=== PATIENT | male | born 1950 | race Caucasian/White ===

== ENCOUNTER → 2016-06-11 | Outpatient (CLI) | payer MEDICARE ==
--- NOTE | 2016-06-11 16:49 | CT ---
EXAMINATION TYPE: CT abdomen pelvis wo con DATE OF EXAM: 06/11/2016 2:51 PM COMPARISON: NONE INDICATION: Pt states of hydronephrosis, hx of kidney stones. DLP: 1055 mGycm, Automated exposure control for dose reduction was used. CONTRAST: None Study performed without Oral Contrast TECHNIQUE: Axial images were obtained from above the diaphragm to the pubic rami in the axial plane a t 5 mm thick sections. Reconstructed images are reviewed on the computer in the coronal plane. FINDINGS: Limited CT sections are obtained the lung bases. There is a masslike area within the posterior right lung base. This area measures 10.0 x 6.5 cm in size. Additional workup for neoplasm is recommended. Other etiologies including atelectasis and pneumonia be considered. CT ABDOMEN: Liver: Normal Spleen: Normal Pancreas: Normal Adrenal glands: The adrenal glands are normal. Gallbladder: Normal Kidneys: There is a 0.9 cm calcification within the proximal right ureter. There is mild right hydron ephrosis.. No discrete renal masses are evident. Exam is limited without contrast. No cysts are prese nt. Aorta: Vascular calcification is within the aorta. Inferior vena cava: Normal. CT PELVIS: Loops of bowel within the abdomen and pelvis are normal. Study is without oral contrast limiting the evaluation Appendix: Normal as visualized. Urinary bladder: 2 small calcifications are within the inferior left urinary bladder represent recent passage of stones. Distal left ureteral stones at the ureterovesical junction is considered less lik elio. Genitourinary structures: Prostate is slightly prominent Osseous structures: No suspicious lytic or sclerotic lesions. Degenerative disc changes are within th e lumbar spine IMPRESSIONS: 1. Suspicious masslike area inferior posterior right lung base. Workup for neoplasm is recommended. Other etiologies are not excluded this time. This was reported April 2016. 2. Obstructing 0.9 cm right ureteral stone proximal right ureter. There is a right hydronephrosis. 3. 2 small calcifications in the left urinary bladder
== END | disposition home or self-care (01) ==
LOC: RADCTMAIN 14:20
PROVIDERS: ATTEND Urology
DX: N13.2 Hydronephrosis with renal and ureteral calculous obstruction (principal); N32.89 Other specified disorders of bladder
CPT/HCPCS: 74176

== ENCOUNTER → 2016-06-18 | Outpatient (CLI) | payer MEDICARE ==
--- NOTE | 2016-06-18 13:55 | XR ---
EXAMINATION TYPE: XR KUB DATE OF EXAM: 06/18/2016 1:46 PM COMPARISON: CT 06/11/2016 HISTORY: Pain and hydronephrosis FINDINGS: The osseous structures are intact. The bowel gas pattern is nonspecific. Hypertrophic and degenerative change of the spine. Calcification measuring approximately 1 cm adjacen t to the right transverse process of L3. Arthropathy of the hips and calcifications in the left pelvis likely vascular. Findings suggest mild sacroiliitis. IMPRESSION: 1. Nonspecific abdomen. 2. Probable midureteral right renal calculus measuring 1 cm
== END | disposition home or self-care (01) ==
LOC: RADXRMAIN 13:29
PROVIDERS: ATTEND Urology
DX: N20.1 Calculus of ureter (principal)
CPT/HCPCS: 74000

== ENCOUNTER 2016-06-19 14:47 | Inpatient (IN) | payer MEDICARE ==
[2016-06-19] MEDS ORDERED: ACETAMINOPHEN TAB 500 MG TAB PO STA (16:04)
--- NOTE | 2016-06-19 16:08 | ED ---
General Adult HPI - General Chief complaint: Fever Stated complaint: fever/chills/cough Time Seen by Provider: 06/19/16 15:53 Source: patient, family, RN notes reviewed Mode of arrival: ambulatory Limitations: no limitations - History of Present Illness Initial comments: Patient is a 66-year-old male who presents emergency room today with a chief complaint of a fever with cough congestion over the last month. He does admit that symptoms started approximately a month ago. He states he was on Levaquin. He states this does not seem to do an informed. He states he went to [place]. [facility] they're given antibiotics for 2 weeks. She states she did feel better when he was on these antibiotics. He states that he's been off of them again the symptoms seemed to increase with cough congestion and increased rhinorrhea. Does make to cough with positive sputum production as been yellow in color. States he did have CAT scan done of his chest showed a mass and lymph nodes around lungs. States he is scheduled to have a biopsy performed by Dr. Oropeza in one week. Patient does admit that over the week and his symptoms seemed to increase with having fevers chills or body aches. He denies any other complaints or symptoms. Patient denies any shortness of breath, chest pain, back pain, abdominal pain, nausea or vomiting, numbness or tingling, dysuria or hematuria, constipation or diarrhea, headaches or visual changes, or any other complaints. - Related Data Home Medications Medication Instructions Recorded Confirmed Aspirin 81 mg PO DAILY 11/26/14 06/19/16 Atorvastatin [Lipitor] 20 mg PO HS 11/26/14 06/19/16 Bisoprolol-Hctz 5-6.25 mg [Ziac 1 tab PO DAILY 11/26/14 06/19/16 5-6.25] Doxazosin [Cardura] 4 mg PO BID 11/26/14 06/19/16 Levofloxacin [Levaquin] 500 mg PO DAILY 06/19/16 06/19/16 Moexipril HCl [Univasc] 15 mg PO BID 06/19/16 06/19/16 Multivitamins, Thera [Multivitamin] 1 tab PO DAILY 06/19/16 06/19/16 Allergies Allergy/AdvReac Type Severity Reaction Status Date / Time Penicillins Allergy Swelling Verified 06/19/16 15:19 Review of Systems ROS Statement: Those systems with pertinent positive or pertinent negative responses have been documented in the HPI. ROS Other: All systems not noted in ROS Statement are negative. Past Medical History Past Medical History: Hyperlipidemia, Hypertension, Prostate Disorder Additional Past Medical History / Comment(s): lymph nodes around heart and mass in lungs, to have biopsy jun 2016 History of Any Multi-Drug Resistant Organisms: None Reported Past Surgical History: Orthopedic Surgery Additional Past Surgical History / Comment(s): cateract arthroscopy nigel feet Past Psychological History: No Psychological Hx Reported Smoking Status: Current every day smoker Past Alcohol Use History: None Reported Past Drug Use History: None Reported General Exam - General Exam Comments Initial Comments: General: The patient is awake and alert, in no distress, and does not appear acutely ill. Eye: Pupils are equal, round and reactive to light, extra-ocular movements are intact. No nystagmus. There is normal conjunctiva bilaterally. No signs of icterus. Ears, nose, mouth and throat: There are moist mucous membranes and no oral lesions. Neck: The neck is supple, there is no tenderness or JVD. Cardiovascular: There is a regular rate and rhythm. No murmur, rub or gallop is appreciated. Respiratory: Lungs are clear to auscultation, respirations are non-labored, breath sounds are equal. No wheezes, stridor, rales, or rhonchi. Gastrointestinal: Soft, non-distended, non-tender abdomen without masses or organomegaly noted. There is no rebound or guarding present. No CVA tenderness. Bowel sounds are unremarkable. Musculoskeletal: Normal ROM, no tenderness. Strength 5/5. Sensation intact. Pulses equal bilaterally 2+. Neurological: A&O x 3. CN II-XII intact, There are no obvious motor or sensory deficits. Coordination appears grossly intact. Speech is normal. Skin: Skin is warm and dry and no rashes or lesions are noted. Psychiatric: Cooperative, appropriate mood & affect, normal judgment. Limitations: no limitations Course Vital Signs 06/19/16 06/19/16 06/19/16 15:10 16:09 17:37 Temperature 101.3 F H Pulse Rate 93 90 Respiratory 18 20 20 Rate Blood Pressure 129/60 108/55 O2 Sat by Pulse 93 L 94 L Oximetry Medical Decision Making - Medical Decision Making Patient reexamined at this time shows no signs of distress. Patient's labs reviewed and shows a 13,000 white count. Negative lactic acid. Patient's fever elevated here in the emergency room 11.3F at triage. Patient has been on 3 rounds of antibiotics for cough congestion. Currently on second round of Levaquin. States no improvement. Recent CTs were reviewed showing lymphadenopathy and mass in the right side. Patient's chest x-ray shows patchy infiltrate. Patient will be admitted*on antibiotics. Does have a penicillin ALLERGY. Will be given Rocephin and azithromycin. - Lab Data Result diagrams: 06/19/16 15:39 06/19/16 15:39 Lab Results 06/19/16 06/19/16 06/19/16 Range/Units 15:39 15:39 15:39 WBC 13.0 H (3.8-10.6) k/uL RBC 4.97 (4.30-5.90) m/uL Hgb 15.6 (13.0-17.5) gm/dL Hct 44.9 (39.0-53.0) % MCV 90.4 (80.0-100.0) fL MCH 31.3 (25.0-35.0) pg MCHC 34.7 (31.0-37.0) g/dL RDW 13.3 (11.5-15.5) % Plt Count 189 (150-450) k/uL Neutrophils % 84 % Lymphocytes % 7 % Monocytes % 7 % Eosinophils % 0 % Basophils % 0 % Neutrophils # 11.0 H (1.3-7.7) k/uL Lymphocytes # 0.8 L (1.0-4.8) k/uL Monocytes # 0.9 (0-1.0) k/uL Eosinophils # 0.1 (0-0.7) k/uL Basophils # 0.0 (0-0.2) k/uL PT (9.0-12.0) sec INR (<1.1) APTT (22.0-30.0) sec Sodium 138 (137-145) mmol/L Potassium 4.0 (3.5-5.1) mmol/L Chloride 102 (98-107) mmol/L Carbon Dioxide 23 (22-30) mmol/L Anion Gap 13 mmol/L BUN 24 H (9-20) mg/dL Creatinine 1.40 H (0.66-1.25) mg/dL Est GFR (MDRD) Af Amer >60 (>60 ml/min/1.73 sqM) Est GFR (MDRD) Non-Af 50 (>60 ml/min/1.73 sqM) Glucose 102 H (74-99) mg/dL Plasma Lactic Acid Livan (0.7-2.0) mmol/L Calcium 8.8 (8.4-10.2) mg/dL Total Bilirubin 1.5 H (0.2-1.3) mg/dL AST 30 (17-59) U/L ALT 37 (21-72) U/L Alkaline Phosphatase 98 (38-126) U/L Total Creatine Kinase 152 (55-170) U/L CK-MB (CK-2) 0.7 (0.0-2.4) ng/mL CK-MB (CK-2) Rel Index 0.5 Troponin I <0.012 (0.000-0.034) ng/mL Total Protein 7.0 (6.3-8.2) g/dL Albumin 3.7 (3.5-5.0) g/dL Cortisol 22 ug/dL Urine Color Urine Appearance (Clear) Urine pH (5.0-8.0) Ur Specific [place] (1.001-1.035) Urine Protein (Negative) Urine Glucose (UA) (Negative) Urine Ketones (Negative) Urine Blood (Negative) Urine Nitrate (Negative) Urine Bilirubin (Negative) Urine Urobilinogen (<2.0) mg/dL Ur Leukocyte Esterase (Negative) Urine RBC (0-5) /hpf Urine WBC (0-5) /hpf Urine Bacteria (None) /hpf Hyaline Casts (0-2) /lpf Urine Mucus (None) /hpf Influenza Type A RNA (Not Detectd) Influenza Type B (PCR) (Not Detectd) 06/19/16 06/19/16 06/19/16 Range/Units 15:39 15:39 15:39 WBC (3.8-10.6) k/uL RBC (4.30-5.90) m/uL Hgb (13.0-17.5) gm/dL Hct (39.0-53.0) % MCV (80.0-100.0) fL MCH (25.0-35.0) pg MCHC (31.0-37.0) g/dL RDW (11.5-15.5) % Plt Count (150-450) k/uL Neutrophils % % Lymphocytes % % Monocytes % % Eosinophils % % Basophils % % Neutrophils # (1.3-7.7) k/uL Lymphocytes # (1.0-4.8) k/uL Monocytes # (0-1.0) k/uL Eosinophils # (0-0.7) k/uL Basophils # (0-0.2) k/uL PT 11.7 (9.0-12.0) sec INR 1.2 (<1.1) APTT 26.5 (22.0-30.0) sec Sodium (137-145) mmol/L Potassium (3.5-5.1) mmol/L Chloride (98-107) mmol/L Carbon Dioxide (22-30) mmol/L Anion Gap mmol/L BUN (9-20) mg/dL Creatinine (0.66-1.25) mg/dL Est GFR (MDRD) Af Amer (>60 ml/min/1.73 sqM) Est GFR (MDRD) Non-Af (>60 ml/min/1.73 sqM) Glucose (74-99) mg/dL Plasma Lactic Acid Livan 1.1 (0.7-2.0) mmol/L Calcium (8.4-10.2) mg/dL Total Bilirubin (0.2-1.3) mg/dL AST (17-59) U/L ALT (21-72) U/L Alkaline Phosphatase (38-126) U/L Total Creatine Kinase (55-170) U/L CK-MB (CK-2) (0.0-2.4) ng/mL CK-MB (CK-2) Rel Index Troponin I (0.000-0.034) ng/mL Total Protein (6.3-8.2) g/dL Albumin (3.5-5.0) g/dL Cortisol ug/dL Urine Color Yellow Urine Appearance Clear (Clear) Urine pH 5.5 (5.0-8.0) Ur Specific [place] 1.018 (1.001-1.035) Urine Protein 1+ H (Negative) Urine Glucose (UA) Negative (Negative) Urine Ketones Negative (Negative) Urine Blood Negative (Negative) Urine Nitrate Negative (Negative) Urine Bilirubin Negative (Negative) Urine Urobilinogen <2.0 (<2.0) mg/dL Ur Leukocyte Esterase Trace H (Negative) Urine RBC 1 (0-5) /hpf Urine WBC 6 H (0-5) /hpf Urine Bacteria Rare H (None) /hpf Hyaline Casts 1 (0-2) /lpf Urine Mucus Rare H (None) /hpf Influenza Type A RNA (Not Detectd) Influenza Type B (PCR) (Not Detectd) 06/19/16 Range/Units 16:14 WBC (3.8-10.6) k/uL RBC (4.30-5.90) m/uL Hgb (13.0-17.5) gm/dL Hct (39.0-53.0) % MCV (80.0-100.0) fL MCH (25.0-35.0) pg MCHC (31.0-37.0) g/dL RDW (11.5-15.5) % Plt Count (150-450) k/uL Neutrophils % % Lymphocytes % % Monocytes % % Eosinophils % % Basophils % % Neutrophils # (1.3-7.7) k/uL Lymphocytes # (1.0-4.8) k/uL Monocytes # (0-1.0) k/uL Eosinophils # (0-0.7) k/uL Basophils # (0-0.2) k/uL PT (9.0-12.0) sec INR (<1.1) APTT (22.0-30.0) sec Sodium (137-145) mmol/L Potassium (3.5-5.1) mmol/L Chloride (98-107) mmol/L Carbon Dioxide (22-30) mmol/L Anion Gap mmol/L BUN (9-20) mg/dL Creatinine (0.66-1.25) mg/dL Est GFR (MDRD) Af Amer (>60 ml/min/1.73 sqM) Est GFR (MDRD) Non-Af (>60 ml/min/1.73 sqM) Glucose (74-99) mg/dL Plasma Lactic Acid Livan (0.7-2.0) mmol/L Calcium (8.4-10.2) mg/dL Total Bilirubin (0.2-1.3) mg/dL AST (17-59) U/L ALT (21-72) U/L Alkaline Phosphatase (38-126) U/L Total Creatine Kinase (55-170) U/L CK-MB (CK-2) (0.0-2.4) ng/mL CK-MB (CK-2) Rel Index Troponin I (0.000-0.034) ng/mL Total Protein (6.3-8.2) g/dL Albumin (3.5-5.0) g/dL Cortisol ug/dL Urine Color Urine Appearance (Clear) Urine pH (5.0-8.0) Ur Specific [place] (1.001-1.035) Urine Protein (Negative) Urine Glucose (UA) (Negative) Urine Ketones (Negative) Urine Blood (Negative) Urine Nitrate (Negative) Urine Bilirubin (Negative) Urine Urobilinogen (<2.0) mg/dL Ur Leukocyte Esterase (Negative) Urine RBC (0-5) /hpf Urine WBC (0-5) /hpf Urine Bacteria (None) /hpf Hyaline Casts (0-2) /lpf Urine Mucus (None) /hpf Influenza Type A RNA Not Detected (Not Detectd) Influenza Type B (PCR) Not Detected (Not Detectd) Disposition Clinical Impression: Community acquired pneumonia Disposition: ADMITTED IP TO THIS HOSP Condition: Stable Time of Disposition: 18:07
[2016-06-19 16:27] LABS: Basophils % (A) 0 %; CH 31.3; CHCM 34.8; Eosinophils # (A) 0.1 k/uL (0-0.7); Eosinophils % (A) 0 %; HCT 44.9 % (39.0-53.0); HDW 2.76; HGB 15.6 gm/dL (13.0-17.5); Luc # (Auto) 0.25; Luc % (Auto) 2; Lymphocytes # (A) 0.8 k/uL (1.0-4.8); Lymphocytes % (A) 7 %; MCH 31.3 pg (25.0-35.0); MCHC 34.7 g/dL (31.0-37.0); MCV 90.4 fL (80.0-100.0); Mean Platelet Volume 7.3; Monocytes # (A) 0.9 k/uL (0-1.0); Monocytes % (A) 7 %; Neutrophils % (A) 84 %; RBC 4.97 m/uL (4.30-5.90); RDW 13.3 % (11.5-15.5); WBC (Perox) 13.96
[2016-06-19 16:32] LABS: Appearance,Urine Clear (Clear); Bacteria,Urine Rare /hpf; Bilirubin,Urine Negative (Negative); Glucose,Urine (UA) Negative (Negative); Ketones,Urine Negative (Negative); Leukocyte Esterase,Urine Trace (Negative); Mucus,Urine Rare /hpf; Nitrite,Urine Negative (Negative); PH, Urine 5.5 (5.0-8.0); Particle Count 4110; Protein,Urine 1+ (Negative); RBC,Urine 1 /hpf (0-5); Specific Gravity,Urine 1.018 (1.001-1.035); UA Billing (MACRO vs. MICRO) MICRO; Urobilinogen,Urine <2.0 mg/dL (<2.0); WBC,Urine 6 /hpf (0-5)
[2016-06-19 16:36] LABS: INR 1.2 (<1.1); Partial Thromboplastin Time 26.5 sec (22.0-30.0); Prothrombin Time 11.7 sec (9.0-12.0)
[2016-06-19 16:39] LABS: Creatine Kinase 152 U/L (55-170)
[2016-06-19 16:40] LABS: ALT 37 U/L (21-72); AST 30 U/L (17-59); Alkaline Phosphatase 98 U/L (38-126); Anion Gap 13 mmol/L; Blood Urea Nitrogen 24 mg/dL (9-20); Calcium 8.8 mg/dL (8.4-10.2); Carbon Dioxide 23 mmol/L (22-30); Chloride 102 mmol/L (98-107); Glucose 102 mg/dL (74-99); Non-African American GFR(MDRD) 50 (>60 ml/min/1.73 sqM); Sodium 138 mmol/L (137-145); Total Bilirubin 1.5 mg/dL (0.2-1.3)
[2016-06-19 16:53] LABS: Creatine Kinase MB 0.7 ng/mL (0.0-2.4); Troponin I <0.012 ng/mL (0.000-0.034)
--- NOTE | 2016-06-19 17:22 | XR ---
EXAMINATION TYPE: XR chest 2V DATE OF EXAM: 06/19/2016 5:16 PM HISTORY: Cough. REFERENCE: Previous study dated 12/23/2014. FINDINGS: The lungs are overinflated. The heart is not enlarged. There is patchy bilateral airspace disease. There is blunting of the right CP angle. IMPRESSION: 1. PATCHY, BILATERAL AIRSPACE DISEASE LIKELY REPRESENTS EARLY PNEUMONIA. 2. I CANNOT EXCLUDE A SMALL RIGHT-SIDED EFFUSION. 3. COPD.
[2016-06-19] MEDS ORDERED: PNEUMONIA PROTOCOL UTILIZED 1 EACH MISC PO PRN (18:08)
[2016-06-19] MEDS ORDERED: AZITHROMYCIN 500 MG in SODIUM CHLORIDE 0.9% 250 ML IVPB STA (18:08)
[2016-06-19] MEDS ORDERED: SODIUM CHLORIDE 0.9% 1,000 ML IV ONE (18:08)
[2016-06-19] MEDS ORDERED: SODIUM CHLORIDE 0.9% 500 ML IV STA (18:51)
[2016-06-19] MEDS ORDERED: SODIUM CHLORIDE 0.9% 1,000 ML IV STA (18:51)
[2016-06-19 21:06] VITALS: BMI 37.5
[2016-06-19 21:38] LABS: Creatine Kinase 267 U/L (55-170)
[2016-06-19 21:51] LABS: Troponin I <0.012 ng/mL (0.000-0.034)
[2016-06-20] MEDS: ACETAMINOPHEN TAB 325 MG TAB PO PRN ×2 (03:00→14:42)
[2016-06-20 04:44] LABS: Creatine Kinase 330 U/L (55-170)
[2016-06-20 04:57] LABS: Creatine Kinase MB 2.2 ng/mL (0.0-2.4); Troponin I <0.012 ng/mL (0.000-0.034)
[2016-06-20] MEDS: MULTIVITAMINS, THERA 1 EACH TAB PO SCH (08:08)
[2016-06-20] MEDS: DOXAZOSIN 4 MG TAB PO SCH ×2 (08:08→20:49)
[2016-06-20] MEDS: BISOPROLOL-HCTZ 5-6.25 MG 1 EACH TAB PO SCH (08:08)
[2016-06-20] MEDS: ASPIRIN 81 MG CHEW PO SCH (08:09)
[2016-06-20 08:29] LABS: Basophils # (A) 0.1 k/uL (0-0.2); Basophils % (A) 0 %; CH 31.2; CHCM 33.7; Eosinophils % (A) 0 %; HCT 41.7 % (39.0-53.0); HDW 2.77; Luc # (Auto) 0.17; Luc % (Auto) 2; Lymphocytes # (A) 0.7 k/uL (1.0-4.8); Lymphocytes % (A) 6 %; MCH 31.3 pg (25.0-35.0); MCHC 33.7 g/dL (31.0-37.0); MCV 92.9 fL (80.0-100.0); Mean Platelet Volume 8.5; Monocytes # (A) 0.9 k/uL (0-1.0); Monocytes % (A) 9 %; Neutrophils # (A) 8.6 k/uL (1.3-7.7); Neutrophils % (A) 83 %; RBC 4.48 m/uL (4.30-5.90); RDW 13.4 % (11.5-15.5); WBC 10.4 k/uL (3.8-10.6); WBC (Perox) 11.09
[2016-06-20 08:41] LABS: Anion Gap 11 mmol/L; Blood Urea Nitrogen 22 mg/dL (9-20); Calcium 8.4 mg/dL (8.4-10.2); Carbon Dioxide 23 mmol/L (22-30); Chloride 107 mmol/L (98-107); Glucose 117 mg/dL (74-99); Non-African American GFR(MDRD) 52 (>60 ml/min/1.73 sqM); Sodium 141 mmol/L (137-145)
[2016-06-20] MEDS ORDERED: LISINOPRIL 20 MG TAB PO SCH (09:00)
--- NOTE | 2016-06-20 11:11 | P.CNPUL ---
History of Present Illness Consult date: 06/20/16 Reason for consult: dyspnea, cough, pneumonia Chief complaint: Shortness of breath with fever and chills History of present illness: This is a 66-year-old gentleman who was scheduled for a electromagnetic navigational bronchoscopy with Dr. Oropeza next week on Friday. He came into the emergency department complaining of increasing shortness of breath chest congestion cough phlegm production. Hasn't been feeling well for a couple days at least and his exit been going on bit longer. He states he was placed on Levaquin by one of the doctors and down again was scheduled to be have a bronchoscopy next week with Dr. Oropeza. Anyway the patient is still complaining of chest congestion and cough. Coughing up some phlegm. Does have yellow-green color to it. The patient did have fever. His temperature was more than 100. In addition, he does have some tightness in his chest and mild wheezing. He apparently had a CAT scan which showed some adenopathy in his chest which is why she's having them electromagnetic navigational bronchoscopy. I did tell him that Dr. Gonzalez would not do the procedure if he was ill. Review of Systems 12 point review of system as well as fever chills cough phlegm production chest congestion and mild difficulty breathing. The rest of the 12 point review of system is unremarkable. Past Medical History Past Medical History: Hyperlipidemia, Hypertension, Prostate Disorder Additional Past Medical History / Comment(s): lymph nodes around heart and mass in lungs, to have biopsy jun 2016 History of Any Multi-Drug Resistant Organisms: None Reported Past Surgical History: Orthopedic Surgery Additional Past Surgical History / Comment(s): cateract arthroscopy, nigel feet, colonoscopy Past Psychological History: No Psychological Hx Reported Smoking Status: Former smoker Past Alcohol Use History: None Reported Past Drug Use History: None Reported Medications and Allergies Home Medications Medication Instructions Recorded Confirmed Type Aspirin 81 mg PO DAILY 11/26/14 06/19/16 History Atorvastatin [Lipitor] 20 mg PO HS 11/26/14 06/19/16 History Bisoprolol-Hctz 5-6.25 mg [Ziac 1 tab PO DAILY 11/26/14 06/19/16 History 5-6.25] Doxazosin [Cardura] 4 mg PO BID 11/26/14 06/19/16 History Levofloxacin [Levaquin] 500 mg PO DAILY 06/19/16 06/19/16 History Moexipril HCl [Univasc] 15 mg PO BID 06/19/16 06/19/16 History Multivitamins, Thera [Multivitamin] 1 tab PO DAILY 06/19/16 06/19/16 History Allergies Allergy/AdvReac Type Severity Reaction Status Date / Time Penicillins Allergy Swelling Verified 06/19/16 15:19 Physical Exam Osteopathic Statement: *. No significant issues noted on an osteopathic structural exam other than those noted in the History and Physical/Consult. Vitals: Vital Signs Temp Pulse Pulse Resp BP BP Pulse Ox 06/20/16 07:00 98.2 F 86 18 137/75 92 L 06/20/16 03:30 99.5 F 06/20/16 03:01 101.4 F H 06/19/16 23:00 101.0 F H 94 18 143/80 93 L 06/19/16 20:55 98.6 F 87 16 130/70 95 06/19/16 19:30 99.5 F 78 18 120/61 95 06/19/16 19:06 99.5 F 86 18 118/56 98 Intake and Output 06/19/16 06/20/16 06/20/16 22:59 06:59 14:59 Other: Voiding Method Toilet # Voids 1 1 Weight 121 kg No acute distress, oriented 3. Nasal O2 in place. HEENT examination is grossly unremarkable. Mucous membranes are moist. No oral lesions. Nasal prongs in place. Supple. Full range of motion. No adenopathy or thyromegaly. Cardiovascular examination reveals regular rhythm rate. S1-S2 normal. No S3- S4 or murmur. Lungs reveal few scattered coarse rhonchi. Breath sounds diminished. No wheezes. No crackles. Breath sounds are diminished bilaterally. Abdomen soft bowel sounds are heard Extremities are intact. Results - Laboratory Findings CBC and BMP: 06/20/16 04:05 06/20/16 04:05 PT/INR, D-dimer PT 11.7 sec (9.0-12.0) 06/19/16 15:39 INR 1.2 (<1.1) 06/19/16 15:39 Abnormal lab findings: Abnormal Labs 06/19/16 06/20/16 06/20/16 21:10 04:05 04:05 Neutrophils # 8.6 H Lymphocytes # 0.7 L BUN 22 H Creatinine 1.37 H Glucose 117 H Total Creatine Kinase 267 H 06/20/16 04:08 Neutrophils # Lymphocytes # BUN Creatinine Glucose Total Creatine Kinase 330 H - Diagnostic Findings Chest x-ray: image reviewed (Chest x-ray labs and medications are reviewed) Assessment and Plan (1) Community acquired pneumonia Status: Acute Plan: Plan Patient will be reviewed. Additional recommendations suggestions are forthcoming. He will stay on the schedule for his navigational bronchoscopy next week. Hopefully we'll get him well enough members so that he can be discharged by the end of the week or by the weekend. Additional recommendations suggestions are forthcoming. Time with Patient: Greater than 30
[2016-06-20] MEDS: LEVOFLOXACIN 500 MG TAB PO SCH (12:24)
[2016-06-20] MEDS: FAMOTIDINE 20 MG TAB PO SCH (12:24)
--- NOTE | 2016-06-20 14:13 | XR ---
EXAMINATION TYPE: XR chest 2V DATE OF EXAM: 06/20/2016 2:07 PM COMPARISON: 06/19/16 HISTORY: Shortness of breath TECHNIQUE: Frontal and lateral views of the chest are obtained. FINDINGS: Scattered senescent parenchymal changes noted. Hyperinflation compatible with COPD. No evidence for infiltrate. No evidence for atelectasis. Focal Eventration right hemidiaphragm. Heart size is stable. Mediastinal structures are stable and grossly unremarkable. No evidence for hilar prominence. Degenerative changes dorsal spine. IMPRESSION: 1. No evidence for acute pulmonary disease.
--- NOTE | 2016-06-20 14:37 | P.HPIM ---
History of Present Illness H&P Date: 06/20/16 Chief Complaint: Fevers, cough, generalized weakness Patient is 66-year-old male, patient of Dr. Escoto in the outpatient setting, with medical history significant for hyperlipidemia, hypertension, BPH, nephrolithiasis, suspicious masslike area inferior posterior right lung base reported on CAT scan in April 2016, chronic back pain with radiculopathy to right lower extremity and paresthesia to bilateral hands. Patient presented to the emergency department with complaints of fevers, purulent cough, sweats, chills, and fatigue. Patient states that he hasn't been feeling well since the week before [place] and has been on 3 different rounds of antibiotics. Patient states he sees Dr. Oropeza in in the outpatient setting and is scheduled for a lung needle biopsy next week. Patient states that he sees Dr. Jhaveri for chronic back pain and recently had an MRI in April that showed "narrowing of his spine." Chest x-ray in the emergency department with evidence of patchy, bilateral airspace disease likely representing early pneumonia with possible small right-sided effusion and COPD. EKG normal sinus rhythm. Admission vitals with evidence of elevated temperature of 101 with oxygen saturation 93% on room air. Admission labs with evidence of leukocytosis with WBC of 13, acute kidney injury with creatinine of 1.4, troponins negative 3. Patient was started on IV antibiotics in the form of Zithromax and ceftriaxone. Patient had RT been started on Levaquin as an outpatient. Patient was admitted to the medical floor with consult to Dr. Mehta for pulmonary service. Upon examination, patient states he's feeling a little better. Patient continues to complain of cough chills and sweats. Denies nausea, vomiting, shortness of breath, chest pain, abdominal pain, leg swelling, hematuria, dysuria, or urgency. Patient reports chronic numbness to his right ring and little finger and left middle and ring finger. Patient reports chronic lower back pain with numbness and tingling to his posterior left leg ending just before his knee. Patient states that occasionally the numbness will wrap around his knee and extend to his right ankle. Patient denies urinary incontinence, fecal incontinence, or saddle anesthesia. T-max the last 24 hours 101.4 at 3 AM last night. A.m. labs WBC improved to 10.4, creatinine improved to 1.37. Past Medical History Past Medical History: Hyperlipidemia, Hypertension, Prostate Disorder Additional Past Medical History / Comment(s): lymph nodes around heart and mass in lungs, to have biopsy jun 2016 History of Any Multi-Drug Resistant Organisms: None Reported Past Surgical History: Orthopedic Surgery Additional Past Surgical History / Comment(s): cateract arthroscopy, nigel feet, colonoscopy Past Psychological History: No Psychological Hx Reported Smoking Status: Former smoker Past Alcohol Use History: None Reported Past Drug Use History: None Reported Medications and Allergies Home Medications Medication Instructions Recorded Confirmed Type Aspirin 81 mg PO DAILY 11/26/14 06/19/16 History Atorvastatin [Lipitor] 20 mg PO HS 11/26/14 06/19/16 History Bisoprolol-Hctz 5-6.25 mg [Ziac 1 tab PO DAILY 11/26/14 06/19/16 History 5-6.25] Doxazosin [Cardura] 4 mg PO BID 11/26/14 06/19/16 History Levofloxacin [Levaquin] 500 mg PO DAILY 06/19/16 06/19/16 History Moexipril HCl [Univasc] 15 mg PO BID 06/19/16 06/19/16 History Multivitamins, Thera [Multivitamin] 1 tab PO DAILY 06/19/16 06/19/16 History Allergies Allergy/AdvReac Type Severity Reaction Status Date / Time Penicillins Allergy Swelling Verified 06/19/16 15:19 Physical Exam Vitals: Vital Signs Temp Pulse Pulse Resp BP BP Pulse Ox 06/20/16 07:00 98.2 F 86 18 137/75 92 L 06/20/16 03:30 99.5 F 06/20/16 03:01 101.4 F H 06/19/16 23:00 101.0 F H 94 18 143/80 93 L 06/19/16 20:55 98.6 F 87 16 130/70 95 06/19/16 19:30 99.5 F 78 18 120/61 95 06/19/16 19:06 99.5 F 86 18 118/56 98 Intake and Output 06/19/16 06/20/16 06/20/16 22:59 06:59 14:59 Other: Voiding Method Toilet # Voids 1 1 Weight 121 kg GENERAL: Pt awake and alert, well-appearing, well-nourished, and in no acute distress. HEAD: Atraumatic, normocephalic. EYES: Pupils equal, round, and reactive to light, extraocular movements intact, sclera anicteric, conjunctiva are normal. ENT: Oropharynx clear without exudates. Moist mucous membranes. NECK:Supple without lymphadenopathy or JVD. LUNGS: Breath sounds diminished with faint expiratory wheeze to right posterior upper and lower left lobe. HEART: Heart S1, S2, no S3 or S4. Regular rate and rhythm. No murmurs, rubs or gallops. ABDOMEN: Soft, obese, nontender, nondistended, normoactive bowel sounds. No guarding, no rebound. EXTREMITIES: 2+ peripheral pulses. No edema. No calf tenderness. NEUROLOGICAL: Pt oriented x 3. Cranial nerves II through XII grossly intact. Strength and sensation grossly intact. PSYCH: Normal mood, normal affect. SKIN: Warm, dry, intact. Normal turgor. No rashes or lesions. Results CBC & Chem 7: 06/20/16 04:05 06/20/16 04:05 Labs: Abnormal Lab Results - Last 24 Hours (Table) 06/19/16 06/20/16 06/20/16 Range/Units 21:10 04:05 04:05 Neutrophils # 8.6 H (1.3-7.7) k/uL Lymphocytes # 0.7 L (1.0-4.8) k/uL BUN 22 H (9-20) mg/dL Creatinine 1.37 H (0.66-1.25) mg/dL Glucose 117 H (74-99) mg/dL Total Creatine Kinase 267 H (55-170) U/L 06/20/16 Range/Units 04:08 Neutrophils # (1.3-7.7) k/uL Lymphocytes # (1.0-4.8) k/uL BUN (9-20) mg/dL Creatinine (0.66-1.25) mg/dL Glucose (74-99) mg/dL Total Creatine Kinase 330 H (55-170) U/L Microbiology - Last 24 Hours (Table) 06/19/16 23:00 Gram Stain - Preliminary Sputum Sputum Culture - Preliminary Chest x-ray: report reviewed Thrombosis Risk Factor Assmnt - DVT/VTE Prophylaxis DVT/VTE Prophylaxis: Pharmacologic Prophylaxis ordered, Mechanical Prophylaxis ordered - Choose All That Apply Any of the Below Risk Factors Present?: Yes Each Factor Represents 1 point: Abnormal pulmonary function (COPD), Obesity ( BMI >25) Other Risk Factors: Yes Each Risk Factor Represents 2 Points: Age 61-74 years Thrombosis Risk Factor Assessment Total Risk Factor Score: 4 Thrombosis Risk Factor Assessment Level: Moderate Risk Assessment and Plan Plan: Impression and plan: 1. Sepsis suspect secondary to community-acquired pneumonia. Chest x-ray with patchy bilateral airspace disease. Pulmonary service has seen and evaluated patient, recommendations reviewed. 2. History of masslike area within posterior right lower lung base suspicious for neoplasm, with other etiologies including atelectasis or pneumonia per CT report of 06/11/2016. Patient scheduled for bronchoscopy in the outpatient in June. 3. Acute kidney injury, suspect secondary to sepsis and intravascular hypovolemia. Creatinine 1.37 from 1.4 yesterday. Continue IV hydration. 4. Hyperlipidemia. Continue Lipitor. 5. Hypertension. Continue lisinopril and Ziac. 6. BPH. Continue Cardura. 7. Nephrolithiasis. Patient follows with Dr. Baer in the outpatient setting. 8. Chronic back pain with radiculopathy. Patient follows with Dr. Jhaveri in the outpatient setting. 9. History of nicotine dependence. 10. DVT prophylaxis. Continue heparin subcu and pneumatic compression sleeves to bilateral lower extremities. 11. GI prophylaxis. Continue Pepcid. Continue to monitor patient. Continue IV antibiotics. Continue GI and DVT prophylaxis. Continue to follow with pulmonary service. Repeat CBC and BMP in a.m. The above impression and plan have been discussed and directed by Dr. Arcos. Kvng SAUNDERS acting as scribe for Dr. Arcos.
[2016-06-20] MEDS: IBUPROFEN 400 MG TAB PO PRN (16:56)
[2016-06-20] MEDS: HEPARIN SODIUM,PORCINE 5,000 UNIT/ML 1 ML VIAL SQ SCH (16:57)
[2016-06-20] MEDS ORDERED: AZITHROMYCIN 500 MG TAB PO SCH (18:00)
[2016-06-20] MEDS ORDERED: LEVOFLOXACIN 500MG-D5W PMX 500 MG in DEXTROSE/WATER 1 100ML.BAG IVPB SCH (20:00)
[2016-06-20] MEDS: ATORVASTATIN 20 MG TAB PO SCH (20:49)
[2016-06-21] MEDS: HEPARIN SODIUM,PORCINE 5,000 UNIT/ML 1 ML VIAL SQ SCH ×4 (02:27→23:51)
[2016-06-21] MEDS: FAMOTIDINE 20 MG TAB PO SCH (08:00)
[2016-06-21] MEDS: BISOPROLOL-HCTZ 5-6.25 MG 1 EACH TAB PO SCH (08:00)
[2016-06-21] MEDS: MULTIVITAMINS, THERA 1 EACH TAB PO SCH (08:00)
[2016-06-21] MEDS: LEVOFLOXACIN 500 MG TAB PO SCH (08:00)
[2016-06-21] MEDS: DOXAZOSIN 4 MG TAB PO SCH ×2 (08:00→20:09)
[2016-06-21] MEDS: ASPIRIN 81 MG CHEW PO SCH (08:05)
[2016-06-21] MEDS ORDERED: IPRATROPIUM-ALBUTEROL 3 ML NEB INHALATION PRN (08:14)
[2016-06-21 09:15] LABS: Basophils % (A) 0 %; CH 31.1; CHCM 33.8; Eosinophils # (A) 0.1 k/uL (0-0.7); Eosinophils % (A) 1 %; HCT 43.5 % (39.0-53.0); HDW 2.89; HGB 14.4 gm/dL (13.0-17.5); Luc # (Auto) 0.19; Luc % (Auto) 3; Lymphocytes # (A) 0.5 k/uL (1.0-4.8); Lymphocytes % (A) 7 %; MCH 30.7 pg (25.0-35.0); MCHC 33.2 g/dL (31.0-37.0); MCV 92.4 fL (80.0-100.0); Mean Platelet Volume 6.5; Monocytes # (A) 0.6 k/uL (0-1.0); Monocytes % (A) 8 %; Neutrophils # (A) 5.9 k/uL (1.3-7.7); Neutrophils % (A) 82 %; RDW 13.4 % (11.5-15.5); WBC 7.2 k/uL (3.8-10.6)
[2016-06-21 09:38] LABS: Anion Gap 13 mmol/L; Blood Urea Nitrogen 16 mg/dL (9-20); Calcium 8.7 mg/dL (8.4-10.2); Carbon Dioxide 23 mmol/L (22-30); Chloride 106 mmol/L (98-107); Glucose 117 mg/dL (74-99); Non-African American GFR(MDRD) >60 (>60 ml/min/1.73 sqM); Potassium 3.9 mmol/L (3.5-5.1); Sodium 142 mmol/L (137-145)
[2016-06-21] MEDS: IPRATROPIUM-ALBUTEROL 3 ML NEB INHALATION SCH ×3 (11:08→19:41)
--- NOTE | 2016-06-21 12:05 | P.PN ---
Subjective Progress note dated 06/21/2016 This is a 66-year-old man scheduled for a electromagnetic navigational bronchoscopy procedure next week by my partner. I believe is going to be done on Friday. He came to the emergency department complaining of increasing shortness of breath chest congestion cough and phlegm production. He was placed on Rocephin and Levaquin. Doing much better today. From my perspective the patient could be discharged home on antibiotics such as Levaquin and Ceftin and have this procedure done next week. I'll allow Dr. Arcos to make that decision. He's feeling much better. He is pretty much back to baseline. Objective - Vital Signs Vital signs: Vital Signs Temp 99.8 F H 06/21/16 07:00 Pulse 112 H 06/21/16 11:21 Resp 16 06/21/16 07:00 BP 132/97 06/21/16 07:00 Pulse Ox 94 L 06/21/16 11:09 Intake & Output 06/20/16 06/21/16 06/21/16 18:59 06:59 18:59 Intake Total 500 825 Balance 500 825 Intake: Intake, IV Titration 500 825 Amount Levofloxacin 500Mg-D5w 100 Pmx 500 mg In Dextrose/ Water 1 100ml.bag @ 100 mls/hr IVPB Q24H [facility] Rx#: [id number] Sodium Chloride 0.9% 1, 825 000 ml @ 75 mls/hr IV . [id number] ONE Rx#:[id number] cefTRIAXone 1,000 mg In 400 Sodium Chloride 0.9% 50 ml @ 100 mls/hr IVPB Q24H [facility] Rx#:[id number] Other: # Voids 2 # Bowel Movements 0 - Exam No acute distress, oriented 3. HEENT examination is grossly unremarkable. Mucous membranes are moist. Neck is supple, full range of motion. No adenopathy or thyromegaly. Cardiovascular examination reveals regular rhythm rate. S1-S2 normal. Lungs are relatively clear. A few scattered rhonchi. No wheezes or crackles. The rest examinations unremarkable and unchanged from yesterday. Supple. Full range of motion. - Labs CBC & Chem 7: 06/21/16 08:45 06/21/16 08:45 Labs: Abnormal Lab Results - Last 24 Hours (Table) 06/21/16 06/21/16 Range/Units 08:45 08:45 Lymphocytes # 0.5 L (1.0-4.8) k/uL Glucose 117 H (74-99) mg/dL Microbiology - Last 24 Hours (Table) 06/19/16 23:00 Gram Stain - Preliminary Sputum Sputum Culture - Preliminary Assessment and Plan (1) Community acquired pneumonia Status: Acute Plan: Plan Patient will be reviewed. Additional recommendations suggestions are forthcoming. He will stay on the schedule for his navigational bronchoscopy next week. Hopefully we'll get him well enough members so that he can be discharged by the end of the week or by the weekend. Additional recommendations suggestions are forthcoming. Plan dated 06/21/2016 The patient's feeling better. Currently on Levaquin and Rocephin. He could stay another day or so or to be discharged home. I think she'll be well enough to have his bronchoscopy performed on Friday by my partner. Additional recommendations suggestions are forthcoming. We'll allow the primary make a decision about discharge her continued inpatient treatment. Time with Patient: Less than 30
[2016-06-21] MEDS: ACETAMINOPHEN TAB 325 MG TAB PO PRN (15:11)
[2016-06-21] MEDS: IBUPROFEN 400 MG TAB PO PRN (16:11)
--- NOTE | 2016-06-21 17:08 | P.PN ---
Subjective Principal diagnosis: Infiltrate, possible neoplasm cough and intermittent fever patient is markedly improved, no bacterial identified on sputum Patient feels better is coughing less complains of intermittent fever otherwise a markedly improved anticipate discharge home tomorrow change to oral Levaquin and will change to an oral cephalosporin tomorrow and discharge home tomorrow Objective - Vital Signs Vital signs: Vital Signs Temp 99.3 F 06/21/16 16:58 Pulse 104 H 06/21/16 16:04 Resp 18 06/21/16 15:00 BP 123/72 06/21/16 15:00 Pulse Ox 92 L 06/21/16 15:00 Intake & Output 06/20/16 06/21/16 06/21/16 18:59 06:59 18:59 Intake Total 500 825 Balance 500 825 Intake: Intake, IV Titration 500 825 Amount Levofloxacin 500Mg-D5w 100 Pmx 500 mg In Dextrose/ Water 1 100ml.bag @ 100 mls/hr IVPB Q24H [facility] Rx#: [id number] Sodium Chloride 0.9% 1, 825 000 ml @ 75 mls/hr IV . [id number] ONE Rx#:[id number] cefTRIAXone 1,000 mg In 400 Sodium Chloride 0.9% 50 ml @ 100 mls/hr IVPB Q24H [facility] Rx#:[id number] Other: # Voids 2 3 # Bowel Movements 0 - Exam General: [Patient awake, alert and oriented times 3. Patient in no acute distress.] HEENT: [PERRL. EOMI. No pharyngeal erythema or exudate.] Neck: [No adenopathy.] Cardiac: [Heart regular in rate and rhythm. No S3. No S4. No clicks, rubs. No murmur.] Lungs: [Clear to auscultation bilaterally. Sounds improved fine bibasilar crackles Abdomen: [No mass. No organomegaly. Bowel sounds presnt and normoactive in all 4 quadrants.] Extremes: [No edema no cyanosis no claudication normal pulses] : [] Musculoskeletal: [No joint erythema, edema or tenderness.] Skin: [No rash.] Neurologic: [No lateralizing deficits. CN II - XII grossly intact.] Lymphatic: [No adenopathy.] - Labs CBC & Chem 7: 06/21/16 08:45 06/21/16 08:45 Labs: Abnormal Lab Results - Last 24 Hours (Table) 06/21/16 06/21/16 Range/Units 08:45 08:45 Lymphocytes # 0.5 L (1.0-4.8) k/uL Glucose 117 H (74-99) mg/dL Assessment and Plan Plan: And U antibiotics patient or any changes oral Levaquin without discharge home on oral Levaquin and cephalosporin discharge home patient tomorrow and keep appointment with Dr. Oropeza and for the procedure Time with Patient: Less than 30
[2016-06-21] MEDS: ATORVASTATIN 20 MG TAB PO SCH (20:09)
[2016-06-22] MEDS: FAMOTIDINE 20 MG TAB PO SCH (07:39)
[2016-06-22] MEDS: BISOPROLOL-HCTZ 5-6.25 MG 1 EACH TAB PO SCH (07:39)
[2016-06-22] MEDS: ACETAMINOPHEN TAB 325 MG TAB PO PRN (07:39)
[2016-06-22] MEDS: HEPARIN SODIUM,PORCINE 5,000 UNIT/ML 1 ML VIAL SQ SCH (07:39)
[2016-06-22] MEDS: ASPIRIN 81 MG CHEW PO SCH ×2 (07:39→07:42)
[2016-06-22] MEDS: DOXAZOSIN 4 MG TAB PO SCH (07:39)
[2016-06-22] MEDS: MULTIVITAMINS, THERA 1 EACH TAB PO SCH (07:39)
[2016-06-22 07:55] VITALS: BP 133/64; RESP 22
[2016-06-22] MEDS: IPRATROPIUM-ALBUTEROL 3 ML NEB INHALATION SCH ×2 (08:51→12:47)
[2016-06-22] MEDS ORDERED: LEVOFLOXACIN 750 MG TAB PO SCH (09:00)
[2016-06-22 10:33] VITALS: TEMP 98.6
--- NOTE | 2016-06-22 11:43 | P.PN ---
Subjective Progress note dated 06/21/2016 This is a 66-year-old man scheduled for a electromagnetic navigational bronchoscopy procedure next week by my partner. I believe is going to be done on Friday. He came to the emergency department complaining of increasing shortness of breath chest congestion cough and phlegm production. He was placed on Rocephin and Levaquin. Doing much better today. From my perspective the patient could be discharged home on antibiotics such as Levaquin and Ceftin and have this procedure done next week. I'll allow Dr. Arcos to make that decision. He's feeling much better. He is pretty much back to baseline. Progress note dated 06/22/2016 This is a 66-year-old white male scheduled for electromagnetic navigational bronchoscopy next week with my partner. The patient was admitted to the emergency department complaining of increasing shortness of breath cough chest congestion and minimal phlegm production. RocephinandLevaquin.Doingbetterfrommyperspective.Ibelievethepatientcouldbedischa rgedhome.IdidmaketherecommendationforLevaquinandCeftinhisantibiotics.We 'llallowDr. Carleytomakeadecision.Thewifedoesaskaboutwhetherornotthepatientshouldbeseenbyinf ectiousdisease.ItoldshecouldcertainlyaskedDr. Carleythatquestion.Clinicallythepatientstable.Nodifficultybreathing.Minimalcough .Notmuchinwayofphlegmproduction.Norespiratorydifficulty. Objective - Vital Signs Vital signs: Vital Signs Temp 98.6 F 06/22/16 10:33 Pulse 96 06/22/16 09:05 Resp 22 06/22/16 07:00 BP 133/64 06/22/16 07:00 Pulse Ox 91 L 06/22/16 07:00 Intake & Output 06/21/16 06/22/16 06/22/16 18:59 06:59 18:59 Intake Total 100 360 Balance 100 360 Intake: Oral 100 360 Other: # Voids 3 1 # Bowel Movements 0 - Exam No acute distress, oriented 3. HEENT examination is grossly unremarkable. Mucous membranes are moist. Neck is supple, full range of motion. No adenopathy or thyromegaly. Cardiovascular examination reveals regular rhythm rate. S1-S2 normal. Lungs are relatively clear. A few scattered rhonchi. No wheezes or crackles. The rest examinations unremarkable and unchanged from yesterday. - Labs CBC & Chem 7: 06/21/16 08:45 06/21/16 08:45 Assessment and Plan (1) Community acquired pneumonia Status: Acute Plan: Plan Patient will be reviewed. Additional recommendations suggestions are forthcoming. He will stay on the schedule for his navigational bronchoscopy next week. Hopefully we'll get him well enough members so that he can be discharged by the end of the week or by the weekend. Additional recommendations suggestions are forthcoming. Plan dated 06/21/2016 The patient's feeling better. Currently on Levaquin and Rocephin. He could stay another day or so or to be discharged home. I think she'll be well enough to have his bronchoscopy performed on Friday by my partner. Additional recommendations suggestions are forthcoming. We'll allow the primary make a decision about discharge her continued inpatient treatment. Plan dated 06/22/2016 The patient's doing well. From my perspective could be discharged home. I did make some recommendations yesterday to the nurse practitioner Lian jerry. We'll allow Dr. Arcos to make a final decision about discharge. The patient is scheduled for electromagnetic navigational bronchoscopy on Friday with my partner. As long she is doing better doesn't have a fever and was responding to medication, he can proceed with that procedure. Time with Patient: Less than 30
--- NOTE | 2016-06-22 12:17 | P.DS ---
Providers Date of admission: 06/19/16 18:08 Expected date of discharge: 06/22/16 Attending physician: Tony Arcos Primary care physician: Hector Escoto [facility] Course: Patient was admitted on 06/19/2016 with a diagnosis of hyperpyrexia cough consolidation on the right and possible neoplasm General: Patient did spike a temp of 102 was given Tylenol and cool compresses the nurse did state to me that the room was extremely warm at that time as well However he has been 98.2 the rest of the morning HEENT: [PERRL. EOMI. No pharyngeal erythema or exudate.] Neck: [No adenopathy.] Cardiac: [Heart regular in rate and rhythm. No S3. No S4. No clicks, rubs. No murmur.] Lungs: [Clear to auscultation bilaterally.] Abdomen: [No mass. No organomegaly. Bowel sounds presnt and normoactive in all 4 quadrants.] Extremes: [No edema no cyanosis no claudication normal pulses] : [] Musculoskeletal: [No joint erythema, edema or tenderness.] Skin: [No rash.] Neurologic: [No lateralizing deficits. CN II - XII grossly intact.] Lymphatic: [No adenopathy.] Procedures: Patient has a magnetic navigational bronchoscopy scheduled for Friday Patient Condition at Discharge: Stable Plan - Discharge Summary New Discharge Prescriptions: Cefuroxime Oral Susp [Ceftin Susp] 250 mg PO BID #20 mg Discharge Medication List Aspirin 81 mg PO DAILY 11/26/14 [History] Atorvastatin [Lipitor] 20 mg PO HS 11/26/14 [History] Bisoprolol-Hctz 5-6.25 mg [Ziac 5-6.25] 1 tab PO DAILY 11/26/14 [History] Doxazosin [Cardura] 4 mg PO BID 11/26/14 [History] Levofloxacin [Levaquin] 500 mg PO DAILY 06/19/16 [History] Moexipril HCl [Univasc] 15 mg PO BID 06/19/16 [History] Multivitamins, Thera [Multivitamin] 1 tab PO DAILY 06/19/16 [History] Cefuroxime Oral Susp [Ceftin Susp] 250 mg PO BID #20 mg 06/22/16 [Rx] Follow up Appointment(s)/Referral(s): Hector Escoto MD [Primary Care Provider] - 1-2 days Discharge Disposition: HOME SELF-CARE
[2016-06-22 12:49] VITALS: PULSE 92
== END 2016-06-22 13:23 | disposition home or self-care (01) | DRG 871 ==
LOC: EC 14:47 → 4MS4W 18:08
PROVIDERS: ADMIT Family Medicine; ATTEND Family Medicine
DX: A41.9 Sepsis, unspecified organism (principal); J18.9 Pneumonia, unspecified organism; N17.9 Acute kidney failure, unspecified; R91.8 Other nonspecific abnormal finding of lung field; E78.5 Hyperlipidemia, unspecified; I10 Essential (primary) hypertension; G89.29 Other chronic pain; M54.10 Radiculopathy, site unspecified; N20.0 Calculus of kidney; N40.0 Benign prostatic hyperplasia without lower urinary tract symptoms; Z87.891 Personal history of nicotine dependence; Z87.442 Personal history of urinary calculi; Z88.0 Allergy status to penicillin; Z98.49 Cataract extraction status, unspecified eye; Z79.82 Long term (current) use of aspirin; Z79.899 Other long term (current) drug therapy
CPT/HCPCS: 36415; 71020; 74000; 80048; 80053; 81001; 82533; 82550; 82553; 83605; 84484; 85025; 85610; 85730; 87070; 87086; 87205; 87502; 93005; 94640; 94760; 96365; 99285

== ENCOUNTER 2016-06-26 10:17 | Day surgery (SDC) | payer MEDICARE ==
[2016-06-25 15:28] VITALS: BMI 37.8
[~2016-06-26 10:17] MED LIST: ALBUTEROL NEB (CONC) 2.5 MG/0.5 ML INHALATION ONE; DEXAMETHASONE SOD PHOSPHATE 10 MG/ML 1 ML VIAL IV ONE; HYDROmorphone 1 MG/ML 1 ML SYRINGE IVP PRN; LACTATED RINGERS 1,000 ML IV ONE; LACTATED RINGERS 1,000 ML IV SCH; LIDOCAINE 1% 20 ML VIAL (10MG/ML) FOR IV START INTRADERMA PRN; LIDOCAINE 2% (PF) 20 MG/ML 10ML INHALATION ONE; MIDAZOLAM 2 MG/2 ML VIAL IV PRN; ONDANSETRON 4 MG/2 ML VIAL IVP ONE; Pre Op ABX Message 1 EACH MISC MISCELLANE ONE; SCOPOLAMINE 1.5MG/72HR PATCH TRANSDERM ONE
--- NOTE | 2016-06-26 12:23 | CT ---
EXAMINATION TYPE: CT Chest krupa Huffman Protocol DATE OF EXAM: 06/26/2016 12:01 PM COMPARISON: CT chest May 09, 2016 HISTORY: Patient is preop navigational bronchoscopy. CT DLP: 570 mGycm Automated exposure control for dose reduction was used. FINDINGS: Exam is for bronchoscopy planning and not for diagnostic purposes. There is new small right pleural effusion noted. There is redemonstration of right upper lobe mass ab utting the mediastinum measuring approximately 4.4 x 3.9 cm on axial image 23 series 12. There is red emonstration of right hilar and infrahilar mass or adenopathy causing bronchial narrowing of right mi ddle and lower lobe bronchi with worsening atelectatic change in the right lower lobe noted. Enlarged subcarinal, and paratracheal lymph nodes are redemonstrated and increased in size versus prior. Prominence of visualized portion of right renal collecting system is again seen. Coronary artery calc ification is again seen. Multilevel spurring in the visualized spine is present. IMPRESSION: ABOVE
[2016-06-26] MEDS ORDERED: fentaNYL (PF) 50 MCG/ML 2 ML AMP ONE (12:53)
[2016-06-26] MEDS ORDERED: MIDAZOLAM 2 MG/2 ML VIAL ONE (12:53)
[2016-06-26] MEDS ORDERED: NEOSTIGMINE 1 MG/ML 10 ML VIAL ONE (12:53)
[2016-06-26] MEDS ORDERED: PROPOFOL 10 MG/ML 20 ML VIAL IV ONE (12:53)
[2016-06-26] MEDS ORDERED: ROCURONIUM BROMIDE 10 MG/ML 10 ML VIAL IV ONE (12:53)
[2016-06-26] MEDS ORDERED: GLYCOPYRROLATE 0.2 MG/ML 2 ML VIAL ONE (12:53)
[2016-06-26] MEDS ORDERED: SUCCINYLCHOLINE CHLORIDE VIAL 200 MG/10 ML VIAL IV ONE (12:53)
[2016-06-26] MEDS ORDERED: LIDOCAINE 1% INJ 10MG/ML (20 ML MDV) ONE (12:53)
[2016-06-26] MEDS ORDERED: ePHEDrine 50 MG/ML 1 ML AMP ONE (12:53)
[2016-06-26] MEDS ORDERED: LACTATED RINGERS 1,000 ML IV ONE (13:50)
[2016-06-26 14:10] VITALS: TEMP 97.2
--- NOTE | 2016-06-26 14:32 | XR ---
EXAMINATION TYPE: XR chest 1V portable DATE OF EXAM: 06/26/2016 2:29 PM HISTORY: Postop bronchoscopy. REFERENCE: Previous study dated 06/20/2016. FINDINGS: There is a worsening infiltrate in the right lower lobe. The left lung is clear. Heart size is normal. There is a small right-sided effusion. IMPRESSION: WORSENING CONSOLIDATION, RIGHT LUNG BASE WITH ASSOCIATED SMALL EFFUSIONS.
[2016-06-26 14:47] VITALS: RESP 18
[2016-06-26 15:30] VITALS: BP 140/78; PULSE 70
--- NOTE | 2016-06-27 07:09 | PCN ---
DATE OF PROCEDURE: PREOPERATIVE DIAGNOSIS: Lung mass. POSTOPERATIVE DIAGNOSES: 1. 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 2. Endobronchial tumor causing 90% occlusion of the right lower lobe bronchus with secondary atelectasis of the right lower lobe. This procedure was done in the operating room. The preoperative planning was done using the GLOG navigational bronchoscopy system. The V-patch were attached to the patient and planning CAT scan was done. Following that, the target lesions were all marked including the right paratracheal lymph nodes, right upper lobe/suprahilar mass and a right lower lobe mass/lesion. The patient was brought into the operating room and the patient was induced by Anesthesia and he was intubated by the usual fashion and the intubation process was handled by the Anesthesia Team. After achieving adequate anesthesia the flexible bronchoscope was inserted through the orotracheal tube and was advanced to the lower trachea. The tip of the orotracheal tube was kept on 5 cm above the marc. This procedure was done while the patient was fully oxygenated and ventilated. At this point the appropriate calibration was done of the main marc and the secondary marc of the right upper lobe. An airway inspection was done and the distal one third of the trachea was within normal limits. Bilateral mainstem bronchi were patent and within normal limits. The bronchoscope was moved to the right upper lobe and endobronchial tumor was seen originating from the right upper lobe and extending and completely occluding the anterior segment of the right upper lobe bronchus. In fact, the tumor tip was fungating out of the airway orifice. The lesion itself looked to be very pale and necrotic. The apical and posterior segments were patent. The bronchoscope was then moved to the bronchus intermedius and immediately right lower lobe bronchus orifice was identified. It was extensively narrowed and the caliber of airway was reduced by around 90%. Bronchoscope was further advanced and there was extensive endobronchial lesions within the right lower lobe bronchus causing near complete occlusion of the airway. The various segments of the right lower lobe was not adequately visualized due to atelectasis. The bronchoscope was then moved to the right middle lobe. Examination of the left upper lobe and the left lower lobe bronchi along with various segments and subsegments were all within normal limits. The bronchoscope was then moved to the main marc and using navigational system, the transbronchial aspirate of the right paratracheal lymph node was done using a 19-gauge cytology needle. Following that, the endobronchial biopsies of the right upper lobe lesion was done under direct visualization. Transbronchial needle aspirate of the right upper lobe lesion was also done. The adequacy of the samples was confirmed by Pathology at the bedside. Endobronchial brushings of the right upper lobe lesion was done. The bronchoscope was then moved to the right lower lobe and the endobronchial brushings of the right lower lobe bronchus was done. At the end of the procedure, bronchoalveolar lavage of the right upper lobe was done where a total of 80 mL of fluid was infused and 20 mL of fluid was suctioned back. No bleeding was encountered. The procedure was essentially uncomplicated. Bronchoscope was removed and following that, the patient was extubated. He will be monitored knowing that he is at an increased risk of having upper airway obstruction as the patient has typical features of obstructive sleep apnea. As such, he will be monitored very closely and once stable, he will be discharged home. Samples will be sent for pathologic evaluation. Further recommendations are to follow accordingly.
== END 2016-06-26 15:28 | disposition home or self-care (01) ==
LOC: ORWHC2ENDO 10:17
PROVIDERS: ATTEND Internal Medicine Critical Care Medicine
DX: C34.11 Malignant neoplasm of upper lobe, right bronchus or lung (principal); J98.11 Atelectasis; J90 Pleural effusion, not elsewhere classified; I10 Essential (primary) hypertension; E78.5 Hyperlipidemia, unspecified; E66.01 Morbid (severe) obesity due to excess calories; Z68.37 Body mass index [BMI] 37.0-37.9, adult; M19.90 Unspecified osteoarthritis, unspecified site; G47.33 Obstructive sleep apnea (adult) (pediatric); Z99.89 Dependence on other enabling machines and devices; E78.00 Pure hypercholesterolemia, unspecified; Z87.891 Personal history of nicotine dependence; M48.06 Spinal stenosis, lumbar region; N40.0 Benign prostatic hyperplasia without lower urinary tract symptoms; Z79.2 Long term (current) use of antibiotics; Z79.82 Long term (current) use of aspirin; Z79.899 Other long term (current) drug therapy; Z88.0 Allergy status to penicillin
CPT/HCPCS: 88104; 88108; 88305; 88173; 88342; 88341; 71010; 71250; 31628; 31629; 31623; 31624; 31627; J2250; J0330; J1100; J2710; J2405; J2001; J3010; J2704

== ENCOUNTER → 2016-07-05 | Outpatient (CLI) | payer MEDICARE ==
--- NOTE | 2016-07-06 00:45 | MR ---
EXAMINATION TYPE: MR brain wo/w con DATE OF EXAM: 07/05/2016 10:07 PM COMPARISON: NONE HISTORY: Lung ca, pt states no symptoms CONTRAST: Standard multiplanar, multisequence MRI departmental protocol utilizing 20 mL intravenous MultiHance gadolinium contrast. FINDINGS: There is cerebral cortical atrophy. There is no mass effect nor midline shift. There is no sign of intracranial hemorrhage. There is mild increased signal in the white matter adjacent to the l ateral ventricles. The brainstem is intact. Corpus callosum is intact. Sella turcica appears normal. Precontrast images show no pathologic enhancement. On the FLAIR images there are a few small foci of increased signal at the suero-white matter junction of both cerebral hemispheres that measure up to 3 mm. Total number is approximately 5. IMPRESSION: Mild cerebral atrophy. Minimal subependymal increased signal on the FLAIR images that is consistent w ith early mild normal pressure type hydrocephalus. There are a few scattered foci of increased signal on the T2 images that measure up to 3 mm at the suero-white matter junction of both cerebral hemisphe res probably related to tiny foci of small vessel ischemia. No evidence of metastatic disease in this patient with a history of lung cancer.
== END | disposition home or self-care (01) ==
LOC: RADMRIMAIN 08:57
PROVIDERS: ATTEND Internal Medicine Hematology & Oncology
DX: C34.90 Malignant neoplasm of unspecified part of unspecified bronchus or lung (principal); G31.9 Degenerative disease of nervous system, unspecified
CPT/HCPCS: 70553; A9577

== ENCOUNTER → 2016-07-08 | Outpatient (CLI) | payer MEDICARE ==
--- NOTE | 2016-07-08 08:54 | XR ---
EXAMINATION TYPE: XR abdomen 1V DATE OF EXAM ORDERED: 07/08/2016 8:36 AM HISTORY: Post lithotripsy. COMPARISON: Previous study dated 06/18/2016. FINDINGS: Amorphous calcification projecting just caudad to the right transverse process of L3 remai ns unchanged from previous. There is a questionable 6.4 mm amorphous calcification projecting over th e lower pole on the right. The left renal outline also demonstrates a 6.8 mm area of amorphous calcif ication overlying the upper pole. IMPRESSION: 1. NO INTERVAL CHANGE IN THE APPEARANCE OF THE QUESTIONABLE RIGHT URETERIC CALCULUS. 2. BILATERAL NEPHROLITHIASIS.
== END | disposition home or self-care (01) ==
LOC: RADXRMAIN 08:22
PROVIDERS: ATTEND Urology
DX: N20.0 Calculus of kidney (principal)
CPT/HCPCS: 74000

== ENCOUNTER → 2016-07-08 | Outpatient (CLI) | payer MEDICARE ==
[2016-07-08 13:31] LABS: Basophils # (A) 0.1 k/uL (0-0.2); Basophils % (A) 2 %; CHCM 33.8; Eosinophils # (A) 0.1 k/uL (0-0.7); Eosinophils % (A) 2 %; HCT 47.4 % (39.0-53.0); HGB 15.1 gm/dL (13.0-17.5); Luc # (Auto) 0.15; Luc % (Auto) 2; Lymphocytes # (A) 1.5 k/uL (1.0-4.8); Lymphocytes % (A) 21 %; MCH 29.4 pg (25.0-35.0); MCHC 31.9 g/dL (31.0-37.0); MCV 92.2 fL (80.0-100.0); Mean Platelet Volume 7.2; Monocytes # (A) 0.6 k/uL (0-1.0); Monocytes % (A) 9 %; Neutrophils # (A) 4.4 k/uL (1.3-7.7); Neutrophils % (A) 64 %; RBC 5.14 m/uL (4.30-5.90); RDW 13.4 % (11.5-15.5); WBC 6.8 k/uL (3.8-10.6); WBC (Perox) 6.97
[2016-07-08 13:53] LABS: Anion Gap 12 mmol/L; Blood Urea Nitrogen 15 mg/dL (9-20); Calcium 9.6 mg/dL (8.4-10.2); Carbon Dioxide 26 mmol/L (22-30); Chloride 106 mmol/L (98-107); Glucose 80 mg/dL (74-99); Non-African American GFR(MDRD) >60 (>60 ml/min/1.73 sqM); Potassium 4.3 mmol/L (3.5-5.1); Sodium 144 mmol/L (137-145)
== END | disposition home or self-care (01) ==
LOC: LABPAT 13:00
PROVIDERS: ATTEND Urology
DX: Z01.812 Encounter for preprocedural laboratory examination (principal); N20.1 Calculus of ureter; E78.00 Pure hypercholesterolemia, unspecified
CPT/HCPCS: 80048; 85025

== ENCOUNTER 2016-07-11 10:28 | Day surgery (SDC) | payer MEDICARE ==
[2016-07-09 08:45] VITALS: BMI 37.3
[~2016-07-11 10:28] MED LIST changes: -ALBUTEROL NEB (CONC) 2.5 MG/0.5 ML INHALATION ONE; -LACTATED RINGERS 1,000 ML IV ONE; -LIDOCAINE 1% 20 ML VIAL (10MG/ML) FOR IV START INTRADERMA PRN; -LIDOCAINE 2% (PF) 20 MG/ML 10ML INHALATION ONE; -Pre Op ABX Message 1 EACH MISC MISCELLANE ONE; -SCOPOLAMINE 1.5MG/72HR PATCH TRANSDERM ONE
--- NOTE | 2016-07-11 10:28 | XR ---
EXAMINATION TYPE: XR KUB DATE OF EXAM: 07/11/2016 10:23 AM COMPARISON: 06/18/2016 INDICATION: Right ureteral calculus TECHNIQUE: Single view abdomen supine position FINDINGS: There is a normal bowel gas pattern. Psoas margins are normal. No organomegaly is present. There is a 1.2 x 0.8 cm calcification just inferior to the right L2 transverse process could be a pro ximal ureteral stone. This was present on the comparison 06/18/2016. IMPRESSION: 1. Stable appearance of the right proximal ureteral stone.
[2016-07-11 11:26] VITALS: RESP 16; TEMP 98.2
[2016-07-11] MEDS ORDERED: LIDOCAINE 1% 20 ML VIAL (10MG/ML) FOR IV START INTRADERMA ONE (11:31)
[2016-07-11] MEDS ORDERED: SUCCINYLCHOLINE CHLORIDE VIAL 200 MG/10 ML VIAL IV ONE (13:14)
[2016-07-11] MEDS ORDERED: MIDAZOLAM 2 MG/2 ML VIAL ONE (13:14)
[2016-07-11] MEDS ORDERED: ePHEDrine 50 MG/ML 1 ML AMP ONE (13:14)
[2016-07-11] MEDS ORDERED: PROPOFOL 10 MG/ML 20 ML VIAL IV ONE (13:14)
[2016-07-11] MEDS ORDERED: LIDOCAINE 1% INJ 10MG/ML (20 ML MDV) ONE (13:14)
[2016-07-11] MEDS ORDERED: fentaNYL (PF) 50 MCG/ML 2 ML AMP ONE (13:14)
[2016-07-11] MEDS: CLINDAMYCIN 900 MG in DEXTROSE 5% IN WATER 50 ML IVPB ONE ×4 (13:19→13:21)
[2016-07-11] MEDS ORDERED: LACTATED RINGERS 1,000 ML IV ONE ×2 (13:33→15:08)
--- NOTE | 2016-07-11 14:43 | P.OP ---
Date of Procedure: 07/11/16 Preoperative Diagnosis: Right ureteral calculus Postoperative Diagnosis: Same Procedure(s) Performed: Cystoscopy, right ureteroscopy, right laser lithotripsy, placement of 626 double -J catheter Anesthesia: SUZETTE Surgeon: Stanley Mcmanus Estimated Blood Loss (ml): 25 Pathology: other (Stone) Condition: stable Disposition: PACU Indications for Procedure: The patient is a 66-year-old gentleman with a 9-10 mm impacted proximal right ureteral stone that failed shockwave lithotripsy. The patient has a newly diagnosed lung cancer and he is to undergo chemo radiation. This is to start next week. He comes for ureteroscopy and stone removal to liberate him of the stone and obstruction prior to beginning his chemo. Description of Procedure: Patient is brought to the operating suite and given a successful general endotracheal anesthesia. He's placed in lithotomy position with a sterile prep and drape. Cystoscopy Foroblique lens 22-Yakut sheath identifies a normal urethra. The prostate is somewhat obstructing in intravesical. The ureters are unremarkable. The bladder mucosa trabeculated. No 35 wires passed up the ureter into the renal pelvis. Over the wires and passed a 58-50-Ounhfn ureteral reentry sheath. The inner sheath is removed. I passed the flexible scope through the ureteral sheath up to the stone. It is at a difficult angle. With the 200 probe and 3 W of energy I slowly break the stone into pieces a. I'm able to finally get to the proximal portion of the stone which is extremely impacted I break through the stone most the fragments or flushing distally. I break them small enough to do so. There are 2 fragments attached the lining of the ureter that I eventually break off. Through the fragments about a millimeter to to flow back up into the kidney. I followed him and break them a small as possible. I then look at the point of obstruction and it is still somewhat edematous. There is no stone remaining there. I elect to place a double-J catheter. Through the reentry sheath and 035 wires passed into the kidney. The wires backloaded on the cystoscope which is introduced into the bladder. Over the wires passed a 6 x 26 double-J catheter that coils in the renal pelvis and in the bladder. The bladder strain stone fragments are retrieved the patient awake and returned recovery in good condition. He'll be discharged home upon recovery. I'll try to remove the stent next week. Blood loss is minimal
--- NOTE | 2016-07-11 15:06 | FL ---
FLUOROSCOPY 67 seconds of fluoroscopy time were utilized during right renal stone manipulation. 1 images document the procedure.
[2016-07-11 16:15] VITALS: BP 144/76; PULSE 81
== END 2016-07-11 16:32 | disposition home or self-care (01) ==
LOC: OR 10:28
PROVIDERS: ATTEND Urology
DX: N20.1 Calculus of ureter (principal); I10 Essential (primary) hypertension; E78.00 Pure hypercholesterolemia, unspecified; G47.33 Obstructive sleep apnea (adult) (pediatric); F51.8 Other sleep disorders not due to a substance or known physiological condition; Z99.89 Dependence on other enabling machines and devices; F17.200 Nicotine dependence, unspecified, uncomplicated; M19.90 Unspecified osteoarthritis, unspecified site; Z79.82 Long term (current) use of aspirin; Z79.899 Other long term (current) drug therapy; Z88.0 Allergy status to penicillin
CPT/HCPCS: 74000; 52356; C2625; C1769; C1894; J2250; J0330; J1100; J2405; J2001; J3010; J2704; 82365

== ENCOUNTER → 2016-07-20 | Outpatient (CLI) | payer MEDICARE ==
--- NOTE | 2016-07-21 11:38 | PE ---
EXAMINATION TYPE: PET CT fusion whole body DATE OF EXAM: 07/20/2016 12:16 PM CLINICAL HISTORY: 66-year-old male right upper lobe small cell carcinoma, initial staging. Reports ch emotherapy completed 2 days ago. TECHNIQUE: Following the intravenous administration of 13.5 mCi of F-18 FDG, whole body images are performed from the skull base to the midthigh. Images are reviewed on the computer in the coronal, a xial, and sagittal planes. Reconstructed rotating images are created on independent workstation and reviewed on the computer. A localization and attenuation correction CT is performed in conjunction with the PET scan. Glucose level: 77 mg/dL COMPARISON: CT chest 05/09/2016 FINDINGS: PET: Redemonstrated right suprahilar mass. This measures 3.5 x 3.9 cm versus 3.4 x 3.7 cm on 05/09/2016, n ot significantly changed. Maximal SUV 11.9. A right tracheobronchial angle lymph node has markedly enlarged in the interval now measuring 3.1 cm versus 1.3 cm, previously but shows central necrosis and photopenia with mild peripheral FDG uptake. The subcarinal lymph node measures 2.4 cm versus 2.6 cm, previously. Maximal SUV 7.5. The right lower lobe area of masslike consolidation shows very intense hypermetabolism, maximum SUV 1 1.1 and has an oblique orientation making exact measurements difficult. It can be estimated at 7.4 cm long by 7.0 cm wide versus 8.1 x 8.5 cm, previously. Otherwise, physiologic FDG uptake within the neck, abdomen, and pelvis. ATTENUATION CORRECTION CT: Visualized paranasal sinuses and mastoid air cells are clear. No cervical lymphadenopathy. The heart is upper limits of normal in size without pericardial effusion. Coronary vessel calcificati ons are present and are a marker for coronary artery disease. Ascending aorta is borderline ectatic a t 3.6 cm. 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 Small hiatal hernia. Adrenal glands are clear. There is right-sided nephrolithiasis measuring 7 mm w ith moderate right-sided hydronephrosis to the level of the UPJ. The ureter itself is normal caliber. There is some excretion noted from the right kidney. No dilated small bowel, free fluid, or free air . No pericolonic inflammatory change. Bladder is nondistended but shows some nondependent intraluminal air. No abnormal fluid collection in the pelvis or pelvic lymphadenopathy. Bones: Mild degenerative changes of the hips. Additional degenerative changes at the SI joints and mi d to lower lumbar spine. Endplate spondylosis mid to lower thoracic spine. No osseous destructive pro cess. IMPRESSION: 1. Very intensely hypermetabolic right suprahilar and right lower lobe masses. The right suprahilar m ass measures 3.9 cm and has not significantly changed in size. The right lower lobe masslike area of consolidation is less bulky. 2. Metastatic 2.4 cm subcarinal lymph node has minimally decreased in size but shows intense hypermet abolism. 3. A right tracheobronchial angle lymph node has increased in size to 3.1 cm but now is necrotic with out significant uptake. Overall findings suggest some interval treatment response. Prominent active d isease remains. 4. Small hiatal hernia, right-sided nephrolithiasis, and moderate right-sided hydronephrosis possibly due to chronic UPJ obstruction as there is excretion seen from the right kidney.
== END | disposition home or self-care (01) ==
LOC: RADPETMAIN 09:50
PROVIDERS: ATTEND Radiology Radiation Oncology
DX: C34.11 Malignant neoplasm of upper lobe, right bronchus or lung (principal); C77.1 Secondary and unspecified malignant neoplasm of intrathoracic lymph nodes
CPT/HCPCS: 78816; A9552

== ENCOUNTER 2016-07-24 06:43 | Day surgery (SDC) | payer MEDICARE ==
[2016-07-22 15:40] VITALS: BMI 37.3
[~2016-07-24 06:43] MED LIST changes: +CLINDAMYCIN 900 MG in DEXTROSE 5% IN WATER 50 ML IVPB ONE; -MIDAZOLAM 2 MG/2 ML VIAL IV PRN
[2016-07-24] MEDS ORDERED: LIDOCAINE 1% 20 ML VIAL (10MG/ML) FOR IV START SQ ONE (06:55)
[2016-07-24 07:01] VITALS: RESP 16; TEMP 98.7
--- NOTE | 2016-07-24 07:48 | P.GSHP ---
History of Present Illness H&P Date: 07/24/16 Chief Complaint: lung cancer Patient has presented with recent diagnosis of small cell lung cancer. He is here today for Port-A-Cath placement. He had 1 course of chemotherapy his second course his next week. No shortness of breath presently. Past Medical History Past Medical History: Cancer, Hyperlipidemia, Hypertension, Osteoarthritis (OA) , Prostate Disorder, Sleep Apnea/CPAP/BIPAP, Supraventricular Tachycardia (SVT) Additional Past Medical History / Comment(s): cpap, lung ca History of Any Multi-Drug Resistant Organisms: None Reported Past Surgical History: Orthopedic Surgery Additional Past Surgical History / Comment(s): cataract, nigel feet, kidney stone removed, bronchoscopy Past Anesthesia/Blood Transfusion Reactions: No Reported Reaction Past Psychological History: No Psychological Hx Reported Smoking Status: Former smoker Past Alcohol Use History: None Reported, Occasional Additional Past Alcohol Use History / Comment(s): quit smoking 9 weeks ago, smoked on & off 45 yrs. Past Drug Use History: None Reported - Past Family History Mother Family Medical History: No Reported History Sister(s) Family Medical History: Cancer Additional Family Medical History / Comment(s): melanoma Medications and Allergies Home Medications Medication Instructions Recorded Confirmed Type Atorvastatin [Lipitor] 20 mg PO HS 11/26/14 07/24/16 History Bisoprolol-Hctz 5-6.25 mg [Ziac 1 tab PO DAILY 11/26/14 07/22/16 History 5-6.25] Doxazosin [Cardura] 4 mg PO BID 11/26/14 07/22/16 History Moexipril HCl [Univasc] 15 mg PO BID 06/19/16 07/22/16 History Allergies Allergy/AdvReac Type Severity Reaction Status Date / Time Penicillins Allergy Swelling Verified 07/11/16 11:21 Surgical - Exam Vital Signs Temp Pulse Resp BP Pulse Ox 98.7 F 80 16 99/64 95 07/24/16 07:00 07/24/16 07:00 07/24/16 07:00 07/24/16 07:00 07/24/16 07:00 Physical exam: General: Well-developed, well-nourished HEENT: Normocephalic, sclerae nonicteric Abdomen: Nontender, nondistended Extremities: No edema Neuro: Alert and oriented Assessment and Plan (1) Small cell lung cancer Narrative/Plan: Will proceed with Port-A-Cath placement at this time. Risks of bleeding, infection, pneumothorax, DVT, catheter malfunction were discussed. He understands and wishes to proceed. Status: Acute
[2016-07-24] MEDS ORDERED: HEPARIN SODIUM,PORCINE 5,000 UNIT/ML 1 ML VIAL SQ STA (07:49)
[2016-07-24] MEDS ORDERED: LIDOCAINE 1% INJ 10MG/ML (20 ML MDV) SQ ONE ×3 (07:56→08:31)
[2016-07-24] MEDS ORDERED: HEPARIN SODIUM,PORCINE 100 UNIT/ML 5 ML VIAL IV ONE ×2 (07:56→08:31)
[2016-07-24] MEDS ORDERED: PHENYLEPHRINE-0.9% NACL SYG 1 MG/10 ML SYRINGE ONE (08:12)
[2016-07-24] MEDS ORDERED: fentaNYL (PF) 50 MCG/ML 2 ML AMP ONE (08:12)
[2016-07-24] MEDS ORDERED: PROPOFOL 10 MG/ML 20 ML VIAL IV ONE (08:12)
[2016-07-24] MEDS ORDERED: HEPARIN SODIUM,PORCINE 5,000 UNIT/ML 1 ML VIAL ONE (08:12)
[2016-07-24] MEDS ORDERED: KETAMINE 10 MG/ML 20 ML VIAL ONE (08:12)
[2016-07-24] MEDS ORDERED: ePHEDrine 50 MG/ML 1 ML AMP ONE (08:12)
[2016-07-24] MEDS ORDERED: MIDAZOLAM 2 MG/2 ML VIAL ONE (08:12)
[2016-07-24] MEDS ORDERED: LIDOCAINE 1% INJ 10MG/ML (20 ML MDV) ONE (08:12)
[2016-07-24] MEDS ORDERED: LACTATED RINGERS 1,000 ML IV ONE (08:49)
[2016-07-24] MEDS ORDERED: NALOXONE 0.4 MG/ML 1 ML VIAL IV PRN (09:07)
[2016-07-24] MEDS ORDERED: HYDROcodone/APAP 5-325MG 1 EACH TAB PO PRN (09:07)
--- NOTE | 2016-07-24 09:09 | P.PCN ---
Date of Procedure: 07/24/16 Procedure(s) Performed: PREOPERATIVE DIAGNOSIS: Lung cancer POSTOPERATIVE DIAGNOSIS: Same PROCEDURE: Port-A-Cath placement SURGEON: Yolis EBL: Minimal ANESTHESIA: Sedation COMPLICATIONS: None OPERATIVE PROCEDURE: Patient was brought and placed on the operative table in the supine position. The patient was sedated per anesthesia that time. The chest and neck were prepped and draped in usual sterile fashion. The ultrasound probe was used to identify the location of the right internal jugular vein. The skin was localized with lidocaine. The Seldinger needle was advanced into the IJ under ultrasound guidance. The wire was advanced through the needle under fluoroscopic guidance into the superior vena cava. A port pocket was created in the right infraclavicular location. The catheter was tunneled from the wire entrance site to the port pocket. The port was then connected to the catheter. The dilator introducer was threaded over the guidewire. The guidewire and dilator were then removed. The catheter was advanced through the introducer and introducer was then removed. The tip was seen to be in the right atrial junction. Port was flushed with both saline and a Hep-Lock solution. There was good flow both in and out of the port. The port was sutured in underlying tissues using 3-0 silk sutures. The subcutaneous tissues were reapproximated using 3-0 Vicryl sutures and the skin at both locations using 4-0 Monocryl sutures. Steri-Strips and sterile dressings then applied. DISPOSITION: Stable to recovery room
[2016-07-24 09:21] VITALS: BP 106/62; PULSE 80
--- NOTE | 2016-07-24 09:40 | XR ---
EXAMINATION TYPE: XR chest 1V confirm line plcmt DATE OF EXAM: 07/24/2016 9:28 AM COMPARISON: 06/26/2016 HISTORY: 66 year-old male check line placement TECHNIQUE: Single frontal view of the chest is obtained. FINDINGS: Right IJ CVC tip is not well seen beyond the level of the brachiocephalic vein junction/upper SVC. It is possible that it extends further down however. Exam limited by portable technique and large body habitus. There is vascular prominence which may rel ate to magnification and technique. Some residual bibasilar densities, significantly improved on the right from prior exam. IMPRESSION: 1. Exam limited by portable technique and large body habitus. The chest port catheter tip is not russ rly seen beyond the upper SVC level. It may course further down. Consider dedicated PA and lateral vi ews of the chest when patient able. 2. Improving aeration at the lung bases, particularly on the right.
--- NOTE | 2016-07-24 10:47 | FL ---
EXAMINATION TYPE: FL guided central line placemt DATE OF EXAM: 07/24/2016 8:56 AM FLUOROSCOPY Fluoroscopy time of 10 seconds was used during Port-A-Cath insertion. 3 image/s document/s óscar sapp.
== END 2016-07-24 10:21 | disposition home or self-care (01) ==
LOC: OR 06:43
PROVIDERS: ATTEND Surgery
DX: C34.2 Malignant neoplasm of middle lobe, bronchus or lung (principal); Z88.0 Allergy status to penicillin; I10 Essential (primary) hypertension; E78.5 Hyperlipidemia, unspecified; Z87.891 Personal history of nicotine dependence; N42.9 Disorder of prostate, unspecified; G47.33 Obstructive sleep apnea (adult) (pediatric); Z99.89 Dependence on other enabling machines and devices; M19.90 Unspecified osteoarthritis, unspecified site; Z79.891 Long term (current) use of opiate analgesic; Z79.899 Other long term (current) drug therapy; Z80.8 Family history of malignant neoplasm of other organs or systems
CPT/HCPCS: 77001; 36561; 76937; C1788; J2250; J1644; J1642; J1100; J2405; J2001; J3010; J2370; J2704

== ENCOUNTER → 2016-08-14 | Outpatient (CLI) | payer MEDICARE ==
--- NOTE | 2016-08-14 16:33 | XR ---
EXAMINATION TYPE: XR KUB DATE OF EXAM: 08/14/2016 4:07 PM CLINICAL HISTORY: Right-sided kidney stone. TECHNIQUE: 2 supine KUB images of the abdomen are obtained COMPARISON: PET/CT July 20, 2016 FINDINGS: Right-sided renal calculi on PET/CT are less well seen on plain film due to patient's large body habitus. There are stable left-sided pelvic phleboliths. There is overall nonobstructive bowel gas pattern. There is moderate to severe axial joint space loss in both hips. There is multilevel spurring in the visualized spine. Lung bases are clear. IMPRESSION: Right-sided renal calculi seen best on recent PET/CT are not well seen on plain films fe lt related to patient's body habitus.
== END ==
LOC: RADXRMAIN 15:52
PROVIDERS: ATTEND Urology
DX: N20.0 Calculus of kidney (principal)
CPT/HCPCS: 74000

== ENCOUNTER → 2016-09-28 | Outpatient (CLI) | payer MEDICARE ==
--- NOTE | 2016-10-01 10:35 | PE ---
Nuclear medicine PET/CT HISTORY: Lung carcinoma Patient received 14.1 mCi F-18 FDG intravenously and delayed scanning performed from the skull base t o the mid thighs. Localization and attenuation correction CT scan was performed. Correlation to prior nuclear medicine PET/CT 20 July 2016. Neck and chest: Right-sided central venous catheter, port present, distal tip is looped within the ju gular vein on the right. There is mediastinal adenopathy, the retrocaval pretracheal lymph node measu res approximately 2.3 cm in short axis decreased in size from prior, no significant hypermetabolic up take. There is an adjacent area of abnormal increased soft tissue density in the right upper lobe ad jacent to the azygos vein within the right upper lobe measuring approximately 2.5 cm in greatest dime nsion which is decreased from prior, SUV is 5.3 which is reduced from prior of 11.9. Subcarinal lymph node is decreased to 1.7 cm compared to prior 2.7 cm, SUV now 3.5 reduced from 7.5. Some patchy dens ities, atelectatic change suspected in the right lower lobe peripherally. Bilateral changes of gyneco mastia are suspected. Abdomen pelvis: There is a small hiatal hernia. No adrenal mass. Right-sided ureteral stent is in efraín ce, there are nonobstructive calculi in the midpole and lower pole of the right kidney. There is some retained radio pharmaceutical uptake within the right renal collecting system, presumably for excret ion. Osseous structures: Some sclerotic densities are present within the right ilium which are stable. The re is diffuse hypermetabolic uptake involving the bones to exclude ribs, proximal upper and lower ext remities, pelvis as well as lumbar spine. IMPRESSION: There is improvement within the chest. Hypermetabolic uptake within the marrow may be due to therapy.
== END | disposition home or self-care (01) ==
LOC: RADPETMAIN 07:17
PROVIDERS: ATTEND Internal Medicine Hematology & Oncology
DX: C34.91 Malignant neoplasm of unspecified part of right bronchus or lung (principal); Z92.21 Personal history of antineoplastic chemotherapy; Z92.3 Personal history of irradiation
CPT/HCPCS: 78815; A9552

== ENCOUNTER 2016-10-12 20:09 | Emergency (ER) | payer MEDICARE ==
[2016-10-12] MEDS ORDERED: ACETAMINOPHEN TAB 500 MG TAB PO STA (20:42)
--- NOTE | 2016-10-12 20:43 | ED ---
Fever HPI <Chris Urbano - Last Filed: 10/13/16 00:59> - General Source: patient, RN notes reviewed Mode of arrival: ambulatory Limitations: no limitations <Krysten Noriega - Last Filed: 10/13/16 03:58> - General Chief Complaint: Fever Stated Complaint: 100.5 Time Seen by Provider: 10/12/16 20:30 - History of Present Illness Initial Comments: Patient is a 66-year-old male presents emergency room for evaluation of fever. 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 Patient states he's been going through radiation and chemotherapy since June. Patient states he had chemotherapy and Friday, Friday, and Neulesta injection yesterday at 12 PM. Patient states today throughout the day he's been feeling very rundown and not himself. Patient denies any pain or burning during urination or trouble urinating. Patient denies any increased cough or chest pain. Patient has increased shortness of breath. Patient denies abdominal pain. Patient states that he has been having on and off nausea from chemotherapy. Patient denies any vomiting. Patient denies headache or dizziness. Patient states having slight throat pain. Patient states that he had a blood transfusion about 2 weeks ago as a result of anemia from chemotherapy. Patient states he is following up with Dr. Moss for his treatment. (Krysten Noriega) - Related Data Home Medications Medication Instructions Recorded Confirmed Atorvastatin [Lipitor] 20 mg PO HS 11/26/14 10/12/16 Doxazosin [Cardura] 4 mg PO BID 11/26/14 10/12/16 Omeprazole [PriLOSEC] 20 mg PO AC-BRKFST 10/03/16 10/12/16 Loratadine [Claritin] 10 mg PO DAILY 10/12/16 10/12/16 Previous Rx's Medication Instructions Recorded Levofloxacin [Levaquin] 500 mg PO DAILY #6 tab 10/13/16 Allergies Allergy/AdvReac Type Severity Reaction Status Date / Time Penicillins Allergy Swelling Verified 10/12/16 20:27 Review of Systems ROS Other: All systems not noted in ROS Statement are negative. <Chris Urbano - Last Filed: 10/13/16 00:59> ROS Other: All systems not noted in ROS Statement are negative. <Krysten Noriega - Last Filed: 10/13/16 03:58> ROS Statement: Those systems with pertinent positive or pertinent negative responses have been documented in the HPI. 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 History of Any Multi-Drug Resistant Organisms: None Reported Past Surgical History: Orthopedic Surgery Additional Past Surgical History / Comment(s): cateract, arthroscopy left knee, nigel feet, colonoscopy Past Anesthesia/Blood Transfusion Reactions: No Reported Reaction Past Psychological History: No Psychological Hx Reported Smoking Status: Former smoker Past Alcohol Use History: Occasional Additional Past Alcohol Use History / Comment(s): quit smoking 9 weeks ago, smoked on & off 45 yrs. Past Drug Use History: None Reported - Past Family History Mother Family Medical History: No Reported History Sister(s) Family Medical History: Cancer <Krysten Noriega - Last Filed: 10/13/16 03:58> General Exam <Chris Urbano - Last Filed: 10/13/16 00:59> Limitations: no limitations General appearance: alert, in no apparent distress Head exam: Present: atraumatic, normocephalic, normal inspection Eye exam: Present: normal appearance, PERRL, EOMI Pupils: Present: normal accommodation ENT exam: Present: normal exam, normal oropharynx, mucous membranes moist, TM's normal bilaterally, normal external ear exam Neck exam: Present: normal inspection, full ROM. Absent: tenderness, lymphadenopathy Respiratory exam: Present: wheezes. Absent: respiratory distress Cardiovascular Exam: Present: normal rhythm, tachycardia, normal heart sounds GI/Abdominal exam: Present: soft, normal bowel sounds. Absent: distended, tenderness, guarding, rebound, rigid Extremities exam: Present: normal inspection Back exam: Present: normal inspection Neurological exam: Present: alert, oriented X3, CN II-XII intact, normal gait Psychiatric exam: Present: normal affect, normal mood Skin exam: Present: warm, dry, intact, normal color. Absent: rash <Krysten Noriega - Last Filed: 10/13/16 03:58> - General Exam Comments Initial Comments: Sitting in exam room, no acute distress. (Krysten Noriega) Medical Decision Making - Lab Data Result diagrams: 10/12/16 21:02 10/12/16 21:02 <Chris Urbano - Last Filed: 10/13/16 00:59> - Lab Data Result diagrams: 10/12/16 21:02 10/12/16 21:02 <Krysten Noriega - Last Filed: 10/13/16 03:58> - Medical Decision Making The case discussed with Dr. Montgomery, oncologist. Patient's presentation and current problems discussed. Initially the patient's blood pressure was 92/52 upon arrival to the fever and a high heart rate. The patient received 2 L of fluid and blood pressure To 118. While in emergency room as treated with IV Levaquin. The case discussed with Dr. Montgomery. Family wanted to take patient home and Dr. Garnica agreed to this as well as the patient's vital signs are stable. White count had improved from 2-8. The patient looked stable had no complaints. Chest x-ray is negative. Blood cultures are pending. Patient will be placed on Levaquin 500 for one week. He is to call follow-up with his family physician and oncologist. Dr. Urbano (Chris Urbano) - Lab Data Lab Results 10/12/16 10/12/16 10/12/16 Range/Units 21:02 21:02 21:02 WBC 8.6 (3.8-10.6) k/uL RBC 2.39 L (4.30-5.90) m/uL Hgb 7.8 L (13.0-17.5) gm/dL Hct 23.7 L (39.0-53.0) % MCV 98.9 (80.0-100.0) fL MCH 32.7 (25.0-35.0) pg MCHC 33.1 (31.0-37.0) g/dL RDW 20.4 H (11.5-15.5) % Plt Count 62 L (150-450) k/uL Neutrophils % 97 % Lymphocytes % 2 % Monocytes % 1 % Eosinophils % 0 % Basophils % 0 % Neutrophils # 8.3 H (1.3-7.7) k/uL Lymphocytes # 0.1 L (1.0-4.8) k/uL Monocytes # 0.1 (0-1.0) k/uL Eosinophils # 0.0 (0-0.7) k/uL Basophils # 0.0 (0-0.2) k/uL Anisocytosis Moderate Macrocytosis Moderate PT (9.0-12.0) sec INR (<1.1) APTT (22.0-30.0) sec Sodium 136 L (137-145) mmol/L Potassium 3.5 (3.5-5.1) mmol/L Chloride 103 (98-107) mmol/L Carbon Dioxide 28 (22-30) mmol/L Anion Gap 5 mmol/L BUN 17 (9-20) mg/dL Creatinine 1.12 (0.66-1.25) mg/dL Est GFR (MDRD) Af Amer >60 (>60 ml/min/1.73 sqM) Est GFR (MDRD) Non-Af >60 (>60 ml/min/1.73 sqM) Glucose 117 H (74-99) mg/dL Plasma Lactic Acid Livan (0.7-2.0) mmol/L Calcium 8.7 (8.4-10.2) mg/dL Total Bilirubin 0.8 (0.2-1.3) mg/dL AST 30 (17-59) U/L ALT 35 (21-72) U/L Alkaline Phosphatase 84 (38-126) U/L Total Creatine Kinase 32 L (55-170) U/L CK-MB (CK-2) 0.3 (0.0-2.4) ng/mL CK-MB (CK-2) Rel Index 0.9 Troponin I <0.012 (0.000-0.034) ng/mL Total Protein 6.1 L (6.3-8.2) g/dL Albumin 3.3 L (3.5-5.0) g/dL Urine Color Urine Appearance (Clear) Urine pH (5.0-8.0) Ur Specific [place] (1.001-1.035) Urine Protein (Negative) Urine Glucose (UA) (Negative) Urine Ketones (Negative) Urine Blood (Negative) Urine Nitrite (Negative) Urine Bilirubin (Negative) Urine Urobilinogen (<2.0) mg/dL Ur Leukocyte Esterase (Negative) Urine RBC (0-5) /hpf Urine WBC (0-5) /hpf Urine WBC Clumps (None) /hpf Urine Bacteria (None) /hpf Urine Mucus (None) /hpf Influenza Type A RNA (Not Detectd) Influenza Type B (PCR) (Not Detectd) Group A Strep Rapid (Negative) 10/12/16 10/12/16 10/12/16 Range/Units 21:02 21:02 21:02 WBC (3.8-10.6) k/uL RBC (4.30-5.90) m/uL Hgb (13.0-17.5) gm/dL Hct (39.0-53.0) % MCV (80.0-100.0) fL MCH (25.0-35.0) pg MCHC (31.0-37.0) g/dL RDW (11.5-15.5) % Plt Count (150-450) k/uL Neutrophils % % Lymphocytes % % Monocytes % % Eosinophils % % Basophils % % Neutrophils # (1.3-7.7) k/uL Lymphocytes # (1.0-4.8) k/uL Monocytes # (0-1.0) k/uL Eosinophils # (0-0.7) k/uL Basophils # (0-0.2) k/uL Anisocytosis Macrocytosis PT 10.2 (9.0-12.0) sec INR 1.0 (<1.1) APTT 21.4 L (22.0-30.0) sec Sodium (137-145) mmol/L Potassium (3.5-5.1) mmol/L Chloride (98-107) mmol/L Carbon Dioxide (22-30) mmol/L Anion Gap mmol/L BUN (9-20) mg/dL Creatinine (0.66-1.25) mg/dL Est GFR (MDRD) Af Amer (>60 ml/min/1.73 sqM) Est GFR (MDRD) Non-Af (>60 ml/min/1.73 sqM) Glucose (74-99) mg/dL Plasma Lactic Acid Livan 1.7 (0.7-2.0) mmol/L Calcium (8.4-10.2) mg/dL Total Bilirubin (0.2-1.3) mg/dL AST (17-59) U/L ALT (21-72) U/L Alkaline Phosphatase (38-126) U/L Total Creatine Kinase (55-170) U/L CK-MB (CK-2) (0.0-2.4) ng/mL CK-MB (CK-2) Rel Index Troponin I (0.000-0.034) ng/mL Total Protein (6.3-8.2) g/dL Albumin (3.5-5.0) g/dL Urine Color Urine Appearance (Clear) Urine pH (5.0-8.0) Ur Specific [place] (1.001-1.035) Urine Protein (Negative) Urine Glucose (UA) (Negative) Urine Ketones (Negative) Urine Blood (Negative) Urine Nitrite (Negative) Urine Bilirubin (Negative) Urine Urobilinogen (<2.0) mg/dL Ur Leukocyte Esterase (Negative) Urine RBC (0-5) /hpf Urine WBC (0-5) /hpf Urine WBC Clumps (None) /hpf Urine Bacteria (None) /hpf Urine Mucus (None) /hpf Influenza Type A RNA (Not Detectd) Influenza Type B (PCR) (Not Detectd) Group A Strep Rapid Negative (Negative) 10/12/16 10/12/16 Range/Units 21:05 21:56 WBC (3.8-10.6) k/uL RBC (4.30-5.90) m/uL Hgb (13.0-17.5) gm/dL Hct (39.0-53.0) % MCV (80.0-100.0) fL MCH (25.0-35.0) pg MCHC (31.0-37.0) g/dL RDW (11.5-15.5) % Plt Count (150-450) k/uL Neutrophils % % Lymphocytes % % Monocytes % % Eosinophils % % Basophils % % Neutrophils # (1.3-7.7) k/uL Lymphocytes # (1.0-4.8) k/uL Monocytes # (0-1.0) k/uL Eosinophils # (0-0.7) k/uL Basophils # (0-0.2) k/uL Anisocytosis Macrocytosis PT (9.0-12.0) sec INR (<1.1) APTT (22.0-30.0) sec Sodium (137-145) mmol/L Potassium (3.5-5.1) mmol/L Chloride (98-107) mmol/L Carbon Dioxide (22-30) mmol/L Anion Gap mmol/L BUN (9-20) mg/dL Creatinine (0.66-1.25) mg/dL Est GFR (MDRD) Af Amer (>60 ml/min/1.73 sqM) Est GFR (MDRD) Non-Af (>60 ml/min/1.73 sqM) Glucose (74-99) mg/dL Plasma Lactic Acid Livan (0.7-2.0) mmol/L Calcium (8.4-10.2) mg/dL Total Bilirubin (0.2-1.3) mg/dL AST (17-59) U/L ALT (21-72) U/L Alkaline Phosphatase (38-126) U/L Total Creatine Kinase (55-170) U/L CK-MB (CK-2) (0.0-2.4) ng/mL CK-MB (CK-2) Rel Index Troponin I (0.000-0.034) ng/mL Total Protein (6.3-8.2) g/dL Albumin (3.5-5.0) g/dL Urine Color Yellow Urine Appearance Clear (Clear) Urine pH 5.5 (5.0-8.0) Ur Specific [place] 1.012 (1.001-1.035) Urine Protein Negative (Negative) Urine Glucose (UA) Negative (Negative) Urine Ketones Negative (Negative) Urine Blood Negative (Negative) Urine Nitrite Negative (Negative) Urine Bilirubin Negative (Negative) Urine Urobilinogen <2.0 (<2.0) mg/dL Ur Leukocyte Esterase Small H (Negative) Urine RBC 1 (0-5) /hpf Urine WBC 10 H (0-5) /hpf Urine WBC Clumps Rare H (None) /hpf Urine Bacteria Rare H (None) /hpf Urine Mucus Occasional H (None) /hpf Influenza Type A RNA Not Detected (Not Detectd) Influenza Type B (PCR) Not Detected (Not Detectd) Group A Strep Rapid (Negative) 10/12/16 21:32 Sinus tachycardia with PACs, ventricular rate 116 bpm, MI interval 142 ms, QRS duration 74 ms, QT/QTC 330/458 ms (Krysten Noriega) Disposition <Sundeep,Chris - Last Filed: 10/13/16 00:59> Time of Disposition: 00:42 <Krysten Noriega - Last Filed: 10/13/16 03:58> Clinical Impression: Fever, Small cell carcinoma Disposition: HOME SELF-CARE Condition: Good Instructions: Fever in Adults (ED) Additional Instructions: Take antibiotics as directed. Take Tylenol or Motrin as needed for fever. Please follow up with primary care provider or oncologist on Friday. If any new symptom arises or symptoms worsen, return to ER as soon as possible. Prescriptions: Levofloxacin [Levaquin] 500 mg PO DAILY #6 tab Referrals: Hector Escoto MD [Primary Care Provider] - 1-2 days
[2016-10-12] MEDS ORDERED: LEVOFLOXACIN 500MG-D5W PMX 500 MG in DEXTROSE/WATER 1 100ML.BAG IVPB STA (20:46)
[2016-10-12] MEDS: SODIUM CHLORIDE 0.9% 500 ML IV SCH ×2 (20:58→21:59)
[2016-10-12 21:20] LABS: Anisocytosis Moderate; Basophils % (A) 0 %; CH 33.8; CHCM 34.4; Eosinophils % (A) 0 %; HCT 23.7 % (39.0-53.0); HDW 3.15; HGB 7.8 gm/dL (13.0-17.5); Luc # (Auto) 0.03; Luc % (Auto) 0; Lymphocytes # (A) 0.1 k/uL (1.0-4.8); Lymphocytes % (A) 2 %; MCH 32.7 pg (25.0-35.0); MCHC 33.1 g/dL (31.0-37.0); MCV 98.9 fL (80.0-100.0); Macrocytosis Moderate; Mean Platelet Volume 8.8; Monocytes # (A) 0.1 k/uL (0-1.0); Monocytes % (A) 1 %; Neutrophils # (A) 8.3 k/uL (1.3-7.7); Neutrophils % (A) 97 %; RBC 2.39 m/uL (4.30-5.90); RDW 20.4 % (11.5-15.5); WBC 8.6 k/uL (3.8-10.6); WBC (Perox) 8.72
[2016-10-12 21:29] LABS: ALT 35 U/L (21-72); AST 30 U/L (17-59); Alkaline Phosphatase 84 U/L (38-126); Anion Gap 5 mmol/L; Blood Urea Nitrogen 17 mg/dL (9-20); Calcium 8.7 mg/dL (8.4-10.2); Carbon Dioxide 28 mmol/L (22-30); Chloride 103 mmol/L (98-107); Glucose 117 mg/dL (74-99); Non-African American GFR(MDRD) >60 (>60 ml/min/1.73 sqM); Potassium 3.5 mmol/L (3.5-5.1); Sodium 136 mmol/L (137-145); Total Bilirubin 0.8 mg/dL (0.2-1.3); Total Protein 6.1 g/dL (6.3-8.2)
[2016-10-12 21:32] LABS: Prothrombin Time 10.2 sec (9.0-12.0)
--- NOTE | 2016-10-12 21:32 | XR ---
EXAMINATION TYPE: XR chest 2V DATE OF EXAM: 10/12/2016 9:21 PM COMPARISON: 08/16/2016 HISTORY: 66-year-old male with pain, history of right lung cancer with multiple chemotherapy sessions this week. TECHNIQUE: PA and lateral views FINDINGS: The heart remains normal size. Aorta within normal limits. Subtle density along the medial right uppe r lung likely corresponds to the patient's underlying neoplasm. There is chronic band of opacity at t he posterior base best seen on the lateral view. Interstitial changes are likely chronic. No new area of consolidation or pleural effusion. Right anterior chest wall injection port with distal aspect of the catheter in similar position, ascending within the IJV. IMPRESSION: 1. Chronic parenchymal changes, known medial right upper lobe mass and chronic band of opacity at the posterior right base; no acute change identified. 2. The right chest wall catheter continues to be flipped up into the IJV, pointing cranially.
[2016-10-12 21:44] LABS: Creatine Kinase 32 U/L (55-170)
[2016-10-12 21:48] LABS: Partial Thromboplastin Time 21.4 sec (22.0-30.0)
[2016-10-12 21:57] LABS: Creatine Kinase MB 0.3 ng/mL (0.0-2.4); Troponin I <0.012 ng/mL (0.000-0.034)
[2016-10-12 22:33] LABS: Appearance,Urine Clear (Clear); Bacteria,Urine Rare /hpf; Bilirubin,Urine Negative (Negative); Glucose,Urine (UA) Negative (Negative); Ketones,Urine Negative (Negative); Leukocyte Esterase,Urine Small (Negative); Mucus,Urine Occasional /hpf; Nitrite,Urine Negative (Negative); PH, Urine 5.5 (5.0-8.0); Particle Count 2033; Protein,Urine Negative (Negative); RBC,Urine 1 /hpf (0-5); Specific Gravity,Urine 1.012 (1.001-1.035); UA Billing (MACRO vs. MICRO) MICRO; Urobilinogen,Urine <2.0 mg/dL (<2.0); WBC,Urine 10 /hpf (0-5)
[2016-10-12] MEDS ORDERED: SODIUM CHLORIDE 0.9% 1,000 ML IV ONE (22:49)
[2016-10-13 00:36] VITALS: BP 118/59; PULSE 98; RESP 20; TEMP 98.7
== END 2016-10-13 01:02 | disposition home or self-care (01) ==
LOC: EC 20:09
DX: C34.91 Malignant neoplasm of unspecified part of right bronchus or lung (principal); R06.02 Shortness of breath; I10 Essential (primary) hypertension; E78.5 Hyperlipidemia, unspecified; Z87.891 Personal history of nicotine dependence; Z79.899 Other long term (current) drug therapy; Z88.0 Allergy status to penicillin
CPT/HCPCS: 99284; 96365; 96366; 96361; 36415; 93005; 80053; 82550; 82553; 83605; 84484; 85025; 85610; 85730; 81001; 87040; 87086; 87081; 87430; 87502; 71020; J1956; 87077; 87186

== ENCOUNTER 2016-10-17 12:02 | Inpatient (IN) | payer MEDICARE ==
[2016-10-17] MEDS ORDERED: IPRATROPIUM-ALBUTEROL 3 ML NEB INHALATION STA (13:33)
--- NOTE | 2016-10-17 13:33 | ED ---
Recheck HPI - General Chief Complaint: Recheck/Abnormal Lab/Rx Stated Complaint: abn labs Time Seen by Provider: 10/17/16 13:00 Source: patient, RN notes reviewed Mode of arrival: ambulatory Limitations: no limitations - History of Present Illness Initial Comments: This is a 66-year-old male with a history of small cell and squamous cell cancer of the right lung was sent here from outpatient for evaluation of low white cells and fever for last week he's had chills and sweats he has been clammy. He denies any new shortness of breath no chest pain today cough up some bloody phlegm apparently today. He has no other complaints such as nausea vomiting or diarrhea. He did not get chemotherapy today. MD Complaint: abnormal lab, other - Related Data Home Medications Medication Instructions Recorded Confirmed Atorvastatin [Lipitor] 20 mg PO HS 11/26/14 10/17/16 Doxazosin [Cardura] 4 mg PO BID 11/26/14 10/17/16 Omeprazole [PriLOSEC] 20 mg PO AC-BRKFST 10/03/16 10/17/16 Levofloxacin [Levaquin] 750 mg PO DAILY@1630 10/15/16 10/17/16 Allergies Allergy/AdvReac Type Severity Reaction Status Date / Time Penicillins Allergy Swelling Verified 10/17/16 13:15 Review of Systems ROS Statement: Those systems with pertinent positive or pertinent negative responses have been documented in the HPI. ROS Other: All systems not noted in ROS Statement are negative. 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 History of Any Multi-Drug Resistant Organisms: None Reported Past Surgical History: Orthopedic Surgery Additional Past Surgical History / Comment(s): cateract, arthroscopy left knee, nigel feet, colonoscopy Past Anesthesia/Blood Transfusion Reactions: No Reported Reaction Past Psychological History: No Psychological Hx Reported Smoking Status: Former smoker Past Alcohol Use History: None Reported Additional Past Alcohol Use History / Comment(s): quit smoking 9 weeks ago, smoked on & off 45 yrs. Past Drug Use History: None Reported - Past Family History Mother Family Medical History: No Reported History Sister(s) Family Medical History: Cancer General Exam - General Exam Comments Initial Comments: This is a well-developed well-nourished awake alert oriented x 3 male Limitations: no limitations General appearance: alert, in no apparent distress Head exam: Present: atraumatic, normocephalic, normal inspection Eye exam: Present: normal appearance, PERRL, EOMI. Absent: scleral icterus, conjunctival injection, periorbital swelling ENT exam: Present: mucous membranes dry Neck exam: Present: normal inspection. Absent: tenderness, meningismus, lymphadenopathy Respiratory exam: Present: wheezes, rhonchi (Right lower lobe rhonchi). Absent : respiratory distress, rales, stridor Cardiovascular Exam: Present: regular rate, normal rhythm, normal heart sounds. Absent: systolic murmur, diastolic murmur, rubs, gallop, clicks GI/Abdominal exam: Present: soft, normal bowel sounds. Absent: distended, tenderness, guarding, rebound, rigid Extremities exam: Present: normal inspection, full ROM, normal capillary refill. Absent: tenderness, pedal edema, joint swelling, calf tenderness Back exam: Present: normal inspection Neurological exam: Present: alert, oriented X3, CN II-XII intact Psychiatric exam: Present: normal affect, normal mood Skin exam: Present: warm, dry, intact, normal color. Absent: rash Course Vital Signs 10/17/16 10/17/16 10/17/16 12:04 14:11 14:16 Temperature 99.0 F 100.8 F H Pulse Rate 108 H 107 H 108 H Respiratory 20 18 Rate Blood Pressure 106/56 113/57 O2 Sat by Pulse 99 100 Oximetry 10/17/16 10/17/16 10/17/16 14:21 15:05 16:23 Temperature 101.9 F H Pulse Rate 115 H 121 H 122 H Respiratory 18 18 Rate Blood Pressure 108/57 107/72 O2 Sat by Pulse 97 97 Oximetry 10/17/16 17:13 Temperature 100.6 F H Pulse Rate 118 H Respiratory 18 Rate Blood Pressure 92/57 O2 Sat by Pulse 95 Oximetry Medical Decision Making - Medical Decision Making I did discuss case with the patient family as well as with Dr. Escoto and Dr. Garnica patient will be admitted for IV antibiotics for neutropenia and fever. Patient currently is hemodynamically stable clinically awake alert oriented 3 I did discuss case Dr. Escoto and with Dr. Garnica. Patient be placed on cefepime. His initial lactic acid was within normal limits. Patient will be given IV fluids in addition to the antibiotics. - Lab Data Result diagrams: 10/17/16 14:10 10/17/16 14:10 Lab Results 10/17/16 10/17/16 10/17/16 Range/Units 14:10 14:10 14:10 WBC 0.3 L* (3.8-10.6) k/uL RBC 2.85 L (4.30-5.90) m/uL Hgb 9.0 L (13.0-17.5) gm/dL Hct 26.5 L (39.0-53.0) % MCV 93.1 D (80.0-100.0) fL MCH 31.7 (25.0-35.0) pg MCHC 34.1 (31.0-37.0) g/dL RDW 20.5 H (11.5-15.5) % Plt Count 10 L* D (150-450) k/uL Differential Comment [employer] Manual Slide Review Performed Anisocytosis Moderate Macrocytosis Slight Sodium 140 (137-145) mmol/L Potassium 3.8 (3.5-5.1) mmol/L Chloride 105 (98-107) mmol/L Carbon Dioxide 22 (22-30) mmol/L Anion Gap 13 mmol/L BUN 16 (9-20) mg/dL Creatinine 0.98 (0.66-1.25) mg/dL Est GFR (MDRD) Af Amer >60 (>60 ml/min/1.73 sqM) Est GFR (MDRD) Non-Af >60 (>60 ml/min/1.73 sqM) Glucose 95 (74-99) mg/dL Plasma Lactic Acid Livan 1.0 (0.7-2.0) mmol/L Calcium 8.8 (8.4-10.2) mg/dL Magnesium 1.5 L (1.6-2.3) mg/dL Total Bilirubin 1.4 H (0.2-1.3) mg/dL AST 28 (17-59) U/L ALT 23 (21-72) U/L Alkaline Phosphatase 94 (38-126) U/L Total Protein 7.5 (6.3-8.2) g/dL Albumin 3.7 (3.5-5.0) g/dL Urine Color Urine Appearance (Clear) Urine pH (5.0-8.0) Ur Specific [place] (1.001-1.035) Urine Protein (Negative) Urine Glucose (UA) (Negative) Urine Ketones (Negative) Urine Blood (Negative) Urine Nitrite (Negative) Urine Bilirubin (Negative) Urine Urobilinogen (<2.0) mg/dL Ur Leukocyte Esterase (Negative) 10/17/16 Range/Units 14:38 WBC (3.8-10.6) k/uL RBC (4.30-5.90) m/uL Hgb (13.0-17.5) gm/dL Hct (39.0-53.0) % MCV (80.0-100.0) fL MCH (25.0-35.0) pg MCHC (31.0-37.0) g/dL RDW (11.5-15.5) % Plt Count (150-450) k/uL Differential Comment Manual Slide Review Anisocytosis Macrocytosis Sodium (137-145) mmol/L Potassium (3.5-5.1) mmol/L Chloride (98-107) mmol/L Carbon Dioxide (22-30) mmol/L Anion Gap mmol/L BUN (9-20) mg/dL Creatinine (0.66-1.25) mg/dL Est GFR (MDRD) Af Amer (>60 ml/min/1.73 sqM) Est GFR (MDRD) Non-Af (>60 ml/min/1.73 sqM) Glucose (74-99) mg/dL Plasma Lactic Acid Livan (0.7-2.0) mmol/L Calcium (8.4-10.2) mg/dL Magnesium (1.6-2.3) mg/dL Total Bilirubin (0.2-1.3) mg/dL AST (17-59) U/L ALT (21-72) U/L Alkaline Phosphatase (38-126) U/L Total Protein (6.3-8.2) g/dL Albumin (3.5-5.0) g/dL Urine Color Yellow Urine Appearance Clear (Clear) Urine pH 7.0 (5.0-8.0) Ur Specific [place] 1.011 (1.001-1.035) Urine Protein Negative (Negative) Urine Glucose (UA) Negative (Negative) Urine Ketones Negative (Negative) Urine Blood Negative (Negative) Urine Nitrite Negative (Negative) Urine Bilirubin Negative (Negative) Urine Urobilinogen <2.0 (<2.0) mg/dL Ur Leukocyte Esterase Negative (Negative) - Radiology Data Radiology results: report reviewed (I did review the imaging and reports no acute findings are seen.), image reviewed Disposition Clinical Impression: Neutropenia, Febrile illness, acute, Lung cancer Disposition: ADMITTED IP TO THIS HOSP Condition: Stable Referrals: Hector Escoto MD [Primary Care Provider] - 1-2 days
[2016-10-17 14:43] LABS: ALT 23 U/L (21-72); AST 28 U/L (17-59); Alkaline Phosphatase 94 U/L (38-126); Anion Gap 13 mmol/L; Anisocytosis Moderate; Aty Lym Flag Marked; Blood Urea Nitrogen 16 mg/dL (9-20); CH 32.4; Calcium 8.8 mg/dL (8.4-10.2); Carbon Dioxide 22 mmol/L (22-30); Chloride 105 mmol/L (98-107); Glucose 95 mg/dL (74-99); HCT 26.5 % (39.0-53.0); HDW 3.29; Immature Gran Flag Slight; MCH 31.7 pg (25.0-35.0); MCHC 34.1 g/dL (31.0-37.0); Macrocytosis Slight; Magnesium 1.5 mg/dL (1.6-2.3); Mean Platelet Volume 7.8; Non-African American GFR(MDRD) >60 (>60 ml/min/1.73 sqM); RBC 2.85 m/uL (4.30-5.90); RDW 20.5 % (11.5-15.5); Sodium 140 mmol/L (137-145); Total Bilirubin 1.4 mg/dL (0.2-1.3); Total Protein 7.5 g/dL (6.3-8.2); WBC (Perox) 0.22
--- NOTE | 2016-10-17 14:47 | XR ---
EXAMINATION TYPE: XR chest 2V DATE OF EXAM: 10/17/2016 2:43 PM COMPARISON: 10/12/2016 INDICATION: Cough, history of cancer TECHNIQUE: Frontal and lateral views of the chest are obtained. FINDINGS: The heart size is normal. The pulmonary vasculature is normal. The lungs are clear. Port is present on the right with the tip directed into the cervical neck regio n on the right. Stable from prior study. IMPRESSION: 1. No acute pulmonary process. 2. Stable appearance of the port catheter
[2016-10-17 14:48] LABS: Potassium 3.8 mmol/L (3.5-5.1)
[2016-10-17 14:50] LABS: Add Differential Manual Differential
[2016-10-17 14:53] LABS: Manual Review Performed
[2016-10-17 14:56] LABS: MCV 93.1 fL (80.0-100.0)
[2016-10-17 15:01] LABS: WBC 0.3 k/uL (3.8-10.6)
[2016-10-17] MEDS ORDERED: ACETAMINOPHEN TAB 325 MG TAB PO STA (16:07)
[2016-10-17] MEDS ORDERED: ACETAMINOPHEN TAB 500 MG TAB PO STA (16:26)
[2016-10-17 16:32] LABS: Appearance,Urine Clear (Clear); Bilirubin,Urine Negative (Negative); Glucose,Urine (UA) Negative (Negative); Ketones,Urine Negative (Negative); Leukocyte Esterase,Urine Negative (Negative); Nitrite,Urine Negative (Negative); Protein,Urine Negative (Negative); Specific Gravity,Urine 1.011 (1.001-1.035); UA Billing (MACRO vs. MICRO) CHEM; Urobilinogen,Urine <2.0 mg/dL (<2.0)
[2016-10-17] MEDS ORDERED: SODIUM CHLORIDE 0.9% 2,000 ML IV ONE (17:35)
[2016-10-17] MEDS ORDERED: NALOXONE 0.4 MG/ML 1 ML VIAL IV PRN (18:16)
[2016-10-17] MEDS ORDERED: CEFEPIME 2 GM in SODIUM CHLORIDE 0.9% 50 ML IVPB STA (18:24)
[2016-10-17] MEDS: SODIUM CHLORIDE 0.9% 1,000 ML IV SCH (19:42)
[2016-10-17] MEDS: ATORVASTATIN 20 MG TAB PO SCH (19:42)
[2016-10-17] MEDS: DOXAZOSIN 4 MG TAB PO SCH (19:43)
[2016-10-17] MEDS: ALBUTEROL NEBULIZED 2.5 MG/3 ML INHALATION SCH (21:26)
[2016-10-18] MEDS: CEFEPIME 2 GM in SODIUM CHLORIDE 0.9% 50 ML IVPB SCH ×3 (00:59→15:21)
[2016-10-18] MEDS: SODIUM CHLORIDE 0.9% 1,000 ML IV SCH ×3 (05:54→22:17)
[2016-10-18] MEDS: ALBUTEROL NEBULIZED 2.5 MG/3 ML INHALATION SCH ×2 (08:04→20:17)
[2016-10-18] MEDS ORDERED: Magnesium Replacement Protocol 1 EACH MISC MISCELLANE PRN (08:24)
[2016-10-18 08:57] LABS: Anisocytosis Moderate; Aty Lym Flag Marked; CH 31.9; CHCM 33.4; HCT 22.7 % (39.0-53.0); HDW 3.18; MCH 31.7 pg (25.0-35.0); MCHC 33.1 g/dL (31.0-37.0); MCV 95.8 fL (80.0-100.0); Macrocytosis Slight; Mean Platelet Volume 7.6; RBC 2.37 m/uL (4.30-5.90); RDW 20.1 % (11.5-15.5); WBC (Perox) 0.45
[2016-10-18] MEDS: PANTOPRAZOLE 40 MG TABLET PO SCH (09:01)
[2016-10-18 09:03] LABS: WBC 0.4 k/uL (3.8-10.6)
[2016-10-18 09:04] LABS: HGB 7.5 gm/dL (13.0-17.5)
[2016-10-18 09:05] LABS: Add Differential Manual Differential
[2016-10-18 09:06] LABS: Manual Review Performed
[2016-10-18] MEDS: DOXAZOSIN 4 MG TAB PO SCH ×3 (09:08→20:41)
[2016-10-18 09:13] LABS: Anion Gap 14 mmol/L; Blood Urea Nitrogen 15 mg/dL (9-20); Calcium 8.4 mg/dL (8.4-10.2); Carbon Dioxide 20 mmol/L (22-30); Chloride 108 mmol/L (98-107); Glucose 107 mg/dL (74-99); Non-African American GFR(MDRD) >60 (>60 ml/min/1.73 sqM); Potassium 3.2 mmol/L (3.5-5.1); Sodium 142 mmol/L (137-145)
[2016-10-18] MEDS: MAGNESIUM SULFATE-D5W PMX 1 GM in DEXTROSE/WATER 1 100ML.BAG IVPB SCH ×2 (10:51→12:37)
[2016-10-18 13:41] VITALS: BMI 36.0
--- NOTE | 2016-10-18 14:33 | P.HPIM ---
History of Present Illness H&P Date: 10/18/16 Chief Complaint: Fever Patient is a 66-year-old male, patient of Dr. 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 Patient was diagnosed in June 2016 with lung cancer and has undergone 33 treatments of radiation and just finished his fifth round of chemotherapy last Friday with 1 dose left in 2 weeks. Patient started to develop low-grade fevers over the last week with associated chills and sweats and one episode of hemoptysis prior to admission. No history of nausea, vomiting, chest pain, abdominal pain , constipation or diarrhea. Patient was advised from his oncologist to be admitted. Chest x-ray the emergency department with no evidence of acute pulmonary process and stable appearance of the port catheter. Patient was found to have evidence of neutral and fever with a temperature of 101.9 in the emergency department and pancytopenia on admission labs with WBC of 0.3, hemoglobin 9, and platelets of 10. In addition magnesium was 1.5. Urinalysis negative. Patient had been on Levaquin in the outpatient setting but was started on Cefzil time in the emergency department. Patient was fluid resuscitated with 2 L of normal saline, blood cultures were drawn, and patient was admitted to oncology unit. Upon examination, patient is feeling better. Patient has no specific complaints. Tolerating diet. Reports good appetite. A.m. labs with WBC of 0.4, hemoglobin 7.5, platelet count 8, potassium 3.2, magnesium 1.4. Oncology service has ordered 1 unit of PRBC and 5 units of platelets to be transfused. No bleeding observed. Past Medical History Past Medical History: Cancer, COPD, GERD/Reflux, Hyperlipidemia, Hypertension, Prostate Disorder, Sleep Apnea/CPAP/BIPAP Additional Past Medical History / Comment(s): lymph nodes around heart and mass in lungs, to have biopsy jun 2016; Lung cancer - limited small cell of the right lung, squamous cell of the right lung.no sx but completed 33 radiation tx and has been taking chemo-next tx due 2 weeks from this past friday. no longing taking meds for hypertension d/t hypotension, gout,lt eye start of cataract.pt stated has metal shards imbedded in chin and chest from the works he used to do. History of Any Multi-Drug Resistant Organisms: None Reported Past Surgical History: Orthopedic Surgery Additional Past Surgical History / Comment(s): rt eye cataract removed, arthroscopy left knee, nigel feet, colonoscopy , bronchosocpy, cystoscopy/rt ureteroscopy, lithotripsy, port a cath placed Past Anesthesia/Blood Transfusion Reactions: No Reported Reaction Past Psychological History: No Psychological Hx Reported Additional Psychological History / Comment(s): pt is independant,lives with his devyn in a ranch style home that has 2 steps to [facility]. no pets. 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 Smoking Status: Former smoker Past Alcohol Use History: None Reported Additional Past Alcohol Use History / Comment(s): started smoking 1965 quit 2015 Past Drug Use History: None Reported - Past Family History Mother Family Medical History: CVA/TIA Additional Family Medical History / Comment(s): brain tumor Sister(s) Family Medical History: Cancer Father Family Medical History: Myocardial Infarction ([place]) Additional Family Medical History / Comment(s): all 5 of dad's brothers had a mi Medications and Allergies Home Medications Medication Instructions Recorded Confirmed Type Atorvastatin [Lipitor] 20 mg PO HS 11/26/14 10/17/16 History Doxazosin [Cardura] 4 mg PO BID 11/26/14 10/17/16 History Omeprazole [PriLOSEC] 20 mg PO AC-BRKFST 10/03/16 10/17/16 History Levofloxacin [Levaquin] 750 mg PO DAILY@1630 10/15/16 10/17/16 History Albuterol Nebulized [Ventolin 2.5 mg INHALATION BID 10/17/16 10/17/16 History Nebulized] Allergies Allergy/AdvReac Type Severity Reaction Status Date / Time Penicillins Allergy Swelling Verified 10/17/16 13:15 Physical Exam Vitals: Vital Signs Temp Pulse Pulse Resp BP BP Pulse Ox 10/18/16 08:15 100 10/18/16 08:06 102 H 10/18/16 07:00 98.8 F 104 H 20 95/52 97 10/18/16 01:00 99.3 F 10/17/16 23:00 98.9 F 116 H 16 129/67 96 10/17/16 21:36 110 H 10/17/16 21:28 108 H 10/17/16 18:53 98.3 F 120 H 16 100/55 97 10/17/16 18:14 99.1 F 120 H 17 97/55 96 10/17/16 17:13 100.6 F H 118 H 18 92/57 95 10/17/16 16:23 101.9 F H 122 H 18 107/72 97 10/17/16 15:05 121 H 18 108/57 97 10/17/16 14:21 115 H 10/17/16 14:16 100.8 F H 108 H 18 113/57 100 10/17/16 14:11 107 H Intake and Output 10/17/16 10/18/16 10/18/16 22:59 06:59 14:59 Intake Total 600 970 0 Balance 600 970 0 Intake: Amount of Fluid Infused ( 600 ml) Intake, IV Titration 850 Amount Cefepime 2 gm In Sodium 50 Chloride 0.9% 50 ml @ 100 mls/hr IVPB Q8HR [facility] Rx# :[id number] Sodium Chloride 0.9% 1, 800 000 ml @ 100 mls/hr IV . Q10H [facility] Rx#:[id number] Oral 120 Blood Product 0 Platelet Pheresis Acda2 0 Unit [id number] Other: # Voids 1 Weight 113.852 kg Patient Weight 10/19/16 06:59 Weight 113.852 kg GENERAL: Pt awake and alert, well-appearing, well-nourished, and in no acute distress. HEAD: Atraumatic, normocephalic. EYES: Pupils equal, round, and reactive to light, extraocular movements intact, sclera anicteric, conjunctiva are normal. ENT: Oropharynx clear without exudates. Moist mucous membranes. NECK: Supple without lymphadenopathy or JVD. Neck midline. LUNGS: Breath sounds diminished to auscultation bilaterally. No wheezes, rales , or rhonchi. HEART: Heart S1, S2, no S3 or S4. Regular rate and rhythm. No murmurs, rubs or gallops. ABDOMEN: Soft, obese, nontender, nondistended, normoactive bowel sounds. No guarding, no rebound. EXTREMITIES: 2+ peripheral pulses. No edema. No calf tenderness. NEUROLOGICAL: Pt oriented x 3. No focal deficits noted. Strength and sensation grossly intact. PSYCH: Normal mood, normal affect. SKIN: Warm, dry, intact. Normal turgor. No rashes or lesions. Results CBC & Chem 7: 10/18/16 08:32 10/18/16 08:32 Labs: Abnormal Lab Results - Last 24 Hours (Table) 10/17/16 10/17/16 10/18/16 Range/Units 14:10 14:10 08:32 WBC 0.3 L* 0.4 L* (3.8-10.6) k/uL RBC 2.85 L 2.37 L (4.30-5.90) m/uL Hgb 9.0 L 7.5 L D (13.0-17.5) gm/dL Hct 26.5 L 22.7 L (39.0-53.0) % RDW 20.5 H 20.1 H (11.5-15.5) % Plt Count 10 L* D 8 L* (150-450) k/uL Potassium (3.5-5.1) mmol/L Chloride (98-107) mmol/L Carbon Dioxide (22-30) mmol/L Glucose (74-99) mg/dL Magnesium 1.5 L (1.6-2.3) mg/dL Total Bilirubin 1.4 H (0.2-1.3) mg/dL Crossmatch 10/18/16 10/18/16 10/18/16 Range/Units 08:32 08:32 12:20 WBC (3.8-10.6) k/uL RBC (4.30-5.90) m/uL Hgb (13.0-17.5) gm/dL Hct (39.0-53.0) % RDW (11.5-15.5) % Plt Count (150-450) k/uL Potassium 3.2 L (3.5-5.1) mmol/L Chloride 108 H (98-107) mmol/L Carbon Dioxide 20 L (22-30) mmol/L Glucose 107 H (74-99) mg/dL Magnesium 1.4 L (1.6-2.3) mg/dL Total Bilirubin (0.2-1.3) mg/dL Crossmatch See Detail Chest x-ray: report reviewed Thrombosis Risk Factor Assmnt - DVT/VTE Prophylaxis DVT/VTE Prophylaxis: Mechanical Prophylaxis ordered Assessment and Plan Plan: Impression and plan: 1. Neutropenic sepsis, present on admission. Oncology has been consulted, recommendations pending. Continue IV antibiotics in the form of cefepime, IV fluids, supportive treatment and pain management. Await result of blood cultures. 2. Anemia, suspect chemo induced. Hemoglobin 7.5. Patient to receive 1 unit of PRBC. 3. Thrombocytopenia, suspect chemo induced. Platelets 7. Patient to receive 5 units of platelets. 4. Leukopenia, suspect chemo induced. WBC 0.3. 5. Hypomagnesemia. Magnesium 1.4. Replace magnesium per protocol. 6. Hypokalemia. Potassium 3.2. Replace potassium per protocol. 7. Small cell lung cancer of right lung status post chemo and radiation. 8. COPD without exacerbation. Continue nebulized updraft treatments. 9. GERD. Continue Protonix. 10. Hyperlipidemia. Continue Lipitor. 11. History of hypertension. 12. BPH. Continue Cardura. 13. History of nicotine dependence. Continue to monitor patient. Home medications of been reviewed and resumed as appropriate. Continue GI and DVT prophylaxis. Continue to monitor for signs of bleeding. Continue to follow with oncology service. Repeat CBC and BMP in a.m. The above impression and plan have been discussed and directed by Dr. Escoto. Kvng SAUNDERS acting as scribe for Dr. Escoto.
[2016-10-18] MEDS ORDERED: IV VANCOMYCIN PER PHARMACY 1 EACH MISC MISCELLANE PRN (15:10)
--- NOTE | 2016-10-18 15:13 | P.CNPUL ---
History of Present Illness Consult date: 10/18/16 Requesting physician: Hector Escoto Reason for consult: dyspnea Chief complaint: Febrile illness History of present illness: This is a very pleasant 66-year-old gentleman who follows with Dr. Arcos as his primary care physician. He has a history of hyperlipidemia, hypertension, prostate disorder, previous smoker. 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 This was diagnosed by bronchoscopy with biopsies on 06/26/[address] Oropeza. Since that time he has undergone 5 rounds of chemotherapy and is due for a 6 around October 29. He is also completed 33 radiation treatments. A PET scan 09/28/2016 did reveal improvement within the chest. There was some hypermetabolic uptake within the marrow possibly due to the therapy itself. He has been receiving Neulasta for neutropenia as well. On October 12 the patient was seen in the emergency room after developing any significant fever. He was subsequently treated and released. The patient re- presented here again yesterday with fever chills and diaphoresis. He denied any significant shortness of breath however he did, cough up when bloody gelatinous sputum prior to arrival. He has not had any further productive cough. No nausea vomiting or diarrhea. He is seen today in consultation on the oncology floor. He is awake and alert in no acute distress. He does have a loose nonproductive cough. No further chills or night sweats. He is maintaining O2 saturations in the upper 90s on room air. He's been hemodynamically stable. T-max since arrival 101.9. Currently afebrile. His chest x-ray reveals some atelectatic changes in the right lung base which may be residual from a previous pneumonia in July 2016. Current white count 0.4. Hemoglobin 7.5. Platelet count 8000. He is currently on cefepime. Review of Systems 14 point review of system was conducted. All negative other than as mentioned in HPI. Past Medical History Past Medical History: Cancer, COPD, GERD/Reflux, Hyperlipidemia, Hypertension, Prostate Disorder, Sleep Apnea/CPAP/BIPAP Additional Past Medical History / Comment(s): limited small cell of the right upper lobe, non-small cell lung cancer of poorly differentiated squamous cell right lower lobe, completed 33 radiation tx and has been taking chemo-next tx due 2 weeks from this past friday. no longing taking meds for hypertension d/t hypotension, gout,lt eye start of cataract.pt stated has metal shards imbedded in chin and chest from the works he used to do. History of Any Multi-Drug Resistant Organisms: None Reported Past Surgical History: Orthopedic Surgery Additional Past Surgical History / Comment(s): rt eye cataract removed, arthroscopy left knee, nigel feet, colonoscopy , bronchosocpy, cystoscopy/rt ureteroscopy, lithotripsy, port a cath placed Past Anesthesia/Blood Transfusion Reactions: No Reported Reaction Past Psychological History: No Psychological Hx Reported Additional Psychological History / Comment(s): pt is independant,lives with his devyn in a ranch style home that has 2 steps to [facility]. no pets. 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 Smoking Status: Former smoker Past Alcohol Use History: None Reported Additional Past Alcohol Use History / Comment(s): started smoking 1966 quit 2015 Past Drug Use History: None Reported - Past Family History Mother Family Medical History: CVA/TIA Additional Family Medical History / Comment(s): brain tumor Sister(s) Family Medical History: Cancer Father Family Medical History: Myocardial Infarction ([place]) Additional Family Medical History / Comment(s): all 5 of dad's brothers had a mi Medications and Allergies Home Medications Medication Instructions Recorded Confirmed Type Atorvastatin [Lipitor] 20 mg PO HS 11/26/14 10/17/16 History Doxazosin [Cardura] 4 mg PO BID 11/26/14 10/17/16 History Omeprazole [PriLOSEC] 20 mg PO AC-BRKFST 10/03/16 10/17/16 History Levofloxacin [Levaquin] 750 mg PO DAILY@1630 10/15/16 10/17/16 History Albuterol Nebulized [Ventolin 2.5 mg INHALATION BID 10/17/16 10/17/16 History Nebulized] Allergies Allergy/AdvReac Type Severity Reaction Status Date / Time Penicillins Allergy Swelling Verified 10/17/16 13:15 Physical Exam Vitals: Vital Signs Temp Pulse Pulse Resp BP BP Pulse Ox 10/18/16 14:20 103 H 16 128/70 99 10/18/16 14:10 105 H 16 122/62 10/18/16 08:15 100 10/18/16 08:06 102 H 10/18/16 07:00 98.8 F 104 H 20 95/52 97 10/18/16 01:00 99.3 F 10/17/16 23:00 98.9 F 116 H 16 129/67 96 10/17/16 21:36 110 H 10/17/16 21:28 108 H 10/17/16 18:53 98.3 F 120 H 16 100/55 97 10/17/16 18:14 99.1 F 120 H 17 97/55 96 10/17/16 17:13 100.6 F H 118 H 18 92/57 95 10/17/16 16:23 101.9 F H 122 H 18 107/72 97 10/17/16 15:05 121 H 18 108/57 97 Intake and Output 10/17/16 10/18/16 10/18/16 22:59 06:59 14:59 Intake Total 600 970 200 Balance 600 970 200 Intake: IV 200 Magnesium Sulfate-D5w Pmx 200 1 gm In Dextrose/Water 1 100ml.bag @ 100 mls/hr IVPB Q1H [facility] Rx#: [id number] Amount of Fluid Infused ( 600 ml) Intake, IV Titration 850 Amount Cefepime 2 gm In Sodium 50 Chloride 0.9% 50 ml @ 100 mls/hr IVPB Q8HR [facility] Rx# :[id number] Sodium Chloride 0.9% 1, 800 000 ml @ 100 mls/hr IV . Q10H [facility] Rx#:[id number] Oral 120 Blood Product 0 Platelet Pheresis Acda2 0 Unit [id number] Other: # Voids 1 1 Weight 113.852 kg Patient Weight 10/19/16 06:59 Weight 113.852 kg GENERAL EXAM: Alert, active, comfortable in no apparent distress. HEAD: Normocephalic. EYES: Normal reaction of pupils, equal size. NOSE: Clear with pink turbinates. THROAT: No erythema or exudates. NECK: No masses, no JVD. CHEST: No chest wall deformity. LUNGS: Equal air entry with faint wheeze in the right posterior base.. CVS: S1 and S2 normal with no audible murmurs, regular rhythm. ABDOMEN: No hepatosplenomegaly, normal bowel sounds, no guarding or rigidity. SPINE: No scoliosis or deformity SKIN: No rashes CENTRAL NERVOUS SYSTEM: No focal deficits, tone is normal in all 4 extremities. Extremities: There is no significant peripheral edema. No clubbing, no cyanosis. Peripheral pulses are intact. Results - Laboratory Findings CBC and BMP: 10/18/16 08:32 10/18/16 08:32 Abnormal lab findings: Abnormal Labs 10/17/16 10/17/16 10/18/16 14:10 14:10 08:32 WBC 0.3 L* 0.4 L* RBC 2.85 L 2.37 L Hgb 9.0 L 7.5 L D Hct 26.5 L 22.7 L RDW 20.5 H 20.1 H Plt Count 10 L* D 8 L* Potassium Chloride Carbon Dioxide Glucose Magnesium 1.5 L Total Bilirubin 1.4 H Crossmatch 10/18/16 10/18/16 10/18/16 08:32 08:32 12:20 WBC RBC Hgb Hct RDW Plt Count Potassium 3.2 L Chloride 108 H Carbon Dioxide 20 L Glucose 107 H Magnesium 1.4 L Total Bilirubin Crossmatch See Detail - Diagnostic Findings Chest x-ray: image reviewed (Minimal atelectasis in right lower lung.) Assessment and Plan Plan: Impression: #1 Febrile illness in a patient with significant immunocompromise secondary to chemotherapy for both small cell lung cancer of the right upper lobe and non- small cell lung cancer in the right lower lobe. Status post 33 radiation treatments and 5 rounds of 6 chemotherapy treatments. #2 Pancytopenia, current white count 0.4, hemoglobin 7.5, platelet count 8000. Currently on Neulasta #3 Chronic tobacco dependence of 45 years at 1 pack per day. Quit approximately 3 months ago. #4 Hyperlipidemia. #5 Hypertension. 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 Plan: The patient was seen and evaluated by Dr. Vernon. His chest x-ray and labs were reviewed. We'll continue with his current medications including cefepime. We'll go ahead and add vancomycin to his regime as well. We'll continue with bronchodilators. We will continue to follow and make further recommendations based on his clinical status. Time with Patient: Greater than 30
[2016-10-18] MEDS ORDERED: VANCOMYCIN 2,500 MG in SODIUM CHLORIDE 0.9% 500 ML IVPB ONE (16:00)
--- NOTE | 2016-10-18 17:00 | P.CONS ---
History of Present Illness - Reason for Consult Consult date: 10/18/16 on chemotherapy for lung cancer Requesting physician: Felton Perez - Chief Complaint intermittent fever, weakness - History of Present Illness Mr. Jolley is a very pleasant male pt of Dr. Moss who presented initially in early 2016 for evaluation of left knee for consideration of arthroplasty. He was found to have abnormal CXR, CT chest revealed 10 X 5 cm area of consolidation in RUL with 3.[address] and [address], he was also found to have 0.9 cm distal right ureter stone with mild hydronephrosis-he had lithotripsy by Dr. Mcmanus. Diagnostic bronchoscopy on 06/26/16 revealed 90% obstruction of RLL bronchus, pathology small cell lung cancer. Pt was started on carbo/[employer] end of Jun with concurrent XRT. PET scan after radiation completion in early September showed significant improvement. He had cycle 4 7 days ago, he did receive neulasta on 10/11. Pt was seen in the ER over the weekend for fever, he was given a dose of IV antibiotics and sent home on , he saw Dr. Moss on Friday with c/o of persistent fever and he was very anemic with a Hgb 6.8 I believe. He received 2 units of PRBCs outpatient and his abx were adjusted. Pt came to office for evaluation yesterday as he coughed up some blood x 1, his fevers persisted. Pt was hydrated and monitored in the office but his condition continued to decline- tachycardia, hypotensive and cold sweat so he was sent to ER. He is admitted for neutropenic fever. UA is not suspicious, CXR no acute process but exam reveal;s bibasilar wheezes and pt has persistent cough, blood cultures pending. Pt is receiving platelet transfusion for count of 8,000, 1 unit of blood for Hgb of 7.5. When seen today pt states feeling a little better then yesterday, he has not had fever today, denies oral irritation, nausea, appetite is fair, cough persists, dry, no further hemoptysis, he is SOB with activity, no abd pain, dysuria, abd pain, diarrhea or constipation. 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 no longing taking meds for hypertension d/t hypotension, gout,lt eye start of cataract.pt stated has metal shards imbedded in chin and chest from the works he used to do. History of Any Multi-Drug Resistant Organisms: None Reported Past Surgical History: Orthopedic Surgery Additional Past Surgical History / Comment(s): rt eye cataract removed, arthroscopy left knee, nigel feet, colonoscopy , bronchosocpy, cystoscopy/rt ureteroscopy, lithotripsy, port a cath placed Past Anesthesia/Blood Transfusion Reactions: No Reported Reaction Past Psychological History: No Psychological Hx Reported Additional Psychological History / Comment(s): pt is independant,lives with his devyn in a ranch style home that has 2 steps to [employer]. no pets. 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 Smoking Status: Former smoker Past Alcohol Use History: None Reported Additional Past Alcohol Use History / Comment(s): started smoking 1966 quit 2015 Past Drug Use History: None Reported - Past Family History Mother Family Medical History: CVA/TIA Additional Family Medical History / Comment(s): brain tumor Sister(s) Family Medical History: Cancer Father Family Medical History: Myocardial Infarction ([place]) Additional Family Medical History / Comment(s): all 5 of dad's brothers had a mi Medications and Allergies Home Medications Medication Instructions Recorded Confirmed Type Atorvastatin [Lipitor] 20 mg PO HS 11/26/14 10/17/16 History Doxazosin [Cardura] 4 mg PO BID 11/26/14 10/17/16 History Omeprazole [PriLOSEC] 20 mg PO AC-BRKFST 10/03/16 10/17/16 History Levofloxacin [Levaquin] 750 mg PO DAILY@1630 10/15/16 10/17/16 History Albuterol Nebulized [Ventolin 2.5 mg INHALATION BID 10/17/16 10/17/16 History Nebulized] Allergies Allergy/AdvReac Type Severity Reaction Status Date / Time Penicillins Allergy Swelling Verified 10/17/16 13:15 Physical Exam Vitals: Vital Signs Temp Pulse Pulse Resp BP BP Pulse Ox 10/18/16 08:15 100 10/18/16 08:06 102 H 10/18/16 07:00 98.8 F 104 H 20 95/52 97 10/18/16 01:00 99.3 F 10/17/16 23:00 98.9 F 116 H 16 129/67 96 10/17/16 21:36 110 H 10/17/16 21:28 108 H 10/17/16 18:53 98.3 F 120 H 16 100/55 97 10/17/16 18:14 99.1 F 120 H 17 97/55 96 10/17/16 17:13 100.6 F H 118 H 18 92/57 95 10/17/16 16:23 101.9 F H 122 H 18 107/72 97 10/17/16 15:05 121 H 18 108/57 97 10/17/16 14:21 115 H 10/17/16 14:16 100.8 F H 108 H 18 113/57 100 10/17/16 14:11 107 H Intake and Output 10/17/16 10/18/16 10/18/16 22:59 06:59 14:59 Intake Total 600 970 Balance 600 970 Intake: Amount of Fluid Infused ( 600 ml) Intake, IV Titration 850 Amount Cefepime 2 gm In Sodium 50 Chloride 0.9% 50 ml @ 100 mls/hr IVPB Q8HR [facility] Rx# :[id number] Sodium Chloride 0.9% 1, 800 000 ml @ 100 mls/hr IV . Q10H [facility] Rx#:[id number] Oral 120 Other: # Voids 1 - Constitutional General appearance: cooperative, no acute distress, obese - EENT Eyes: anicteric sclerae, EOMI, PERRLA, normal appearance ENT: hearing grossly normal, normal oropharynx - Neck Neck: no lymphadenopathy - Respiratory Respiratory: bilateral: wheezing (bases) - Cardiovascular Heart sounds: normal: S1, S2 leg Peripheral Edema: bilateral: None - Gastrointestinal General gastrointestinal: no absent bowel sounds, no decreased bowel sounds, no distended, no hepatomegaly, no hyperactive bowel sounds, normal bowel sounds, no organomegaly, no rigid, no scaphoid, soft, no splenomegaly, no tenderness, no umbilical hernia, no ventral hernia - Integumentary Integumentary: pale - Neurologic Neurologic: CNII-XII intact - Musculoskeletal Musculoskeletal: strength equal bilaterally - Psychiatric Psychiatric: A&O x's 3, appropriate affect, intact judgment & insight Results CBC & Chem 7: 10/18/16 08:32 10/18/16 08:32 Labs: Abnormal Lab Results - Last 24 Hours (Table) 10/17/16 10/17/16 10/18/16 Range/Units 14:10 14:10 08:32 WBC 0.3 L* 0.4 L* (3.8-10.6) k/uL RBC 2.85 L 2.37 L (4.30-5.90) m/uL Hgb 9.0 L 7.5 L D (13.0-17.5) gm/dL Hct 26.5 L 22.7 L (39.0-53.0) % RDW 20.5 H 20.1 H (11.5-15.5) % Plt Count 10 L* D 8 L* (150-450) k/uL Potassium (3.5-5.1) mmol/L Chloride (98-107) mmol/L Carbon Dioxide (22-30) mmol/L Glucose (74-99) mg/dL Magnesium 1.5 L (1.6-2.3) mg/dL Total Bilirubin 1.4 H (0.2-1.3) mg/dL 10/18/16 10/18/16 Range/Units 08:32 08:32 WBC (3.8-10.6) k/uL RBC (4.30-5.90) m/uL Hgb (13.0-17.5) gm/dL Hct (39.0-53.0) % RDW (11.5-15.5) % Plt Count (150-450) k/uL Potassium 3.2 L (3.5-5.1) mmol/L Chloride 108 H (98-107) mmol/L Carbon Dioxide 20 L (22-30) mmol/L Glucose 107 H (74-99) mg/dL Magnesium 1.4 L (1.6-2.3) mg/dL Total Bilirubin (0.2-1.3) mg/dL Chest x-ray: report reviewed Assessment and Plan (1) Febrile neutropenia Narrative/Plan: Pancultures obtained, empiric antibiotics. No GCSF until 10/21 as pt received neulasta on 10/11. Status: Acute (2) Pancytopenia due to antineoplastic chemotherapy Narrative/Plan: 1 unit single donor platelets, 1 unit PRBCs, CBC daily. No GCSF until after . Status: Acute (3) Small cell lung cancer Narrative/Plan: Pt has completed 4 cycles of chemotherapy and concurrent radiation with PET showing good response. Pt has tolerated treatment very well until this cycle. I think he has 2 more cycles to complete. He will be seen by Dr. Moss prior to next treatment with consideration for dose reduction. Treatment on hold until pt recovers from acute condition. Status: Chronic Plan: CTA chest to evaluate for PE. Dr. Oropeza consulted for persistent cough
[2016-10-18] MEDS ORDERED: RX INFO: IV CONTRAST WAS GIVEN 1 EACH MISC MISCELLANE PRN (17:02)
--- NOTE | 2016-10-18 18:47 | CT ---
EXAMINATION TYPE: CT angio chest DATE OF EXAM: 10/18/2016 6:27 PM COMPARISON: NONE HISTORY: Patient complains of shortness of breath. CT DLP: 529.7 mGycm Automated exposure control for dose reduction was used. CONTRAST: CTA scan of the thorax is performed with IV Contrast, patient injected with 100 mL of Omnipaque 350, pulmonary embolism protocol. There are 3-D post processed images.. FINDINGS: There is some mild atherosclerotic vascular calcification. I see no filling defects in the pulmonary arteries. There is patchy pneumonic consolidation in the right lower lobe with small right pleural ef fusion. There is a 2.3 cm enlarged pretracheal lymph node. There is a 2.5 cm density above the right pulmonary hilum consistent with adenopathy. There is spurring in the thoracic spine. There is no sign of aortic aneurysm or dissection. IMPRESSION: NO EVIDENCE OF PULMONARY EMBOLISM. MEDIASTINAL AND RIGHT BRONCHIAL ADENOPATHY. RIGHT LOWER LOBE PATCH Y CONSOLIDATION WITH SMALL PLEURAL EFFUSION. THERE IS IMPROVEMENT IN THE CHEST COMPARED TO 06/26/2016 W ITH DECREASE IN THE ADENOPATHY AND RIGHT LOWER LOBE CONSOLIDATION. THERE IS DECREASE IN THE PLEURAL F LUID CONSISTENT WITH FAVORABLE TREATMENT RESPONSE.
[2016-10-18] MEDS: ATORVASTATIN 20 MG TAB PO SCH (22:15)
[2016-10-19] MEDS: CEFEPIME 2 GM in SODIUM CHLORIDE 0.9% 50 ML IVPB SCH ×3 (00:39→16:33)
[2016-10-19] MEDS: VANCOMYCIN 1,750 MG in SODIUM CHLORIDE 0.9% 250 ML IVPB SCH ×2 (05:23→21:02)
[2016-10-19 07:16] LABS: Anisocytosis Slight; Aty Lym Flag Marked; CH 32.3; CHCM 34.7; HDW 3.54; HGB 7.9 gm/dL (13.0-17.5); MCH 32.2 pg (25.0-35.0); MCHC 34.5 g/dL (31.0-37.0); MCV 93.4 fL (80.0-100.0); Macrocytosis Slight; Mean Platelet Volume 10.7; Poikilocytosis Slight; RBC 2.46 m/uL (4.30-5.90); RDW 19.5 % (11.5-15.5); WBC (Perox) 0.72
[2016-10-19 07:29] LABS: WBC 0.6 k/uL (3.8-10.6)
[2016-10-19 07:52] LABS: Anion Gap 12 mmol/L; Blood Urea Nitrogen 13 mg/dL (9-20); Calcium 8.4 mg/dL (8.4-10.2); Carbon Dioxide 22 mmol/L (22-30); Chloride 110 mmol/L (98-107); Glucose 102 mg/dL (74-99); Magnesium 1.8 mg/dL (1.6-2.3); Non-African American GFR(MDRD) >60 (>60 ml/min/1.73 sqM); Potassium 3.7 mmol/L (3.5-5.1); Sodium 144 mmol/L (137-145)
[2016-10-19] MEDS: DOXAZOSIN 4 MG TAB PO SCH ×2 (08:00→20:55)
[2016-10-19] MEDS: PANTOPRAZOLE 40 MG TABLET PO SCH (08:00)
[2016-10-19 08:31] LABS: Add Differential Manual Differential; Manual Review Performed
[2016-10-19] MEDS: ALBUTEROL NEBULIZED 2.5 MG/3 ML INHALATION SCH ×2 (08:49→20:18)
--- NOTE | 2016-10-19 10:56 | P.PN ---
Subjective Principal diagnosis: Acute febrile illness This is a very pleasant 66-year-old gentleman who follows with Dr. Arcos as his primary care physician. He has a history of hyperlipidemia, hypertension, prostate disorder, previous smoker. 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 This was diagnosed by bronchoscopy with biopsies on 06/26/[address] Oropeza. Since that time he has undergone 5 rounds of chemotherapy and is due for a 6 around October 29. He is also completed 33 radiation treatments. A PET scan 09/28/2016 did reveal improvement within the chest. There was some hypermetabolic uptake within the marrow possibly due to the therapy itself. He has been receiving Neulasta for neutropenia as well. On October 12 the patient was seen in the emergency room after developing any significant fever. He was subsequently treated and released. The patient re- presented here again yesterday with fever chills and diaphoresis. He denied any significant shortness of breath however he did, cough up when bloody gelatinous sputum prior to arrival. He has not had any further productive cough. No nausea vomiting or diarrhea. He is seen today in consultation on the oncology floor. He is awake and alert in no acute distress. He does have a loose nonproductive cough. No further chills or night sweats. He is maintaining O2 saturations in the upper 90s on room air. He's been hemodynamically stable. T-max since arrival 101.9. Currently afebrile. His chest x-ray reveals some atelectatic changes in the right lung base which may be residual from a previous pneumonia in July 2016. Current white count 0.4. Hemoglobin 7.5. Platelet count 8000. He is currently on cefepime. The patient is seen again today 10/19/2016 in follow-up on the oncology unit. He is currently awake and alert in no acute distress. He's been up ambulating in the hallway. He denies any worsening shortness of breath. He continues with a productive cough of blood-tinged sputum. He is maintaining good O2 saturations in the mid 90s on room air. His temperature continues to hang around 99. Blood culture reveals no growth to date. Current white count 0.6. Hemoglobin 7.9. He is status post 1 unit of packed red blood cell infusions. He also received pheresis platelets. Current platelet count 8000. He is continued on vancomycin and cefepime. A CT angiogram ruled out pulmonary embolism. There was some mediastinal right bronchial adenopathy with a right lower lobe patchy consolidation. There is decrease in these findings as compared to previous in 06/26/2016. Suspect favorable treatment response. Objective - Vital Signs Vital signs: Vital Signs Temp 98.7 F 10/19/16 07:00 Pulse 100 10/19/16 09:02 Resp 16 10/19/16 09:00 BP 121/65 10/19/16 07:00 Pulse Ox 95 10/19/16 07:00 Intake & Output 10/18/16 10/19/16 10/19/16 18:59 06:59 18:59 Intake Total 402 1410 Balance 402 1410 Weight 113.852 kg 113.852 kg Intake: IV 200 Magnesium Sulfate-D5w Pmx 200 1 gm In Dextrose/Water 1 100ml.bag @ 100 mls/hr IVPB Q1H [facility] Rx#: [id number] Oral 800 Blood Product 202 610 Platelet Pheresis Acda2 202 Unit [id number] Rc As-1 Unit 310 [id number] Other: # Voids 1 2 - Exam GENERAL EXAM: Alert, active, comfortable in no apparent distress. HEAD: Normocephalic. EYES: Normal reaction of pupils, equal size. NOSE: Clear with pink turbinates. THROAT: No erythema or exudates. NECK: No masses, no JVD. CHEST: No chest wall deformity. LUNGS: Equal air entry with crackles in the right lung base. CVS: S1 and S2 normal with no audible murmurs, regular rhythm. ABDOMEN: No hepatosplenomegaly, normal bowel sounds, no guarding or rigidity. SPINE: No scoliosis or deformity SKIN: No rashes CENTRAL NERVOUS SYSTEM: No focal deficits, tone is normal in all 4 extremities. Extremities: There is trace peripheral edema. No clubbing, no cyanosis. Peripheral pulses are intact. - Labs CBC & Chem 7: 10/19/16 06:52 10/19/16 06:52 Labs: Abnormal Lab Results - Last 24 Hours (Table) 10/18/16 10/18/16 10/19/16 Range/Units 08:32 12:20 06:52 WBC (3.8-10.6) k/uL RBC (4.30-5.90) m/uL Hgb (13.0-17.5) gm/dL Hct (39.0-53.0) % RDW (11.5-15.5) % Plt Count (150-450) k/uL Chloride 110 H (98-107) mmol/L Glucose 102 H (74-99) mg/dL Magnesium 1.4 L (1.6-2.3) mg/dL Crossmatch See Detail 10/19/16 Range/Units 06:52 WBC 0.6 L* (3.8-10.6) k/uL RBC 2.46 L (4.30-5.90) m/uL Hgb 7.9 L (13.0-17.5) gm/dL Hct 23.0 L (39.0-53.0) % RDW 19.5 H (11.5-15.5) % Plt Count 8 L* (150-450) k/uL Chloride (98-107) mmol/L Glucose (74-99) mg/dL Magnesium (1.6-2.3) mg/dL Crossmatch Microbiology - Last 24 Hours (Table) 10/17/16 14:10 Blood Culture - Preliminary Blood No Growth after 24 hours Assessment and Plan Plan: Impression: #1 Febrile illness in a patient with significant immunocompromise secondary to chemotherapy for both small cell lung cancer of the right upper lobe and non- small cell lung cancer in the right lower lobe. Status post 33 radiation treatments and 5 rounds of 6 chemotherapy treatments. #2 Pancytopenia, initial white count 0.4, hemoglobin 7.5, platelet count 8000. Currently on Neulasta. Current white count 0.6, hemoglobin 7.9, platelet count 8000. #3 Chronic tobacco dependence of 45 years at 1 pack per day. Quit approximately 3 months ago. #4 Hyperlipidemia. #5 Hypertension. 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 Plan: The patient was seen and evaluated by Dr. Vernon. His CT angiogram and labs were reviewed. We'll continue with his current medications including cefepime and vancomycin. We'll continue with bronchodilators. We will increase his activity as tolerated. We will continue to follow and make further recommendations based on his clinical status.
[2016-10-19] MEDS: SODIUM CHLORIDE 0.9% 1,000 ML IV SCH ×2 (11:46→21:02)
--- NOTE | 2016-10-19 17:54 | P.PN ---
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 Patient was diagnosed in June 2016 with lung cancer and has undergone 33 treatments of radiation and just finished his fifth round of chemotherapy last Friday with 1 dose left in 2 weeks. Patient started to develop low-grade fevers over the last week with associated chills and sweats and one episode of hemoptysis prior to admission. No history of nausea, vomiting, chest pain, abdominal pain, constipation or diarrhea. Patient was advised from his oncologist to be admitted. Chest x-ray the emergency department with no evidence of acute pulmonary process and stable appearance of the port catheter. Patient was found to have evidence of neutral and fever with a temperature of 101.9 in the emergency department and pancytopenia on admission labs with WBC of 0.3, hemoglobin 9, and platelets of 10. In addition magnesium was 1.5. Urinalysis negative. Patient had been on Levaquin in the outpatient setting but was started on Cefzil time in the emergency department. Patient was fluid resuscitated with 2 L of normal saline, blood cultures were drawn, and patient was admitted to oncology unit. Upon examination, patient is feeling better. Patient has no specific complaints. Tolerating diet. Reports good appetite. A.m. labs with WBC of 0.4, hemoglobin 7.5, platelet count 8, potassium 3.2, magnesium 1.4. Oncology service has ordered 1 unit of PRBC and 5 units of platelets to be transfused. No bleeding observed. Pulmonology had seen him yesterday for cought s/p CTA chest negative for PE. He has been afebrile since 10/17/2016 @1713. he c/o cough, but indicates it is better He is sp 1u PRBCS and 5U multidonor platelets Objective - Vital Signs Vital signs: Vital Signs Temp 99.8 F H 10/19/16 15:00 Pulse 92 10/19/16 15:00 Resp 18 10/19/16 15:00 BP 116/68 10/19/16 15:00 Pulse Ox 96 10/19/16 15:00 Intake & Output 10/18/16 10/19/16 10/19/16 18:59 06:59 18:59 Intake Total 402 1410 Balance 402 1410 Weight 113.852 kg 113.852 kg Intake: IV 200 Magnesium Sulfate-D5w Pmx 200 1 gm In Dextrose/Water 1 100ml.bag @ 100 mls/hr IVPB Q1H [facility] Rx#: [id number] Oral 800 Blood Product 202 610 Platelet Pheresis Acda2 202 Unit [id number] Rc As-1 Unit 310 [id number] Other: # Voids 1 2 1 - Exam GENERAL: Pt awake and alert, well-appearing, well-nourished, and in no acute distress. NECK: Supple without lymphadenopathy or JVD. Neck midline. LUNGS: Breath sounds coarse to auscultation bilaterally. No wheezes, rales, or rhonchi. HEART: Heart S1, S2, no S3 or S4. Regular rate and rhythm. No murmurs, rubs or gallops. EXTREMITIES: 2+ peripheral pulses. No edema. No calf tenderness. NEUROLOGICAL: Pt oriented x 3. No focal deficits noted. Strength and sensation grossly intact. PSYCH: Normal mood, normal affect. SKIN: Warm, dry, intact. Normal turgor. No rashes or lesions. - Labs CBC & Chem 7: 10/19/16 06:52 10/19/16 06:52 Labs: Abnormal Lab Results - Last 24 Hours (Table) 10/18/16 10/19/16 10/19/16 Range/Units 12:20 06:52 06:52 WBC 0.6 L* (3.8-10.6) k/uL RBC 2.46 L (4.30-5.90) m/uL Hgb 7.9 L (13.0-17.5) gm/dL Hct 23.0 L (39.0-53.0) % RDW 19.5 H (11.5-15.5) % Plt Count 8 L* (150-450) k/uL Chloride 110 H (98-107) mmol/L Glucose 102 H (74-99) mg/dL Crossmatch See Detail Microbiology - Last 24 Hours (Table) 10/17/16 14:10 Blood Culture - Preliminary Blood No Growth after 48 hours 10/19/16 10:20 Gram Stain - Preliminary Sputum Sputum Culture - Preliminary Assessment and Plan Plan: Impression and plan: 1. Neutropenic sepsis, present on admission. Oncology has been consulted, recommendations pending. Continue IV antibiotics in the form of cefepime + Vancomycin, IV fluids, supportive treatment and pain management. Await result of blood cultures and sputum 2. Anemia, suspect chemo induced. Hemoglobin 7.9. Patient to receive 1 unit of PRBC. 3. Thrombocytopenia, suspect chemo induced. Platelets 8. Patient to receive 5 units of platelets. 4. Leukopenia, suspect chemo induced. WBC 0.6. Neulasta starting 5. Hypomagnesemia. resolved 6. Hypokalemia. resolved 7. Small cell lung cancer of right lung status post chemo and radiation. 8. cough/ COPD without exacerbation. Continue nebulized updraft treatments. 9. GERD. Continue Protonix. 10. Hyperlipidemia. Continue Lipitor. 11. History of hypertension. 12. BPH. Continue Cardura. 13. History of nicotine dependence. add mucinex q12hr, await recommendations from consultants. repeat labs in am. reeavalute in 24 hrs
[2016-10-19] MEDS: ATORVASTATIN 20 MG TAB PO SCH (20:55)
[2016-10-19] MEDS: ACETAMINOPHEN TAB 325 MG TAB PO PRN (21:01)
[2016-10-19] MEDS: guaiFENesin 600 MG TABLET.ER PO SCH (21:02)
[2016-10-20] MEDS: CEFEPIME 2 GM in SODIUM CHLORIDE 0.9% 50 ML IVPB SCH ×4 (00:04→23:40)
[2016-10-20] MEDS: SODIUM CHLORIDE 0.9% 1,000 ML IV SCH ×2 (05:36→10:11)
[2016-10-20] MEDS: ALBUTEROL NEBULIZED 2.5 MG/3 ML INHALATION SCH ×2 (07:36→20:45)
[2016-10-20 07:39] LABS: Anion Gap 9 mmol/L; Blood Urea Nitrogen 14 mg/dL (9-20); Calcium 8.3 mg/dL (8.4-10.2); Carbon Dioxide 22 mmol/L (22-30); Chloride 112 mmol/L (98-107); Glucose 96 mg/dL (74-99); Magnesium 1.7 mg/dL (1.6-2.3); Non-African American GFR(MDRD) >60 (>60 ml/min/1.73 sqM); Potassium 3.2 mmol/L (3.5-5.1); Sodium 143 mmol/L (137-145)
[2016-10-20 07:45] LABS: Anisocytosis Slight; CH 32.3; CHCM 34.2; HDW 3.58; HGB 7.5 gm/dL (13.0-17.5); MCH 32.2 pg (25.0-35.0); MCV 94.8 fL (80.0-100.0); Macrocytosis Slight; Mean Platelet Volume 8.1; Poikilocytosis Slight; RBC 2.32 m/uL (4.30-5.90); RDW 19.4 % (11.5-15.5); WBC (Perox) 1.17
[2016-10-20] MEDS ORDERED: Potassium Replacement Protocol 1 EACH MISC MISCELLANE PRN (08:17)
[2016-10-20] MEDS: guaiFENesin 600 MG TABLET.ER PO SCH ×2 (08:38→21:03)
[2016-10-20] MEDS: DOXAZOSIN 4 MG TAB PO SCH ×2 (08:38→21:03)
[2016-10-20] MEDS: PANTOPRAZOLE 40 MG TABLET PO SCH (08:39)
[2016-10-20 08:47] LABS: Add Differential Manual Differential
[2016-10-20 08:51] LABS: Nucleated Red Blood Cells 0 /100 WBC (0-0); Total Cells Counted 50
[2016-10-20 08:52] LABS: Large Platelets Present; Manual Review Performed
[2016-10-20] MEDS: POTASSIUM CHLORIDE ER 20 MEQ TAB.ER PO SCH ×7 (09:10→21:51)
--- NOTE | 2016-10-20 13:19 | P.PN ---
Subjective Principal diagnosis: Acute febrile neutropenia and pancytopenia This is a very pleasant 66-year-old gentleman who follows with Dr. Arcos as his primary care physician. He has a history of hyperlipidemia, hypertension, prostate disorder, previous smoker. 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 This was diagnosed by bronchoscopy with biopsies on 06/26/[address] Oropeza. Since that time he has undergone 5 rounds of chemotherapy and is due for a 6 around October 29. He is also completed 33 radiation treatments. A PET scan 09/28/2016 did reveal improvement within the chest. There was some hypermetabolic uptake within the marrow possibly due to the therapy itself. He has been receiving Neulasta for neutropenia as well. On October 12 the patient was seen in the emergency room after developing any significant fever. He was subsequently treated and released. The patient re- presented here again yesterday with fever chills and diaphoresis. He denied any significant shortness of breath however he did, cough up when bloody gelatinous sputum prior to arrival. He has not had any further productive cough. No nausea vomiting or diarrhea. He is seen today in consultation on the oncology floor. He is awake and alert in no acute distress. He does have a loose nonproductive cough. No further chills or night sweats. He is maintaining O2 saturations in the upper 90s on room air. He's been hemodynamically stable. T-max since arrival 101.9. Currently afebrile. His chest x-ray reveals some atelectatic changes in the right lung base which may be residual from a previous pneumonia in July 2016. Current white count 0.4. Hemoglobin 7.5. Platelet count 8000. He is currently on cefepime. The patient is seen again today 10/19/2016 in follow-up on the oncology unit. He is currently awake and alert in no acute distress. He's been up ambulating in the hallway. He denies any worsening shortness of breath. He continues with a productive cough of blood-tinged sputum. He is maintaining good O2 saturations in the mid 90s on room air. His temperature continues to hang around 99. Blood culture reveals no growth to date. Current white count 0.6. Hemoglobin 7.9. He is status post 1 unit of packed red blood cell infusions. He also received pheresis platelets. Current platelet count 8000. He is continued on vancomycin and cefepime. A CT angiogram ruled out pulmonary embolism. There was some mediastinal right bronchial adenopathy with a right lower lobe patchy consolidation. There is decrease in these findings as compared to previous in 06/26/2016. Suspect favorable treatment response. Reevaluated on 10/20/2016, patient remains on the oncology unit, doing extremely well, relatively asymptomatic. Labs were reviewed, and platelets are rather low. 7000. No evidence of active bleeding. WBC count is 1.[address] of the chest which was done on this admission was reviewed. Objective - Vital Signs Vital signs: Vital Signs Temp 97.4 F L 10/20/16 07:00 Pulse 84 10/20/16 07:46 Resp 16 10/20/16 07:00 BP 127/70 10/20/16 07:00 Pulse Ox 93 L 10/20/16 07:00 Intake & Output 10/19/16 10/20/16 10/20/16 18:59 06:59 18:59 Intake Total 950 360 Balance 950 360 Intake: Intake, IV Titration 250 Amount Vancomycin 1,750 mg In 250 Sodium Chloride 0.9% 250 ml @ 125 mls/hr IVPB Q16H [facility] Rx#:[id number] Oral 700 360 Other: # Voids 1 1 - Exam GENERAL EXAM: Alert, active, comfortable in no apparent distress. HEAD: Normocephalic. EYES: Normal reaction of pupils, equal size. NOSE: Clear with pink turbinates. THROAT: No erythema or exudates. NECK: No masses, no JVD. CHEST: No chest wall deformity. LUNGS: Equal air entry with crackles in the right lung base. CVS: S1 and S2 normal with no audible murmurs, regular rhythm. ABDOMEN: No hepatosplenomegaly, normal bowel sounds, no guarding or rigidity. SPINE: No scoliosis or deformity SKIN: No rashes CENTRAL NERVOUS SYSTEM: No focal deficits, tone is normal in all 4 extremities. Extremities: There is trace peripheral edema. No clubbing, no cyanosis. Peripheral pulses are intact. - Labs CBC & Chem 7: 10/20/16 06:49 10/20/16 11:51 Labs: Abnormal Lab Results - Last 24 Hours (Table) 10/20/16 10/20/16 10/20/16 Range/Units 06:49 06:49 11:51 WBC 1.0 L* (3.8-10.6) k/uL RBC 2.32 L (4.30-5.90) m/uL Hgb 7.5 L (13.0-17.5) gm/dL Hct 22.0 L (39.0-53.0) % RDW 19.4 H (11.5-15.5) % Plt Count 7 L* (150-450) k/uL Neutrophils # (Manual) 0.6 L (1.3-7.7) k/uL Lymphocytes # (Manual) 0.1 L (1.0-4.8) k/uL Potassium 3.2 L 3.3 L (3.5-5.1) mmol/L Chloride 112 H (98-107) mmol/L Calcium 8.3 L (8.4-10.2) mg/dL Microbiology - Last 24 Hours (Table) 10/19/16 10:20 Gram Stain - Final Sputum Sputum Culture - Final 10/17/16 14:10 Blood Culture - Preliminary Blood No Growth after 48 hours Assessment and Plan Plan: #1 Febrile illness in a patient with significant immunocompromise secondary to chemotherapy for both small cell lung cancer of the right upper lobe and non- small cell lung cancer in the right lower lobe. Status post 33 radiation treatments and 5 rounds of 6 chemotherapy treatments. #2 Pancytopenia, initial white count 0.4, hemoglobin 7.5, platelet count 8000. Currently on Neulasta. Current white count 1.0, hemoglobin 7.5, platelet count 7000. #3 Chronic tobacco dependence of 45 years at 1 pack per day. Quit approximately 3 months ago. #4 Hyperlipidemia. #5 Hypertension. 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 Recommendation: Continue present supportive care measures, continue treatment plan for his pancytopenia as per hematology on the case, continue antibiotics, not quite ready for discharge planning, will follow. Time with Patient: Less than 30
--- NOTE | 2016-10-20 18:20 | PN ---
DATE OF SERVICE: October 20, 2016. CHIEF COMPLAINT: Tired. Dalton is seen today as a follow-up. He feels better. He has a low-grade fever last night and subsequently it resolved and he slept very well. He feels tired however, he denies any melena, hematochezia, hematuria, or hemoptysis. No nausea or vomiting. Current medications include: 1. Tylenol 650 mg as needed. 2. Albuterol inhaler. 3. Lipitor 20 mg daily. 4. Cefepime 2 grams every 8 hours. 5. Doxazosin 4 mg b.i.d. 6. Mucinex 600 mg q.12h. 7. Vancomycin per pharmacy dosing. 8. Protonix 40 mg twice a day. 9. K-Dur 20 meq potassium supplement per protocol. 10. Magnesium supplement per protocol. PHYSICAL EXAMINATION: He is alert, oriented x3. He does not appear to be in distress. Vital signs are temperature 97.4, afebrile, pulse 84 and regular, respiration is 16, blood pressure 127/70. HEENT: Normocephalic, atraumatic. No obvious icterus. NECK: Supple. CHEST: Equal expansion bilaterally. LUNGS: Reveal scattered wheezes. HEART: Regular rate and rhythm. ABDOMEN: Soft. No tenderness, organomegaly. EXTREMITIES: Reveal no edema. Laboratory data: WBC 1.0, hemoglobin 7.5, hematocrit 22.0, platelets 7. Sodium 143, potassium 3.2, chloride 112, CO2 is 22, BUN 14, creatinine 0.9. His blood culture is negative at 48 hours. IMPRESSION: 1. Neutropenic fever. The patient appeared hemodynamically stable and his blood cultures have been negative so far. He did receive Neulasta in the outpatient setting and his white cells are slightly better today. 2. Significant chemotherapy-induced myelosuppression. His platelet count significantly low today. 3. Small cell lung carcinoma treated with combined chemoradiation therapy. 4. Electrolyte imbalance with being replaced. RECOMMENDATIONS: 1. Continue to monitor CBC. 2. Patient will be transfused with platelets today, no need for packed red blood cells today. 3. May discontinue vancomycin since his cultures are negative and he is hemodynamically stable and we could continue with cefepime until neutrophils recover. 4. His next and last cycle of chemotherapy is on hold until he fully recovers.
[2016-10-20] MEDS: ATORVASTATIN 20 MG TAB PO SCH (21:02)
[2016-10-21] MEDS: SODIUM CHLORIDE 0.9% 1,000 ML IV SCH ×3 (01:31→23:48)
[2016-10-21] MEDS ORDERED: VANCOMYCIN TROUGH DUE 1 EACH MISC MISCELLANE ONE (05:00)
[2016-10-21 07:00] LABS: Anisocytosis Slight; CH 31.8; HCT 21.8 % (39.0-53.0); HDW 3.36; HGB 7.3 gm/dL (13.0-17.5); MCH 32.3 pg (25.0-35.0); MCHC 33.4 g/dL (31.0-37.0); MCV 96.9 fL (80.0-100.0); Macrocytosis Slight; RBC 2.25 m/uL (4.30-5.90); RDW 19.6 % (11.5-15.5); WBC (Perox) 1.65
[2016-10-21 07:13] LABS: Anion Gap 9 mmol/L; Blood Urea Nitrogen 13 mg/dL (9-20); Calcium 8.4 mg/dL (8.4-10.2); Carbon Dioxide 21 mmol/L (22-30); Chloride 113 mmol/L (98-107); Glucose 93 mg/dL (74-99); Non-African American GFR(MDRD) >60 (>60 ml/min/1.73 sqM); Potassium 3.8 mmol/L (3.5-5.1); Sodium 143 mmol/L (137-145)
[2016-10-21 07:18] LABS: WBC 1.6 k/uL (3.8-10.6)
[2016-10-21] MEDS: ALBUTEROL NEBULIZED 2.5 MG/3 ML INHALATION SCH ×2 (07:36→19:42)
[2016-10-21 08:09] LABS: Add Differential Manual Differential
[2016-10-21 08:15] LABS: Manual Review Performed; Nucleated Red Blood Cells 0 /100 WBC (0-0); Total Cells Counted 100
[2016-10-21 08:16] LABS: Dohle Bodies Present; Toxic Granulation Present
[2016-10-21] MEDS: CEFEPIME 2 GM in SODIUM CHLORIDE 0.9% 50 ML IVPB SCH ×3 (08:55→23:49)
[2016-10-21] MEDS: DOXAZOSIN 4 MG TAB PO SCH ×2 (08:55→23:48)
[2016-10-21] MEDS: guaiFENesin 600 MG TABLET.ER PO SCH ×2 (08:55→20:03)
[2016-10-21] MEDS: PANTOPRAZOLE 40 MG TABLET PO SCH (08:55)
--- NOTE | 2016-10-21 10:51 | P.PN ---
Subjective Date of service 10/20/2016 Patient is a 66-year-old male, patient of mine in the outpatient setting, with medical history significant for small 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 Patient was diagnosed in June 2016 with lung cancer and has undergone 33 treatments of radiation and just finished his fifth round of chemotherapy last Friday with 1 dose left in 2 weeks. Patient started to develop low-grade fevers over the last week with associated chills and sweats and one episode of hemoptysis prior to admission. No history of nausea, vomiting, chest pain, abdominal pain, constipation or diarrhea. Patient was advised from his oncologist to be admitted. Chest x-ray the emergency department with no evidence of acute pulmonary process and stable appearance of the port catheter. Patient was found to have evidence of neutral and fever with a temperature of 101.9 in the emergency department and pancytopenia on admission labs with WBC of 0.3, hemoglobin 9, and platelets of 10. In addition magnesium was 1.5. Urinalysis negative. Patient had been on Levaquin in the outpatient setting but was started on Cefzil time in the emergency department. Patient was fluid resuscitated with 2 L of normal saline, blood cultures were drawn, and patient was admitted to oncology unit. Upon examination, patient is feeling better. Patient has no specific complaints. Tolerating diet. Reports good appetite. A.m. labs with WBC of 0.4, hemoglobin 7.5, platelet count 8, potassium 3.2, magnesium 1.4. Oncology service has ordered 1 unit of PRBC and 5 units of platelets to be transfused. No bleeding observed. Pulmonology had seen him y for cough s/p CTA chest negative for PE. He has been afebrile since 10/17/2016 @1713. he c/o cough, but indicates it is better He is sp 1u PRBCS and 5U multidonor platelets 10/20/2016, he is in good spirits. He was febrile as of 10/19 at 20:53 at 100.3 he is been afebrile the rest of this day. He feels okay, cough is better, weakness is stable. Denies any chest pain pressure or shortness of breath. Objective - Vital Signs Vital signs: Vital Signs Temp 98.8 F 10/21/16 07:00 Pulse 94 10/21/16 07:46 Resp 17 10/21/16 07:00 BP 111/65 10/21/16 07:00 Pulse Ox 95 10/21/16 07:00 Intake & Output 10/20/16 10/21/16 10/21/16 18:59 06:59 18:59 Intake Total 924 1870 480 Balance 924 1870 480 Intake: Intake, IV Titration 80 Amount Sodium Chloride 0.9% 1, 80 000 ml @ 100 mls/hr IV . Q10H [facility] Rx#:[id number] Oral 720 1790 480 Blood Product 204 Platelet Pheresis Acda2 204 Unit [id number] Other: # Voids 3 3 1 - Exam GENERAL: Pt awake and alert, well-appearing, well-nourished, and in no acute distress. NECK: Supple without lymphadenopathy or JVD. Neck midline. LUNGS: Breath sounds coarse to auscultation bilaterally. No wheezes, rales, or rhonchi. HEART: Heart S1, S2, no S3 or S4. Regular rate and rhythm. No murmurs, rubs or gallops. EXTREMITIES: 2+ peripheral pulses. No edema. No calf tenderness. NEUROLOGICAL: Pt oriented x 3. No focal deficits noted. Strength and sensation grossly intact. PSYCH: Normal mood, normal affect. SKIN: Warm, dry, intact. Normal turgor. No rashes or lesions. - Labs CBC & Chem 7: 10/21/16 06:24 10/21/16 06:24 Labs: Abnormal Lab Results - Last 24 Hours (Table) 10/20/16 10/21/16 10/21/16 Range/Units 11:51 06:24 06:24 WBC 1.6 L* (3.8-10.6) k/uL RBC 2.25 L (4.30-5.90) m/uL Hgb 7.3 L (13.0-17.5) gm/dL Hct 21.8 L (39.0-53.0) % RDW 19.6 H (11.5-15.5) % Plt Count 17 L* D (150-450) k/uL Neutrophils # (Manual) 1.1 L (1.3-7.7) k/uL Lymphocytes # (Manual) 0.2 L (1.0-4.8) k/uL Potassium 3.3 L (3.5-5.1) mmol/L Chloride 113 H (98-107) mmol/L Carbon Dioxide 21 L (22-30) mmol/L Microbiology - Last 24 Hours (Table) 10/17/16 14:10 Blood Culture - Preliminary Blood No Growth after 72 hours 10/19/16 10:20 Gram Stain - Final Sputum Sputum Culture - Final Assessment and Plan Plan: Impression and plan: 1. Neutropenic sepsis, present on admission. Oncology has been consulted, recommendations pending. Continue IV antibiotics in the form of cefepime + Vancomycin, IV fluids, supportive treatment and pain management. Await result of blood cultures and sputum 2. Pancytopenia: WBC count now 1.0, hemoglobin 7.5, platelets 7, he is been started on Neulasta 5. Hypomagnesemia. resolved 6. Hypokalemia. Now at 3.2, replacement protocol be initiated 7. Small cell lung cancer of right lung status post chemo and radiation. 8. cough/ COPD without exacerbation. Continue nebulized updraft treatments. Continue Mucinex 9. GERD. Continue Protonix. 10. Hyperlipidemia. Continue Lipitor. 11. History of hypertension. 12. BPH. Continue Cardura. 13. History of nicotine dependence. await recommendations from consultants. repeat labs in am. reeavalute in 24 hrs
--- NOTE | 2016-10-21 10:56 | P.PN ---
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 Patient was diagnosed in June 2016 with lung cancer and has undergone 33 treatments of radiation and just finished his fifth round of chemotherapy last Friday with 1 dose left in 2 weeks. Patient started to develop low-grade fevers over the last week with associated chills and sweats and one episode of hemoptysis prior to admission. No history of nausea, vomiting, chest pain, abdominal pain, constipation or diarrhea. Patient was advised from his oncologist to be admitted. Chest x-ray the emergency department with no evidence of acute pulmonary process and stable appearance of the port catheter. Patient was found to have evidence of neutral and fever with a temperature of 101.9 in the emergency department and pancytopenia on admission labs with WBC of 0.3, hemoglobin 9, and platelets of 10. In addition magnesium was 1.5. Urinalysis negative. Patient had been on Levaquin in the outpatient setting but was started on Cefzil time in the emergency department. Patient was fluid resuscitated with 2 L of normal saline, blood cultures were drawn, and patient was admitted to oncology unit. Upon examination, patient is feeling better. Patient has no specific complaints. Tolerating diet. Reports good appetite. A.m. labs with WBC of 0.4, hemoglobin 7.5, platelet count 8, potassium 3.2, magnesium 1.4. Oncology service has ordered 1 unit of PRBC and 5 units of platelets to be transfused. No bleeding observed. Pulmonology had seen him y for cough s/p CTA chest negative for PE. He has been afebrile since 10/17/2016 @1713. he c/o cough, but indicates it is better He is sp 1u PRBCS and 5U multidonor platelets 10/20/2016, he is in good spirits. He was febrile as of 10/19 at 20:53 at 100.3 he is been afebrile the rest of this day. He feels okay, cough is better, weakness is stable. Denies any chest pain pressure or shortness of breath. 10/21/2016: He appears to be doing well. He has been afebrile since 10/19/2016 at 2053 at 100.3F. He reports less coughing. Objective - Vital Signs Vital signs: Vital Signs Temp 98.8 F 10/21/16 07:00 Pulse 94 10/21/16 07:46 Resp 17 10/21/16 07:00 BP 111/65 10/21/16 07:00 Pulse Ox 95 10/21/16 07:00 Intake & Output 10/20/16 10/21/16 10/21/16 18:59 06:59 18:59 Intake Total 924 1870 480 Balance 924 1870 480 Intake: Intake, IV Titration 80 Amount Sodium Chloride 0.9% 1, 80 000 ml @ 100 mls/hr IV . Q10H [facility] Rx#:[id number] Oral 720 1950 480 Blood Product 204 Platelet Pheresis Acda2 204 Unit [id number] Other: # Voids 3 3 1 - Exam GENERAL: Pt awake and alert, well-appearing, well-nourished, and in no acute distress. NECK: Supple without lymphadenopathy or JVD. Neck midline. LUNGS: Breath sounds coarse to auscultation bilaterally. No wheezes, rales, or rhonchi. HEART: Heart S1, S2, no S3 or S4. Regular rate and rhythm. No murmurs, rubs or gallops. EXTREMITIES: 2+ peripheral pulses. No edema. No calf tenderness. NEUROLOGICAL: Pt oriented x 3. No focal deficits noted. Strength and sensation grossly intact. PSYCH: Normal mood, normal affect. SKIN: Warm, dry, intact. Normal turgor. No rashes or lesions. - Labs CBC & Chem 7: 10/21/16 06:24 10/21/16 06:24 Labs: Abnormal Lab Results - Last 24 Hours (Table) 10/20/16 10/21/16 10/21/16 Range/Units 11:51 06:24 06:24 WBC 1.6 L* (3.8-10.6) k/uL RBC 2.25 L (4.30-5.90) m/uL Hgb 7.3 L (13.0-17.5) gm/dL Hct 21.8 L (39.0-53.0) % RDW 19.6 H (11.5-15.5) % Plt Count 17 L* D (150-450) k/uL Neutrophils # (Manual) 1.1 L (1.3-7.7) k/uL Lymphocytes # (Manual) 0.2 L (1.0-4.8) k/uL Potassium 3.3 L (3.5-5.1) mmol/L Chloride 113 H (98-107) mmol/L Carbon Dioxide 21 L (22-30) mmol/L Microbiology - Last 24 Hours (Table) 10/17/16 14:10 Blood Culture - Preliminary Blood No Growth after 72 hours 10/19/16 10:20 Gram Stain - Final Sputum Sputum Culture - Final Assessment and Plan Plan: Impression and plan: 1. Neutropenic sepsis, present on admission. Oncology following, recommendations noted. Continue IV antibiotics in the form of cefepime + Vancomycin, IV fluids, supportive treatment and pain management. Sputum cultures show contamination, blood cultures show no growth 2. Pancytopenia: WBC count now 1.6, hemoglobin 7.3, platelets 17, he is been started on Neulasta 5. Hypomagnesemia. resolved 6. Hypokalemia. Now at 3.8, up we'll mentation will continue 7. Small cell lung cancer of right lung status post chemo and radiation. 8. cough/ COPD without exacerbation. Continue nebulized updraft treatments. Continue Mucinex, continue pulmonology follow-up 9. GERD. Continue Protonix. 10. Hyperlipidemia. Continue Lipitor. 11. History of hypertension. 12. BPH. Continue Cardura. 13. History of nicotine dependence. await recommendations from consultants. repeat labs in am. reeavalute in 24 hr, he may need packed red blood cells depending on hematology's wishes. Patient is closer to discharge.
--- NOTE | 2016-10-21 13:14 | P.PN ---
Subjective Principal diagnosis: Acute febrile neutropenia and pancytopenia This is a very pleasant 66-year-old gentleman who follows with Dr. Arcos as his primary care physician. He has a history of hyperlipidemia, hypertension, prostate disorder, previous smoker. 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 This was diagnosed by bronchoscopy with biopsies on 06/26/[address] Oropeza. Since that time he has undergone 5 rounds of chemotherapy and is due for a 6 around October 29. He is also completed 33 radiation treatments. A PET scan 09/28/2016 did reveal improvement within the chest. There was some hypermetabolic uptake within the marrow possibly due to the therapy itself. He has been receiving Neulasta for neutropenia as well. On October 12 the patient was seen in the emergency room after developing any significant fever. He was subsequently treated and released. The patient re- presented here again yesterday with fever chills and diaphoresis. He denied any significant shortness of breath however he did, cough up when bloody gelatinous sputum prior to arrival. He has not had any further productive cough. No nausea vomiting or diarrhea. He is seen today in consultation on the oncology floor. He is awake and alert in no acute distress. He does have a loose nonproductive cough. No further chills or night sweats. He is maintaining O2 saturations in the upper 90s on room air. He's been hemodynamically stable. T-max since arrival 101.9. Currently afebrile. His chest x-ray reveals some atelectatic changes in the right lung base which may be residual from a previous pneumonia in July 2016. Current white count 0.4. Hemoglobin 7.5. Platelet count 8000. He is currently on cefepime. The patient is seen again today 10/19/2016 in follow-up on the oncology unit. He is currently awake and alert in no acute distress. He's been up ambulating in the hallway. He denies any worsening shortness of breath. He continues with a productive cough of blood-tinged sputum. He is maintaining good O2 saturations in the mid 90s on room air. His temperature continues to hang around 99. Blood culture reveals no growth to date. Current white count 0.6. Hemoglobin 7.9. He is status post 1 unit of packed red blood cell infusions. He also received pheresis platelets. Current platelet count 8000. He is continued on vancomycin and cefepime. A CT angiogram ruled out pulmonary embolism. There was some mediastinal right bronchial adenopathy with a right lower lobe patchy consolidation. There is decrease in these findings as compared to previous in 06/26/2016. Suspect favorable treatment response. Reevaluated on 10/20/2016, patient remains on the oncology unit, doing extremely well, relatively asymptomatic. Labs were reviewed, and platelets are rather low. 7000. No evidence of active bleeding. WBC count is 1.[address] of the chest which was done on this admission was reviewed. On 10/21/2016, patient remains on the oncology unit, doing very well, relatively asymptomatic. No cough no wheezing no shortness of breath or chest pain no nausea no vomiting no abdominal pain. And no evidence of any active bleeding. WBC count is up to 1.6, hemoglobin is 7.3, platelets are up to 17,000. Electrolytes and renal profile are normal. Clinically the patient is doing extremely well. Objective - Vital Signs Vital signs: Vital Signs Temp 98.8 F 10/21/16 07:00 Pulse 94 10/21/16 07:46 Resp 16 10/21/16 08:00 BP 111/65 10/21/16 07:00 Pulse Ox 95 10/21/16 07:00 Intake & Output 10/20/16 10/21/16 10/21/16 18:59 06:59 18:59 Intake Total 924 1870 480 Balance 924 1870 480 Intake: Intake, IV Titration 80 Amount Sodium Chloride 0.9% 1, 80 000 ml @ 100 mls/hr IV . Q10H [facility] Rx#:[id number] Oral 720 7450 480 Blood Product 204 Platelet Pheresis Acda2 204 Unit [id number] Other: # Voids 3 3 1 - Exam GENERAL EXAM: Alert, active, comfortable in no apparent distress. HEAD: Normocephalic. EYES: Normal reaction of pupils, equal size. NOSE: Clear with pink turbinates. THROAT: No erythema or exudates. NECK: No masses, no JVD. CHEST: No chest wall deformity. LUNGS: Equal air entry with crackles in the right lung base. CVS: S1 and S2 normal with no audible murmurs, regular rhythm. ABDOMEN: No hepatosplenomegaly, normal bowel sounds, no guarding or rigidity. SPINE: No scoliosis or deformity SKIN: No rashes CENTRAL NERVOUS SYSTEM: No focal deficits, tone is normal in all 4 extremities. Extremities: There is trace peripheral edema. No clubbing, no cyanosis. Peripheral pulses are intact. - Labs CBC & Chem 7: 10/21/16 06:24 10/21/16 06:24 Labs: Abnormal Lab Results - Last 24 Hours (Table) 10/21/16 10/21/16 Range/Units 06:24 06:24 WBC 1.6 L* (3.8-10.6) k/uL RBC 2.25 L (4.30-5.90) m/uL Hgb 7.3 L (13.0-17.5) gm/dL Hct 21.8 L (39.0-53.0) % RDW 19.6 H (11.5-15.5) % Plt Count 17 L* D (150-450) k/uL Neutrophils # (Manual) 1.1 L (1.3-7.7) k/uL Lymphocytes # (Manual) 0.2 L (1.0-4.8) k/uL Chloride 113 H (98-107) mmol/L Carbon Dioxide 21 L (22-30) mmol/L Microbiology - Last 24 Hours (Table) 10/17/16 14:10 Blood Culture - Preliminary Blood No Growth after 72 hours Assessment and Plan Plan: #1 Febrile illness/neutropenic fever in a patient with significant immunocompromise secondary to chemotherapy for both small cell lung cancer of the right upper lobe and non-small cell lung cancer in the right lower lobe. Status post 33 radiation treatments and 5 rounds of 6 chemotherapy treatments. #2 Pancytopenia, initial white count 0.4, hemoglobin 7.5, platelet count 8000. Currently on Neulasta. Current white count 1.6, hemoglobin 7.5, platelet count 76309. #3 Chronic tobacco dependence of 45 years at 1 pack per day. Quit approximately 3 months ago. #4 Hyperlipidemia. #5 Hypertension. 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 Recommendation: Continue present supportive care measures, continue treatment plan for his pancytopenia as per hematology on the case, continue antibiotics, not quite ready for discharge planning, will follow. Time with Patient: Less than 30
[2016-10-21] MEDS: ATORVASTATIN 20 MG TAB PO SCH (20:03)
[2016-10-22] MEDS: ALBUTEROL NEBULIZED 2.5 MG/3 ML INHALATION SCH ×2 (07:17→18:41)
[2016-10-22 07:28] LABS: Anisocytosis Slight; CH 31.7; HCT 22.5 % (39.0-53.0); HDW 3.32; HGB 7.4 gm/dL (13.0-17.5); MCH 31.8 pg (25.0-35.0); MCV 96.4 fL (80.0-100.0); Macrocytosis Slight; Mean Platelet Volume 9.5; RBC 2.33 m/uL (4.30-5.90); RDW 19.5 % (11.5-15.5); WBC 2.2 k/uL (3.8-10.6)
[2016-10-22 07:34] LABS: Anion Gap 9 mmol/L; Blood Urea Nitrogen 13 mg/dL (9-20); Calcium 8.9 mg/dL (8.4-10.2); Carbon Dioxide 25 mmol/L (22-30); Chloride 110 mmol/L (98-107); Glucose 96 mg/dL (74-99); Non-African American GFR(MDRD) >60 (>60 ml/min/1.73 sqM); Sodium 144 mmol/L (137-145)
[2016-10-22] MEDS: CEFEPIME 2 GM in SODIUM CHLORIDE 0.9% 50 ML IVPB SCH ×2 (08:22→17:15)
[2016-10-22] MEDS: SODIUM CHLORIDE 0.9% 1,000 ML IV SCH ×2 (08:23→19:33)
[2016-10-22] MEDS: DOXAZOSIN 4 MG TAB PO SCH ×3 (08:23→21:00)
[2016-10-22] MEDS: PANTOPRAZOLE 40 MG TABLET PO SCH (08:23)
[2016-10-22] MEDS: guaiFENesin 600 MG TABLET.ER PO SCH ×2 (08:23→21:00)
[2016-10-22 09:57] LABS: Add Differential Manual Differential
[2016-10-22 10:05] LABS: Nucleated Red Blood Cells 0 /100 WBC (0-0); Total Cells Counted 100
[2016-10-22 10:06] LABS: Manual Review Performed
[2016-10-22 10:11] LABS: RBC Morphology Normal
--- NOTE | 2016-10-22 11:46 | P.PN ---
Subjective Principal diagnosis: Acute febrile illness This is a very pleasant 66-year-old gentleman who follows with Dr. Arcos as his primary care physician. He has a history of hyperlipidemia, hypertension, prostate disorder, previous smoker. 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 This was diagnosed by bronchoscopy with biopsies on 06/26/[address] Oropeza. Since that time he has undergone 5 rounds of chemotherapy and is due for a 6 around October 29. He is also completed 33 radiation treatments. A PET scan 09/28/2016 did reveal improvement within the chest. There was some hypermetabolic uptake within the marrow possibly due to the therapy itself. He has been receiving Neulasta for neutropenia as well. On October 12 the patient was seen in the emergency room after developing any significant fever. He was subsequently treated and released. The patient re- presented here again yesterday with fever chills and diaphoresis. He denied any significant shortness of breath however he did, cough up when bloody gelatinous sputum prior to arrival. He has not had any further productive cough. No nausea vomiting or diarrhea. He is seen today in consultation on the oncology floor. He is awake and alert in no acute distress. He does have a loose nonproductive cough. No further chills or night sweats. He is maintaining O2 saturations in the upper 90s on room air. He's been hemodynamically stable. T-max since arrival 101.9. Currently afebrile. His chest x-ray reveals some atelectatic changes in the right lung base which may be residual from a previous pneumonia in July 2016. Current white count 0.4. Hemoglobin 7.5. Platelet count 8000. He is currently on cefepime. The patient is seen again today 10/19/2016 in follow-up on the oncology unit. He is currently awake and alert in no acute distress. He's been up ambulating in the hallway. He denies any worsening shortness of breath. He continues with a productive cough of blood-tinged sputum. He is maintaining good O2 saturations in the mid 90s on room air. His temperature continues to hang around 99. Blood culture reveals no growth to date. Current white count 0.6. Hemoglobin 7.9. He is status post 1 unit of packed red blood cell infusions. He also received pheresis platelets. Current platelet count 8000. He is continued on vancomycin and cefepime. A CT angiogram ruled out pulmonary embolism. There was some mediastinal right bronchial adenopathy with a right lower lobe patchy consolidation. There is decrease in these findings as compared to previous in 06/26/2016. Suspect favorable treatment response. Reevaluated on 10/20/2016, patient remains on the oncology unit, doing extremely well, relatively asymptomatic. Labs were reviewed, and platelets are rather low. 7000. No evidence of active bleeding. WBC count is 1.[address] of the chest which was done on this admission was reviewed. On 10/21/2016, patient remains on the oncology unit, doing very well, relatively asymptomatic. No cough no wheezing no shortness of breath or chest pain no nausea no vomiting no abdominal pain. And no evidence of any active bleeding. WBC count is up to 1.6, hemoglobin is 7.3, platelets are up to 17,000. Electrolytes and renal profile are normal. Clinically the patient is doing extremely well. The patient is seen again today 10/22/2016 in follow-up on the oncology unit. He is awake and alert in no acute distress. He is doing quite a bit better today. He's been up with assistance. His current hemoglobin is 7.4, platelet count 19,000, white count up to 2.2. He has no pulmonary complaints. He is currently maintaining O2 saturations in the 90s on room air. He's been hemodynamically stable, slightly tachycardic, afebrile. Blood and sputum cultures reveal no growth. Objective - Vital Signs Vital signs: Vital Signs Temp 98.8 F 10/22/16 07:00 Pulse 102 H 10/22/16 08:00 Resp 16 10/22/16 08:00 BP 110/64 10/22/16 11:28 Pulse Ox 80 L 10/22/16 11:28 Intake & Output 10/21/16 10/22/16 10/22/16 18:59 06:59 18:59 Intake Total 1630 1640 Balance 1630 1640 Intake: IV 200 0.9 @20 200 Intake, IV Titration 750 800 Amount Cefepime 2 gm In Sodium 50 Chloride 0.9% 50 ml @ 100 mls/hr IVPB Q8HR [facility] Rx# :[id number] Sodium Chloride 0.9% 1, 700 800 000 ml @ 100 mls/hr IV . Q10H [facility] Rx#:[id number] Oral 880 640 Other: # Voids 1 4 2 - Exam GENERAL EXAM: Alert, active, comfortable in no apparent distress. HEAD: Normocephalic. EYES: Normal reaction of pupils, equal size. NOSE: Clear with pink turbinates. THROAT: No erythema or exudates. NECK: No masses, no JVD. CHEST: No chest wall deformity. LUNGS: Equal air entry with crackles in the right lung base. CVS: S1 and S2 normal with no audible murmurs, regular rhythm. ABDOMEN: No hepatosplenomegaly, normal bowel sounds, no guarding or rigidity. SPINE: No scoliosis or deformity SKIN: No rashes CENTRAL NERVOUS SYSTEM: No focal deficits, tone is normal in all 4 extremities. Extremities: There is trace peripheral edema. No clubbing, no cyanosis. Peripheral pulses are intact. - Labs CBC & Chem 7: 10/22/16 06:45 10/22/16 06:45 Labs: Abnormal Lab Results - Last 24 Hours (Table) 10/22/16 10/22/16 Range/Units 06:45 06:45 WBC 2.2 L (3.8-10.6) k/uL RBC 2.33 L (4.30-5.90) m/uL Hgb 7.4 L (13.0-17.5) gm/dL Hct 22.5 L (39.0-53.0) % RDW 19.5 H (11.5-15.5) % Plt Count 19 L* (150-450) k/uL Lymphocytes # (Manual) 0.3 L (1.0-4.8) k/uL Chloride 110 H (98-107) mmol/L Microbiology - Last 24 Hours (Table) 10/17/16 14:10 Blood Culture - Preliminary Blood No Growth after 96 hours Assessment and Plan Plan: Impression: #1 Febrile illness in a patient with significant immunocompromise secondary to chemotherapy for both small cell lung cancer of the right upper lobe and non- small cell lung cancer in the right lower lobe. Status post 33 radiation treatments and 5 rounds of 6 chemotherapy treatments. #2 Pancytopenia, initial white count 0.4, hemoglobin 7.5, platelet count 8000. Currently on Neulasta. Current white count 2.2, hemoglobin 7.4, platelet count 19,000. #3 Chronic tobacco dependence of 45 years at 1 pack per day. Quit approximately 3 months ago. #4 Hyperlipidemia. #5 Hypertension. 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 Plan: The patient was seen and evaluated by Dr. Mehta. He is currently stable from the pulmonary standpoint. We'll continue with his current medications. Increase his activity as tolerated. If not home today we'll continue to follow.
--- NOTE | 2016-10-22 17:06 | P.PN ---
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 Patient was diagnosed in June 2016 with lung cancer and has undergone 33 treatments of radiation and just finished his fifth round of chemotherapy last Friday with 1 dose left in 2 weeks. Patient started to develop low-grade fevers over the last week with associated chills and sweats and one episode of hemoptysis prior to admission. No history of nausea, vomiting, chest pain, abdominal pain, constipation or diarrhea. Patient was advised from his oncologist to be admitted. Chest x-ray the emergency department with no evidence of acute pulmonary process and stable appearance of the port catheter. Patient was found to have evidence of neutral and fever with a temperature of 101.9 in the emergency department and pancytopenia on admission labs with WBC of 0.3, hemoglobin 9, and platelets of 10. In addition magnesium was 1.5. Urinalysis negative. Patient had been on Levaquin in the outpatient setting but was started on Cefzil time in the emergency department. Patient was fluid resuscitated with 2 L of normal saline, blood cultures were drawn, and patient was admitted to oncology unit. Upon examination, patient is feeling better. Patient has no specific complaints. Tolerating diet. Reports good appetite. A.m. labs with WBC of 0.4, hemoglobin 7.5, platelet count 8, potassium 3.2, magnesium 1.4. Oncology service has ordered 1 unit of PRBC and 5 units of platelets to be transfused. No bleeding observed. Pulmonology had seen him for cough s/p CTA chest negative for PE. He has been afebrile since 10/17/2016 @1713. he c/o cough, but indicates it is better He is sp 1u PRBCS and 5U multidonor platelets 10/20/2016, he is in good spirits. He was febrile as of 10/19 at 20:53 at 100.3 he is been afebrile the rest of this day. He feels okay, cough is better, weakness is stable. Denies any chest pain pressure or shortness of breath. 10/21/2016: He appears to be doing well. He has been afebrile since 10/19/2016 at 2053 at 100.3F. He reports less coughing. 10/22/2016: Patient is doing well. Complains of minimal cough. Afebrile. WBC increased to 2.2. Hemoglobin 7.4. Platelets increased to 19. Objective - Vital Signs Vital signs: Vital Signs Temp 98.8 F 10/22/16 07:00 Pulse 102 H 10/22/16 15:24 Resp 16 10/22/16 15:24 BP 110/64 10/22/16 11:28 Pulse Ox 80 L 10/22/16 11:28 Intake & Output 10/21/16 10/22/16 10/22/16 18:59 06:59 18:59 Intake Total 1630 1640 240 Balance 1630 1640 240 Intake: IV 200 0.9 @20 200 Intake, IV Titration 750 800 Amount Cefepime 2 gm In Sodium 50 Chloride 0.9% 50 ml @ 100 mls/hr IVPB Q8HR [facility] Rx# :[id number] Sodium Chloride 0.9% 1, 700 800 000 ml @ 100 mls/hr IV . Q10H [facility] Rx#:[id number] Oral 880 640 240 Other: # Voids 1 4 2 - Exam GENERAL: Pt awake and alert, well-appearing, well-nourished, and in no acute distress. NECK: Supple without lymphadenopathy or JVD. Neck midline. LUNGS: Breath sounds coarse to auscultation bilaterally. No wheezes, rales, or rhonchi. HEART: Heart S1, S2, no S3 or S4. Regular rate and rhythm. No murmurs, rubs or gallops. EXTREMITIES: 2+ peripheral pulses. No edema. No calf tenderness. NEUROLOGICAL: Pt oriented x 3. No focal deficits noted. Strength and sensation grossly intact. PSYCH: Normal mood, normal affect. SKIN: Warm, dry, intact. Normal turgor. No rashes or lesions. - Labs CBC & Chem 7: 10/22/16 06:45 10/22/16 06:45 Labs: Abnormal Lab Results - Last 24 Hours (Table) 10/22/16 10/22/16 Range/Units 06:45 06:45 WBC 2.2 L (3.8-10.6) k/uL RBC 2.33 L (4.30-5.90) m/uL Hgb 7.4 L (13.0-17.5) gm/dL Hct 22.5 L (39.0-53.0) % RDW 19.5 H (11.5-15.5) % Plt Count 19 L* (150-450) k/uL Lymphocytes # (Manual) 0.3 L (1.0-4.8) k/uL Chloride 110 H (98-107) mmol/L Microbiology - Last 24 Hours (Table) 10/17/16 14:10 Blood Culture - Preliminary Blood No Growth after 120 hours Assessment and Plan Plan: Impression and plan: 1. Neutropenic sepsis, present on admission. Oncology following, recommendations noted. Continue IV antibiotics in the form of cefepime, IV fluids, supportive treatment and pain management. Sputum cultures show contamination, blood cultures show no growth 2. Pancytopenia: WBC count now 2.2, hemoglobin 7.4, platelets 19 3. Small cell lung cancer of right lung status post chemo and radiation. 4. cough/ COPD without exacerbation. Continue nebulized updraft treatments. Continue Mucinex, continue pulmonology follow-up 5. GERD. Continue Protonix. 6. Hyperlipidemia. Continue Lipitor. 7. History of hypertension. 8. BPH. Continue Cardura. 9. History of nicotine dependence. Continue to monitor patient. Continue current medications. Await oncology recommendations for discharge. Continue to follow with consultants. Repeat CBC and BMP in a.m. The above impression and plan have been discussed and directed by Dr. Arcos. Kvng SAUNDERS acting as scribe for Dr. Arcos
--- NOTE | 2016-10-22 18:41 | P.PN ---
Subjective Principal diagnosis: Febrile neutropenia The patient continues to improve. He overall feels stronger. He still has mild sore throat and cough, but is able to swallow reasonably well. Fever and chills have not recurred. Objective - Vital Signs Vital signs: Vital Signs Temp 98.7 F 10/22/16 15:00 Pulse 102 H 10/22/16 15:24 Resp 16 10/22/16 15:24 BP 109/71 10/22/16 15:00 Pulse Ox 95 10/22/16 15:00 Intake & Output 10/21/16 10/22/16 10/22/16 18:59 06:59 18:59 Intake Total 1630 1640 240 Balance 1630 1640 240 Intake: IV 200 0.9 @20 200 Intake, IV Titration 750 800 Amount Cefepime 2 gm In Sodium 50 Chloride 0.9% 50 ml @ 100 mls/hr IVPB Q8HR [facility] Rx# :[id number] Sodium Chloride 0.9% 1, 700 800 000 ml @ 100 mls/hr IV . Q10H [facility] Rx#:[id number] Oral 880 640 240 Other: # Voids 1 4 2 - Constitutional General appearance: Present: no acute distress - EENT Eyes: Present: PERRLA ENT: Present: hearing grossly normal, normal oropharynx - Respiratory Respiratory: bilateral: CTA - Cardiovascular Rhythm: regular Heart sounds: normal: S1, S2 - Gastrointestinal General gastrointestinal: Present: normal bowel sounds, soft - Integumentary Integumentary: Present: normal - Neurologic Neurologic: Present: CNII-XII intact - Musculoskeletal Musculoskeletal: Present: generalized weakness, strength equal bilaterally - Psychiatric Psychiatric: Present: A&O x's 3, appropriate affect - Labs CBC & Chem 7: 10/22/16 06:45 10/22/16 06:45 Labs: Abnormal Lab Results - Last 24 Hours (Table) 10/22/16 10/22/16 Range/Units 06:45 06:45 WBC 2.2 L (3.8-10.6) k/uL RBC 2.33 L (4.30-5.90) m/uL Hgb 7.4 L (13.0-17.5) gm/dL Hct 22.5 L (39.0-53.0) % RDW 19.5 H (11.5-15.5) % Plt Count 19 L* (150-450) k/uL Lymphocytes # (Manual) 0.3 L (1.0-4.8) k/uL Chloride 110 H (98-107) mmol/L Microbiology - Last 24 Hours (Table) 10/17/16 14:10 Blood Culture - Preliminary Blood No Growth after 120 hours Assessment and Plan (1) Febrile neutropenia Narrative/Plan: Fever has resolved. Neutropenia is improving with a white count of 2.2. ANC is greater than 1000. Cultures remain negative. Antibiotics have been decreased. Based on his progress, patient can likely be discharged in the next the 24 hours or so on oral antibiotics Status: Acute (2) Pancytopenia due to antineoplastic chemotherapy Narrative/Plan: WBC is improving as noted. He had received Neulasta on 10/11/16. He is more than 10 days out from the administration, and white count is still low. However as ANC is greater than 1000 additional supplementation is not needed at this time. I would expect this to continue to improve. Similarly hemoglobin and platelets are in a safe range (greater than 7 and greater than 10 respectively) . Therefore no supplementation is needed. Continue to monitor. Status: Acute (3) Lung cancer Narrative/Plan: The patient is due for his last cycle of chemotherapy next week. Depending on his recovery from this acute event, as well as his blood counts, this may need to be delayed. Status: Acute
[2016-10-22] MEDS: ATORVASTATIN 20 MG TAB PO SCH (21:00)
[2016-10-23] MEDS: CEFEPIME 2 GM in SODIUM CHLORIDE 0.9% 50 ML IVPB SCH ×3 (00:02→15:44)
[2016-10-23] MEDS: SODIUM CHLORIDE 0.9% 1,000 ML IV SCH ×2 (03:48→17:54)
[2016-10-23] MEDS: DOXAZOSIN 4 MG TAB PO SCH ×2 (08:04→20:40)
[2016-10-23] MEDS: PANTOPRAZOLE 40 MG TABLET PO SCH (08:04)
[2016-10-23] MEDS: guaiFENesin 600 MG TABLET.ER PO SCH ×2 (08:04→20:40)
[2016-10-23] MEDS: ALBUTEROL NEBULIZED 2.5 MG/3 ML INHALATION SCH ×2 (08:05→21:37)
[2016-10-23 08:14] VITALS: RESP 18
[2016-10-23 08:36] LABS: Anion Gap 9 mmol/L; Blood Urea Nitrogen 13 mg/dL (9-20); Calcium 8.8 mg/dL (8.4-10.2); Carbon Dioxide 25 mmol/L (22-30); Chloride 108 mmol/L (98-107); Glucose 105 mg/dL (74-99); Non-African American GFR(MDRD) >60 (>60 ml/min/1.73 sqM); Potassium 3.7 mmol/L (3.5-5.1); Sodium 142 mmol/L (137-145)
[2016-10-23 09:53] LABS: Anisocytosis Slight; Aty Lym Flag Slight; CH 31.7; CHCM 32.8; HDW 3.22; HGB 7.3 gm/dL (13.0-17.5); MCH 32.5 pg (25.0-35.0); MCHC 33.5 g/dL (31.0-37.0); MCV 97.1 fL (80.0-100.0); Macrocytosis Slight; Mean Platelet Volume 9.1; RBC 2.26 m/uL (4.30-5.90); RDW 19.8 % (11.5-15.5); WBC (Perox) 1.98
--- NOTE | 2016-10-23 11:47 | PN ---
This is a 66-year-old male who was admitted on October 17. The patient was seen yesterday by myself or my nurse practitioner. Doing relatively well. He is awake and alert. No distress. No pain. No discomfort. His white count was up to 2.2. His hemoglobin was 7.4. His counts seem to be improving. His numbers were not available when I saw him today. No pulmonary complaints. No other complaints for that matter. Feeling well. He is hoping to be able to be discharged relatively soon. Being followed by Dr. Moss in medical oncology. Currently, vital signs are stable. Temperature 98.3, heart rate 87, respiratory rate 16, blood pressure 122/71, mean 88, room air saturation 96%. Appears in no acute distress. HEENT examination is grossly unremarkable. Mucous membranes are moist. No oral lesions. No mucositis. Neck is supple. Full range of motion. No adenopathy or thyromegaly. Neck veins are flat. Cardiovascular examination reveals regular rhythm and rate. S1, S2 normal. Lungs are clear breath sounds are equal. No wheezes, rhonchi or crackles. Abdomen is soft. Bowel sounds are heard. Extremities are intact. No cyanosis, clubbing, or edema. Skin is without rash or lesion. Neurological examination is nonfocal. Lab data is reviewed. White count down a little bit from 2.2 to 2.0, hemoglobin stable at 7.3, hematocrit 22, platelet count 18 down from 19. Sodium 142, potassium 3.7, chloride is 108, CO2 of 25. Anion gap is 9, BUN and creatinine were 13 and 1.01. The rest of his electrolyte profile was normal. No recent x-ray to report. Microbiology is all negative including sputum and blood. Medications are reviewed. ASSESSMENT: 1. Febrile neutropenia in a patient is profoundly immunocompromised secondary to chemotherapy for both small cell lung cancer and non-small lung cancer. The patient is also status post radiation treatments. 2. Pancytopenia. 3. Chronic tobacco dependence. 4. Hyperlipidemia. 5. Hypertension. 6. Benign prostatic hypertrophy. PLAN: The patient continues to improve. Counts have not really improved the last 24 hours. Will continue to follow closely. Clinically the patient is stable. No additional recommendations are made. Will continue to watch closely.
[2016-10-23 14:18] LABS: Add Differential Manual Differential
[2016-10-23 14:34] LABS: Nucleated Red Blood Cells 0 /100 WBC (0-0); Total Cells Counted 200
[2016-10-23 14:35] LABS: Manual Review Performed
--- NOTE | 2016-10-23 16:02 | P.PN ---
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 Patient was diagnosed in June 2016 with lung cancer and has undergone 33 treatments of radiation and just finished his fifth round of chemotherapy last Friday with 1 dose left in 2 weeks. Patient started to develop low-grade fevers over the last week with associated chills and sweats and one episode of hemoptysis prior to admission. No history of nausea, vomiting, chest pain, abdominal pain, constipation or diarrhea. Patient was advised from his oncologist to be admitted. Chest x-ray the emergency department with no evidence of acute pulmonary process and stable appearance of the port catheter. Patient was found to have evidence of neutral and fever with a temperature of 101.9 in the emergency department and pancytopenia on admission labs with WBC of 0.3, hemoglobin 9, and platelets of 10. In addition magnesium was 1.5. Urinalysis negative. Patient had been on Levaquin in the outpatient setting but was started on Cefzil time in the emergency department. Patient was fluid resuscitated with 2 L of normal saline, blood cultures were drawn, and patient was admitted to oncology unit. Upon examination, patient is feeling better. Patient has no specific complaints. Tolerating diet. Reports good appetite. A.m. labs with WBC of 0.4, hemoglobin 7.5, platelet count 8, potassium 3.2, magnesium 1.4. Oncology service has ordered 1 unit of PRBC and 5 units of platelets to be transfused. No bleeding observed. Pulmonology had seen him for cough s/p CTA chest negative for PE. He has been afebrile since 10/17/2016 @1713. he c/o cough, but indicates it is better He is sp 1u PRBCS and 5U multidonor platelets 10/20/2016, he is in good spirits. He was febrile as of 10/19 at 20:53 at 100.3 he is been afebrile the rest of this day. He feels okay, cough is better, weakness is stable. Denies any chest pain pressure or shortness of breath. 10/21/2016: He appears to be doing well. He has been afebrile since 10/19/2016 at 2053 at 100.3F. He reports less coughing. 10/22/2016: Patient is doing well. Complains of minimal cough. Afebrile. WBC increased to 2.2. Hemoglobin 7.4. Platelets increased to 19. 10/23/2016: Patient is doing well. Complains of minimal cough. Patient did have a temperature of 100 at 3 PM. WBC decreased to 2. Hemoglobin 7.3. Platelets decreased to 18. Objective - Vital Signs Vital signs: Vital Signs Temp 98.3 F 10/23/16 07:00 Pulse 85 10/23/16 08:16 Resp 18 10/23/16 07:00 BP 122/71 10/23/16 07:00 Pulse Ox 96 10/23/16 07:00 Intake & Output 10/22/16 10/23/16 10/23/16 18:59 06:59 18:59 Intake Total 240 810 Balance 240 810 Weight 113.852 kg Intake: IV 160 0.9 @20 160 Intake, IV Titration 50 Amount Cefepime 2 gm In Sodium 50 Chloride 0.9% 50 ml @ 100 mls/hr IVPB Q8HR [facility] Rx# :[id number] Oral 240 600 Other: # Voids 2 1 - Exam GENERAL: Pt awake and alert, well-appearing, well-nourished, and in no acute distress. NECK: Supple without lymphadenopathy or JVD. Neck midline. LUNGS: Breath sounds coarse to auscultation bilaterally. No wheezes, rales, or rhonchi. HEART: Heart S1, S2, no S3 or S4. Regular rate and rhythm. No murmurs, rubs or gallops. EXTREMITIES: 2+ peripheral pulses. No edema. No calf tenderness. NEUROLOGICAL: Pt oriented x 3. No focal deficits noted. Strength and sensation grossly intact. PSYCH: Normal mood, normal affect. SKIN: Warm, dry, intact. Normal turgor. No rashes or lesions. - Labs CBC & Chem 7: 10/23/16 07:50 10/23/16 07:50 Labs: Abnormal Lab Results - Last 24 Hours (Table) 10/23/16 10/23/16 Range/Units 07:50 07:50 WBC 2.0 L* (3.8-10.6) k/uL RBC 2.26 L (4.30-5.90) m/uL Hgb 7.3 L (13.0-17.5) gm/dL Hct 22.0 L (39.0-53.0) % RDW 19.8 H (11.5-15.5) % Plt Count 18 L* (150-450) k/uL Lymphocytes # (Manual) 0.2 L (1.0-4.8) k/uL Chloride 108 H (98-107) mmol/L Glucose 105 H (74-99) mg/dL Microbiology - Last 24 Hours (Table) 10/17/16 14:10 Blood Culture - Preliminary Blood No Growth after 120 hours Assessment and Plan Plan: Impression and plan: 1. Neutropenic sepsis, present on admission. Oncology following, recommendations noted. Continue IV antibiotics in the form of cefepime, IV fluids, supportive treatment and pain management. Sputum cultures show contamination, blood cultures show no growth 2. Pancytopenia: WBC count now 2, hemoglobin 7.3, platelets 18 3. Small cell lung cancer of right lung status post chemo and radiation. 4. cough/ COPD without exacerbation. Continue nebulized updraft treatments. Continue Mucinex, continue pulmonology follow-up 5. GERD. Continue Protonix. 6. Hyperlipidemia. Continue Lipitor. 7. History of hypertension. 8. BPH. Continue Cardura. 9. History of nicotine dependence. Continue to monitor patient. Continue current medications. Continue to follow with consultants. Repeat CBC and BMP in a.m. possible discharge tomorrow. The above impression and plan have been discussed and directed by Dr. Arcos. Kvng SAUNDERS acting as scribe for Dr. Arcos
[2016-10-23] MEDS: ACETAMINOPHEN TAB 325 MG TAB PO PRN (16:45)
[2016-10-23] MEDS: ATORVASTATIN 20 MG TAB PO SCH (20:40)
[2016-10-24] MEDS: CEFEPIME 2 GM in SODIUM CHLORIDE 0.9% 50 ML IVPB SCH ×2 (00:42→07:48)
[2016-10-24 00:44] VITALS: TEMP 98.7
[2016-10-24 06:32] LABS: Anion Gap 8 mmol/L; Blood Urea Nitrogen 15 mg/dL (9-20); Calcium 8.6 mg/dL (8.4-10.2); Carbon Dioxide 23 mmol/L (22-30); Chloride 112 mmol/L (98-107); Glucose 93 mg/dL (74-99); Non-African American GFR(MDRD) >60 (>60 ml/min/1.73 sqM); Potassium 3.7 mmol/L (3.5-5.1); Sodium 143 mmol/L (137-145)
[2016-10-24] MEDS: ALBUTEROL NEBULIZED 2.5 MG/3 ML INHALATION SCH (07:16)
[2016-10-24] MEDS: SODIUM CHLORIDE 0.9% 1,000 ML IV SCH (07:30)
[2016-10-24] MEDS: DOXAZOSIN 4 MG TAB PO SCH (07:48)
[2016-10-24] MEDS: PANTOPRAZOLE 40 MG TABLET PO SCH (07:48)
[2016-10-24] MEDS: guaiFENesin 600 MG TABLET.ER PO SCH (07:49)
[2016-10-24 07:56] VITALS: BP 108/57; PULSE 107
[2016-10-24 10:01] LABS: Anisocytosis Slight; Aty Lym Flag Slight; CH 31.9; CHCM 33.4; HCT 22.5 % (39.0-53.0); HGB 7.6 gm/dL (13.0-17.5); MCH 32.4 pg (25.0-35.0); MCHC 33.9 g/dL (31.0-37.0); MCV 95.8 fL (80.0-100.0); Macrocytosis Slight; Mean Platelet Volume 10.5; RBC 2.35 m/uL (4.30-5.90); WBC 2.2 k/uL (3.8-10.6)
[2016-10-24 10:59] LABS: Add Differential Manual Differential
[2016-10-24 11:04] LABS: Metamyelocytes % 0.5 %; Myelocytes % 0.5 %; Nucleated Red Blood Cells 0 /100 WBC (0-0); Total Cells Counted 200
[2016-10-24 11:05] LABS: Manual Review Performed
--- NOTE | 2016-10-24 12:28 | P.DS ---
Providers Date of admission: 10/17/16 18:16 Expected date of discharge: 10/24/16 Attending physician: Hector Escoto Consults: 10/17/16 18:17 Consult Physician Routine Consulting Provider: Michael Garnica Consult Reason/Comments: Neutropenic fever, lung cancer Do you want consulting provider notified?: Already Contacted 10/18/16 14:19 Consult Physician Routine Consulting Provider: Edwige Oropeza Consult Reason/Comments: persistant cough Do you want consulting provider notified?: Yes Primary care physician: Hector Escoto [facility] Course: Patient is a 66-year-old male, patient of mine in the outpatient setting, with medical history significant for small 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 Patient was diagnosed in June 2016 with lung cancer and has undergone 33 treatments of radiation and just finished his fifth round of chemotherapy last Friday with 1 dose left in 2 weeks. Patient started to develop low-grade fevers over the last week with associated chills and sweats and one episode of hemoptysis prior to admission. No history of nausea, vomiting, chest pain, abdominal pain, constipation or diarrhea. Patient was advised from his oncologist to be admitted. Chest x-ray the emergency department with no evidence of acute pulmonary process and stable appearance of the port catheter. Patient was found to have evidence of neutral and fever with a temperature of 101.9 in the emergency department and pancytopenia on admission labs with WBC of 0.3, hemoglobin 9, and platelets of 10. In addition magnesium was 1.5. Urinalysis negative. Patient had been on Levaquin in the outpatient setting but was started on Cefzil time in the emergency department. Patient was fluid resuscitated with 2 L of normal saline, blood cultures were drawn, and patient was admitted to oncology unit. Patient did receive 1 unit of PRBC and 5 units of platelets during his hospital stay. Patient was evaluated by pulmonology service for cough and underwent a CTA of the chest that was negative for a pulmonary embolism. Patient improved during his hospital stay and was deemed stable for discharge to home post follow-up in the outpatient setting. Patient will receive 4 more doses of Levaquin post discharge. Discharge diagnoses: 1. Neutropenic sepsis, present on admission. 2. Pancytopenia 3. Small cell lung cancer of right lung status post chemo and radiation. 4. cough/ COPD without exacerbation. 5. GERD. 6. Hyperlipidemia. 7. History of hypertension. 8. BPH. 9. History of nicotine dependence. The above impression and plan have been discussed and directed by Dr. Arcos. Kvng SAUNDERS acting as scribe for Dr. Arcos. Pertinent Studies: Chest x-ray; chest CTA Patient Condition at Discharge: Good Plan - Discharge Summary New Discharge Prescriptions: New guaiFENesin [Mucinex] 600 mg PO Q12HR #14 tab Levofloxacin [Levaquin] 750 mg PO DAILY #4 tab Continue Doxazosin [Cardura] 4 mg PO BID Atorvastatin [Lipitor] 20 mg PO HS Omeprazole [PriLOSEC] 20 mg PO AC-BRKFST Albuterol Nebulized [Ventolin Nebulized] 2.5 mg INHALATION BID Discontinued Levofloxacin [Levaquin] 750 mg PO DAILY@1630 Discharge Medication List Atorvastatin [Lipitor] 20 mg PO HS 11/26/14 [History] Doxazosin [Cardura] 4 mg PO BID 11/26/14 [History] Omeprazole [PriLOSEC] 20 mg PO AC-BRKFST 10/03/16 [History] Albuterol Nebulized [Ventolin Nebulized] 2.5 mg INHALATION BID 10/17/16 [History ] Levofloxacin [Levaquin] 750 mg PO DAILY #4 tab 10/24/16 [Rx] guaiFENesin [Mucinex] 600 mg PO Q12HR #14 tab 10/24/16 [Rx] Follow up Appointment(s)/Referral(s): Hector Escoto MD [Primary Care Provider] - 1-2 days Patient Instructions/Handouts: Sepsis (GEN) Discharge Disposition: HOME SELF-CARE
--- NOTE | 2016-10-24 12:32 | P.PN ---
Subjective Principal diagnosis: Acute febrile illness This is a very pleasant 66-year-old gentleman who follows with Dr. Arcos as his primary care physician. He has a history of hyperlipidemia, hypertension, prostate disorder, previous smoker. 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 This was diagnosed by bronchoscopy with biopsies on 06/26/[address] Oropeza. Since that time he has undergone 5 rounds of chemotherapy and is due for a 6 around October 29. He is also completed 33 radiation treatments. A PET scan 09/28/2016 did reveal improvement within the chest. There was some hypermetabolic uptake within the marrow possibly due to the therapy itself. He has been receiving Neulasta for neutropenia as well. On October 12 the patient was seen in the emergency room after developing any significant fever. He was subsequently treated and released. The patient re- presented here again yesterday with fever chills and diaphoresis. He denied any significant shortness of breath however he did, cough up when bloody gelatinous sputum prior to arrival. He has not had any further productive cough. No nausea vomiting or diarrhea. He is seen today in consultation on the oncology floor. He is awake and alert in no acute distress. He does have a loose nonproductive cough. No further chills or night sweats. He is maintaining O2 saturations in the upper 90s on room air. He's been hemodynamically stable. T-max since arrival 101.9. Currently afebrile. His chest x-ray reveals some atelectatic changes in the right lung base which may be residual from a previous pneumonia in July 2016. Current white count 0.4. Hemoglobin 7.5. Platelet count 8000. He is currently on cefepime. The patient is seen again today 10/19/2016 in follow-up on the oncology unit. He is currently awake and alert in no acute distress. He's been up ambulating in the hallway. He denies any worsening shortness of breath. He continues with a productive cough of blood-tinged sputum. He is maintaining good O2 saturations in the mid 90s on room air. His temperature continues to hang around 99. Blood culture reveals no growth to date. Current white count 0.6. Hemoglobin 7.9. He is status post 1 unit of packed red blood cell infusions. He also received pheresis platelets. Current platelet count 8000. He is continued on vancomycin and cefepime. A CT angiogram ruled out pulmonary embolism. There was some mediastinal right bronchial adenopathy with a right lower lobe patchy consolidation. There is decrease in these findings as compared to previous in 06/26/2016. Suspect favorable treatment response. Reevaluated on 10/20/2016, patient remains on the oncology unit, doing extremely well, relatively asymptomatic. Labs were reviewed, and platelets are rather low. 7000. No evidence of active bleeding. WBC count is 1.[address] of the chest which was done on this admission was reviewed. On 10/21/2016, patient remains on the oncology unit, doing very well, relatively asymptomatic. No cough no wheezing no shortness of breath or chest pain no nausea no vomiting no abdominal pain. And no evidence of any active bleeding. WBC count is up to 1.6, hemoglobin is 7.3, platelets are up to 17,000. Electrolytes and renal profile are normal. Clinically the patient is doing extremely well. The patient is seen again today 10/22/2016 in follow-up on the oncology unit. He is awake and alert in no acute distress. He is doing quite a bit better today. He's been up with assistance. His current hemoglobin is 7.4, platelet count 19,000, white count up to 2.2. He has no pulmonary complaints. He is currently maintaining O2 saturations in the 90s on room air. He's been hemodynamically stable, slightly tachycardic, afebrile. Blood and sputum cultures reveal no growth. The patient was seen again today 10/24/2016 in follow-up on the oncology unit. He is awake and alert in no acute distress. He denies any worsening shortness of breath, cough or congestion. No chills or night sweats. He remains on cefepime. His hemoglobin is stable at 7.6. Platelets 17,000. White count 2.2. He remains afebrile. Hemodynamically stable. Maintaining good O2 saturations in the 90s on room air. He does have some redness and erythema from a previous IV site in the right forearm. Objective - Vital Signs Vital signs: Vital Signs Temp 98.7 F 10/24/16 07:00 Pulse 96 10/24/16 07:24 Resp 18 10/24/16 07:00 BP 108/57 10/24/16 07:00 Pulse Ox 95 10/24/16 07:00 Intake & Output 10/23/16 10/24/16 10/24/16 18:59 06:59 18:59 Intake Total 400 Balance 400 Weight 113.852 kg Intake: Oral 400 Other: # Voids 4 1 - Exam GENERAL EXAM: Alert, active, comfortable in no apparent distress. HEAD: Normocephalic. EYES: Normal reaction of pupils, equal size. NOSE: Clear with pink turbinates. THROAT: No erythema or exudates. NECK: No masses, no JVD. CHEST: No chest wall deformity. LUNGS: Equal air entry with crackles in the right lung base. CVS: S1 and S2 normal with no audible murmurs, regular rhythm. ABDOMEN: No hepatosplenomegaly, normal bowel sounds, no guarding or rigidity. SPINE: No scoliosis or deformity SKIN: No rashes CENTRAL NERVOUS SYSTEM: No focal deficits, tone is normal in all 4 extremities. Extremities: There is trace peripheral edema. No clubbing, no cyanosis. Peripheral pulses are intact. - Labs CBC & Chem 7: 10/24/16 09:00 10/24/16 06:10 Labs: Abnormal Lab Results - Last 24 Hours (Table) 10/23/16 10/24/16 10/24/16 Range/Units 07:50 06:10 09:00 WBC 2.2 L (3.8-10.6) k/uL RBC 2.35 L (4.30-5.90) m/uL Hgb 7.6 L (13.0-17.5) gm/dL Hct 22.5 L (39.0-53.0) % RDW 20.0 H (11.5-15.5) % Plt Count 17 L* (150-450) k/uL Lymphocytes # (Manual) 0.2 L 0.1 L (1.0-4.8) k/uL Chloride 112 H (98-107) mmol/L Microbiology - Last 24 Hours (Table) 10/17/16 14:10 Blood Culture - Final Blood No Growth after 144 hours Assessment and Plan Plan: Impression: #1 Febrile illness in a patient with significant immunocompromise secondary to chemotherapy for both small cell lung cancer of the right upper lobe and non- small cell lung cancer in the right lower lobe. Status post 33 radiation treatments and 5 rounds of 6 chemotherapy treatments. #2 Pancytopenia, initial white count 0.4, hemoglobin 7.5, platelet count 8000. Had been on Neulasta. Current white count 2.2, hemoglobin 7.6, platelet count 17 ,000. #3 Chronic tobacco dependence of 45 years at 1 pack per day. Quit approximately 3 months ago. #4 Hyperlipidemia. #5 Hypertension. 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 Plan: The patient was seen and evaluated by Dr. Mehta. He is currently stable from the pulmonary standpoint. We'll continue with his current medications. Increase his activity as tolerated. He is educated regarding the importance of cough and deep breathing exercises. We will continue to follow.
--- NOTE | 2016-10-26 00:35 | P.PN ---
Subjective The pt continues to improve. Sore throat is better. Objective - Vital Signs Vital signs: Vital Signs Temp 98.7 F 10/24/16 07:00 Pulse 96 10/24/16 07:24 Resp 18 10/24/16 07:00 BP 108/57 10/24/16 07:00 Pulse Ox 95 10/24/16 07:00 - EENT Eyes: Present: EOMI, PERRLA ENT: Present: hearing grossly normal, normal oropharynx - Respiratory Respiratory: bilateral: CTA - Cardiovascular Rhythm: regular Heart sounds: normal: S1, S2 - Gastrointestinal General gastrointestinal: Present: normal bowel sounds, soft - Integumentary Integumentary: Present: normal - Neurologic Neurologic: Present: CNII-XII intact - Musculoskeletal Musculoskeletal: Present: strength equal bilaterally - Psychiatric Psychiatric: Present: A&O x's 3 - Labs CBC & Chem 7: 10/24/16 09:00 10/24/16 06:10 Assessment and Plan (1) Febrile neutropenia Narrative/Plan: Fever has resolved, and WBC improved, with ANC > 1000. Cultures are negative. The pt is symptomatically improved. From out standpoint, he can be discharged whenever OK with the admittng service. I would recommend Levaquin as an outpt. Status: Acute (2) Pancytopenia due to antineoplastic chemotherapy Narrative/Plan: WBC is improved as noted. Hgb and plt are in a safe range. F/u CBC as an outpt to document improvement Status: Acute (3) Lung cancer Narrative/Plan: We will likely need to postpone his last chemo to allow recovery from his acute condition. Status: Acute
== END 2016-10-24 14:12 | disposition home or self-care (01) | DRG 871 ==
LOC: EC 12:02 → 5MS5E 18:16 → 5ONC 18:31
PROVIDERS: ADMIT Family Medicine; ATTEND Family Medicine
PROC: 30233R1 Transfusion of Nonautologous Platelets into Peripheral Vein, Percutaneous Approach (ICD-10-PCS; principal; 2016-10-18)
PROC: 30233N1 Transfusion of Nonautologous Red Blood Cells into Peripheral Vein, Percutaneous Approach (ICD-10-PCS; 2016-10-18)
DX: A41.9 Sepsis, unspecified organism (principal); D61.810 Antineoplastic chemotherapy induced pancytopenia; C34.11 Malignant neoplasm of upper lobe, right bronchus or lung; C34.31 Malignant neoplasm of lower lobe, right bronchus or lung; J98.11 Atelectasis; D70.3 Neutropenia due to infection; E83.42 Hypomagnesemia; J44.9 Chronic obstructive pulmonary disease, unspecified; E78.5 Hyperlipidemia, unspecified; E87.6 Hypokalemia; G47.30 Sleep apnea, unspecified; I10 Essential (primary) hypertension; K21.9 Gastro-esophageal reflux disease without esophagitis; N40.0 Benign prostatic hyperplasia without lower urinary tract symptoms; T45.1X5A Adverse effect of antineoplastic and immunosuppressive drugs, initial encounter; H26.9 Unspecified cataract; J02.9 Acute pharyngitis, unspecified; M10.9 Gout, unspecified; E66.9 Obesity, unspecified; Z68.36 Body mass index [BMI] 36.0-36.9, adult; Z79.899 Other long term (current) drug therapy; Z88.0 Allergy status to penicillin; Z87.891 Personal history of nicotine dependence; Z82.49 Family history of ischemic heart disease and other diseases of the circulatory system
CPT/HCPCS: 36415; 36430; 71020; 71275; 80048; 80053; 81003; 83605; 83735; 84132; 85025; 86850; 86900; 86901; 86920; 87040; 87070; 87205; 94640; 96360; 99285

== ENCOUNTER → 2016-12-12 | Outpatient (CLI) | payer MEDICARE ==
[2016-12-12 11:19] LABS: Blood Urea Nitrogen 19 mg/dL (9-20); Non-African American GFR(MDRD) >60 (>60 ml/min/1.73 sqM)
--- NOTE | 2016-12-12 14:16 | CT ---
EXAMINATION TYPE: CT chest w con DATE OF EXAM: 12/12/2016 COMPARISON: 10/18/2016 HISTORY: Lung cancer CT DLP: 893.6 mGycm, Automated exposure control for dose reduction was used. CONTRAST: Performed injected with 100 mL of Omnipaque 300. TECHNIQUE: Axial images were obtained at 5 mm thick sections. Reconstructed images are reviewed on Clip computer in the coronal plane. FINDINGS: Portion of the thyroid visualized is normal. Small right pleural effusion is present. There is consolidation in the right lower lobe. Underlying m ass is not excluded. Right suprahilar spiculation is present right upper lobe mass may be in the alena phery of the right apex punctate densities in the anterior right upper lobe 0.5 cm. Some anterior ple ural thickening may be present. Small areas of pneumonitis in the anterior right upper lobe. Series 4 image 23. Subtle density may be in the distal vascular tree. Series 4 image 24. This measures 0.4 cm . Suspicious right lower lobe mass remains present. There is a 1.4 cm pretracheal lymph node with a hypodense center suspicious for metastatic lesion. C oronary artery calcification is present. The ascending aorta diameter at the level of the main pulmonary artery is 3.5 cm. The main pulmonary artery diameter at the bifurcation is 2.[address] sections are obtained through the upper abdomen. Right hydronephrosis is present. IMPRESSIONS: 1. Consolidation right lower lobe. Right upper lobe spiculation in the suprahilar region is present. There is consolidation in the superior peripheral right upper lobe. Findings are suspicious for the p atient's reported cancer which is more extensive than comparison. 2. Diminished size in an enlarged pretracheal lymph node. 3. Minimal right pleural effusion. 4. Right-sided hydronephrosis
== END | disposition home or self-care (01) ==
LOC: RADPROMAIN 10:44
PROVIDERS: ATTEND Internal Medicine Hematology & Oncology
DX: J18.1 Lobar pneumonia, unspecified organism (principal); J90 Pleural effusion, not elsewhere classified; N13.30 Unspecified hydronephrosis; C34.91 Malignant neoplasm of unspecified part of right bronchus or lung
CPT/HCPCS: 82565; 84520; 71260; 36415; Q9967

== ENCOUNTER 2017-01-01 07:46 | Day surgery (SDC) | payer MEDICARE ==
[2016-12-30 08:38] VITALS: BMI 37.3
[~2017-01-01 07:46] MED LIST changes: -DEXAMETHASONE SOD PHOSPHATE 10 MG/ML 1 ML VIAL IV ONE; +HEPARIN SODIUM,PORCINE 5,000 UNIT/ML 1 ML VIAL SQ ONE; -ONDANSETRON 4 MG/2 ML VIAL IVP ONE; +ONDANSETRON 4 MG/2 ML VIAL IVP PRN
[2017-01-01 08:26] VITALS: RESP 18; TEMP 98.7
[2017-01-01] MEDS ORDERED: LIDOCAINE 1% 20 ML VIAL (10MG/ML) FOR IV START INTRADERMA ONE (08:45)
[2017-01-01 08:47] LABS: Glucose,Whole Blood 83 mg/dL (75-99)
--- NOTE | 2017-01-01 09:11 | P.GSHP ---
History of Present Illness H&P Date: 01/01/17 Chief Complaint: Lung cancer Patient here today for removal of Port-A-Cath. He has completed his chemotherapy for lung cancer. His Port-A-Cath as function well throughout. He has no particular complaints Past Medical History Past Medical History: Cancer, COPD, GERD/Reflux, Hyperlipidemia, Hypertension, Osteoarthritis (OA), Prostate Disorder, Sleep Apnea/CPAP/BIPAP Additional Past Medical History / Comment(s): lung cancer(tx with chemo 11/2016, and radiation 08/2016), hiatal hernia, hx kidney stones History of Any Multi-Drug Resistant Organisms: None Reported Past Surgical History: Orthopedic Surgery Additional Past Surgical History / Comment(s): rt eye cataract removed, arthroscopy nigel knee, nigel foot surgery, bronchosocpy, cystoscopy/rt ureteroscopy, lithotripsy, port a cath Past Anesthesia/Blood Transfusion Reactions: No Reported Reaction Smoking Status: Former smoker - Past Family History Mother Family Medical History: CVA/TIA Additional Family Medical History / Comment(s): brain tumor Sister(s) Family Medical History: Cancer Father Family Medical History: Myocardial Infarction (MD) Additional Family Medical History / Comment(s): all 5 of dad's brothers had a mi Medications and Allergies Home Medications Medication Instructions Recorded Confirmed Type Atorvastatin [Lipitor] 20 mg PO HS 11/26/14 01/01/17 History Doxazosin [Cardura] 4 mg PO BID 11/26/14 01/01/17 History Omeprazole [PriLOSEC] 20 mg PO HS 10/03/16 01/01/17 History Fluticasone Nasal [place] [Flonase 1 spray EA NOSTRIL BID 12/30/16 01/01/17 History Nasal [place]] predniSONE 60 mg PO DAILY 12/30/16 01/01/17 History Allergies Allergy/AdvReac Type Severity Reaction Status Date / Time Penicillins Allergy Swelling Verified 01/01/17 08:16 Surgical - Exam Vital Signs Temp Pulse Resp BP Pulse Ox 98.7 F 88 18 168/84 96 01/01/17 08:25 01/01/17 08:25 01/01/17 08:25 01/01/17 08:25 01/01/17 08:25 Physical exam: General: Well-developed, well-nourished HEENT: Normocephalic, sclerae nonicteric Abdomen: Nontender, nondistended Extremities: No edema Neuro: Alert and oriented Assessment and Plan (1) Small cell lung cancer Narrative/Plan: Will proceed with Port-A-Cath removal at this time. Risks of bleeding infection and scarring were discussed. He understands and wishes to proceed. Status: Chronic
[2017-01-01] MEDS ORDERED: fentaNYL (PF) 50 MCG/ML 2 ML AMP ONE (09:14)
[2017-01-01] MEDS ORDERED: MIDAZOLAM 2 MG/2 ML VIAL ONE (09:14)
[2017-01-01] MEDS ORDERED: BUPIVACAINE (PF) 0.25% 30 ML VIAL SQ ONE ×2 (09:29)
[2017-01-01 09:50] VITALS: PULSE 89
[2017-01-01] MEDS ORDERED: NALOXONE 0.4 MG/ML 1 ML VIAL IV PRN (09:54)
--- NOTE | 2017-01-01 09:55 | P.PCN ---
Date of Procedure: 01/01/17 Preoperative Diagnosis: Postoperative Diagnosis: Procedure(s) Performed: PREOPERATIVE DIAGNOSIS: Lung cancer POSTOPERATIVE DIAGNOSIS: Same PROCEDURE: Port-A-Cath removal SURGEON: Yolis EBL: Minimal ANESTHESIA: Sedation COMPLICATIONS: None OPERATIVE PROCEDURE: Patient was placed in the supine position. The patient was sedated per anesthesia that time. The chest was prepped and draped in the usual sterile fashion. The skin was localized with Marcaine solution. The previous incision was re-incised using a scalpel. The port was easily excised using accommodation of blunt dissection sharp dissection and electrocautery. The subcutaneous tissues were reapproximated using 3-0 Vicryl sutures. The skin was reapproximated using 4-0 Monocryl sutures. Steri-Strips and sterile dressings were then applied. DISPOSITION: Stable to recovery room Implants: Indications for Procedure: Operative Findings: Description of Procedure:
[2017-01-01 10:10] VITALS: BP 134/74
== END 2017-01-01 10:22 | disposition home or self-care (01) ==
LOC: OR 07:46
PROVIDERS: ATTEND Surgery
DX: C34.90 Malignant neoplasm of unspecified part of unspecified bronchus or lung (principal); Z45.2 Encounter for adjustment and management of vascular access device; J44.9 Chronic obstructive pulmonary disease, unspecified; Z87.891 Personal history of nicotine dependence; E78.5 Hyperlipidemia, unspecified; K21.9 Gastro-esophageal reflux disease without esophagitis; I10 Essential (primary) hypertension; G47.33 Obstructive sleep apnea (adult) (pediatric); Z99.89 Dependence on other enabling machines and devices; Z79.51 Long term (current) use of inhaled steroids; Z79.52 Long term (current) use of systemic steroids; Z79.899 Other long term (current) drug therapy; Z88.0 Allergy status to penicillin

== ENCOUNTER 2017-01-06 11:49 | Inpatient (IN) | payer MEDICARE ==
--- NOTE | 2017-01-06 13:23 | XR ---
EXAMINATION TYPE: XR chest 2V DATE OF EXAM: 01/06/2017 COMPARISON: Chest CT dated 12/12/2016 HISTORY: Lung cancer and shortness of breath TECHNIQUE: Frontal and lateral views of the chest are obtained. FINDINGS: Multifocal right-sided consolidations are seen with air bronchograms of the right infra hi lar and right lower lobe consolidations. These are similar in degree to the prior examination. Trace right pleural effusion is also seen as well as right middle lobe atelectasis. Left lung remains clear . Cardiomediastinal silhouette is stable and upper limits of normal. Mild degenerative changes are se en of the thoracic spine. IMPRESSION: Multifocal right-sided airspace disease, right middle lobe atelectasis, and a trace righ t pleural effusion. Multifocal airspace disease may relate to multifocal pneumonia in this immunocomp romised patient versus multifocal carcinoma.
[2017-01-06] MEDS ORDERED: IPRATROPIUM-ALBUTEROL 3 ML NEB INHALATION STA (13:33)
--- NOTE | 2017-01-06 13:36 | ED ---
SOB HPI - General Chief Complaint: Shortness of Breath Stated Complaint: SOB Hx Lung Cancer Time Seen by Provider: 01/06/17 12:49 Source: patient, RN notes reviewed Mode of arrival: ambulatory Limitations: no limitations - History of Present Illness Initial Comments: This is a 66-year-old male who is status post radiation chemotherapy for small cell carcinoma along who states she's had some cough and shortness breath or past several weeks he was placed on steroids and they get better for 1 week but now is getting worse again. He denies any overt chest pain fevers chills or sweats he does have exertional dyspnea to report. 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 MD Complaint: shortness of breath, cough - Related Data Home Medications Medication Instructions Recorded Confirmed Atorvastatin [Lipitor] 20 mg PO HS 11/26/14 01/06/17 Doxazosin [Cardura] 4 mg PO BID 11/26/14 01/06/17 Omeprazole [PriLOSEC] 20 mg PO HS 10/03/16 01/06/17 Fluticasone Nasal [place] [Flonase 1 spray EA NOSTRIL BID 12/30/16 01/06/17 Nasal [place]] predniSONE 60 mg PO DAILY 12/30/16 01/06/17 Allergies Allergy/AdvReac Type Severity Reaction Status Date / Time Penicillins Allergy Swelling Verified 01/06/17 14:08 Review of Systems ROS Statement: Those systems with pertinent positive or pertinent negative responses have been documented in the HPI. ROS Other: All systems not noted in ROS Statement are negative. Past Medical History Past Medical History: Coronary Artery Disease (CAD), Cancer, COPD, GERD/Reflux, Hyperlipidemia, Hypertension, Osteoarthritis (OA), Prostate Disorder, Sleep Apnea/CPAP/BIPAP Additional Past Medical History / Comment(s): lung cancer(tx with chemo 11/2016, and radiation 08/2016), hiatal hernia, hx kidney stones History of Any Multi-Drug Resistant Organisms: None Reported Past Surgical History: Orthopedic Surgery Additional Past Surgical History / Comment(s): rt eye cataract removed, arthroscopy nigel knee, nigel foot surgery, bronchosocpy, cystoscopy/rt ureteroscopy, lithotripsy, port a cath Past Anesthesia/Blood Transfusion Reactions: No Reported Reaction Past Psychological History: No Psychological Hx Reported Smoking Status: Former smoker Past Alcohol Use History: None Reported Past Drug Use History: None Reported - Past Family History Mother Family Medical History: CVA/TIA Additional Family Medical History / Comment(s): brain tumor Sister(s) Family Medical History: Cancer Father Family Medical History: Myocardial Infarction ([place]) Additional Family Medical History / Comment(s): all 5 of dad's brothers had a mi General Exam - General Exam Comments Initial Comments: This is a well-developed well-nourished awake alert oriented 3 male Limitations: no limitations General appearance: alert, in no apparent distress Head exam: Present: atraumatic, normocephalic, normal inspection Eye exam: Present: normal appearance, PERRL, EOMI. Absent: scleral icterus, conjunctival injection, periorbital swelling ENT exam: Present: normal exam, mucous membranes moist Neck exam: Present: normal inspection. Absent: tenderness, meningismus, lymphadenopathy Respiratory exam: Present: decreased breath sounds. Absent: respiratory distress, wheezes, rales, rhonchi, stridor Cardiovascular Exam: Present: regular rate, normal rhythm, normal heart sounds. Absent: systolic murmur, diastolic murmur, rubs, gallop, clicks GI/Abdominal exam: Present: soft, normal bowel sounds. Absent: distended, tenderness, guarding, rebound, rigid Extremities exam: Present: normal inspection, full ROM, normal capillary refill. Absent: tenderness, pedal edema, joint swelling, calf tenderness Back exam: Present: normal inspection Neurological exam: Present: alert, oriented X3, CN II-XII intact Psychiatric exam: Present: normal affect, normal mood Skin exam: Present: warm, dry, intact, normal color. Absent: rash Course Vital Signs 01/06/17 01/06/17 01/06/17 12:09 13:59 14:23 Temperature 98.2 F Pulse Rate 109 H 59 L 95 Respiratory 17 18 Rate Blood Pressure 138/73 123/93 O2 Sat by Pulse 99 96 Oximetry 01/06/17 01/06/17 14:34 15:00 Temperature Pulse Rate 93 104 H Respiratory 20 Rate Blood Pressure 145/69 O2 Sat by Pulse 98 Oximetry - Reevaluation(s) Reevaluation #1: 01/06/17 16:14 Reevaluation patient several occasions revealed no change in his status. Medical Decision Making - Medical Decision Making I did discuss findings with the patient and his and with Dr. Mcintosh. Patient be admitted consultation by Dr. Oropeza he will be started on anticoagulation. - Lab Data Result diagrams: 01/06/17 13:55 01/06/17 13:55 Lab Results 01/06/17 01/06/17 01/06/17 Range/Units 13:55 13:55 13:55 WBC 6.3 (3.8-10.6) k/uL RBC 4.17 L (4.30-5.90) m/uL Hgb 13.5 (13.0-17.5) gm/dL Hct 41.8 (39.0-53.0) % MCV 100.1 H (80.0-100.0) fL MCH 32.4 (25.0-35.0) pg MCHC 32.4 (31.0-37.0) g/dL RDW 17.4 H (11.5-15.5) % Plt Count 90 L (150-450) k/uL Neutrophils % 86 % Lymphocytes % 5 % Monocytes % 7 % Eosinophils % 1 % Basophils % 0 % Neutrophils # 5.4 (1.3-7.7) k/uL Lymphocytes # 0.3 L (1.0-4.8) k/uL Monocytes # 0.4 (0-1.0) k/uL Eosinophils # 0.1 (0-0.7) k/uL Basophils # 0.0 (0-0.2) k/uL Hypochromasia Slight Anisocytosis Slight Macrocytosis Slight PT (9.0-12.0) sec INR (<1.2) APTT (22.0-30.0) sec D-Dimer (<0.60) mg/L FEU Sodium 140 (137-145) mmol/L Potassium 3.8 (3.5-5.1) mmol/L Chloride 105 (98-107) mmol/L Carbon Dioxide 27 (22-30) mmol/L Anion Gap 8 mmol/L BUN 26 H (9-20) mg/dL Creatinine 1.00 (0.66-1.25) mg/dL Est GFR (MDRD) Af Amer >60 (>60 ml/min/1.73 sqM) Est GFR (MDRD) Non-Af >60 (>60 ml/min/1.73 sqM) Glucose 81 (74-99) mg/dL Calcium 8.9 (8.4-10.2) mg/dL Magnesium 1.8 (1.6-2.3) mg/dL Total Bilirubin 0.5 (0.2-1.3) mg/dL AST 29 (17-59) U/L ALT 64 (21-72) U/L Alkaline Phosphatase 106 (38-126) U/L Total Creatine Kinase 37 L (55-170) U/L CK-MB (CK-2) 1.9 (0.0-2.4) ng/mL CK-MB (CK-2) Rel Index 5.1 Troponin I <0.012 (0.000-0.034) ng/mL NT-Pro-B Natriuret Pep pg/mL Total Protein 6.7 (6.3-8.2) g/dL Albumin 3.7 (3.5-5.0) g/dL 01/06/17 01/06/17 Range/Units 13:55 13:55 WBC (3.8-10.6) k/uL RBC (4.30-5.90) m/uL Hgb (13.0-17.5) gm/dL Hct (39.0-53.0) % MCV (80.0-100.0) fL MCH (25.0-35.0) pg MCHC (31.0-37.0) g/dL RDW (11.5-15.5) % Plt Count (150-450) k/uL Neutrophils % % Lymphocytes % % Monocytes % % Eosinophils % % Basophils % % Neutrophils # (1.3-7.7) k/uL Lymphocytes # (1.0-4.8) k/uL Monocytes # (0-1.0) k/uL Eosinophils # (0-0.7) k/uL Basophils # (0-0.2) k/uL Hypochromasia Anisocytosis Macrocytosis PT 10.0 (9.0-12.0) sec INR 1.0 (<1.2) APTT 21.8 L (22.0-30.0) sec D-Dimer 4.25 H (<0.60) mg/L FEU Sodium (137-145) mmol/L Potassium (3.5-5.1) mmol/L Chloride (98-107) mmol/L Carbon Dioxide (22-30) mmol/L Anion Gap mmol/L BUN (9-20) mg/dL Creatinine (0.66-1.25) mg/dL Est GFR (MDRD) Af Amer (>60 ml/min/1.73 sqM) Est GFR (MDRD) Non-Af (>60 ml/min/1.73 sqM) Glucose (74-99) mg/dL Calcium (8.4-10.2) mg/dL Magnesium (1.6-2.3) mg/dL Total Bilirubin (0.2-1.3) mg/dL AST (17-59) U/L ALT (21-72) U/L Alkaline Phosphatase (38-126) U/L Total Creatine Kinase (55-170) U/L CK-MB (CK-2) (0.0-2.4) ng/mL CK-MB (CK-2) Rel Index Troponin I (0.000-0.034) ng/mL NT-Pro-B Natriuret Pep 234 pg/mL Total Protein (6.3-8.2) g/dL Albumin (3.5-5.0) g/dL - EKG Data -: EKG Interpreted by Oh EKG shows normal: sinus rhythm (Sinus rhythm of 100 MI interval 1:30 QRS duration 74 to T-System QTC of 320/423 this is a normal-appearing EKG.) - Radiology Data Radiology results: report reviewed (I did review the imaging and report or is evidence of right lower lobe pulmonary embolism. Also some scattered infiltrate in the right long this is a side of the known cancer.), image reviewed Critical Care Time Critical Care Time: Yes Critical Care Time: 31 minutes of critical care time which includes initial monitoring of the patient with history physical labs x-rays reevaluation the patient on several occasions. Discussion with patient family regarding the findings. Discussion with the admitting physician. Admission orders and documentation of the above. Disposition Clinical Impression: Pulmonary embolism, Lung cancer Disposition: ADMITTED IP TO THIS [facility] Condition: Stable Referrals: Hector Escoto MD [Primary Care Provider] - 1-2 days
[2017-01-06 14:20] LABS: ALT 64 U/L (21-72); AST 29 U/L (17-59); Alkaline Phosphatase 106 U/L (38-126); Anion Gap 8 mmol/L; Blood Urea Nitrogen 26 mg/dL (9-20); Calcium 8.9 mg/dL (8.4-10.2); Carbon Dioxide 27 mmol/L (22-30); Chloride 105 mmol/L (98-107); Glucose 81 mg/dL (74-99); Magnesium 1.8 mg/dL (1.6-2.3); Non-African American GFR(MDRD) >60 (>60 ml/min/1.73 sqM); Potassium 3.8 mmol/L (3.5-5.1); Sodium 140 mmol/L (137-145); Total Bilirubin 0.5 mg/dL (0.2-1.3); Total Protein 6.7 g/dL (6.3-8.2)
[2017-01-06 14:29] LABS: Creatine Kinase 37 U/L (55-170)
[2017-01-06 14:39] LABS: Anisocytosis Slight; Basophils % (A) 0 %; CH 31.6; CHCM 31.6; Eosinophils # (A) 0.1 k/uL (0-0.7); Eosinophils % (A) 1 %; HCT 41.8 % (39.0-53.0); HDW 3.05; HGB 13.5 gm/dL (13.0-17.5); Hypochromasia Slight; Luc # (Auto) 0.07; Luc % (Auto) 1; Lymphocytes # (A) 0.3 k/uL (1.0-4.8); Lymphocytes % (A) 5 %; MCH 32.4 pg (25.0-35.0); MCHC 32.4 g/dL (31.0-37.0); MCV 100.1 fL (80.0-100.0); Macrocytosis Slight; Mean Platelet Volume 7.7; Monocytes # (A) 0.4 k/uL (0-1.0); Monocytes % (A) 7 %; Neutrophils # (A) 5.4 k/uL (1.3-7.7); Neutrophils % (A) 86 %; RBC 4.17 m/uL (4.30-5.90); RDW 17.4 % (11.5-15.5); WBC 6.3 k/uL (3.8-10.6); WBC (Perox) 6.06
[2017-01-06 14:43] LABS: Creatine Kinase MB 1.9 ng/mL (0.0-2.4); Troponin I <0.012 ng/mL (0.000-0.034)
[2017-01-06 14:46] LABS: Partial Thromboplastin Time 21.8 sec (22.0-30.0)
[2017-01-06] MEDS ORDERED: RX INFO: IV CONTRAST WAS GIVEN 1 EACH MISC MISCELLANE PRN (14:55)
--- NOTE | 2017-01-06 15:38 | CT ---
EXAMINATION TYPE: CT angio chest DATE OF EXAM: 01/06/2017 COMPARISON: 12/12/2016 HISTORY: Patient complains of difficulty breathing and history of lung CA. CT DLP: 572.8 mGycm CONTRAST: CT chest with contrast and 3D reconstruction with MIP imaging is performed with IV Contrast, patient injected with 100 mL of Omnipaque 350. Contrast-enhanced CT of the chest was performed through the course of the pulmonary arteries with lavell g and mediastinal window settings submitted. 3D reconstruction with MIP imaging was also performed. PULMONARY ARTERIES: Third order pulmonary arterial branch right lower lobe demonstrates small filling defect seen best on axial image 70, coronal image 29 and sagittal image 14. Suspect mild pulmonary e mbolism. No evidence for large central embolus. LUNGS: Essentially stable appearance of the lungs with scattered patchy infiltrate within the right u pper and right lower lobes as well as spiculated right suprahilar density, right-sided volume loss an d loculated pleural effusion. MEDIASTINUM: Thoracic aorta is of normal caliber . The heart is not enlarged. No evidence for media stinal mass. Stable mediastinal lymph nodes. UPPER ABDOMEN: Stable bilateral nephrolithiasis. IMPRESSION: 1. Suspect small pulmonary embolism involving a right-sided right lower lobe third order pulmonary a rterial branch as discussed above. 2. Stable appearance of the chest with scattered infiltrates right lung, right suprahilar spiculated nodule as well as right lower lobe volume loss and pleural effusions.
[2017-01-06] MEDS ORDERED: HEPARIN SODIUM,PORCINE 5,000 UNIT/ML 1 ML VIAL IV STA (16:13)
[2017-01-06] MEDS ORDERED: HEPARIN SODIUM,PORCINE 5,000 UNIT/ML 1 ML VIAL IV PRN (16:14)
[2017-01-06] MEDS ORDERED: NALOXONE 0.4 MG/ML 1 ML VIAL IV PRN ×2 (16:23→16:27)
[2017-01-06] MEDS: HEPARIN SODIUM,PORCINE/D5W PMX 25,000 UNIT in DEXTROSE/WATER 1 500ML.BAG IV SCH (16:54)
[2017-01-06] MEDS: SODIUM CHLORIDE 0.9% 1,000 ML IV SCH (16:54)
[2017-01-06] MEDS ORDERED: predniSONE 20 MG TAB PO STA (17:04)
--- NOTE | 2017-01-06 19:16 | P.HPIM ---
History of Present Illness H&P Date: 01/06/17 Chief Complaint: Shortness of breath This is a 66-year-old male well-known to the practice with a recent history of small cell lung cancer recently completed chemotherapy and radiation therapy. Was recently being treated for radiation pneumonitis. 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 Patient's respiratory efforts have improved significantly, however in the past week it had been getting significantly worse. Patient's radiation oncologist 6% patient in to the emergency room to rule out pulmonary embolus. His d-dimer was 4.25, the spiral CT demonstrated a small pulmonary embolus on the right lower lobe Review of Systems Ears, nose, mouth and throat: Reports as per HPI Cardiovascular: Reports as per HPI Respiratory: Reports congestion, Reports cough, Reports pain, Reports wheezing Gastrointestinal: Reports as per HPI Genitourinary: Reports as per HPI Musculoskeletal: Reports as per HPI Integumentary: Reports as per HPI Neurological: Reports as per HPI Psychiatric: Reports as per HPI Endocrine: Reports as per HPI Past Medical History Past Medical History: Coronary Artery Disease (CAD), Cancer, COPD, GERD/Reflux, Hyperlipidemia, Hypertension, Osteoarthritis (OA), Prostate Disorder, Sleep Apnea/CPAP/BIPAP Additional Past Medical History / Comment(s): lung cancer(tx with chemo 11/2016, and radiation 08/2016), hiatal hernia, hx kidney stones History of Any Multi-Drug Resistant Organisms: None Reported Past Surgical History: Orthopedic Surgery Additional Past Surgical History / Comment(s): rt eye cataract removed, arthroscopy nigel knee, nigel foot surgery, bronchosocpy, cystoscopy/rt ureteroscopy, lithotripsy, port a cath Past Anesthesia/Blood Transfusion Reactions: No Reported Reaction Past Psychological History: No Psychological Hx Reported Smoking Status: Former smoker Past Alcohol Use History: None Reported Past Drug Use History: None Reported - Past Family History Mother Family Medical History: CVA/TIA Additional Family Medical History / Comment(s): brain tumor Sister(s) Family Medical History: Cancer Father Family Medical History: Myocardial Infarction ([place]) Additional Family Medical History / Comment(s): all 5 of dad's brothers had a mi Medications and Allergies Home Medications Medication Instructions Recorded Confirmed Type Atorvastatin [Lipitor] 20 mg PO HS 11/26/14 01/06/17 History Doxazosin [Cardura] 4 mg PO BID 11/26/14 01/06/17 History Omeprazole [PriLOSEC] 20 mg PO HS 10/03/16 01/06/17 History Fluticasone Nasal [place] [Flonase 1 spray EA NOSTRIL BID 12/30/16 01/06/17 History Nasal [place]] predniSONE 60 mg PO DAILY 12/30/16 01/06/17 History Allergies Allergy/AdvReac Type Severity Reaction Status Date / Time Penicillins Allergy Swelling Verified 01/06/17 14:08 Physical Exam Osteopathic Statement: *. No significant issues noted on an osteopathic structural exam other than those noted in the History and Physical/Consult. Vitals: Vital Signs Temp Pulse Pulse Resp BP BP Pulse Ox 01/06/17 18:57 98.8 F 116 H 18 143/93 94 L 01/06/17 18:00 97.8 F 122 H 20 145/81 96 01/06/17 17:00 97.8 F 60 20 132/78 98 01/06/17 16:00 62 20 149/85 98 01/06/17 15:00 104 H 20 145/69 98 01/06/17 14:34 93 01/06/17 14:23 95 01/06/17 13:59 59 L 18 123/93 96 01/06/17 12:09 98.2 F 109 H 17 138/73 99 Intake and Output 01/06/17 01/06/17 01/06/17 06:59 14:59 22:59 Other: Weight 118.388 kg Patient Weight 01/07/17 06:59 Weight 118.388 kg General: [Patient awake, alert and oriented times 3. Patient in no acute distress.] HEENT: [PERRL. EOMI. No pharyngeal erythema or exudate.] Neck: [No adenopathy.] Cardiac: [Heart regular in rate and rhythm. No S3. No S4. No clicks, rubs. No murmur.] Lungs: Diminished breath sounds with bibasilar crackles Abdomen: [No mass. No organomegaly. Bowel sounds presnt and normoactive in all 4 quadrants.] Extremes: [No edema no cyanosis no claudication normal pulses] : [] Musculoskeletal: [No joint erythema, edema or tenderness.] Skin: [No rash.] Neurologic: [No lateralizing deficits. CN II - XII grossly intact.] Lymphatic: [No adenopathy.] Results CBC & Chem 7: 01/06/17 13:55 01/06/17 13:55 Labs: Abnormal Lab Results - Last 24 Hours (Table) 01/06/17 01/06/17 01/06/17 Range/Units 13:55 13:55 13:55 RBC 4.17 L (4.30-5.90) m/uL MCV 100.1 H (80.0-100.0) fL RDW 17.4 H (11.5-15.5) % Plt Count 90 L (150-450) k/uL Lymphocytes # 0.3 L (1.0-4.8) k/uL APTT (22.0-30.0) sec D-Dimer (<0.60) mg/L FEU BUN 26 H (9-20) mg/dL Total Creatine Kinase 37 L (55-170) U/L 01/06/17 Range/Units 13:55 RBC (4.30-5.90) m/uL MCV (80.0-100.0) fL RDW (11.5-15.5) % Plt Count (150-450) k/uL Lymphocytes # (1.0-4.8) k/uL APTT 21.8 L (22.0-30.0) sec D-Dimer 4.25 H (<0.60) mg/L FEU BUN (9-20) mg/dL Total Creatine Kinase (55-170) U/L Thrombosis Risk Factor Assmnt - Choose All That Apply Each Factor Represents 1 point: Abnormal pulmonary function (COPD) Each Risk Factor Represents 2 Points: Age 61-74 years, Malignancy Thrombosis Risk Factor Assessment Total Risk Factor Score: 5 Thrombosis Risk Factor Assessment Level: High Risk Assessment and Plan (1) Lung cancer Status: Acute (2) Pulmonary embolism Status: Acute Plan: Long-term smoker stopped 2 years ago COPD by history Lung cancer by recent history Radiation and chemotherapy by history Started on heparin Start xarelto 15 mg twice daily her PE protocol Time with Patient: Greater than 30
[2017-01-06] MEDS: FLUTICASONE 50MCG/SPRAY NASAL 16GM EA NOSTRIL SCH (21:20)
[2017-01-06] MEDS: PANTOPRAZOLE 40 MG TABLET PO SCH (21:21)
[2017-01-06] MEDS: DOXAZOSIN 4 MG TAB PO SCH (21:21)
[2017-01-06] MEDS: ATORVASTATIN 20 MG TAB PO SCH (21:21)
[2017-01-06 22:55] LABS: Mean Platelet Volume 7.9
[2017-01-07] MEDS: HEPARIN SODIUM,PORCINE/D5W PMX 25,000 UNIT in DEXTROSE/WATER 1 500ML.BAG IV SCH (03:58)
[2017-01-07] MEDS: RIVAROXABAN 15 MG TAB PO SCH ×2 (06:34→17:31)
[2017-01-07] MEDS: FLUTICASONE 50MCG/SPRAY NASAL 16GM EA NOSTRIL SCH ×2 (09:53→19:57)
[2017-01-07] MEDS: DOXAZOSIN 4 MG TAB PO SCH ×2 (09:53→19:57)
[2017-01-07] MEDS: predniSONE 20 MG TAB PO SCH (09:53)
--- NOTE | 2017-01-07 10:51 | P.CNPUL ---
History of Present Illness Consult date: 01/07/17 Requesting physician: Tony Arcos Jr Reason for consult: pulmonary embolism Chief complaint: Shortness of breath History of present illness: This is a very pleasant 66-year-old gentleman who follows with Dr. Arcos as his primary care physician. He has history of hyperlipidemia, hypertension, prostate disorder, previous smoker. 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 He was diagnosed with bronchoscopy and biopsy on 06/26/[address] Oropeza. Since that time he has completed his chemotherapy, 6 rounds. He had completed 33 radiation treatments as well. His PET scan in revealed improvement within the chest. A follow-up computed tomography scan of the chest from 12/12/2016 revealed consolidation in the right lower lobe with a right upper lobes spiculation in the suprahilar region. There is some consolidation in the superior peripheral right upper lobe as well. These findings were consistent with his cancer. The enlarged pretracheal lymph node was smaller in size. There is minimal right pleural effusion. His port was removed last week by Dr. Lagos. Recently he had some issues with dry nonproductive cough and was started on 60 mg of prednisone per Dr. Lopez suspecting radiation pneumonitis and the cough had subsided for approximately a week then got worse again along with some worsening shortness of breath. He was sent to the emergency room from Dr. Lopez's office yesterday for further evaluation. Chest x-ray continued to show some multifocal right-sided airspace disease with right middle lobe atelectasis and a trace right pleural effusion. A d-dimer was 4.25. A CT angiogram revealed a small pulmonary embolism involving the right side near the right lower lobe. Scattered infiltrates in the right lung were stable as compared to previous. He was initiated on a heparin drip and was given a dose of Xarelto this a.m. Patient is seen today in consultation on the selective care unit. He is awake and alert in no acute distress. He denies any worsening shortness of breath. He continues with a dry nonproductive cough. No hemoptysis. No fever, chills or night sweats. White count 6.3. Platelet count 91,000. He's been afebrile. Maintaining good O2 saturations in the 90s on room air. No tachycardia. No tachypnea. No pleuritic pain. He is continued on his prednisone. Review of Systems 14 point review of system was conducted. All negative other than as mentioned in HPI. Past Medical History Past Medical History: Coronary Artery Disease (CAD), Cancer, COPD, GERD/Reflux, Hyperlipidemia, Hypertension, Osteoarthritis (OA), Prostate Disorder, Sleep Apnea/CPAP/BIPAP Additional Past Medical History / Comment(s): 01/06/17 PE. 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 culture/infection: 10-12-16 ENTEROCOCCUS FAECIUM MDRO Source:: URINE Past Surgical History: Orthopedic Surgery Additional Past Surgical History / Comment(s): rt eye cataract removed, arthroscopy nigel knee, nigel foot surgery, bronchosocpy, cystoscopy/rt ureteroscopy, lithotripsy, port a cath - SINCE REMOVED ON 01-01-17 Past Anesthesia/Blood Transfusion Reactions: No Reported Reaction Smoking Status: Former smoker - Past Family History Mother Family Medical History: CVA/TIA Additional Family Medical History / Comment(s): brain tumor Sister(s) Family Medical History: Cancer Father Family Medical History: Myocardial Infarction ([place]) Additional Family Medical History / Comment(s): all 5 of dad's brothers had a mi Medications and Allergies Home Medications Medication Instructions Recorded Confirmed Type Atorvastatin [Lipitor] 20 mg PO HS 11/26/14 01/06/17 History Doxazosin [Cardura] 4 mg PO BID 11/26/14 01/06/17 History Omeprazole [PriLOSEC] 20 mg PO HS 10/03/16 01/06/17 History Fluticasone Nasal [place] [Flonase 1 spray EA NOSTRIL BID 12/30/16 01/06/17 History Nasal [place]] predniSONE 60 mg PO DAILY 12/30/16 01/06/17 History Allergies Allergy/AdvReac Type Severity Reaction Status Date / Time Penicillins Allergy Swelling Verified 01/06/17 14:08 Physical Exam Vitals: Vital Signs Temp Pulse Pulse Resp BP BP BP 01/07/17 09:52 97.7 F 101 H 20 133/70 01/07/17 04:00 96.9 F L 87 18 160/89 01/07/17 00:00 86 18 133/72 01/06/17 20:00 98.8 F 111 H 18 153/90 01/06/17 18:57 98.8 F 116 H 18 143/93 01/06/17 18:00 97.8 F 122 H 20 145/81 01/06/17 17:00 97.8 F 60 20 132/78 01/06/17 16:00 62 20 149/85 01/06/17 15:00 104 H 20 145/69 01/06/17 14:34 93 01/06/17 14:23 95 01/06/17 13:59 59 L 18 123/93 01/06/17 12:09 98.2 F 109 H 17 138/73 Pulse Ox 01/07/17 09:52 95 01/07/17 04:00 92 L 01/07/17 00:00 92 L 01/06/17 20:00 93 L 01/06/17 18:57 94 L 01/06/17 18:00 96 01/06/17 17:00 98 01/06/17 16:00 98 01/06/17 15:00 98 01/06/17 14:34 01/06/17 14:23 01/06/17 13:59 96 01/06/17 12:09 99 Intake and Output 01/06/17 01/07/17 01/07/17 22:59 06:59 14:59 Intake Total 1267.887 240 Balance 1267.887 240 Intake: IV 720 Heparin Sodium,Porcine/ 480 D5w Pmx 25,000 unit In Dextrose/Water 1 500ml. bag @ 18 UNITS/KG/HR 42. 61 mls/hr IV .[id number] ANGEL Rx#:[id number] Sodium Chloride 0.9% 1, 240 000 ml @ 20 mls/hr IV . Q24H ANGEL Rx#:[id number] Intake, IV Titration 547.887 Amount Heparin Sodium,Porcine/ 547.887 D5w Pmx 25,000 unit In Dextrose/Water 1 500ml. bag @ 18 UNITS/KG/HR 42. 61 mls/hr IV .[id number] ANGEL Rx#:[id number] Oral 240 Other: # Voids 1 1 Weight 119.6 kg GENERAL EXAM: Alert, active, comfortable in no apparent distress. HEAD: Normocephalic. EYES: Normal reaction of pupils, equal size. NOSE: Clear with pink turbinates. THROAT: No erythema or exudates. NECK: No masses, no JVD. CHEST: No chest wall deformity. LUNGS: Equal air entry with no crackles, wheeze, rhonchi or dullness. CVS: S1 and S2 normal with no audible murmurs, regular rhythm. ABDOMEN: No hepatosplenomegaly, normal bowel sounds, no guarding or rigidity. SPINE: No scoliosis or deformity SKIN: No rashes CENTRAL NERVOUS SYSTEM: No focal deficits, tone is normal in all 4 extremities. Extremities: There is no significant peripheral edema. No clubbing, no cyanosis. Peripheral pulses are intact. Results - Laboratory Findings CBC and BMP: 01/06/17 22:37 01/06/17 13:55 PT/INR, D-dimer PT 10.0 sec (9.0-12.0) 01/06/17 13:55 INR 1.0 (<1.2) 01/06/17 13:55 D-Dimer 4.25 mg/L FEU (<0.60) H 01/06/17 13:55 Abnormal lab findings: Abnormal Labs 01/06/17 01/06/17 01/06/17 13:55 13:55 13:55 RBC 4.17 L MCV 100.1 H RDW 17.4 H Plt Count 90 L Lymphocytes # 0.3 L APTT D-Dimer BUN 26 H Total Creatine Kinase 37 L 01/06/17 01/06/17 01/06/17 13:55 22:37 22:37 RBC MCV RDW Plt Count 91 L Lymphocytes # APTT 21.8 L 88.6 H D-Dimer 4.25 H BUN Total Creatine Kinase 01/07/17 05:14 RBC MCV RDW Plt Count Lymphocytes # APTT 95.6 H D-Dimer BUN Total Creatine Kinase - Diagnostic Findings Chest x-ray: image reviewed CT scan - chest: image reviewed Assessment and Plan Plan: Impression: #1 Dyspnea, multifactorial in a patient found to have a small pulmonary embolism involving the right lower lobe third order pulmonary branch, scattered infiltrates in the right lung moderate right suprahilar spiculated nodule as well as right lower lobe volume loss and small pleural effusion and #2 History of 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 Diagnosed 06/26/2016 via bronchoscopy with biopsies. #3 History of small cell lung cancer and a right upper lobe endobronchial lesion. 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 #4 Recent episodes of dry nonproductive cough with suspicion for radiation pneumonitis. Currently on prednisone 60 mg daily per radiation oncology. Her grafts #5 Hyperlipidemia. #6 Hypertension history of. #7 Obstructive sleep apnea, utilizing CPAP in the outpatient setting. Her grafts #8 History of chronic tobacco dependence, quit 2015. Her grafts plan: Plan: The patient was seen and evaluated by Dr. Vernon. His chest x-ray,CAT scan and labs were reviewed. The patient would benefit from anticoagulation for at least 6 months due to the pulmonary embolism. Time with Patient: Greater than 30
[2017-01-07] MEDS: SODIUM CHLORIDE 0.9% 1,000 ML IV SCH (19:37)
[2017-01-07] MEDS: ATORVASTATIN 20 MG TAB PO SCH (19:57)
[2017-01-07] MEDS: PANTOPRAZOLE 40 MG TABLET PO SCH (19:57)
--- NOTE | 2017-01-07 20:13 | P.PN ---
Subjective Principal diagnosis: Pulmonary embolus, chest discomfort Mr. Jolley is a pleasant 66-year-old man who has a history of hyperlipidemia hypertension prostate disorder previous smoker, patient also has a history of non-small cell lung cancer. He was diagnosed with bronchoscopy and biopsy on by Dr. Oropeza. Visit time he has completed 6 rounds of chemo. He has completed 33 radiation treatments as well. Patient was recently started on 60 mg of prednisone for a dry cough caused by suspected radiation pneumonitis cough had subsided for approximately a week and got long or along with some worsening shortness of breath. Patient was sent to the emergency room for further evaluation. D-dimer was performed in the emergency room was 4.25. A CT angiogram revealed a small pulmonary embolism involving the right lower lobe. Objective - Vital Signs Vital signs: Vital Signs Temp 97 F L 01/07/17 20:00 Pulse 67 01/07/17 20:00 Resp 18 01/07/17 20:00 BP 135/78 01/07/17 20:00 Pulse Ox 94 L 01/07/17 20:00 Intake & Output 01/07/17 01/07/17 01/08/17 06:59 18:59 06:59 Intake Total 1267.887 880 Balance 1267.887 880 Weight 119.6 kg Intake: IV 720 160 Heparin Sodium,Porcine/ 480 D5w Pmx 25,000 unit In Dextrose/Water 1 500ml. bag @ 18 UNITS/KG/HR 42. 61 mls/hr IV .[id number] [facility] Rx#:[id number] Sodium Chloride 0.9% 1, 240 160 000 ml @ 20 mls/hr IV . Q24H [facility] Rx#:[id number] Intake, IV Titration 547.887 Amount Heparin Sodium,Porcine/ 547.887 D5w Pmx 25,000 unit In Dextrose/Water 1 500ml. bag @ 18 UNITS/KG/HR 42. 61 mls/hr IV .[id number] [facility] Rx#:[id number] Oral 720 Other: Voiding Method Toilet # Voids 1 - Exam General: [Patient awake, alert and oriented times 3. Patient in no acute distress.] HEENT: [PERRL. EOMI. No pharyngeal erythema or exudate.] Neck: [No adenopathy.] Cardiac: [Heart regular in rate and rhythm. No S3. No S4. No clicks, rubs. No murmur.] Lungs: Diminished breath sounds bilaterally Abdomen: [No mass. No organomegaly. Bowel sounds presnt and normoactive in all 4 quadrants.] Extremes: [No edema no cyanosis no claudication normal pulses] : [] Musculoskeletal: [No joint erythema, edema or tenderness.] Skin: [No rash.] Neurologic: [No lateralizing deficits. CN II - XII grossly intact.] Lymphatic: [No adenopathy.] - Labs CBC & Chem 7: 01/06/17 22:37 01/06/17 13:55 Labs: Abnormal Lab Results - Last 24 Hours (Table) 01/06/17 01/06/17 01/07/17 Range/Units 22:37 22:37 05:14 Plt Count 91 L (150-450) k/uL APTT 88.6 H 95.6 H (22.0-30.0) sec Assessment and Plan (1) Lung cancer Status: Acute (2) Pulmonary embolism Status: Acute Plan: Long-term smoker stopped 2 years ago COPD by history Lung cancer by recent history Radiation and chemotherapy by history Stopped heparin Start xarelto 15 mg twice daily her PE protocol
[2017-01-08] MEDS: RIVAROXABAN 15 MG TAB PO SCH ×2 (06:36→16:57)
[2017-01-08] MEDS: FLUTICASONE 50MCG/SPRAY NASAL 16GM EA NOSTRIL SCH (08:41)
[2017-01-08] MEDS: predniSONE 20 MG TAB PO SCH (08:41)
[2017-01-08] MEDS: DOXAZOSIN 4 MG TAB PO SCH (08:41)
--- NOTE | 2017-01-08 11:52 | P.PN ---
Subjective Principal diagnosis: Acute pulmonary embolism This is a very pleasant 66-year-old gentleman who follows with Dr. Arcos as his primary care physician. He has history of hyperlipidemia, hypertension, prostate disorder, previous smoker. 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 He was diagnosed with bronchoscopy and biopsy on 06/26/[address] Oropeza. Since that time he has completed his chemotherapy, 6 rounds. He had completed 33 radiation treatments as well. His PET scan in revealed improvement within the chest. A follow-up computed tomography scan of the chest from 12/12/2016 revealed consolidation in the right lower lobe with a right upper lobes spiculation in the suprahilar region. There is some consolidation in the superior peripheral right upper lobe as well. These findings were consistent with his cancer. The enlarged pretracheal lymph node was smaller in size. There is minimal right pleural effusion. His port was removed last week by Dr. Lagos. Recently he had some issues with dry nonproductive cough and was started on 60 mg of prednisone per Dr. Lopez suspecting radiation pneumonitis and the cough had subsided for approximately a week then got worse again along with some worsening shortness of breath. He was sent to the emergency room from Dr. Lopez's office yesterday for further evaluation. Chest x-ray continued to show some multifocal right-sided airspace disease with right middle lobe atelectasis and a trace right pleural effusion. A d-dimer was 4.25. A CT angiogram revealed a small pulmonary embolism involving the right side near the right lower lobe. Scattered infiltrates in the right lung were stable as compared to previous. He was initiated on a heparin drip and was given a dose of Xarelto this a.m. Patient is seen today in consultation on the selective care unit. He is awake and alert in no acute distress. He denies any worsening shortness of breath. He continues with a dry nonproductive cough. No hemoptysis. No fever, chills or night sweats. White count 6.3. Platelet count 91,000. He's been afebrile. Maintaining good O2 saturations in the 90s on room air. No tachycardia. No tachypnea. No pleuritic pain. He is continued on his prednisone. Reevaluated today on 01/08/2017, patient is feeling much better, breathing a lot easier. He received so far 2 doses of Xarelto, and heparin was discontinued. Patient denies any chest pain no hemoptysis he has some dyspnea on exertion. Labs were reviewed. His physical examination is relatively unremarkable, hence I felt the patient could be considered for discharge planning today or in the next 24 hours. Objective - Vital Signs Vital signs: Vital Signs Temp 97.8 F 01/08/17 08:40 Pulse 97 01/08/17 08:40 Resp 20 01/08/17 08:40 BP 138/71 01/08/17 08:40 Pulse Ox 95 01/08/17 08:40 Intake & Output 01/07/17 01/08/17 01/08/17 18:59 06:59 18:59 Intake Total 880 160 360 Balance 880 160 360 Weight 118.6 kg Intake: IV 160 160 Sodium Chloride 0.9% 1, 160 160 000 ml @ 20 mls/hr IV . Q24H [facility] Rx#:[id number] Oral 720 360 Other: Voiding Method Toilet Toilet # Voids 1 - Exam GENERAL EXAM: Alert, active, comfortable in no apparent distress. HEAD: Normocephalic. EYES: Normal reaction of pupils, equal size. NOSE: Clear with pink turbinates. THROAT: No erythema or exudates. NECK: No masses, no JVD. CHEST: No chest wall deformity. LUNGS: Equal air entry with no crackles, wheeze, rhonchi or dullness. CVS: S1 and S2 normal with no audible murmurs, regular rhythm. ABDOMEN: No hepatosplenomegaly, normal bowel sounds, no guarding or rigidity. SPINE: No scoliosis or deformity SKIN: No rashes CENTRAL NERVOUS SYSTEM: No focal deficits, tone is normal in all 4 extremities. Extremities: There is no significant peripheral edema. No clubbing, no cyanosis. Peripheral pulses are intact. 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 Diagnosed 06/26/2016 via bronchoscopy with biopsies. #3 History of small cell lung cancer and a right upper lobe endobronchial lesion. 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 #4 Recent episodes of dry nonproductive cough with suspicion for radiation pneumonitis. Currently on prednisone 60 mg daily per radiation oncology. Her grafts #5 Hyperlipidemia. #6 Hypertension history of. #7 Obstructive sleep apnea, utilizing CPAP in the outpatient setting. Her grafts #8 History of chronic tobacco dependence, quit 2016. Recommendation: Agree with discharge planning on Xarelto, considering his underlying history, and underlying malignancy, I would suggest that he remains on anticoagulant therapy lifetime. Time with Patient: Less than 30
[2017-01-08 11:57] VITALS: RESP 16
[2017-01-08 16:00] VITALS: BP 121/78; PULSE 102; TEMP 98.5
--- NOTE | 2017-01-08 16:45 | P.DS ---
Providers Date of admission: 01/06/17 16:25 Expected date of discharge: 01/08/17 Attending physician: Tony Arcos Consults: 01/06/17 16:26 Consult Physician Routine Consulting Provider: Edwige Oropeza Consult Reason/Comments: Pulmonary embolism Do you want consulting provider notified?: Yes Primary care physician: Hector Escoto - Discharge Diagnosis(es) (1) Lung cancer Completed chemo completed radiation Current Visit: Yes Status: Acute (2) Pulmonary embolism Started on Xarelto 15 mg twice daily per PE protocol Current Visit: Yes Status: Acute Hospital Course: Patient was admitted via the emergency room with a positive right lower lobe pulmonary embolus Was started on heparin Xarelto 15 mg twice daily was started the next day heparin was stopped General: [Patient awake, alert and oriented times 3. Patient in no acute distress.] HEENT: [PERRL. EOMI. No pharyngeal erythema or exudate.] Neck: [No adenopathy.] Cardiac: [Heart regular in rate and rhythm. No S3. No S4. No clicks, rubs. No murmur.] Lungs: [Clear to auscultation bilaterally.] Abdomen: [No mass. No organomegaly. Bowel sounds presnt and normoactive in all 4 quadrants.] Extremes: [No edema no cyanosis no claudication normal pulses] : [] Musculoskeletal: [No joint erythema, edema or tenderness.] Skin: [No rash.] Neurologic: [No lateralizing deficits. CN II - XII grossly intact.] Lymphatic: [No adenopathy.] Patient Condition at Discharge: Stable Plan - Discharge Summary New Discharge Prescriptions: New Rivaroxaban [Xarelto] 15 mg PO BID #60 tab No Action Doxazosin [Cardura] 4 mg PO BID Atorvastatin [Lipitor] 20 mg PO HS Omeprazole [PriLOSEC] 20 mg PO HS predniSONE 60 mg PO DAILY Fluticasone Nasal [place] [Flonase Nasal [place]] 1 spray EA NOSTRIL BID Discharge Medication List Atorvastatin [Lipitor] 20 mg PO HS 11/26/14 [History] Doxazosin [Cardura] 4 mg PO BID 11/26/14 [History] Omeprazole [PriLOSEC] 20 mg PO HS 10/03/16 [History] Fluticasone Nasal [place] [Flonase Nasal [place]] 1 spray EA NOSTRIL BID 12/30/16 [ History] predniSONE 60 mg PO DAILY 12/30/16 [History] Rivaroxaban [Xarelto] 15 mg PO BID #60 tab 01/08/17 [Rx] Follow up Appointment(s)/Referral(s): Hector Escoto MD [Primary Care Provider] - 1-2 days Edwige Oropeza MD [STAFF PHYSICIAN] - 01/17/17 10:30 am Patient Instructions/Handouts: Pulmonary Embolism (DC)
== END 2017-01-08 17:24 | disposition home or self-care (01) | DRG 176 ==
LOC: EC 11:49 → 6SEL 16:25 → UNDODISIN 01-08 16:23
PROVIDERS: ADMIT Family Medicine; ATTEND Family Medicine
DX: I26.99 Other pulmonary embolism without acute cor pulmonale (principal); C34.90 Malignant neoplasm of unspecified part of unspecified bronchus or lung; J44.9 Chronic obstructive pulmonary disease, unspecified; I10 Essential (primary) hypertension; E78.5 Hyperlipidemia, unspecified; G47.33 Obstructive sleep apnea (adult) (pediatric); I25.10 Atherosclerotic heart disease of native coronary artery without angina pectoris; K21.9 Gastro-esophageal reflux disease without esophagitis; K44.9 Diaphragmatic hernia without obstruction or gangrene; M19.90 Unspecified osteoarthritis, unspecified site; N42.9 Disorder of prostate, unspecified; Z79.52 Long term (current) use of systemic steroids; Z79.899 Other long term (current) drug therapy; Z87.891 Personal history of nicotine dependence; Z88.0 Allergy status to penicillin; Z82.49 Family history of ischemic heart disease and other diseases of the circulatory system
CPT/HCPCS: 36415; 71020; 71275; 80053; 82550; 82553; 83735; 83880; 84484; 85025; 85049; 85379; 85610; 85730; 93005; 94640; 94760; 96365; 96376; 99291

== ENCOUNTER 2017-02-02 18:40 | Emergency (ER) | payer MEDICARE ==
[2017-02-02 18:48] VITALS: TEMP 98.5
--- NOTE | 2017-02-02 19:23 | ED ---
SOB HPI - General Chief Complaint: Shortness of Breath Stated Complaint: diff breathing Time Seen by Provider: 02/02/17 18:49 Source: patient Mode of arrival: ambulatory Limitations: no limitations - History of Present Illness Initial Comments: This patient is a 66-year-old man who presents to be evaluated for shortness of breath that is been going on for approximately a month. The patient gives history of number of issues related to lungs that include mild COPD, recent diagnosis of lung cancer and radiation treatment for this. The patient states that he also is due to follow up tomorrow with the production manager to see if there is any cardiac component of the dyspnea. The patient states that he has had visits with his nurse receptionist Dr. Oropeza and he has also had pulmonary function testing. the patient has tried albuterol treatments which do not seem to be improving his breathing, and in addition today he took the last dose of a steroid course but his breathing has not improved either. When further questioned, the patient also feels like he is gaining weight though he denies david edema. The patient denies chest pain, diaphoresis, nausea or vomiting. He denies orthopnea. There is some worsening with exertion. Patient denies fever or productive cough. He has not noted a change in urination. The patient denies any change in bowel movements including no dark tarry or bloody stools. MD Complaint: shortness of breath Onset/Timin -: month(s) Consistency: constant Improves With: oxygen Worsens With: exertion Known History Of: COPD, other (Lung cancer) Associated Symptoms: denies other symptoms - Related Data Home Medications Medication Instructions Recorded Confirmed Atorvastatin [Lipitor] 20 mg PO HS 11/26/14 02/02/17 Doxazosin [Cardura] 4 mg PO BID 11/26/14 02/02/17 Omeprazole [PriLOSEC] 20 mg PO HS 10/03/16 02/02/17 Rivaroxaban [Xarelto] 20 mg PO DAILY 02/02/17 02/02/17 guaiFENesin [Mucinex] 600 mg PO BID 02/02/17 02/02/17 Allergies Allergy/AdvReac Type Severity Reaction Status Date / Time Penicillins Allergy Swelling Verified 02/02/17 19:32 Review of Systems ROS Statement: Those systems with pertinent positive or pertinent negative responses have been documented in the HPI. ROS Other: All systems not noted in ROS Statement are negative. Constitutional: Denies: fever, chills, weakness Respiratory: Reports: dyspnea. Denies: cough, wheezes, hemoptysis Cardiovascular: Reports: dyspnea on exertion. Denies: chest pain, palpitations , orthopnea, edema, syncope Gastrointestinal: Denies: abdominal pain, nausea, vomiting Genitourinary: Denies: dysuria, hematuria Musculoskeletal: Denies: back pain Skin: Denies: rash Neurological: Denies: headache, weakness, numbness Past Medical History Past Medical History: Coronary Artery Disease (CAD), Cancer, COPD, GERD/Reflux, Hyperlipidemia, Hypertension, Osteoarthritis (OA), Prostate Disorder, Sleep Apnea/CPAP/BIPAP Additional Past Medical History / Comment(s): 01/06/17 PE. 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 culture/infection: 10-12-16 ENTEROCOCCUS FAECIUM MDRO Source:: URINE Past Surgical History: Orthopedic Surgery Additional Past Surgical History / Comment(s): rt eye cataract removed, arthroscopy nigel knee, nigel foot surgery, bronchosocpy, cystoscopy/rt ureteroscopy, lithotripsy, port a cath - SINCE REMOVED ON 01-01-17 Past Anesthesia/Blood Transfusion Reactions: No Reported Reaction Past Psychological History: No Psychological Hx Reported Smoking Status: Former smoker Past Alcohol Use History: None Reported Past Drug Use History: None Reported - Past Family History Mother Family Medical History: CVA/TIA Additional Family Medical History / Comment(s): brain tumor Sister(s) Family Medical History: Cancer Father Family Medical History: Myocardial Infarction (SD) Additional Family Medical History / Comment(s): all 5 of dad's brothers had a mi General Exam Limitations: no limitations General appearance: alert, in no apparent distress Head exam: Present: atraumatic, normocephalic Eye exam: Present: normal appearance. Absent: scleral icterus, conjunctival injection Neck exam: Present: normal inspection Respiratory exam: Present: wheezes (There is mild expiratory wheezing.). Absent : respiratory distress, rales, rhonchi, stridor, chest wall tenderness, accessory muscle use Cardiovascular Exam: Present: regular rate, normal rhythm, normal heart sounds. Absent: systolic murmur, diastolic murmur, rubs, gallop GI/Abdominal exam: Present: soft. Absent: distended, tenderness, guarding, rebound Extremities exam: Present: normal inspection, normal capillary refill. Absent: pedal edema, calf tenderness Back exam: Present: normal inspection. Absent: CVA tenderness (R), CVA tenderness (L) Neurological exam: Present: alert Skin exam: Present: warm, dry, intact, normal color. Absent: rash Course Vital Signs 02/02/17 02/02/17 02/02/17 18:44 20:33 21:44 Temperature 98.5 F Pulse Rate 110 H 107 H 95 Respiratory 22 18 18 Rate Blood Pressure 151/83 127/70 130/78 O2 Sat by Pulse 95 94 L 94 L Oximetry Medical Decision Making - Medical Decision Making This patient is a 66-year-old man with dyspnea. I reviewed the studies with the patient and his family and recommended admission for further workup. The patient states that he has follow-up with production manager in the morning and that he will not stay tonight but he will see Dr. Oropeza tomorrow or return to the emergency department if there is no change. He does continue take the Xarelto, and his other medicines as prescribed. I discussed that it's impossible to rule out additional PE without a computed tomography scan but patient is declining that at this point. I explained this may also help to further clarify the increased right lung base opacity. I patient expresses understanding but states that he cannot miss the appointment in the morning and he'll return or see Dr. Oropeza tomorrow. - Lab Data Result diagrams: 02/02/17 19:00 02/02/17 19:00 Lab Results 02/02/17 02/02/17 02/02/17 Range/Units 19:00 19:00 19:00 WBC 4.9 (3.8-10.6) k/uL RBC 4.38 (4.30-5.90) m/uL Hgb 14.2 (13.0-17.5) gm/dL Hct 42.7 (39.0-53.0) % MCV 97.4 (80.0-100.0) fL MCH 32.5 (25.0-35.0) pg MCHC 33.4 (31.0-37.0) g/dL RDW 16.9 H (11.5-15.5) % Plt Count 133 L (150-450) k/uL Neutrophils % 77 % Lymphocytes % 8 % Monocytes % 11 % Eosinophils % 1 % Basophils % 0 % Neutrophils # 3.8 (1.3-7.7) k/uL Lymphocytes # 0.4 L (1.0-4.8) k/uL Monocytes # 0.5 (0-1.0) k/uL Eosinophils # 0.0 (0-0.7) k/uL Basophils # 0.0 (0-0.2) k/uL Anisocytosis Slight PT (9.0-12.0) sec INR (<1.2) APTT (22.0-30.0) sec D-Dimer (<0.60) mg/L FEU Sodium 138 (137-145) mmol/L Potassium 4.1 (3.5-5.1) mmol/L Chloride 107 (98-107) mmol/L Carbon Dioxide 22 (22-30) mmol/L Anion Gap 9 mmol/L BUN 17 (9-20) mg/dL Creatinine 1.20 (0.66-1.25) mg/dL Est GFR (MDRD) Af Amer >60 (>60 ml/min/1.73 sqM) Est GFR (MDRD) Non-Af >60 (>60 ml/min/1.73 sqM) Glucose 87 (74-99) mg/dL Calcium 8.6 (8.4-10.2) mg/dL Magnesium 1.8 (1.6-2.3) mg/dL Total Bilirubin 0.5 (0.2-1.3) mg/dL AST 37 (17-59) U/L ALT 60 (21-72) U/L Alkaline Phosphatase 117 (38-126) U/L Total Creatine Kinase 58 (55-170) U/L CK-MB (CK-2) 1.8 (0.0-2.4) ng/mL CK-MB (CK-2) Rel Index 3.1 Troponin I <0.012 (0.000-0.034) ng/mL NT-Pro-B Natriuret Pep pg/mL Total Protein 6.6 (6.3-8.2) g/dL Albumin 3.6 (3.5-5.0) g/dL 09/10/17 09/10/17 Range/Units 19:00 19:00 WBC (3.8-10.6) k/uL RBC (4.30-5.90) m/uL Hgb (13.0-17.5) gm/dL Hct (39.0-53.0) % MCV (80.0-100.0) fL MCH (25.0-35.0) pg MCHC (31.0-37.0) g/dL RDW (11.5-15.5) % Plt Count (150-450) k/uL Neutrophils % % Lymphocytes % % Monocytes % % Eosinophils % % Basophils % % Neutrophils # (1.3-7.7) k/uL Lymphocytes # (1.0-4.8) k/uL Monocytes # (0-1.0) k/uL Eosinophils # (0-0.7) k/uL Basophils # (0-0.2) k/uL Anisocytosis PT 10.2 (9.0-12.0) sec INR 1.0 (<1.2) APTT 25.0 (22.0-30.0) sec D-Dimer 0.65 H (<0.60) mg/L FEU Sodium (137-145) mmol/L Potassium (3.5-5.1) mmol/L Chloride (98-107) mmol/L Carbon Dioxide (22-30) mmol/L Anion Gap mmol/L BUN (9-20) mg/dL Creatinine (0.66-1.25) mg/dL Est GFR (MDRD) Af Amer (>60 ml/min/1.73 sqM) Est GFR (MDRD) Non-Af (>60 ml/min/1.73 sqM) Glucose (74-99) mg/dL Calcium (8.4-10.2) mg/dL Magnesium (1.6-2.3) mg/dL Total Bilirubin (0.2-1.3) mg/dL AST (17-59) U/L ALT (21-72) U/L Alkaline Phosphatase (38-126) U/L Total Creatine Kinase (55-170) U/L CK-MB (CK-2) (0.0-2.4) ng/mL CK-MB (CK-2) Rel Index Troponin I (0.000-0.034) ng/mL NT-Pro-B Natriuret Pep 109 pg/mL Total Protein (6.3-8.2) g/dL Albumin (3.5-5.0) g/dL - EKG Data -: EKG Interpreted by [place] EKG shows normal: sinus rhythm, axis (Normal), intervals (Normal), QRS complexes (Low voltage), ST-T waves (Normal) Rate: normal (Rate 98 bpm) Disposition Clinical Impression: Dyspnea, Pleural effusion Disposition: Left Against Medical Advice Condition: Undetermined Instructions: Pleural Effusion (ED), Dyspnea (ED) Referrals: Hector Escoto MD [Primary Care Provider] - 1-2 days
[2017-02-02 19:33] LABS: Anisocytosis Slight; Basophils % (A) 0 %; CH 32.3; CHCM 33.1; Eosinophils % (A) 1 %; HCT 42.7 % (39.0-53.0); HDW 2.88; HGB 14.2 gm/dL (13.0-17.5); Luc # (Auto) 0.18; Luc % (Auto) 4; Lymphocytes # (A) 0.4 k/uL (1.0-4.8); Lymphocytes % (A) 8 %; MCH 32.5 pg (25.0-35.0); MCHC 33.4 g/dL (31.0-37.0); MCV 97.4 fL (80.0-100.0); Mean Platelet Volume 7.6; Monocytes # (A) 0.5 k/uL (0-1.0); Monocytes % (A) 11 %; Neutrophils # (A) 3.8 k/uL (1.3-7.7); Neutrophils % (A) 77 %; RBC 4.38 m/uL (4.30-5.90); RDW 16.9 % (11.5-15.5); WBC 4.9 k/uL (3.8-10.6); WBC (Perox) 4.92
[2017-02-02 19:47] LABS: ALT 60 U/L (21-72); AST 37 U/L (17-59); Alkaline Phosphatase 117 U/L (38-126); Anion Gap 9 mmol/L; Blood Urea Nitrogen 17 mg/dL (9-20); Calcium 8.6 mg/dL (8.4-10.2); Carbon Dioxide 22 mmol/L (22-30); Chloride 107 mmol/L (98-107); Glucose 87 mg/dL (74-99); Magnesium 1.8 mg/dL (1.6-2.3); Non-African American GFR(MDRD) >60 (>60 ml/min/1.73 sqM); Potassium 4.1 mmol/L (3.5-5.1); Sodium 138 mmol/L (137-145); Total Bilirubin 0.5 mg/dL (0.2-1.3); Total Protein 6.6 g/dL (6.3-8.2)
--- NOTE | 2017-02-02 19:47 | XR ---
EXAMINATION TYPE: XR chest 2V DATE OF EXAM: 02/02/2017 COMPARISON: 01/06/2017 HISTORY: 66-year-old male difficulty in breathing and history of small cell lung cancer TECHNIQUE: Frontal and lateral views FINDINGS: The heart remains upper limits of normal in size. Some right hemithoracic volume loss is similar with opacity at the right base suspected to represent small effusion and partial collapse of the right mi ddle and right lower lobes when correlating with prior CT. Opacity may be slightly increased at the b ase as compared to prior exam. IMPRESSION: Continued small right pleural effusion with suspected partial right middle and right lower lobe colla pse when correlating with prior CT. Right basilar opacity is slightly increased as compared to 017.
[2017-02-02 19:48] LABS: Prothrombin Time 10.2 sec (9.0-12.0)
[2017-02-02 19:52] LABS: Creatine Kinase 58 U/L (55-170)
[2017-02-02 20:05] LABS: Creatine Kinase MB 1.8 ng/mL (0.0-2.4); Troponin I <0.012 ng/mL (0.000-0.034)
[2017-02-02 20:34] VITALS: RESP 18
[2017-02-02 21:47] VITALS: BP 130/78; PULSE 95
== END 2017-02-02 22:17 | disposition left against medical advice (07) ==
LOC: EC 18:40
DX: J90 Pleural effusion, not elsewhere classified (principal); E78.5 Hyperlipidemia, unspecified; I10 Essential (primary) hypertension; K21.9 Gastro-esophageal reflux disease without esophagitis; I25.10 Atherosclerotic heart disease of native coronary artery without angina pectoris; N42.9 Disorder of prostate, unspecified; Z87.891 Personal history of nicotine dependence; Z79.01 Long term (current) use of anticoagulants; Z79.899 Other long term (current) drug therapy; Z88.0 Allergy status to penicillin; Z85.118 Personal history of other malignant neoplasm of bronchus and lung; Z92.21 Personal history of antineoplastic chemotherapy; Z92.3 Personal history of irradiation; Z86.711 Personal history of pulmonary embolism
CPT/HCPCS: 36415; 71020; 80053; 82550; 82553; 83735; 83880; 84484; 85025; 85379; 85610; 85730; 93005; 99285

== ENCOUNTER → 2017-02-05 | Outpatient (CLI) | payer MEDICARE ==
[2017-02-05 11:31] LABS: Blood Urea Nitrogen 14 mg/dL (9-20); Non-African American GFR(MDRD) >60 (>60 ml/min/1.73 sqM)
--- NOTE | 2017-02-05 13:21 | CT ---
EXAMINATION TYPE: CT angio chest DATE OF EXAM: 02/05/2017 COMPARISON: 01/06/2017 HISTORY: 66-year-old male complains of difficulty breathing and cough TECHNIQUE: Contiguous axial scanning of the chest performed with IV Contrast, patient injected with 1 00 mL of Omnipaque 350. Coronal/sagittal MIP reconstructions performed. CT DLP: 488 mGycm Automated exposure control for dose reduction was used. FINDINGS: The heart is upper limits of normal in size with a similar trace pericardial effusion. Coronary vesse l calcifications are present in remarkable for coronary artery disease. Aorta is normal caliber with conventional arch vessel branching anatomy. Similar borderline to mildly enlarged 1.1 cm right tracheobronchial angle lymph node. Suboptimal opacification of the pulmonary arterial system. No large central pulmonary embolus is seen . There is also respiratory motion artifact further degrading the exam. The previously seen lower lobe pulmonary emboli are not seen with certainty but again, the exam is [place] boptimal for further assessment. Increased small to moderate right pleural effusion with atelectatic collapse and probably some underl opal consolidation involving the majority of the right lower lobe. Some patchy opacity in the right m iddle lobe and some patchy peribronchial vascular opacity in the right upper lobe as well. Small hiatal hernia. Visualized upper abdomen is no gross abnormality. Bones: Endplate spondylosis mid to lower thoracic spine. No osseous destructive process. IMPRESSION: 1. SUBOPTIMAL CONTRAST BOLUS AND RESPIRATORY MOTION DEGRADING THE EXAM. NO LARGE CENTRAL PULMONARY EM BOLUS. THE PREVIOUS LOWER LOBE EMBOLI ARE NOT SEEN WITH CERTAINTY. AGAIN, THE EXAM IS LIMITED. 2. INCREASING [id number] RIGHT PLEURAL EFFUSION NOW WITH MORE EXTENSIVE CONSOLIDATION AND COMP LETE TO NEAR COMPLETE RIGHT LOWER LOBE COLLAPSE. 3.ADDITIONAL PATCHY OPACITIES IN THE RIGHT MIDDLE AND RIGHT LOWER LOBE COULD REPRESENT PNEUMONIA IN T HE SETTING OF INFECTIOUS SIGNS OR SYMPTOMS.
== END | disposition home or self-care (01) ==
LOC: RADCTMAIN 10:40
PROVIDERS: ATTEND Internal Medicine Critical Care Medicine
DX: J98.19 Other pulmonary collapse (principal); J90 Pleural effusion, not elsewhere classified; R91.8 Other nonspecific abnormal finding of lung field; Z88.0 Allergy status to penicillin
CPT/HCPCS: 82533; 82565; 84520; 71275; 36415; Q9967

== ENCOUNTER 2017-02-10 12:04 | Day surgery (SDC) | payer MEDICARE ==
[2017-02-07 14:23] VITALS: BMI 39.3
[2017-02-10] MEDS ORDERED: LIDOCAINE 2% (PF) 20 MG/ML 10ML INHALATION STA ×2 (12:44)
[2017-02-10] MEDS ORDERED: ALBUTEROL NEBULIZED 2.5 MG/3 ML INHALATION STA (12:48)
[2017-02-10 12:54] VITALS: TEMP 99
[2017-02-10] MEDS ORDERED: LACTATED RINGERS 1,000 ML IV ONE (13:01)
[2017-02-10] MEDS ORDERED: LIDOCAINE 1% 20 ML VIAL (10MG/ML) FOR IV START INTRADERMA ONE (13:01)
[2017-02-10 13:05] VITALS: RESP 20
[2017-02-10] MEDS ORDERED: LIDOCAINE 2% INJ 20 MG/ML INTRATRACH ONE ×2 (13:07→13:29)
[2017-02-10] MEDS ORDERED: PROPOFOL 10 MG/ML 20 ML VIAL IV ONE (13:24)
[2017-02-10] MEDS ORDERED: fentaNYL (PF) 50 MCG/ML 2 ML AMP ONE (13:24)
[2017-02-10] MEDS ORDERED: MIDAZOLAM 2 MG/2 ML VIAL ONE (13:24)
--- NOTE | 2017-02-10 13:49 | P.PCN ---
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 The patient was having progressive worsening shortness of breath and the most recent CAT scan of the chest showed right lower lobe atelectasis. Based on that, a flexible bronchoscopy was done to visualize the airways and assess for the underlying cause of this obstruction. This procedure was done under conscious sedation. Anesthetic agents was administered by anesthesia the bedside. After achieving adequate sedation flexible bronchoscope was inserted to the left nostril. The examination of the upper airway included the posterior oropharynx, larynx, epiglottis, arytenoids, vocal cords and all of these upper airway structures were within normal limits. Vocal cord function mobility was within normal limits. A total of 2 mL of 1% lidocaine was applied to the vocal cords and following that the bronchoscope was advanced to the upper trachea. Examination of the tracheal bronchial tree was done. The entire trachea was inspected and was within normal limits. Then the bronchoscope was moved to the right side initially to the right mainstem bronchus and the right upper lobe uptake was seen in visualize as was within normal limits. Then the bronchoscope was brought back to the right mainstem bronchus and was advanced to the bronchus intermedius. It was obvious that the right middle lobe orifice was quite open and patent. Nevertheless, the right lower lobe bronchus orifice was significantly compromised and was near completely occluded. I was able to see a slit opening through which I was unable to pass my bronchoscope. The obstruction was mainly due to extrinsic compression as the lateral wall of the bronchus intermedius was pushed in causing complete or near complete obstruction of the right lower lobe rhonchi orifice. At that point I was unable to see any endobronchial tumors or any other masslike lesions obstructing the bronchial orifice. I pushed him my flexible bronchoscope and I was able to infuse saline to expand the right lower lobe bronchus. Under water vision, I was able to see that the right lower lobe bronchus was constricted and narrowed and yet again there was no evidence of any endobronchial tumor. A total of 120 mL of fluid/saline was infused right lower lobe and approximately 20-25 mL was aspirated. The samples will be sent for cytologic evaluation to rule out malignancy. Then the bronchoscope was moved to the left side and a quick inspection of the left side involved the left upper lobe bronchus, left lower lobe bronchus and the various segments and subsegments all of them were patent within normal limits. At this point the procedure was terminated. The bronchoscope was removed and the patient was transferred recovery in a stable condition. The cause for worsening shortness of breath is right lower lobe atelectasis caused by narrowing of the right lower lobe bronchial orifice. This is essentially due to extrinsic compression probably from mediastinal lesions or tumors causing the lateral wall of the bronchus intermedius to be quite compromised and causing significant narrowing of the airway. Other possibilities could include radiation induced bronchoconstriction of the right lower lobe bronchus. Endobronchial tumors within the right lower lobe bronchus were not visualized.
[2017-02-10 14:37] VITALS: BP 130/81
[2017-02-10 14:56] VITALS: PULSE 112
== END 2017-02-10 14:59 | disposition home or self-care (01) ==
LOC: ORWHC2ENDO 12:04
PROVIDERS: ATTEND Internal Medicine Critical Care Medicine
DX: J98.11 Atelectasis (principal); I25.10 Atherosclerotic heart disease of native coronary artery without angina pectoris; I10 Essential (primary) hypertension; E78.00 Pure hypercholesterolemia, unspecified; K21.9 Gastro-esophageal reflux disease without esophagitis; E66.01 Morbid (severe) obesity due to excess calories; J44.9 Chronic obstructive pulmonary disease, unspecified; D64.9 Anemia, unspecified; G47.33 Obstructive sleep apnea (adult) (pediatric); M19.90 Unspecified osteoarthritis, unspecified site; Z86.711 Personal history of pulmonary embolism; Z87.891 Personal history of nicotine dependence; Z85.118 Personal history of other malignant neoplasm of bronchus and lung; Z92.21 Personal history of antineoplastic chemotherapy; Z92.3 Personal history of irradiation; Z88.0 Allergy status to penicillin; Z79.01 Long term (current) use of anticoagulants; Z79.899 Other long term (current) drug therapy; Z68.39 Body mass index [BMI] 39.0-39.9, adult
CPT/HCPCS: 94640; 88108; 88305; 31624; J2001 ×2; J2250; J3010; J2704

== ENCOUNTER 2017-02-10 17:53 | Inpatient (IN) | payer MEDICARE ==
[2017-02-10] MEDS ORDERED: IPRATROPIUM-ALBUTEROL 3 ML NEB INHALATION STA (18:16)
[2017-02-10] MEDS ORDERED: SODIUM CHLORIDE 0.9% 1,000 ML IV STA ×2 (18:16→20:25)
[2017-02-10] MEDS ORDERED: LEVOFLOXACIN 750MG-D5W PMX 750 MG in DEXTROSE/WATER 1 150ML.BAG IVPB STA (18:17)
--- NOTE | 2017-02-10 18:20 | ED ---
Fever HPI - General Chief Complaint: Fever Stated Complaint: PO Bronchoscopy complications Time Seen by Provider: 02/10/17 18:05 Source: patient, RN notes reviewed Mode of arrival: wheelchair Limitations: no limitations - History of Present Illness Initial Comments: This is a 66-year-old male history of COPD and recent diagnosis of lung cancer who had a bronchoscopy done around 1:30 today. Around 4:30 prior to admission he started developing shortness of breath and a fever 101.3. He did call his doctor and was instructed to come to the emergency department for evaluation and treatment. He denies any chest pain he does it shortness of breath minimal cough no nausea no vomiting no focal weakness. MD Complaint: fever, other - Related Data Home Medications Medication Instructions Recorded Confirmed Atorvastatin [Lipitor] 20 mg PO HS 11/26/14 02/10/17 Doxazosin [Cardura] 4 mg PO BID 11/26/14 02/10/17 Rivaroxaban [Xarelto] 20 mg PO DAILY 02/02/17 02/10/17 Albuterol Nebulized [Ventolin 2.5 mg INHALATION RT-QID PRN 02/07/17 02/10/17 Nebulized] Fluticasone Nasal [place] [Flonase 1 spray EA NOSTRIL DAILY 02/07/17 02/10/17 Nasal [place]] Furosemide [Lasix] 40 mg PO DAILY 02/07/17 02/10/17 Acetaminophen Tab [Tylenol Tab] 1,000 mg PO ONCE PRN 02/10/17 02/10/17 Allergies Allergy/AdvReac Type Severity Reaction Status Date / Time Penicillins Allergy Swelling Verified 02/10/17 18:57 Review of Systems ROS Statement: Those systems with pertinent positive or pertinent negative responses have been documented in the HPI. ROS Other: All systems not noted in ROS Statement are negative. Past Medical History Past Medical History: Coronary Artery Disease (CAD), Cancer, COPD, GERD/Reflux, Hyperlipidemia, Hypertension, Osteoarthritis (OA), Prostate Disorder, Sleep Apnea/CPAP/BIPAP Additional Past Medical History / Comment(s): increased SOB with last mos,uses cpap,01/06/17 PE. lung cancer(tx with chemo 10/2016, and radiation 08/2016), hiatal hernia, hx kidney stones,steroids Jan 2017 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 culture/infection: 10-12-16 ENTEROCOCCUS FAECIUM MDRO Source:: URINE Past Surgical History: Orthopedic Surgery Additional Past Surgical History / Comment(s): rt eye cataract removed, arthroscopy nigel knee, nigel foot surgery, bronchosocpy, cystoscopy/rt ureteroscopy, lithotripsy, port a cath - SINCE REMOVED ON 01-01-17 Past Anesthesia/Blood Transfusion Reactions: No Reported Reaction Past Psychological History: No Psychological Hx Reported Smoking Status: Former smoker Past Alcohol Use History: Occasional Past Drug Use History: None Reported - Past Family History Mother Family Medical History: CVA/TIA Additional Family Medical History / Comment(s): brain tumor Sister(s) Family Medical History: Cancer Additional Family Medical History / Comment(s): melanoma shoulder Father Family Medical History: Myocardial Infarction ([place]) Additional Family Medical History / Comment(s): all 5 of dad's brothers had a mi General Exam - General Exam Comments Initial Comments: This is a well-developed well-nourished awake alert oriented times 3 male Limitations: no limitations General appearance: alert Head exam: Present: atraumatic, normocephalic, normal inspection Eye exam: Present: normal appearance, PERRL, EOMI. Absent: scleral icterus, conjunctival injection, periorbital swelling ENT exam: Present: normal exam, mucous membranes moist Neck exam: Present: normal inspection. Absent: tenderness, meningismus, lymphadenopathy Respiratory exam: Present: accessory muscle use, decreased breath sounds. Absent: respiratory distress, wheezes, rales, rhonchi, stridor Cardiovascular Exam: Present: normal rhythm, tachycardia, normal heart sounds. Absent: systolic murmur, diastolic murmur, rubs, gallop, clicks GI/Abdominal exam: Present: soft, normal bowel sounds. Absent: distended, tenderness, guarding, rebound, rigid Extremities exam: Present: normal inspection, full ROM, normal capillary refill. Absent: tenderness, pedal edema, joint swelling, calf tenderness Back exam: Present: normal inspection Neurological exam: Present: alert, oriented X3, CN II-XII intact Psychiatric exam: Present: normal affect, normal mood Skin exam: Present: warm, dry, intact, normal color. Absent: rash Course Vital Signs 02/10/17 02/10/17 02/10/17 18:00 18:01 18:37 Temperature 101.5 F H Pulse Rate 140 H 147 H 142 H Respiratory 22 16 Rate Blood Pressure 132/71 123/79 O2 Sat by Pulse 90 L 91 L Oximetry 02/10/17 02/10/17 02/10/17 18:48 19:09 19:58 Temperature 103.3 F H 102.9 F H Pulse Rate 143 H 139 H 139 H Respiratory 22 20 Rate Blood Pressure 111/62 116/58 O2 Sat by Pulse 93 L 94 L Oximetry - Reevaluation(s) Reevaluation #1: 02/10/17 20:30 Examine this patient he still feels somewhat short of breath. He still is febrile. I did discuss the findings with the patient's physician he will be admitted for IV antibiotics IV fluids consultation with Dr. Oropeza. Medical Decision Making - Lab Data Result diagrams: 02/10/17 18:15 02/10/17 18:15 Lab Results 02/10/17 02/10/17 02/10/17 Range/Units 18:15 18:15 18:15 WBC 6.2 (3.8-10.6) k/uL RBC 4.27 L (4.30-5.90) m/uL Hgb 13.6 (13.0-17.5) gm/dL Hct 40.5 (39.0-53.0) % MCV 94.7 (80.0-100.0) fL MCH 31.8 (25.0-35.0) pg MCHC 33.6 (31.0-37.0) g/dL RDW 15.9 H (11.5-15.5) % Plt Count 148 L (150-450) k/uL Neutrophils % 85 % Lymphocytes % 5 % Monocytes % 6 % Eosinophils % 1 % Basophils % 0 % Neutrophils # 5.2 (1.3-7.7) k/uL Lymphocytes # 0.3 L (1.0-4.8) k/uL Monocytes # 0.4 (0-1.0) k/uL Eosinophils # 0.0 (0-0.7) k/uL Basophils # 0.0 (0-0.2) k/uL PT (9.0-12.0) sec INR (<1.2) APTT (22.0-30.0) sec Sodium 140 (137-145) mmol/L Potassium 3.9 (3.5-5.1) mmol/L Chloride 103 (98-107) mmol/L Carbon Dioxide 27 (22-30) mmol/L Anion Gap 10 mmol/L BUN 15 (9-20) mg/dL Creatinine 1.14 (0.66-1.25) mg/dL Est GFR (MDRD) Af Amer >60 (>60 ml/min/1.73 sqM) Est GFR (MDRD) Non-Af >60 (>60 ml/min/1.73 sqM) Glucose 111 H (74-99) mg/dL Plasma Lactic Acid Lv[place] (0.7-2.0) mmol/L Calcium 9.0 (8.4-10.2) mg/dL Magnesium 1.6 (1.6-2.3) mg/dL Total Bilirubin 0.8 (0.2-1.3) mg/dL AST 39 (17-59) U/L ALT 42 (21-72) U/L Alkaline Phosphatase 92 (38-126) U/L Total Creatine Kinase 138 (55-170) U/L CK-MB (CK-2) 2.2 (0.0-2.4) ng/mL CK-MB (CK-2) Rel Index 1.6 Troponin I <0.012 (0.000-0.034) ng/mL NT-Pro-B Natriuret Pep pg/mL Total Protein 7.0 (6.3-8.2) g/dL Albumin 3.9 (3.5-5.0) g/dL 02/10/17 02/10/17 02/10/17 Range/Units 18:15 18:15 18:15 WBC (3.8-10.6) k/uL RBC (4.30-5.90) m/uL Hgb (13.0-17.5) gm/dL Hct (39.0-53.0) % MCV (80.0-100.0) fL MCH (25.0-35.0) pg MCHC (31.0-37.0) g/dL RDW (11.5-15.5) % Plt Count (150-450) k/uL Neutrophils % % Lymphocytes % % Monocytes % % Eosinophils % % Basophils % % Neutrophils # (1.3-7.7) k/uL Lymphocytes # (1.0-4.8) k/uL Monocytes # (0-1.0) k/uL Eosinophils # (0-0.7) k/uL Basophils # (0-0.2) k/uL PT 10.2 (9.0-12.0) sec INR 1.0 (<1.2) APTT 22.1 (22.0-30.0) sec Sodium (137-145) mmol/L Potassium (3.5-5.1) mmol/L Chloride (98-107) mmol/L Carbon Dioxide (22-30) mmol/L Anion Gap mmol/L BUN (9-20) mg/dL Creatinine (0.66-1.25) mg/dL Est GFR (MDRD) Af Amer (>60 ml/min/1.73 sqM) Est GFR (MDRD) Non-Af (>60 ml/min/1.73 sqM) Glucose (74-99) mg/dL Plasma Lactic Acid Livan 2.7 H* (0.7-2.0) mmol/L Calcium (8.4-10.2) mg/dL Magnesium (1.6-2.3) mg/dL Total Bilirubin (0.2-1.3) mg/dL AST (17-59) U/L ALT (21-72) U/L Alkaline Phosphatase (38-126) U/L Total Creatine Kinase (55-170) U/L CK-MB (CK-2) (0.0-2.4) ng/mL CK-MB (CK-2) Rel Index Troponin I (0.000-0.034) ng/mL NT-Pro-B Natriuret Pep 92 pg/mL Total Protein (6.3-8.2) g/dL Albumin (3.5-5.0) g/dL - EKG Data -: EKG Interpreted by Nh EKG shows normal: sinus rhythm Rate: tachycardia (Sinus tachycardia rate 145 [place] interval 134 QRS 66 QT since QTC of 370/419 low-voltage QRS no acute ST-T wave elevation or depressions.) - Radiology Data Radiology results: report reviewed (I did review the imaging and report or is evidence right middle lobe consolidation also evidence of multifocal right- sided opacities), image reviewed Critical Care Time Critical Care Time: Yes Critical Care Time: 31 minutes of critical care time which includes initial presentation with history physical labs x-rays reevaluation patient several occasions discussion with the admitting physician discussion with the family. Review of old charting. Admission orders documentation of the above. Dr. Oropeza has been consulted Disposition Clinical Impression: Postobstructive pneumonia, Lung mass, Febrile illness, acute, Tachycardia Disposition: ADMITTED IP TO THIS [facility] Condition: Stable Referrals: Edwige Oropeza MD [STAFF PHYSICIAN] - 1-2 days
[2017-02-10 18:34] LABS: Basophils % (A) 0 %; CH 31.5; CHCM 33.3; Eosinophils % (A) 1 %; HCT 40.5 % (39.0-53.0); HDW 3.22; HGB 13.6 gm/dL (13.0-17.5); Luc # (Auto) 0.16; Luc % (Auto) 3; Lymphocytes # (A) 0.3 k/uL (1.0-4.8); Lymphocytes % (A) 5 %; MCH 31.8 pg (25.0-35.0); MCHC 33.6 g/dL (31.0-37.0); MCV 94.7 fL (80.0-100.0); Monocytes # (A) 0.4 k/uL (0-1.0); Monocytes % (A) 6 %; Neutrophils # (A) 5.2 k/uL (1.3-7.7); Neutrophils % (A) 85 %; RBC 4.27 m/uL (4.30-5.90); RDW 15.9 % (11.5-15.5); WBC 6.2 k/uL (3.8-10.6); WBC (Perox) 6.29
[2017-02-10 18:42] LABS: ALT 42 U/L (21-72); AST 39 U/L (17-59); Alkaline Phosphatase 92 U/L (38-126); Anion Gap 10 mmol/L; Blood Urea Nitrogen 15 mg/dL (9-20); Carbon Dioxide 27 mmol/L (22-30); Chloride 103 mmol/L (98-107); Glucose 111 mg/dL (74-99); Magnesium 1.6 mg/dL (1.6-2.3); Non-African American GFR(MDRD) >60 (>60 ml/min/1.73 sqM); Sodium 140 mmol/L (137-145); Total Bilirubin 0.8 mg/dL (0.2-1.3)
[2017-02-10 18:46] LABS: Potassium 3.9 mmol/L (3.5-5.1)
--- NOTE | 2017-02-10 18:50 | XR ---
EXAMINATION TYPE: XR chest 2V DATE OF EXAM: 02/10/2017 COMPARISON: 02/02/2017 HISTORY: Difficulty breathing TECHNIQUE: Frontal and lateral views of the chest are obtained. FINDINGS: Right middle lobe complete atelectatic collapse is seen with increasing layering right ple ural effusion and right basilar airspace disease as well as air bronchograms centrally and within the right suprahilar region. Left lung remains clear. Cardiac silhouette is partially obscured but appea rs overall similar to the prior exam. IMPRESSION: Complete right middle lobe atelectasis and increasing right layering pleural effusion wi th multifocal right-sided opacities that may represent pneumonia and/or atelectasis. Atelectasis may relate to endobronchial obstruction and/or mass. Bronchoscopy. Could be performed after resolution of symptoms.
[2017-02-10 18:53] LABS: Creatine Kinase 138 U/L (55-170)
[2017-02-10 19:01] LABS: Partial Thromboplastin Time 22.1 sec (22.0-30.0); Prothrombin Time 10.2 sec (9.0-12.0)
[2017-02-10 19:06] LABS: Creatine Kinase MB 2.2 ng/mL (0.0-2.4); Troponin I <0.012 ng/mL (0.000-0.034)
[2017-02-10] MEDS ORDERED: ACETAMINOPHEN TAB 500 MG TAB PO STA ×2 (19:51→21:53)
[2017-02-10] MEDS ORDERED: IBUPROFEN 800 MG TAB PO STA (20:00)
[2017-02-10] MEDS ORDERED: PNEUMONIA PROTOCOL UTILIZED 1 EACH MISC PO PRN (20:34)
[2017-02-10] MEDS ORDERED: MEROPENEM 1 GM in SODIUM CHLORIDE 0.9% 100 ML IVPB STA (22:03)
[2017-02-10] MEDS: SODIUM CHLORIDE 0.9% 1,000 ML IV SCH (22:07)
[2017-02-10 22:50] VITALS: BMI 39.7
[2017-02-10] MEDS: DOXAZOSIN 4 MG TAB PO SCH (23:00)
[2017-02-10] MEDS: ATORVASTATIN 20 MG TAB PO SCH (23:01)
[2017-02-10] MEDS: IPRATROPIUM-ALBUTEROL 3 ML NEB INHALATION SCH (23:50)
[2017-02-11] MEDS: IPRATROPIUM-ALBUTEROL 3 ML NEB INHALATION SCH ×6 (03:47→21:13)
[2017-02-11] MEDS: RIVAROXABAN 10 MG TAB PO SCH (07:01)
--- NOTE | 2017-02-11 07:08 | XR ---
EXAMINATION TYPE: XR chest 2V DATE OF EXAM: 02/11/2017 COMPARISON: 02/10/2017 HISTORY: Shortness of breath TECHNIQUE: Frontal and lateral views of the chest are obtained. FINDINGS: Scattered senescent parenchymal changes noted. Hyperinflation compatible with COPD. Persistent right lower lobe and right middle lobe atelectasis and/or infiltrate. Suspect underlying p leural effusion. Heart size is stable. Mediastinal structures are stable and grossly unremarkable. No evidence for hilar prominence. Degenerative changes dorsal spine. IMPRESSION: 1. Persistent right lower lobe and right middle lobe atelectasis and/or infiltrate. Suspect underlyin g pleural effusion.
[2017-02-11] MEDS: SODIUM CHLORIDE 0.9% 1,000 ML IV SCH ×2 (07:43→08:02)
[2017-02-11] MEDS: MEROPENEM 1 GM in SODIUM CHLORIDE 0.9% 100 ML IVPB SCH ×2 (08:02→20:08)
[2017-02-11] MEDS: FLUTICASONE 50MCG/SPRAY NASAL 16GM EA NOSTRIL SCH (08:05)
[2017-02-11] MEDS: DOXAZOSIN 4 MG TAB PO SCH ×2 (08:06→20:09)
[2017-02-11] MEDS: FUROSEMIDE 40 MG TAB PO SCH (08:06)
[2017-02-11] MEDS: FAMOTIDINE 20 MG TAB PO SCH ×2 (08:07→20:10)
[2017-02-11 09:34] LABS: Hemoglobin A1C 5.7 % (4.2-6.1)
--- NOTE | 2017-02-11 11:20 | P.CRDCN ---
History of Present Illness Consult date: 02/11/17 Chief complaint: Shortness of breath History of present illness: This is a pleasant 66-year-old gentleman with a past medical history significant for hypertension, dyslipidemia, obesity, and history of lung cancer resented to the hospital complaining of chest discomfort. The patient was diagnosed with small cell and non-small cell lung cancer where he underwent radiation therapy and chemotherapy few months ago. Currently he is not on any radiation or chemotherapy. He was not feeling well where he was experiencing shortness of breath. He underwent yesterday a bronchoscopy for further clarification. He continues not feeling well and experiencing worsening shortness of breath and for that reason he presented to the hospital. He did not have any symptoms of chest pain or chest discomfort, no dizziness or lightheadedness, and no syncope. The patient does not aware of any prior cardiac history and never been diagnosed was coronary artery disease or congestive heart failure or cardiac arrhythmia. He used to smoke but he quit smoking. He does have very significant family history of coronary artery disease with his father. When he presented to the hospital he was in sinus tachycardia with a heart rate around 130 bpm. Currently he has been maintaining a heart rate above 100. The EKG showed sinus rhythm without any significant ST or T-wave abnormalities. He underwent only one set of cardiac enzyme which came in to be unremarkable. Past Medical History Past Medical History: Coronary Artery Disease (CAD), Cancer, COPD, GERD/Reflux, Hyperlipidemia, Hypertension, Osteoarthritis (OA), Prostate Disorder, Sleep Apnea/CPAP/BIPAP Additional Past Medical History / Comment(s): increased SOB with last mos,uses cpap,01/06/17 PE. lung cancer(tx with chemo 10/2016, and radiation 08/2016), hiatal hernia, hx kidney stones,steroids Jan 2017 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 culture/infection: 10-12-16 ENTEROCOCCUS FAECIUM MDRO Source:: URINE Past Surgical History: Orthopedic Surgery Additional Past Surgical History / Comment(s): rt eye cataract removed, arthroscopy nigel knee, nigel foot surgery, bronchosocpy, cystoscopy/rt ureteroscopy, lithotripsy, port a cath - SINCE REMOVED ON 01-01-17 Past Anesthesia/Blood Transfusion Reactions: No Reported Reaction Past Psychological History: No Psychological Hx Reported Additional Psychological History / Comment(s): , Smoking Status: Former smoker Past Alcohol Use History: Occasional Additional Past Alcohol Use History / Comment(s): started smoking 1965, quit for 10 years and then quit again 2016, 1 PPD Past Drug Use History: None Reported - Past Family History Mother Family Medical History: CVA/TIA Additional Family Medical History / Comment(s): brain tumor Sister(s) Family Medical History: Cancer Additional Family Medical History / Comment(s): melanoma shoulder Father Family Medical History: Myocardial Infarction ([place]) Additional Family Medical History / Comment(s): all 5 of dad's brothers had a mi Medications and Allergies Home Medications Medication Instructions Recorded Confirmed Type Atorvastatin [Lipitor] 20 mg PO HS 11/26/14 02/10/17 History Doxazosin [Cardura] 4 mg PO BID 11/26/14 02/10/17 History Rivaroxaban [Xarelto] 20 mg PO DAILY 02/02/17 02/10/17 History Albuterol Nebulized [Ventolin 2.5 mg INHALATION RT-QID PRN 02/07/17 02/10/17 History Nebulized] Fluticasone Nasal [place] [Flonase 1 spray EA NOSTRIL DAILY 02/07/17 02/10/17 History Nasal [place]] Furosemide [Lasix] 40 mg PO DAILY 02/07/17 02/10/17 History Acetaminophen Tab [Tylenol Tab] 1,000 mg PO ONCE PRN 02/10/17 02/10/17 History Allergies Allergy/AdvReac Type Severity Reaction Status Date / Time Penicillins Allergy Swelling Verified 02/10/17 18:57 Physical Exam Vitals: Vital Signs Temp Pulse Pulse Pulse Resp BP BP 02/11/17 09:38 90 02/11/17 09:29 96 02/11/17 08:00 98.6 F 91 103 H 18 143/63 02/11/17 04:03 92 02/11/17 04:00 96.3 F L 102 H 18 132/61 02/11/17 03:50 100 02/11/17 00:08 104 H 02/11/17 00:00 99.6 F 120 H 18 02/10/17 23:50 100 02/10/17 22:31 100.9 F H 120 H 18 124/61 02/10/17 21:47 102.2 F H 119 H 18 105/57 02/10/17 20:37 103.1 F H 133 H 18 105/72 02/10/17 19:58 102.9 F H 139 H 20 116/58 02/10/17 19:09 103.3 F H 139 H 22 111/62 02/10/17 18:48 143 H 02/10/17 18:37 142 H 02/10/17 18:01 147 H 16 123/79 02/10/17 18:00 101.5 F H 140 H 22 132/71 Pulse Ox 02/11/17 09:38 02/11/17 09:29 02/11/17 08:00 94 L 02/11/17 04:03 02/11/17 04:00 93 L 02/11/17 03:50 02/11/17 00:08 02/11/17 00:00 02/10/17 23:50 02/10/17 22:31 95 02/10/17 21:47 94 L 02/10/17 20:37 93 L 02/10/17 19:58 94 L 02/10/17 19:09 93 L 02/10/17 18:48 02/10/17 18:37 02/10/17 18:01 91 L 02/10/17 18:00 90 L Intake and Output 02/10/17 02/11/17 02/11/17 22:59 06:59 14:59 Intake Total 240 Balance 240 Intake: Oral 240 Other: Voiding Method Toilet # Voids 1 Weight 125.6 kg 125.6 kg - Constitutional General appearance: no acute distress - Respiratory Respiratory: bilateral: CTA - Cardiovascular Rhythm: regular Heart sounds: normal: S1, S2 Results 02/10/17 18:15 02/10/17 18:15 Cardiac Enzymes 02/10/17 02/10/17 Range/Units 18:15 18:15 AST 39 (17-59) U/L CK-MB (CK-2) 2.2 (0.0-2.4) ng/mL Troponin I <0.012 (0.000-0.034) ng/mL Coagulation 02/10/17 Range/Units 18:15 PT 10.2 (9.0-12.0) sec APTT 22.1 (22.0-30.0) sec CBC 02/10/17 Range/Units 18:15 WBC 6.2 (3.8-10.6) k/uL RBC 4.27 L (4.30-5.90) m/uL Hgb 13.6 (13.0-17.5) gm/dL Hct 40.5 (39.0-53.0) % Plt Count 148 L (150-450) k/uL Comprehensive Metabolic Panel 02/10/17 Range/Units 18:15 Sodium 140 (137-145) mmol/L Potassium 3.9 (3.5-5.1) mmol/L Chloride 103 (98-107) mmol/L Carbon Dioxide 27 (22-30) mmol/L BUN 15 (9-20) mg/dL Creatinine 1.14 (0.66-1.25) mg/dL Glucose 111 H (74-99) mg/dL Calcium 9.0 (8.4-10.2) mg/dL AST 39 (17-59) U/L ALT 42 (21-72) U/L Alkaline Phosphatase 92 (38-126) U/L Total Protein 7.0 (6.3-8.2) g/dL Albumin 3.9 (3.5-5.0) g/dL Current Medications Generic Name Dose Route Start Last Admin Trade Name Freq PRN Reason Stop Dose Admin Acetaminophen 650 mg 02/10/17 21:52 Tylenol Tab PO Q6HR PRN Fever and/ or mild Pain Albuterol/Ipratropium 3 ml 02/11/17 00:00 02/11/17 09:26 Duoneb 0.5 Mg-3 Mg/3 Ml Soln INHALATION 3 ml RT-Q4H ANGEL Administration Atorvastatin Calcium 20 mg 02/10/17 21:00 02/10/17 23:01 Lipitor PO 20 mg HS ANGEL Administration Doxazosin Mesylate 4 mg 02/10/17 21:00 02/11/17 08:06 Cardura PO 4 mg BID ANGEL Administration Famotidine 20 mg 02/11/17 09:00 02/11/17 08:07 Pepcid PO Not Given BID ANGEL Fluticasone Propionate 1 spray 02/11/17 09:00 02/11/17 08:05 Flonase Nasal [place] EA NOSTRIL 1 spray DAILY ANGEL Administration Furosemide 40 mg 02/11/17 09:00 02/11/17 08:06 Lasix PO 40 mg DAILY ANGEL Administration Levofloxacin 750 mg/ IV 150 mls @ 100 mls/hr 02/11/17 20:00 Solution IVPB 02/21/17 20:01 Q24H ANGEL Sodium Chloride 1,000 mls @ 100 mls/hr 02/10/17 20:45 02/11/17 08:02 Saline 0.9% IV 100 mls/hr .Q10H ANGEL Administration Meropenem 1 gm/ Sodium 100 mls @ 200 mls/hr 02/11/17 09:00 02/11/17 08:02 Chloride IVPB 200 mls/hr Q12HR ANGEL Administration Miscellaneous Information 1 each 02/10/17 20:34 Pneumonia Protocol Utilized PO ONCE PRN Per Protocol Rivaroxaban 20 mg 02/11/17 07:30 02/11/17 07:01 Xarelto PO 20 mg [id number] ANGEL Administration Intake and Output 02/10/17 02/11/17 02/11/17 22:59 06:59 14:59 Intake Total 240 Balance 240 Intake: Oral 240 Other: Voiding Method Toilet # Voids 1 Weight 125.6 kg 125.6 kg 02/10/17 18:15 02/10/17 18:15 Assessment and Plan Plan: This is a pleasant 66-year-old gentleman with history of lung cancer and status post radiation and chemotherapy as well as hypertension, dyslipidemia, obesity, and history of PE currently on anticoagulation presented to the hospital with shortness of breath without any chest pain or discomfort. We will rule out any cardiac etiology for the shortness of breath. I will obtain serial cardiac enzymes to rule out any acute coronary event. Obtain an echocardiogram to assess the LV systolic end-diastolic function as well as to assess for any valvular abnormalities. He is in sinus tachycardia with a resting heart rate around 130s per minute. I am going to start the patient on beta juventino to control the heart rate. Also obtain TSH. The patient's might benefit from a stress test as an outpatient or inpatient to rule out any severe underlying CAD which could be contributing to shortness of breath.
--- NOTE | 2017-02-11 12:03 | P.HPIM ---
History of Present Illness H&P Date: 02/11/17 Chief Complaint: Shortness of breath 66-year-old male who presented to the emergency room on 02/10/2017 with a chief complaint shortness of breath. The patient underwent a bronchoscopy yesterday afternoon. The patient developed increased shortness of breath afterwards at home and also fever of 101.3. He came to the emergency room for further evaluation. The patient has a history of lung cancer. He completed chemotherapy in October 2016 and radiation in August 2016. He also has a history of COPD, sleep apnea, osteoarthritis, and hypertension. He is a former smoker. In the emergency room a chest x-ray was completed which shows right lower lobe and right middle lobe atelectasis or infiltrates. He was found to be tachycardic with a rate in the 130s. Blood cultures and sputum cultures are pending. The patient was admitted to the hospital in the care of Dr. Escoto. Consultations were placed to pulmonary, Dr. Oropeza and cardiology , Dr. Srinivasan. Upon assessment this morning the patient does appear to be slightly short of breath. He is maintaining an oxygen saturation greater than 92% on 2 L nasal cannula. He does remain tachycardic with a rate in the low 100s. He is afebrile at this time. He is tolerating diet without any nausea or vomiting. He denies any chest pain or chest pressure. Two family members were present this morning at the bedside. All questions and concerns were addressed by Dr. Escoto Review of Systems Those systems with pertinent positive or pertinent negative responses have been documented in the HPI Past Medical History Past Medical History: Coronary Artery Disease (CAD), Cancer, COPD, GERD/Reflux, Hyperlipidemia, Hypertension, Osteoarthritis (OA), Prostate Disorder, Sleep Apnea/CPAP/BIPAP Additional Past Medical History / Comment(s): increased SOB with last mos,uses cpap,01/06/17 PE. lung cancer(tx with chemo 10/2016, and radiation 08/2016), hiatal hernia, hx kidney stones,steroids Jan 2017 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 culture/infection: 10-12-16 ENTEROCOCCUS FAECIUM MDRO Source:: URINE Past Surgical History: Orthopedic Surgery Additional Past Surgical History / Comment(s): rt eye cataract removed, arthroscopy nigel knee, nigel foot surgery, bronchosocpy, cystoscopy/rt ureteroscopy, lithotripsy, port a cath - SINCE REMOVED ON 01-01-17 Past Anesthesia/Blood Transfusion Reactions: No Reported Reaction Past Psychological History: No Psychological Hx Reported Additional Psychological History / Comment(s): , Smoking Status: Former smoker Past Alcohol Use History: Occasional Additional Past Alcohol Use History / Comment(s): started smoking 1965, quit for 10 years and then quit again 2016, 1 PPD Past Drug Use History: None Reported - Past Family History Mother Family Medical History: CVA/TIA Additional Family Medical History / Comment(s): brain tumor Sister(s) Family Medical History: Cancer Additional Family Medical History / Comment(s): melanoma shoulder Father Family Medical History: Myocardial Infarction ([place]) Additional Family Medical History / Comment(s): all 5 of dad's brothers had a mi Medications and Allergies Home Medications Medication Instructions Recorded Confirmed Type Atorvastatin [Lipitor] 20 mg PO HS 11/26/14 02/10/17 History Doxazosin [Cardura] 4 mg PO BID 11/26/14 02/10/17 History Rivaroxaban [Xarelto] 20 mg PO DAILY 02/02/17 02/10/17 History Albuterol Nebulized [Ventolin 2.5 mg INHALATION RT-QID PRN 02/07/17 02/10/17 History Nebulized] Fluticasone Nasal [place] [Flonase 1 spray EA NOSTRIL DAILY 02/07/17 02/10/17 History Nasal [place]] Furosemide [Lasix] 40 mg PO DAILY 02/07/17 02/10/17 History Acetaminophen Tab [Tylenol Tab] 1,000 mg PO ONCE PRN 02/10/17 02/10/17 History Allergies Allergy/AdvReac Type Severity Reaction Status Date / Time Penicillins Allergy Swelling Verified 02/10/17 18:57 Physical Exam Vitals: Vital Signs Temp Pulse Pulse Pulse Resp BP BP 02/11/17 09:38 90 02/11/17 09:29 96 02/11/17 08:00 98.6 F 91 103 H 18 143/63 02/11/17 04:03 92 02/11/17 04:00 96.3 F L 102 H 18 132/61 02/11/17 03:50 100 02/11/17 00:08 104 H 02/11/17 00:00 99.6 F 120 H 18 02/10/17 23:50 100 02/10/17 22:31 100.9 F H 120 H 18 124/61 02/10/17 21:47 102.2 F H 119 H 18 105/57 02/10/17 20:37 103.1 F H 133 H 18 105/72 02/10/17 19:58 102.9 F H 139 H 20 116/58 02/10/17 19:09 103.3 F H 139 H 22 111/62 02/10/17 18:48 143 H 02/10/17 18:37 142 H 02/10/17 18:01 147 H 16 123/79 02/10/17 18:00 101.5 F H 140 H 22 132/71 Pulse Ox 02/11/17 09:38 02/11/17 09:29 02/11/17 08:00 94 L 02/11/17 04:03 02/11/17 04:00 93 L 02/11/17 03:50 02/11/17 00:08 02/11/17 00:00 02/10/17 23:50 02/10/17 22:31 95 02/10/17 21:47 94 L 02/10/17 20:37 93 L 02/10/17 19:58 94 L 02/10/17 19:09 93 L 02/10/17 18:48 02/10/17 18:37 02/10/17 18:01 91 L 02/10/17 18:00 90 L Intake and Output 02/10/17 02/11/17 02/11/17 22:59 06:59 14:59 Intake Total 240 Balance 240 Intake: Oral 240 Other: Voiding Method Toilet # Voids 1 Weight 125.6 kg 125.6 kg GENERAL: Alert and oriented. Appears slightly short of breath when engaging in conversation. Pleasant and cooperative. RESPIRATORY: Lungs clear bilaterally, diminished. No use of accessory muscles. Patient maintaining oxygen saturation greater than 92% on 2 L his cannula. CARDIOVASCULAR: Tachycardic. S1 and S2 noted. No murmurs auscultated. No JVD noted. EXTREMITIES: Trace edema noted to bilateral lower extremities. Palpable pedal pulses +2. ABDOMEN: Obese. No distention noted. Abdomen soft and round. Normal active bowel sounds auscultated 4 quadrants. No pain or tenderness noted upon palpation. Results CBC & Chem 7: 02/10/17 18:15 17 18:15 Labs: Abnormal Lab Results - Last 24 Hours (Table) 02/10/17 02/10/17 02/10/17 Range/Units 18:15 18:15 18:15 RBC 4.27 L (4.30-5.90) m/uL RDW 15.9 H (11.5-15.5) % Plt Count 148 L (150-450) k/uL Lymphocytes # 0.3 L (1.0-4.8) k/uL Glucose 111 H (74-99) mg/dL Plasma Lactic Acid Livan 2.7 H* (0.7-2.0) mmol/L Thrombosis Risk Factor Assmnt - Choose All That Apply Each Risk Factor Represents 2 Points: Age 61-74 years Thrombosis Risk Factor Assessment Total Risk Factor Score: 2 Thrombosis Risk Factor Assessment Level: Low Risk Assessment and Plan Plan: ASSESSMENT: -Pneumonia, suspected, present on admission, sputum culture pending, chest x- ray reveals right lower lobe and right middle lobe atelectasis and/or infiltrates -Shortness of breath, present on admission, s/p bronchoscopy -History of squamous cell carcinoma of the lung, s/p chemotherapy and radiation -Febrile, present on admission, infectious process unlikely, etiology unclear, cultures pending -Tachycardia, present on admission -Acute hypoxic respiratory failure requiring supplemental oxygen -History of pulmonary embolism, with long-term anticoagulation with Xarelto -History of COPD, no evidence of acute exacerbation -Essential hypertension -History of sleep apnea with use of CPAP machine -Nicotine dependence, in remission, patient quit in 2016 -Obesity: BMI 39.7 PLAN: -Pulmonary on consult. Appreciate recommendations and input. -Cardiology on consult appreciate recommendations and input. -Resume home meds as appropriate -Monitor labs -Continue Levaquin and Meropenem -Await echo results -Await results of TSH -Beta juventino started per cardiology for rate control -Continue Xarelto for history of PE -GI prophylaxis: Pepcid 20 mg by mouth twice a day -DVT prophylaxis: Xarelto 20 mg daily (patients home med for hx of PE) -Monitor vital signs and address as appropriate -Consult case management for home oxygen The above impression and plan of care have been discussed and directed by signing physician. Zohra Horvath, nurse practitioner, acting as scribe for signing physician.
--- NOTE | 2017-02-11 13:15 | P.CNPUL ---
History of Present Illness Consult date: 02/11/17 Reason for consult: dyspnea, other (Fever) History of present illness: This is a 66-year-old male patient who underwent a bronchoscopy yesterday for ongoing shortness of breath. The procedure showed obstruction of the right lower lobe bronchus orifice due to some mass effect of the distal bronchus intermedius. I performed a bronchial lavage of the right lower lobe. No biopsies were done. Postop, the patient was discharged home. I was informed that the patient was having some tachycardia and fever. Apparently he was having high-grade fever and for that reason I asked the patient to present back to the emergency department. In the ED, the patient was given a chest x-ray which again showed the presence of a right lower lobe atelectasis. He was placed on anti-biotics and following that he was noted today telemetry unit. On today's evaluation, the patient is awake and alert. The patient had on and off fever throughout the night and this morning he is afebrile. He is covered with broad-spectrum antibiotics. No significant sputum production. Note that during my bronchoscopy, I was not able to see any significant purulent secretions in the right lower lobe. As such a postobstructive pneumonia is doubtful at this stage. In any rate, the patient was given antibiotics and currently is afebrile. He has chronic dyspnea which is essentially multifactorial. No chest pain. No pleurisy. No hemoptysis. 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 This was confirmed by bronchoscopy that I performed on him back in June 2016. Since then the patient has received radiation therapy and systemic chemotherapy. His radiation therapy was further complicated by development of a pneumonitis in the right lower lobe. Subsequent CAT scans of the chest showed evidence of radiation pneumonitis. The most recent CT of the chest showed no evidence of any pulmonary embolism. It showed worsening of the right lower lobe atelectasis /consolidation and it also showed a small to moderate-sized right-sided pleural effusion. Note that the patient was being treated with steroids at a higher dose regarding his radiation pneumonitis and this was given to him by radiation oncology. The patient at one point was also suspected to have pulmonary embolism and for that reason he was placed on anticoagulation. I personally was not convinced of this diagnosis. In a day. On long-term anticoagulation which [employer]. is reasonable to continue and is on Xarelto. Review of Systems Constitutional: Reports daytime sleepiness, Reports fatigue, Reports fever, Reports lethargy, Reports weakness, Reports weight gain Eyes: denies blurred vision, denies bulging eye, denies decreased vision Ears: deny: decreased hearing, ear discharge, earache Ears, nose, mouth and throat: Denies headache, Denies sore throat Cardiovascular: Reports decreased exercise tolerance, Reports dyspnea on exertion, Reports rapid heart beat, Reports shortness of breath Respiratory: Reports cough, Reports dyspnea, Reports sleep apnea, Reports snoring Gastrointestinal: Denies abdominal pain, Denies diarrhea, Denies nausea, Denies vomiting Genitourinary: Reports as per HPI Musculoskeletal: Denies myalgias Musculoskeletal: absent: ankle pain, ankle stiffness, ankle swelling Integumentary: Denies pruritus, Denies rash Neurological: Denies numbness, Denies weakness Psychiatric: Denies anxiety, Denies depression Endocrine: Denies fatigue, Denies weight change Past Medical History Past Medical History: Coronary Artery Disease (CAD), Cancer, COPD, GERD/Reflux, Hyperlipidemia, Hypertension, Osteoarthritis (OA), Prostate Disorder, Sleep Apnea/CPAP/BIPAP Additional Past Medical History / Comment(s): COPD, small cell lung cancer, non- small cell lung cancer of a squamous cell type, hypertension, hyperlipidemia, BPH, coronary artery disease, obstructive sleep apnea, questionable history of pulmonary embolism maintained on long-term articulation with Xarelto, hiatal hernia, nephrolithiasis, radiation pneumonitis treated with steroids, obesity, osteoarthritis 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 culture/infection: 10-12-16 ENTEROCOCCUS FAECIUM MDRO Source:: URINE Past Surgical History: Orthopedic Surgery Additional Past Surgical History / Comment(s): rt eye cataract removed, arthroscopy nigel knee, nigel foot surgery, bronchosocpy, cystoscopy/rt ureteroscopy, lithotripsy, port a cath - SINCE REMOVED ON 01-01-17 Past Anesthesia/Blood Transfusion Reactions: No Reported Reaction Past Psychological History: No Psychological Hx Reported Additional Psychological History / Comment(s): , Smoking Status: Former smoker Past Alcohol Use History: Occasional Additional Past Alcohol Use History / Comment(s): started smoking 1965, quit for 10 years and then quit again 2016, 1 PPD Past Drug Use History: None Reported - Past Family History Mother Family Medical History: CVA/TIA Additional Family Medical History / Comment(s): brain tumor Sister(s) Family Medical History: Cancer Additional Family Medical History / Comment(s): melanoma shoulder Father Family Medical History: Myocardial Infarction ([place]) Additional Family Medical History / Comment(s): all 5 of dad's brothers had a mi Medications and Allergies Home Medications Medication Instructions Recorded Confirmed Type Atorvastatin [Lipitor] 20 mg PO HS 11/26/14 02/10/17 History Doxazosin [Cardura] 4 mg PO BID 11/26/14 02/10/17 History Rivaroxaban [Xarelto] 20 mg PO DAILY 02/02/17 02/10/17 History Albuterol Nebulized [Ventolin 2.5 mg INHALATION RT-QID PRN 02/07/17 02/10/17 History Nebulized] Fluticasone Nasal [place] [Flonase 1 spray EA NOSTRIL DAILY 02/07/17 02/10/17 History Nasal [place]] Furosemide [Lasix] 40 mg PO DAILY 02/07/17 02/10/17 History Acetaminophen Tab [Tylenol Tab] 1,000 mg PO ONCE PRN 02/10/17 02/10/17 History Allergies Allergy/AdvReac Type Severity Reaction Status Date / Time Penicillins Allergy Swelling Verified 02/10/17 18:57 Physical Exam Vitals: Vital Signs Temp Pulse Pulse Pulse Resp BP BP 02/11/17 12:00 98.2 F 112 H 103 H 18 127/68 02/11/17 09:38 90 02/11/17 09:29 96 02/11/17 08:00 98.6 F 91 103 H 18 143/63 02/11/17 04:03 92 02/11/17 04:00 96.3 F L 102 H 18 132/61 02/11/17 03:50 100 02/11/17 00:08 104 H 02/11/17 00:00 99.6 F 120 H 18 02/10/17 23:50 100 02/10/17 22:31 100.9 F H 120 H 18 124/61 02/10/17 21:47 102.2 F H 119 H 18 105/57 02/10/17 20:37 103.1 F H 133 H 18 105/72 02/10/17 19:58 102.9 F H 139 H 20 116/58 02/10/17 19:09 103.3 F H 139 H 22 111/62 02/10/17 18:48 143 H 02/10/17 18:37 142 H 02/10/17 18:01 147 H 16 123/79 02/10/17 18:00 101.5 F H 140 H 22 132/71 Pulse Ox 02/11/17 12:00 96 02/11/17 09:38 02/11/17 09:29 02/11/17 08:00 94 L 02/11/17 04:03 02/11/17 04:00 93 L 02/11/17 03:50 02/11/17 00:08 02/11/17 00:00 02/10/17 23:50 02/10/17 22:31 95 02/10/17 21:47 94 L 02/10/17 20:37 93 L 02/10/17 19:58 94 L 02/10/17 19:09 93 L 02/10/17 18:48 02/10/17 18:37 02/10/17 18:01 91 L 02/10/17 18:00 90 L Intake and Output 02/10/17 02/11/17 02/11/17 22:59 06:59 14:59 Intake Total 1140 Balance 1140 Intake: IV 900 Meropenem 1 gm In Sodium 100 Chloride 0.9% 100 ml @ 200 mls/hr IVPB ONCE STA Rx#:[id number] Sodium Chloride 0.9% 1, 800 000 ml @ 100 mls/hr IV . Q10H [facility] Rx#:[id number] Oral 240 Other: Voiding Method Toilet # Voids 1 2 Weight 125.6 kg 125.6 kg Gen. appearance the patient is calm and comfortable likely distress. Not using accessory muscles of breathing.Head exam was generally normal. There was no scleral icterus or corneal arcus. Mucous membranes were moist. Neck is supple and the patient has significant crowding of the posterior oropharynx. There is no goiter or neck masses. Lungs sounds are diminished in lung bases pressure on the right. No wheezes or rhonchi any crackles.Cardiac exam revealed the PMI to be normally situated and sized. The rhythm was regular and no extrasystoles were noted during several minutes of auscultation. The first and second heart sounds were normal and physiologic splitting of the second heart sound was noted. There were no murmurs, rubs, clicks, or gallops. Abdomen is obese soft nontender. Organs cannot be accurately palpated. No direct tenderness or rebound tenderness or guarding.Examination of the extremities revealed easily palpable radial, femoral and pedal pulses. There was no cyanosis, clubbing or edema. Skin is within normal limits and there is no ulceration wounds or cellulitis. Exam the patient is awake and alert and there is no focal neurological deficits. Skeletal exam shows no deformities or active arthritis. Results - Laboratory Findings CBC and BMP: 02/10/17 18:15 02/10/17 18:15 PT/INR, D-dimer PT 10.2 sec (9.0-12.0) 02/10/17 18:15 INR 1.0 (<1.2) 02/10/17 18:15 Abnormal lab findings: Abnormal Labs 02/10/17 02/10/17 02/10/17 18:15 18:15 18:15 RBC 4.27 L RDW 15.9 H Plt Count 148 L Lymphocytes # 0.3 L Glucose 111 H Plasma Lactic Acid Livan 2.7 H* - Diagnostic Findings Chest x-ray: image reviewed Assessment and Plan Plan: Assessment 1 post bronchoscopy fever, probably induced by the procedure itself than being it show postobstructive pneumonia or any other infectious process. Please refer to discussion mentioned above. Currently the patient's fever has broken and he is covered with broad-spectrum antibiotics. He is back to his baseline. No significant tachycardia 2 shortness of breath, multifactorial. Most recently the patient has demonstrated a right lower lobe atelectasis due to obstruction of the right lower lobe orifice probably related to either radiation therapy or recurrent mass within the mediastinum. Please refer to my bronchoscopy report. 3 squamous cell carcinoma of the lung, this involving the right lower lobe. The patient also has a right upper lobe small cell lung cancer. 4 COPD with a baseline FEV1 of 65-66% of predicted 5 hypoxic respiratory failure will need oxygen at time of discharge 6 obstructive sleep apnea 7 hypertension 8 hyperlipidemia 9 coronary artery disease 10 BPH 11 radiation pneumonitis involving the right lung 12 questionable history of pulmonary embolism 13 nephrolithiasis 14 obesity Plan Continue monitoring the fever pattern. Obtain blood cultures. Continue same antibiotic coverage. Obtain a cardiology consultation to see if there is any other cardiac cause contributing to shortness of breath. Unfortunately the right lower lobe will remain atelectatic placed on Iressa scopic findings. Highly suspicious that there is recurrent tumor within the mediastinum causing obstruction of the distal bronchus intermedius and secondary right lower lobe atelectasis. We'll watch for any postobstructive pneumonia in addition.
--- NOTE | 2017-02-11 18:30 | ECHOF ---
Referral Reason:sob MEASUREMENTS -------- HEIGHT: 152.4 cm WEIGHT: 125.2 kg BP: 143/63 Ao Diam: 3.5 cm (2.0 - 3.7) AV Cusp: 2.3 cm (1.5 - 2.6) LA Diam: 4.5 cm (2.7 - 3.8) MV EXCURSION: 24.729 mm (> 18.000) MV EF SLOPE: 65 mm/s (70 - 150) EPSS: 0.9 cm MV E Damian: 0.38 m/s MV DecT: 263 ms MV A Damian: 0.55 m/s MV E/A Ratio: 0.68 FINDINGS -------- Sinus rhythm. Morbid Obesity This was a techncally difficult study with suboptimal views, , Definity utilized for enhancement of images. There is mild concentric left ventricular hypertrophy. Overall left ventricular systolic function is normal with, an EF between 55 - 60 %. The right ventricle is normal in size. The left atrial size is normal. The right atrial size is normal. 1.5MG OF DEFINITY UTLIZED: 2 OR MORE WALL SEGMENTS NOT VISUALIZED. There is mild aortic valve sclerosis. There is no evidence of aortic regurgitation. Mild mitral annular calcification present. Mild mitral regurgitation is present. No regurgitation noted Right ventricular systolic pressure is normal at < 35 mmHg. There is no evidence of pulmonary hypertension. The pulmonic valve was not well visualized. The aortic root size is normal. There is no pericardial effusion. CONCLUSIONS -------- 1. Morbid Obesity 2. Right ventricular systolic pressure is normal at < 35 mmHg. 3. There is no evidence of pulmonary hypertension. 4. The pulmonic valve was not well visualized. 5. The aortic root size is normal. 6. There is no pericardial effusion. 7. This was a techncally difficult study with suboptimal views, , Definity utilized for enhancement of images. 8. There is mild concentric left ventricular hypertrophy. 9. Overall left ventricular systolic function is normal with, an EF between 55 - 60 %. 10. 1.5MG OF DEFINITY UTLIZED: 2 OR MORE WALL SEGMENTS NOT VISUALIZED. 11. There is mild aortic valve sclerosis. 12. Mild mitral annular calcification present. 13. Mild mitral regurgitation is present. 14. No regurgitation noted PLAYGROUND ATTENDANT: Bia Weeks RDCS
[2017-02-11] MEDS: ACETAMINOPHEN TAB 325 MG TAB PO PRN (20:03)
[2017-02-11] MEDS: ATORVASTATIN 20 MG TAB PO SCH (20:10)
[2017-02-11] MEDS: LEVOFLOXACIN 750MG-D5W PMX 750 MG in DEXTROSE/WATER 1 150ML.BAG IVPB SCH (20:14)
[2017-02-11] MEDS: METOPROLOL TARTRATE 25 MG TAB PO SCH (20:14)
[2017-02-11] MEDS ORDERED: IPRATROPIUM-ALBUTEROL 3 ML NEB INHALATION PRN (21:13)
[2017-02-12] MEDS: ACETAMINOPHEN TAB 325 MG TAB PO PRN ×2 (04:10→18:30)
[2017-02-12 06:21] LABS: Basophils % (A) 0 %; CH 30.8; CHCM 32.2; Eosinophils # (A) 0.1 k/uL (0-0.7); Eosinophils % (A) 1 %; HCT 33.8 % (39.0-53.0); HDW 3.14; HGB 11.2 gm/dL (13.0-17.5); Hypochromasia Slight; Luc # (Auto) 0.22; Luc % (Auto) 4; Lymphocytes # (A) 0.2 k/uL (1.0-4.8); Lymphocytes % (A) 5 %; MCH 31.7 pg (25.0-35.0); MCV 95.8 fL (80.0-100.0); Monocytes # (A) 0.5 k/uL (0-1.0); Monocytes % (A) 10 %; Neutrophils # (A) 4.1 k/uL (1.3-7.7); Neutrophils % (A) 80 %; RBC 3.52 m/uL (4.30-5.90); RDW 15.8 % (11.5-15.5); WBC 5.1 k/uL (3.8-10.6); WBC (Perox) 5.55
[2017-02-12 06:27] LABS: Anion Gap 7 mmol/L; Blood Urea Nitrogen 12 mg/dL (9-20); Calcium 8.3 mg/dL (8.4-10.2); Carbon Dioxide 26 mmol/L (22-30); Chloride 108 mmol/L (98-107); Glucose 89 mg/dL (74-99); Non-African American GFR(MDRD) >60 (>60 ml/min/1.73 sqM); Potassium 3.8 mmol/L (3.5-5.1); Sodium 141 mmol/L (137-145)
[2017-02-12] MEDS: SODIUM CHLORIDE 0.9% 1,000 ML IV SCH ×3 (07:09→18:31)
[2017-02-12] MEDS: RIVAROXABAN 10 MG TAB PO SCH (07:11)
[2017-02-12] MEDS: MEROPENEM 1 GM in SODIUM CHLORIDE 0.9% 100 ML IVPB SCH ×2 (08:59→21:28)
[2017-02-12] MEDS: FLUTICASONE 50MCG/SPRAY NASAL 16GM EA NOSTRIL SCH (08:59)
[2017-02-12] MEDS: DOXAZOSIN 4 MG TAB PO SCH ×2 (09:03→21:28)
[2017-02-12] MEDS: FUROSEMIDE 40 MG TAB PO SCH (09:03)
[2017-02-12] MEDS: FAMOTIDINE 20 MG TAB PO SCH ×2 (09:04→21:28)
[2017-02-12] MEDS: METOPROLOL TARTRATE 25 MG TAB PO SCH ×2 (09:04→21:28)
[2017-02-12] MEDS: IPRATROPIUM-ALBUTEROL 3 ML NEB INHALATION SCH ×4 (09:26→19:39)
--- NOTE | 2017-02-12 11:39 | P.PN ---
Subjective This is a 66-year-old male patient who underwent a bronchoscopy yesterday for ongoing shortness of breath. The procedure showed obstruction of the right lower lobe bronchus orifice due to some mass effect of the distal bronchus intermedius. I performed a bronchial lavage of the right lower lobe. No biopsies were done. Postop, the patient was discharged home. I was informed that the patient was having some tachycardia and fever. Apparently he was having high-grade fever and for that reason I asked the patient to present back to the emergency department. In the ED, the patient was given a chest x-ray which again showed the presence of a right lower lobe atelectasis. He was placed on anti-biotics and following that he was noted today telemetry unit. On today's evaluation, the patient is awake and alert. The patient had on and off fever throughout the night and this morning he is afebrile. He is covered with broad-spectrum antibiotics. No significant sputum production. Note that during my bronchoscopy, I was not able to see any significant purulent secretions in the right lower lobe. As such a postobstructive pneumonia is doubtful at this stage. In any rate, the patient was given antibiotics and currently is afebrile. He has chronic dyspnea which is essentially multifactorial. No chest pain. No pleurisy. No hemoptysis. 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 This was confirmed by bronchoscopy that I performed on him back in June 2016. Since then the patient has received radiation therapy and systemic chemotherapy. His radiation therapy was further complicated by development of a pneumonitis in the right lower lobe. Subsequent CAT scans of the chest showed evidence of radiation pneumonitis. The most recent CT of the chest showed no evidence of any pulmonary embolism. It showed worsening of the right lower lobe atelectasis /consolidation and it also showed a small to moderate-sized right-sided pleural effusion. Note that the patient was being treated with steroids at a higher dose regarding his radiation pneumonitis and this was given to him by radiation oncology. The patient at one point was also suspected to have pulmonary embolism and for that reason he was placed on anticoagulation. I personally was not convinced of this diagnosis. In a day. On long-term anticoagulation which [employer]. is reasonable to continue and is on Xarelto. On 02/12/2017 the patient is being seen in follow-up. His condition essentially the same. After having his fever dropped, the patient had another episode of fever with a temperature of 100.6 at 8:00 yesterday and at 4 AM was 100.3 . Currently is afebrile. He is hemodynamically stable. No cough sputum production chest tightness or wheezing. No sputum production. No leukocytosis pain no change in mental status. No other complaints otherwise for now. The bronchioloalveolar lavage was collected from the right lower lobe was negative for any abnormal cells or malignancies. He has no hemoptysis at this point. The patient remains on a combination of Merrem and Levaquin. Pulse ox 97% on 2 L. Hemodynamics essentially stable. He is ambulating. Objective - Vital Signs Vital signs: Vital Signs Temp 98.1 F 02/12/17 08:00 Pulse 94 02/12/17 09:37 Resp 18 02/12/17 08:00 BP 114/57 02/12/17 08:00 Pulse Ox 97 02/12/17 09:26 Intake & Output 02/11/17 02/12/17 02/12/17 18:59 06:59 18:59 Intake Total 1542 1850 1080 Balance 1542 1850 1080 Weight 125.6 kg Intake: IV 900 1600 900 Meropenem 1 gm In Sodium 100 100 Chloride 0.9% 100 ml @ 200 mls/hr IVPB ONCE STA Rx#:[id number] Sodium Chloride 0.9% 1, 800 1600 800 000 ml @ 100 mls/hr IV . Q10H AN[facility] Rx#:[id number] Intake, IV Titration 250 Amount Levofloxacin 750Mg-D5w 150 Pmx 750 mg In Dextrose/ Water 1 150ml.bag @ 100 mls/hr IVPB Q24H [facility] Rx#: [id number] Meropenem 1 gm In Sodium 100 Chloride 0.9% 100 ml @ 200 mls/hr IVPB Q12HR [facility] Rx#:[id number] Oral 642 180 Other: Voiding Method Toilet # Voids 2 2 - Exam Gen. appearance the patient is calm and comfortable likely distress. Not using accessory muscles of breathing.Head exam was generally normal. There was no scleral icterus or corneal arcus. Mucous membranes were moist. Neck is supple and the patient has significant crowding of the posterior oropharynx. There is no goiter or neck masses. Lungs sounds are diminished in lung bases pressure on the right. No wheezes or rhonchi any crackles.Cardiac exam revealed the PMI to be normally situated and sized. The rhythm was regular and no extrasystoles were noted during several minutes of auscultation. The first and second heart sounds were normal and physiologic splitting of the second heart sound was noted. There were no murmurs, rubs, clicks, or gallops. Abdomen is obese soft nontender. Organs cannot be accurately palpated. No direct tenderness or rebound tenderness or guarding.Examination of the extremities revealed easily palpable radial, femoral and pedal pulses. There was no cyanosis, clubbing or edema. Skin is within normal limits and there is no ulceration wounds or cellulitis. Exam the patient is awake and alert and there is no focal neurological deficits. Skeletal exam shows no deformities or active arthritis. - Labs CBC & Chem 7: 02/12/17 05:42 02/12/17 05:42 Labs: Abnormal Lab Results - Last 24 Hours (Table) 02/12/17 02/12/17 Range/Units 05:42 05:42 RBC 3.52 L (4.30-5.90) m/uL Hgb 11.2 L (13.0-17.5) gm/dL Hct 33.8 L (39.0-53.0) % RDW 15.8 H (11.5-15.5) % Plt Count 136 L (150-450) k/uL Lymphocytes # 0.2 L (1.0-4.8) k/uL Chloride 108 H (98-107) mmol/L Calcium 8.3 L (8.4-10.2) mg/dL Microbiology - Last 24 Hours (Table) 02/10/17 18:15 Blood Culture - Preliminary Blood No Growth after 24 hours Assessment and Plan Plan: Assessment 1 post bronchoscopy fever, probably induced by the procedure itself than being it show postobstructive pneumonia or any other infectious process. Please refer to discussion mentioned above. Currently the patient's fever has broken and he is covered with broad-spectrum antibiotics. He is back to his baseline. No significant tachycardia On 02/12/2017 the patient is still having episodes of fever which is being monitored very closely. Doubt any infectious or septic complications. Currently the patient on broad-spectrum antibiotics. The bronchioloalveolar lavage was collected from the right lower lobe showed no evidence of any malignant cells. The patient has a right lower lobe atelectasis which probably is contributing to his fever. 2 shortness of breath, multifactorial. Most recently the patient has demonstrated a right lower lobe atelectasis due to obstruction of the right lower lobe orifice probably related to either radiation therapy or recurrent mass within the mediastinum. Please refer to my bronchoscopy report. 3 squamous cell carcinoma of the lung, this involving the right lower lobe. The patient also has a right upper lobe small cell lung cancer. 4 COPD with a baseline FEV1 of 65-66% of predicted 5 hypoxic respiratory failure will need oxygen at time of discharge 6 obstructive sleep apnea 7 hypertension 8 hyperlipidemia 9 coronary artery disease 10 BPH 11 radiation pneumonitis involving the right lung 12 questionable history of pulmonary embolism 13 nephrolithiasis 14 obesity Plan Continue monitoring the fever pattern. The blood culture is negative. Echocardiogram is within normal limits. We'll continue monitoring the fever pattern I will consider discharging this patient home once his fever defervescence. He is awake and alert. He is hemodynamically stable.
--- NOTE | 2017-02-12 12:48 | P.PN ---
Subjective Principal diagnosis: 58-year-old male seen and examined on rounds with Dr. Escoto. His family is at the bedside. The patient continues to complain of shortness of breath. He remains on a 2L nasal cannula with oxygen saturations greater than 92%. He denies chest pain or pressure. The patient did have 2 episodes of a fever last night that required Tylenol. His blood cultures are negative at the 24-hour karina. He is tolerating oral diet without nausea or vomiting. The patient was started on a beta juventino per cardiology for tachycardia. His heart rate has improved and is ranging between 80 and 100. Echocardiogram was completed yesterday which shows an EF of 55-60%. Patient's stating she would like a shower chair for the patient upon discharge. Spoke with case management, Betty, who spoke with patient's and notified her that insurance does not cover shower chairs. The patient also requested a rolling walker which a prescription was signed for by Dr. Escoto. Objective - Vital Signs Vital signs: Vital Signs Temp 98.1 F 02/12/17 08:00 Pulse 96 02/12/17 12:28 Resp 18 02/12/17 08:00 BP 114/57 02/12/17 08:00 Pulse Ox 97 02/12/17 09:26 Intake & Output 02/11/17 02/12/17 02/12/17 18:59 06:59 18:59 Intake Total 1542 1850 1080 Balance 1542 1850 1080 Weight 125.6 kg Intake: IV 900 1600 900 Meropenem 1 gm In Sodium 100 100 Chloride 0.9% 100 ml @ 200 mls/hr IVPB ONCE STA Rx#:[id number] Sodium Chloride 0.9% 1, 800 1600 800 000 ml @ 100 mls/hr IV . Q10H [facility] Rx#:[id number] Intake, IV Titration 250 Amount Levofloxacin 750Mg-D5w 150 Pmx 750 mg In Dextrose/ Water 1 150ml.bag @ 100 mls/hr IVPB Q24H [facility] Rx#: [id number] Meropenem 1 gm In Sodium 100 Chloride 0.9% 100 ml @ 200 mls/hr IVPB Q12HR [facility] Rx#:[id number] Oral 642 180 Other: Voiding Method Toilet # Voids 2 2 - Exam GENERAL: Alert and oriented. Appears in no acute distress. Pleasant and cooperative. RESPIRATORY: Lungs clear bilaterally, diminished. No use of accessory muscles. Patient maintaining oxygen saturation greater than 92% on 2 L his cannula. CARDIOVASCULAR: S1 and S2 noted. No murmurs auscultated. No JVD noted. EXTREMITIES: Trace edema noted to bilateral lower extremities. Palpable pedal pulses +2. ABDOMEN: Obese. No distention noted. Abdomen soft and round. Normal active bowel sounds auscultated 4 quadrants. No pain or tenderness noted upon palpation. - Labs CBC & Chem 7: 02/12/17 05:42 02/12/17 05:42 Labs: Abnormal Lab Results - Last 24 Hours (Table) 02/12/17 02/12/17 Range/Units 05:42 05:42 RBC 3.52 L (4.30-5.90) m/uL Hgb 11.2 L (13.0-17.5) gm/dL Hct 33.8 L (39.0-53.0) % RDW 15.8 H (11.5-15.5) % Plt Count 136 L (150-450) k/uL Lymphocytes # 0.2 L (1.0-4.8) k/uL Chloride 108 H (98-107) mmol/L Calcium 8.3 L (8.4-10.2) mg/dL Microbiology - Last 24 Hours (Table) 02/10/17 18:15 Blood Culture - Preliminary Blood No Growth after 24 hours Assessment and Plan Plan: ASSESSMENT: -Shortness of breath, multifactorial, present on admission, s/p bronchoscopy, secondary to right lower lobe atelectasis due to obstruction of the right lower lobe -Pneumonia, ruled out -History of squamous cell carcinoma of the lung, s/p chemotherapy and radiation -Febrile, present on admission, infectious process unlikely, cultures pending, etiology completely unclear however thought to be induced by bronchoscopy -Tachycardia, present on admission, improving with beta juventino -Acute hypoxic respiratory failure requiring supplemental oxygen -History of pulmonary embolism, with long-term anticoagulation with Xarelto -History of COPD, no evidence of acute exacerbation -Essential hypertension -History of sleep apnea with use of CPAP machine -Nicotine dependence, in remission, patient quit in 2016 -Morbid Obesity: BMI 39.7 PLAN: -Pulmonary on consult. Appreciate recommendations and input. -Cardiology on consult appreciate recommendations and input. -Continue beta juventino per cardiology -Continue to monitor for fevers -Monitor labs -Continue Levaquin and Meropenem -Continue Xarelto for history of PE -GI prophylaxis: Pepcid 20 mg by mouth twice a day -DVT prophylaxis: Xarelto 20 mg daily (patients home med for hx of PE) -Monitor vital signs and address as appropriate -Case management on for consult for home oxygen. Script for rolling walker as well. The above impression and plan of care have been discussed and directed by signing physician. Zohra Horvath, nurse practitioner, acting as scribe for signing physician.
--- NOTE | 2017-02-12 15:07 | P.PN ---
Subjective Principal diagnosis: Shortness of breath This is a 66-year-old gentleman with history of hyperlipidemia, hypertension, obesity, lung cancer, who presented to the hospital with symptoms of shortness of breath . Patient was diagnosed with small cell and non-small cell lung cancer and underwent radiation therapy along with chemotherapy a few months ago. In general he's not been feeling well, complaining of some shortness of breath. He underwent a bronchoscopy yesterday for further clarification. Continues to feel short of breath and for this reason came to the hospital. Patient was tachycardic presentation here, heart rate in the 130s. Currently he is maintaining a heart rate of 90, normal sinus rhythm. He showed normal sinus rhythm without any significant ST or T-wave changes. Troponins are negative 2, TSH level was normal. Patient seen and examined today, breathing much better overall. Temperature 100.1. Blood pressure 109/58. Echocardiogram with Doppler study was performed which revealed an ejection fraction of 55-60%. Hemoglobin 11.2, platelet count 136, potassium 3.8, BUN 12 , creatinine 1.4. We'll continue the beta juventino 25 mg one tablet by mouth twice a day. Objective - Vital Signs Vital signs: Vital Signs Temp 98.5 F 02/12/17 13:00 Pulse 96 02/12/17 12:28 Resp 16 02/12/17 12:00 BP 109/59 02/12/17 12:00 Pulse Ox 94 L 02/12/17 12:00 Intake & Output 02/11/17 02/12/17 02/12/17 18:59 06:59 18:59 Intake Total 1542 1850 1080 Balance 1542 1850 1080 Weight 125.6 kg Intake: IV 900 1600 900 Meropenem 1 gm In Sodium 100 100 Chloride 0.9% 100 ml @ 200 mls/hr IVPB ONCE STA Rx#:[id number] Sodium Chloride 0.9% 1, 800 1600 800 000 ml @ 100 mls/hr IV . Q10H [facility] Rx#:[id number] Intake, IV Titration 250 Amount Levofloxacin 750Mg-D5w 150 Pmx 750 mg In Dextrose/ Water 1 150ml.bag @ 100 mls/hr IVPB Q24H [facility] Rx#: [id number] Meropenem 1 gm In Sodium 100 Chloride 0.9% 100 ml @ 200 mls/hr IVPB Q12HR [facility] Rx#:[id number] Oral 642 180 Other: Voiding Method Toilet # Voids 2 2 - Exam PHYSICAL EXAMINATION: HEENT: Head is atraumatic, normocephalic. Pupils equal, round. Neck is supple. There is no elevated jugular venous pressure. HEART EXAMINATION: Heart S1, split S2 heard. No murmur or gallop heard. CHEST EXAMINATION: Lungs reveal diminished air entry to the bases. No audible wheezes or rhonchi were heard. ABDOMEN: Soft, nontender. Bowel sounds are heard. No organomegaly noted. EXTREMITIES: 2+ peripheral pulses with no evidence of peripheral edema and no calf tenderness noted. NEUROLOGIC patient is awake, alert and oriented -3. . - Labs CBC & Chem 7: 02/12/17 05:42 02/12/17 05:42 Labs: Abnormal Lab Results - Last 24 Hours (Table) 02/12/17 02/12/17 Range/Units 05:42 05:42 RBC 3.52 L (4.30-5.90) m/uL Hgb 11.2 L (13.0-17.5) gm/dL Hct 33.8 L (39.0-53.0) % RDW 15.8 H (11.5-15.5) % Plt Count 136 L (150-450) k/uL Lymphocytes # 0.2 L (1.0-4.8) k/uL Chloride 108 H (98-107) mmol/L Calcium 8.3 L (8.4-10.2) mg/dL Microbiology - Last 24 Hours (Table) 02/10/17 18:15 Blood Culture - Preliminary Blood No Growth after 24 hours Assessment and Plan (1) COPD (chronic obstructive pulmonary disease) Status: Acute (2) Sleep apnea Status: Acute (3) HTN (hypertension) Status: Acute (4) Hyperlipemia Status: Acute (5) CAD (coronary artery disease) Status: Acute (6) Radiation pneumonitis Status: Acute (7) Obesity Status: Acute (8) Febrile illness, acute Status: Acute (9) Postobstructive pneumonia Status: Acute (10) Lung cancer Status: Acute Plan: Cardiology's perspective, we'll continue the patient on his current medications. He will require stress testing down the road. DNP note has been reviewed, I agree with a documented findings and plan of care. Patient was seen and examined.
[2017-02-12] MEDS: ATORVASTATIN 20 MG TAB PO SCH (21:28)
[2017-02-12] MEDS: LEVOFLOXACIN 750MG-D5W PMX 750 MG in DEXTROSE/WATER 1 150ML.BAG IVPB SCH (22:30)
--- NOTE | 2017-02-13 08:13 | XR ---
EXAMINATION TYPE: XR chest 2V DATE OF EXAM: 02/13/2017 COMPARISON: NONE INDICATION: Right lower lobe atelectasis TECHNIQUE: Frontal and lateral views of the chest are obtained. FINDINGS: The heart size is normal. The pulmonary vasculature is slightly prominent. There is hyperinflation flattening the diaphragms wh ich can be compatible COPD. A large right middle lobe consolidation silhouetting the right heart diaphragm is present. Milder inf iltrate is present in the posterior right lower lobe. There is blunting of the right costophrenic ang le. A right pleural effusion is present. IMPRESSION: 1. Right middle and lower lobe infiltrates and consolidations. Correlate for pneumonia. Atelectasis i s within the differential. This is complicated by a small increasing right pleural effusion. 2. COPD
[2017-02-13] MEDS: IPRATROPIUM-ALBUTEROL 3 ML NEB INHALATION SCH ×4 (08:20→20:38)
[2017-02-13] MEDS: RIVAROXABAN 10 MG TAB PO SCH (09:08)
[2017-02-13] MEDS: FAMOTIDINE 20 MG TAB PO SCH ×2 (09:10→20:57)
[2017-02-13] MEDS: FLUTICASONE 50MCG/SPRAY NASAL 16GM EA NOSTRIL SCH (09:10)
[2017-02-13] MEDS: DOXAZOSIN 4 MG TAB PO SCH ×2 (09:10→20:57)
[2017-02-13] MEDS: FUROSEMIDE 40 MG TAB PO SCH (09:10)
[2017-02-13] MEDS: METOPROLOL TARTRATE 25 MG TAB PO SCH ×2 (09:11→20:57)
[2017-02-13] MEDS: MEROPENEM 1 GM in SODIUM CHLORIDE 0.9% 100 ML IVPB SCH ×2 (10:33→20:58)
--- NOTE | 2017-02-13 11:54 | P.PN ---
Subjective Principal diagnosis: 58-year-old male seen and examined this morning. His family is at the bedside. He states his shortness of breath has improved since yesterday. He remained on 2 L nasal cannula. Nursing walked the patient yesterday on room air and the patient's oxygen saturations dropped into the 80s. Case management currently working on home oxygen. The patient did have a temperature last of 100.8. This morning the patient is 99.1. His blood cultures remain negative at the 48 hour karina. Sputum culture is pending. He is tolerating oral diet without nausea or vomiting. The patient was started on a beta juventino per cardiology for tachycardia. His heart rate has improved and is ranging between 80 and 96. Echocardiogram was completed which shows an EF of 55-60%. Objective - Vital Signs Vital signs: Vital Signs Temp 99.1 F 02/13/17 07:05 Pulse 80 02/13/17 08:35 Resp 16 02/13/17 07:05 BP 122/72 02/13/17 07:05 Pulse Ox 94 L 02/13/17 07:05 Intake & Output 02/12/17 02/13/17 02/13/17 18:59 06:59 18:59 Intake Total 1496 850 Balance 1496 850 Intake: IV 900 550 Levofloxacin 750Mg-D5w 150 Pmx 750 mg In Dextrose/ Water 1 150ml.bag @ 100 mls/hr IVPB Q24H [facility] Rx#: [id number] Meropenem 1 gm In Sodium 100 Chloride 0.9% 100 ml @ 200 mls/hr IVPB ONCE STA Rx#:[id number] Meropenem 1 gm In Sodium 100 Chloride 0.9% 100 ml @ 200 mls/hr IVPB Q12HR [facility] Rx#:[id number] Sodium Chloride 0.9% 1, 800 300 000 ml @ 100 mls/hr IV . Q10H AN[facility] Rx#:[id number] Oral 596 300 Other: Voiding Method Toilet # Voids 1 - Exam GENERAL: Alert and oriented. Appears in no acute distress. Pleasant and cooperative. RESPIRATORY: Lungs clear bilaterally, diminished. No use of accessory muscles. Patient maintaining oxygen saturation greater than 92% on 2 L nasal cannula. CARDIOVASCULAR: S1 and S2 noted. No murmurs auscultated. No JVD noted. EXTREMITIES: no edema noted. Palpable pedal pulses +2. ABDOMEN: Obese. No distention noted. Abdomen soft and round. Normal active bowel sounds auscultated 4 quadrants. No pain or tenderness noted upon palpation. - Labs CBC & Chem 7: 02/12/17 05:42 02/12/17 05:42 Labs: Microbiology - Last 24 Hours (Table) 02/12/17 09:00 Gram Stain - Preliminary Sputum 02/10/17 18:15 Blood Culture - Preliminary Blood No Growth after 48 hours Assessment and Plan Plan: ASSESSMENT: -Shortness of breath, multifactorial, present on admission, s/p bronchoscopy, secondary to right lower lobe atelectasis due to obstruction of the right lower lobe -Pneumonia, ruled out -History of squamous cell carcinoma of the lung, s/p chemotherapy and radiation -Febrile, present on admission, cultures pending, etiology completely unclear however thought to be induced by bronchoscopy -Tachycardia, present on admission, improving with beta juventino -Acute hypoxic respiratory failure requiring supplemental oxygen -History of pulmonary embolism, with long-term anticoagulation with Xarelto -History of COPD, no evidence of acute exacerbation -Essential hypertension -History of sleep apnea with use of CPAP machine -Nicotine dependence, in remission, patient quit in 2016 -Morbid Obesity: BMI 39.7 PLAN: -Pulmonary on consult. Appreciate recommendations and input. -Cardiology on consult appreciate recommendations and input. -Infectious disease consulted. Await recommendations. -Continue beta juventino per cardiology -Continue to monitor for fevers -Monitor labs -Decrease IVF fluids as oral intake is adequate -Continue Levaquin and Meropenem -Continue Xarelto for history of PE -GI prophylaxis: Pepcid 20 mg by mouth twice a day -DVT prophylaxis: Xarelto 20 mg daily (patients home med for hx of PE) -Monitor vital signs and address as appropriate -Case management on for consult for home oxygen. Script for rolling walker as well. The above impression and plan of care have been discussed and directed by signing physician. Zohra Horvath, nurse practitioner, acting as scribe for signing physician.
--- NOTE | 2017-02-13 14:15 | P.CONS ---
History of Present Illness - Reason for Consult Consult date: 02/13/17 Fever - History of Present Illness This is a 66-year-old male patient diagnosed earlier this year with non-small cell lung cancer and small cell lung cancer and underwent radiation therapy of 33 treatments under the care of Dr. Lopez and then from June through October went through 6 sessions of chemotherapy under the care of Dr. Moss. Patient was doing okay until November when he started having increasing shortness of breath with cough all the time with sputum clear to creamy color. He saw Dr. Lopez on December 20 was placed on prednisone for 10 week course for radiation pneumonitis. Patient states for the initial first week he was feeling better but after that he was back to the same shortness of breath as he had prior to starting steroids. This did not seem to make any improvement and continued to worsen and he saw Dr. Oropeza who took him off the prednisone on February 02 and scheduled him for bronchoscopy. Patient also states he has had an increase of 20 pounds over the past 2 months and increased edema in his feet and ankles. On February 10, he underwent a bronchoscopy which showed right lower lobe atelectasis. The right lower lobe bronchus orifice was significantly compromised and near completely occluded. He was unable to pass the bronchoscope mainly due to extrinsic compression as a lateral wall of the bronchus intermedius was pushed and causing complete or near complete obstruction of the right lower lobe. There was no endo-bronchial tumors or masslike lesions obstructing the bronchial orifice. Pathology revealed no malignant cells on the bronchial washings. Patient was discharged home and several hours later he developed increasing shortness of breath for which he contacted Dr. Oropeza and was instructed to come into [facility] emergency center for evaluation. He had a temperature of 103.3 and last fever was documented on February 12 at 1800 of 101.5. White count on presentation was 6.2 and platelet count 148. Patient was admitted to the [facility] floor and placed on IV antibiotics the form of meropenem and Levaquin. He does state that his shortness of breath is improving but not back to baseline. is concerned that he has had this chronic cough that is unrelenting since November. Patient has been followed by cardiology for sinus tachycardia present on admission and has been placed on metoprolol. Patient also has been seen and followed by Dr. Artinian Review of Systems All systems: negative Constitutional: Reports chills, Reports fatigue, Reports fever, Reports lethargy , Reports malaise, Reports weakness, Reports weight gain Eyes: bilateral decreased vision, denies blurred vision, denies diplopia, denies pain Ears, nose, mouth and throat: Reports nasal discharge, Reports post-nasal drip, Denies dental pain, Denies headache, Denies mouth pain, Denies sore throat Cardiovascular: Reports decreased exercise tolerance, Reports dyspnea on exertion, Reports edema, Reports leg edema, Reports rapid heart beat, Denies chest pain, Denies lightheadedness, Denies palpitations, Denies shortness of breath, Denies syncope Respiratory: Reports cough, Reports cough with sputum, Reports dyspnea, Reports excessive sputum, Reports home oxygen, Reports sleep apnea, Denies hemoptysis Gastrointestinal: Denies abdominal pain, Denies diarrhea, Denies nausea, Denies vomiting Musculoskeletal: Denies myalgias Integumentary: Denies pruritus, Denies rash, Denies wounds Neurological: Denies numbness, Denies weakness Psychiatric: Denies anxiety, Denies depression Endocrine: Denies fatigue, Denies weight change Past Medical History Past Medical History: Coronary Artery Disease (CAD), Cancer, COPD, GERD/Reflux, Hyperlipidemia, Hypertension, Osteoarthritis (OA), Prostate Disorder, Sleep Apnea/CPAP/BIPAP Additional Past Medical History / Comment(s): increased SOB with last mos,uses cpap,01/06/17 PE. 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 MDRO Source:: URINE Past Surgical History: Orthopedic Surgery Additional Past Surgical History / Comment(s): rt eye cataract removed, arthroscopy nigel knee, nigel foot surgery, bronchosocpy, cystoscopy/rt ureteroscopy, lithotripsy, port a cath - SINCE REMOVED ON 01-01-17 Past Anesthesia/Blood Transfusion Reactions: No Reported Reaction Past Psychological History: No Psychological Hx Reported Additional Psychological History / Comment(s): , Smoking Status: Former smoker Past Alcohol Use History: Occasional Additional Past Alcohol Use History / Comment(s): started smoking 1965, quit for 10 years and then quit again 2015, 1 PPD. No medical marijuana, marijuana or street drug use. Patient lives at home with his . There are no pets in the home. does have a pool was only been admitted twice all summer. He is worked in the past in [employer] in a found[employer]. He does travel to [place] to [employer] occasionally. Past Drug Use History: None Reported - Past Family History Mother Family Medical History: CVA/TIA Additional Family Medical History / Comment(s): brain tumor Sister(s) Family Medical History: Cancer Additional Family Medical History / Comment(s): melanoma shoulder Father Family Medical History: Myocardial Infarction ([place]) Additional Family Medical History / Comment(s): all 5 of dad's brothers had a mi Medications and Allergies Home Medications Medication Instructions Recorded Confirmed Type Atorvastatin [Lipitor] 20 mg PO HS 11/26/14 02/10/17 History Doxazosin [Cardura] 4 mg PO BID 11/26/14 02/10/17 History Rivaroxaban [Xarelto] 20 mg PO DAILY 02/02/17 02/10/17 History Albuterol Nebulized [Ventolin 2.5 mg INHALATION RT-QID PRN 02/07/17 02/10/17 History Nebulized] Fluticasone Nasal Latexo [Flonase 1 spray EA NOSTRIL DAILY 02/07/17 02/10/17 History Nasal Latexo] Furosemide [Lasix] 40 mg PO DAILY 02/07/17 02/10/17 History Acetaminophen Tab [Tylenol Tab] 1,000 mg PO ONCE PRN 02/10/17 02/10/17 History Meropenem [Merrem] 1 gm IVPB Q8H #23 vial 02/14/17 Rx Metoprolol Tartrate [Lopressor] 25 mg PO BID #60 tab 02/14/17 Rx Allergies Allergy/AdvReac Type Severity Reaction Status Date / Time Penicillins Allergy Swelling Verified 02/10/17 18:57 Physical Exam Vitals: Vital Signs Temp Pulse Pulse Pulse Resp BP Pulse Ox 02/13/17 12:02 98.4 F 78 02/13/17 12:01 117 H 88 15 02/13/17 11:51 82 02/13/17 08:35 80 02/13/17 08:23 84 02/13/17 07:05 99.1 F 88 15 122/72 94 L 02/13/17 07:00 117 H 88 16 02/13/17 04:50 98.1 F 02/13/17 00:34 98.7 F 02/12/17 21:15 99.0 F 98 18 139/71 94 L 02/12/17 19:51 88 02/12/17 19:39 88 02/12/17 18:31 100.8 F H 02/12/17 15:55 90 02/12/17 15:49 100.0 F H 89 18 117/59 95 02/12/17 15:45 89 Intake and Output 02/12/17 02/13/17 02/13/17 22:59 06:59 14:59 Intake Total 536 550 280 Balance 536 550 280 Intake: IV 550 Levofloxacin 750Mg-D5w 150 Pmx 750 mg In Dextrose/ Water 1 150ml.bag @ 100 mls/hr IVPB Q24H ANGEL Rx#: [id number] Meropenem 1 gm In Sodium 100 Chloride 0.9% 100 ml @ 200 mls/hr IVPB Q12HR ANGEL Rx#:[id number] Sodium Chloride 0.9% 1, 300 000 ml @ 100 mls/hr IV . Q10H ANGEL Rx#:[id number] Oral 536 280 Other: Voiding Method Toilet Toilet # Voids 1 1 1 Gen: This is a 66-year-old morbidly obese male. He is seeing sitting up in bed and appears to be comfortable. He does have oxygen on and is able to speak in full sentences. He does get dyspneic with minimal activity such as going to a standing position. HEENT: Head is atraumatic, normocephalic. Pupils equal, round. Sclerae is anicteric. Conjunctiva pink. Mucous membranes of the mouth are slightly dry. No thrush noted. Dentition is in good order. NECK: Supple. No JVD. No lymphadenopathy. No thyromegaly. LUNGS: Diminished on the right side but otherwise clear to auscultation. No intercostal retractions. HEART: Regular rate and rhythm. No murmur. ABDOMEN: Soft. Morbidly obese. Bowel sounds are present. No masses. No tenderness. EXTREMITIES: Trace bilateral pedal edema. No calf tenderness. No wounds noted. NEUROLOGICAL: Patient is awake, alert and oriented x3. Cranial nerves 2 through 12 are grossly intact. Results Results: Laboratory Results WBC 5.1 k/uL (3.8-10.6) 02/12/17 05:42 RBC 3.52 m/uL (4.30-5.90) L 02/12/17 05:42 Hgb 11.2 gm/dL (13.0-17.5) L 02/12/17 05:42 Hct 33.8 % (39.0-53.0) L 02/12/17 05:42 MCV 95.8 fL (80.0-100.0) 02/12/17 05:42 MCH 31.7 pg (25.0-35.0) 02/12/17 05:42 MCHC 33.0 g/dL (31.0-37.0) 02/12/17 05:42 RDW 15.8 % (11.5-15.5) H 02/12/17 05:42 Plt Count 136 k/uL (150-450) L 02/12/17 05:42 Neutrophils % 80 % 02/12/17 05:42 Lymphocytes % 5 % 02/12/17 05:42 Monocytes % 10 % 02/12/17 05:42 Eosinophils % 1 % 02/12/17 05:42 Basophils % 0 % 02/12/17 05:42 Neutrophils # 4.1 k/uL (1.3-7.7) 02/12/17 05:42 Lymphocytes # 0.2 k/uL (1.0-4.8) L 02/12/17 05:42 Monocytes # 0.5 k/uL (0-1.0) 02/12/17 05:42 Eosinophils # 0.1 k/uL (0-0.7) 02/12/17 05:42 Basophils # 0.0 k/uL (0-0.2) 02/12/17 05:42 Hypochromasia Slight 02/12/17 05:42 PT 10.2 sec (9.0-12.0) 02/10/17 18:15 INR 1.0 (<1.2) 02/10/17 18:15 APTT 22.1 sec (22.0-30.0) 02/10/17 18:15 Sodium 141 mmol/L (137-145) 02/12/17 05:42 Potassium 3.8 mmol/L (3.5-5.1) 02/12/17 05:42 Chloride 108 mmol/L (98-107) H 02/12/17 05:42 Carbon Dioxide 26 mmol/L (22-30) 02/12/17 05:42 Anion Gap 7 mmol/L 02/12/17 05:42 BUN 12 mg/dL (9-20) 02/12/17 05:42 Creatinine 1.14 mg/dL (0.66-1.25) 02/12/17 05:42 Est GFR (MDRD) Af Amer >60 (>60 ml/min/1.73 sqM) 02/12/17 05:42 Est GFR (MDRD) Non-Af >60 (>60 ml/min/1.73 sqM) 02/12/17 05:42 Glucose 89 mg/dL (74-99) 02/12/17 05:[address] Glu mg/dL 117 mg/dL 02/11/17 05:14 Hemoglobin A1c 5.7 % (4.2-6.1) 02/11/17 05:14 Lactic Ac Sepsis Rflx Y 02/10/17 18:43 Plasma Lactic Acid Livan 1.4 mmol/L (0.7-2.0) 02/11/17 05:14 Calcium 8.3 mg/dL (8.4-10.2) L 02/12/17 05:42 Magnesium 1.6 mg/dL (1.6-2.3) 02/10/17 18:15 Total Bilirubin 0.8 mg/dL (0.2-1.3) 02/10/17 18:15 AST 39 U/L (17-59) 02/10/17 18:15 ALT 42 U/L (21-72) 02/10/17 18:15 Alkaline Phosphatase 92 U/L (38-126) 02/10/17 18:15 Total Creatine Kinase 138 U/L (55-170) 02/10/17 18:15 CK-MB (CK-2) 2.2 ng/mL (0.0-2.4) 02/10/17 18:15 CK-MB (CK-2) Rel Index 1.6 02/10/17 18:15 Troponin I <0.012 ng/mL (0.000-0.034) 02/12/17 17:57 NT-Pro-B Natriuret Pep 92 pg/mL 02/10/17 18:15 Total Protein 7.0 g/dL (6.3-8.2) 02/10/17 18:15 Albumin 3.9 g/dL (3.5-5.0) 02/10/17 18:15 TSH 3.470 mIU/L (0.465-4.680) 02/11/17 05:14 CBC & Chem 7: 02/14/17 08:25 02/14/17 08:25 Labs: Microbiology - Last 24 Hours (Table) 02/12/17 09:00 Gram Stain - Preliminary Sputum 02/10/17 18:15 Blood Culture - Preliminary Blood No Growth after 48 hours Assessment and Plan Plan: This is a 66-year-old male was developed significant fever and signs of sepsis with fever and tachycardia with shortness of breath secondary to postobstructive pneumonia, gram-negative pneumonia, he has been on IV antibiotics the form of meropenem and Levaquin with some improvement of his symptoms. Patient was recently under treatment with prednisone for radiation pneumonitis. Patient underwent bronchoscopy and lavage was negative for malignant cells. Patient has been diagnosed with right lower lobe atelectasis due to obstruction of the right lower lobe orifice probably related to radiation therapy or recurrent mass within the mediastinum. 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 Also complicating his respiratory status is COPD and obstructive sleep apnea. Continue supportive care. Further recommendations as patient progresses. The above dictated assessment and findings were discussed with Dr. Cuadra. The impression and plan of care have been directed as dictated. Alycia Chappell nurse practitioner acting as scribe for Dr. Cuadra.
--- NOTE | 2017-02-13 16:44 | P.PN ---
Subjective This is a 66-year-old male patient who underwent a bronchoscopy yesterday for ongoing shortness of breath. The procedure showed obstruction of the right lower lobe bronchus orifice due to some mass effect of the distal bronchus intermedius. I performed a bronchial lavage of the right lower lobe. No biopsies were done. Postop, the patient was discharged home. I was informed that the patient was having some tachycardia and fever. Apparently he was having high-grade fever and for that reason I asked the patient to present back to the emergency department. In the ED, the patient was given a chest x-ray which again showed the presence of a right lower lobe atelectasis. He was placed on anti-biotics and following that he was noted today telemetry unit. On today's evaluation, the patient is awake and alert. The patient had on and off fever throughout the night and this morning he is afebrile. He is covered with broad-spectrum antibiotics. No significant sputum production. Note that during my bronchoscopy, I was not able to see any significant purulent secretions in the right lower lobe. As such a postobstructive pneumonia is doubtful at this stage. In any rate, the patient was given antibiotics and currently is afebrile. He has chronic dyspnea which is essentially multifactorial. No chest pain. No pleurisy. No hemoptysis. 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 This was confirmed by bronchoscopy that I performed on him back in June 2016. Since then the patient has received radiation therapy and systemic chemotherapy. His radiation therapy was further complicated by development of a pneumonitis in the right lower lobe. Subsequent CAT scans of the chest showed evidence of radiation pneumonitis. The most recent CT of the chest showed no evidence of any pulmonary embolism. It showed worsening of the right lower lobe atelectasis /consolidation and it also showed a small to moderate-sized right-sided pleural effusion. Note that the patient was being treated with steroids at a higher dose regarding his radiation pneumonitis and this was given to him by radiation oncology. The patient at one point was also suspected to have pulmonary embolism and for that reason he was placed on anticoagulation. I personally was not convinced of this diagnosis. In a day. On long-term anticoagulation which [employer] is reasonable to continue and is on Xarelto. On 02/12/2017 the patient is being seen in follow-up. His condition essentially the same. After having his fever dropped, the patient had another episode of fever with a temperature of 100.6 at 8:00 yesterday and at 4 AM was 100.3 . Currently is afebrile. He is hemodynamically stable. No cough sputum production chest tightness or wheezing. No sputum production. No leukocytosis pain no change in mental status. No other complaints otherwise for now. The bronchioloalveolar lavage was collected from the right lower lobe was negative for any abnormal cells or malignancies. He has no hemoptysis at this point. The patient remains on a combination of Merrem and Levaquin. Pulse ox 97% on 2 L. Hemodynamics essentially stable. He is ambulating. On the patient is doing well. He is not having any fever this morning. Yesterday afternoon he did spike some temperatures. However he is on a broad-spectrum antibiotics. No signs of pneumonia. He is emanating in the hallway. In fact he feels better compared to yesterday. He has no tachycardia. On room air while at rest his pulse is above 90%. I requested a ID consultation regarding further advice for this patient's ongoing episodic fever. Again, I doubt a postobstructive pneumonia based on the bronchoscopic findings. The blood cultures of been negative. Objective - Vital Signs Vital signs: Vital Signs Temp 98.4 F 02/13/17 14:00 Pulse 80 02/13/17 15:34 Resp 16 02/13/17 14:00 BP 119/64 02/13/17 14:00 Pulse Ox 94 L 02/13/17 14:00 Intake & Output 02/12/17 02/13/17 02/13/17 18:59 06:59 18:59 Intake Total 1496 850 520 Balance 1496 850 520 Intake: IV 900 550 Levofloxacin 750Mg-D5w 150 Pmx 750 mg In Dextrose/ Water 1 150ml.bag @ 100 mls/hr IVPB Q24H [facility] Rx#: [id number] Meropenem 1 gm In Sodium 100 Chloride 0.9% 100 ml @ 200 mls/hr IVPB ONCE STA Rx#:[id number] Meropenem 1 gm In Sodium 100 Chloride 0.9% 100 ml @ 200 mls/hr IVPB Q12HR [facility] Rx#:[id number] Sodium Chloride 0.9% 1, 800 300 000 ml @ 40 mls/hr IV . Q24H [facility] Rx#:[id number] Oral 596 300 520 Other: Voiding Method Toilet Toilet # Voids 1 3 - Exam Gen. appearance the patient is calm and comfortable likely distress. Not using accessory muscles of breathing.Head exam was generally normal. There was no scleral icterus or corneal arcus. Mucous membranes were moist. Neck is supple and the patient has significant crowding of the posterior oropharynx. There is no goiter or neck masses. Lungs sounds are diminished in lung bases pressure on the right. No wheezes or rhonchi any crackles.Cardiac exam revealed the PMI to be normally situated and sized. The rhythm was regular and no extrasystoles were noted during several minutes of auscultation. The first and second heart sounds were normal and physiologic splitting of the second heart sound was noted. There were no murmurs, rubs, clicks, or gallops. Abdomen is obese soft nontender. Organs cannot be accurately palpated. No direct tenderness or rebound tenderness or guarding.Examination of the extremities revealed easily palpable radial, femoral and pedal pulses. There was no cyanosis, clubbing or edema. Skin is within normal limits and there is no ulceration wounds or cellulitis. Exam the patient is awake and alert and there is no focal neurological deficits. Skeletal exam shows no deformities or active arthritis. - Labs CBC & Chem 7: 02/12/17 05:42 02/12/17 05:42 Labs: Microbiology - Last 24 Hours (Table) 02/12/17 09:00 Gram Stain - Preliminary Sputum 02/10/17 18:15 Blood Culture - Preliminary Blood No Growth after 48 hours Assessment and Plan Plan: Assessment 1 post bronchoscopy fever, probably induced by the procedure itself than being it show postobstructive pneumonia or any other infectious process. Please refer to discussion mentioned above. Currently the patient's fever has broken and he is covered with broad-spectrum antibiotics. He is back to his baseline. No significant tachycardia On 02/12/2017 the patient is still having episodes of fever which is being monitored very closely. Doubt any infectious or septic complications. Currently the patient on broad-spectrum antibiotics. The bronchioloalveolar lavage was collected from the right lower lobe showed no evidence of any malignant cells. The patient has a right lower lobe atelectasis which probably is contributing to his fever. On 02/13/2017 the patient is stable. He is being monitored for his fever. He is quite stable and there is no clinical evidence of any postobstructive pneumonia. Is very much likely the bronchoscopy itself induce some inflammatory compounding assistant release which contributed to his fever. Currently is afebrile although his being very closely monitored and he is also on broad- spectrum antibiotics. 2 shortness of breath, multifactorial. Most recently the patient has demonstrated a right lower lobe atelectasis due to obstruction of the right lower lobe orifice probably related to either radiation therapy or recurrent mass within the mediastinum. Please refer to my bronchoscopy report. 3 squamous cell carcinoma of the lung, this involving the right lower lobe. The patient also has a right upper lobe small cell lung cancer. 4 COPD with a baseline FEV1 of 65-66% of predicted 5 hypoxic respiratory failure will need oxygen at time of discharge 6 obstructive sleep apnea 7 hypertension 8 hyperlipidemia 9 coronary artery disease 10 BPH 11 radiation pneumonitis involving the right lung 12 questionable history of pulmonary embolism 13 nephrolithiasis 14 obesity Plan Continue monitoring the fever pattern. The blood culture is negative. Echocardiogram is within normal limits. The patient can be discharged home after being admitted with by infectious disease. Choice of antibiotics if needed will be kept up to 4 times a day. The patient will need home O2. The patient has a CPAP machine at home that he can utilize.
[2017-02-13] MEDS ORDERED: LEVOFLOXACIN 750 MG TAB PO SCH (20:00)
[2017-02-13] MEDS: ATORVASTATIN 20 MG TAB PO SCH (20:57)
[2017-02-13] MEDS: SODIUM CHLORIDE 0.9% 1,000 ML IV SCH ×2 (20:58→23:15)
--- NOTE | 2017-02-13 21:02 | P.CON ---
Consult Note - . Consult date: 02/13/17 Assessment/Plan:: This is a 66-year-old male patient diagnosed earlier this year with non-small cell lung cancer and small cell lung cancer and underwent radiation therapy of 33 treatments under the care of Dr. Lopez and then from June through October went through 6 sessions of chemotherapy under the care of Dr. Moss. Patient was doing okay until November when he started having increasing shortness of breath with cough all the time with sputum clear to creamy color. He saw Dr. Lopez on December 20 was placed on prednisone for 10 week course for radiation pneumonitis. Patient states for the initial first week he was feeling better but after that he was back to the same shortness of breath as he had prior to starting steroids. This did not seem to make any improvement and continued to worsen and he saw Dr. Oropeza who took him off the prednisone on February 02 and scheduled him for bronchoscopy. Patient also states he has had an increase of 20 pounds over the past 2 months and increased edema in his feet and ankles. On February 10, he underwent a bronchoscopy which showed right lower lobe atelectasis. The right lower lobe bronchus orifice was significantly compromised and near completely occluded. He was unable to pass the bronchoscope mainly due to extrinsic compression as a lateral wall of the bronchus intermedius was pushed and causing complete or near complete obstruction of the right lower lobe. There was no endo-bronchial tumors or masslike lesions obstructing the bronchial orifice. Pathology revealed no malignant cells on the bronchial washings. Patient was discharged home and several hours later he developed increasing shortness of breath for which he contacted Dr. Oropeza and was instructed to come into [facility] emergency center for evaluation. He had a temperature of 103.3 and last fever was documented on February 12 at 1800 of 101.5. White count on presentation was 6.2 and platelet count 148. Patient was admitted to the [facility] floor and placed on IV antibiotics the form of meropenem and Levaquin. He does state that his shortness of breath is improving but not back to baseline. is concerned that he has had this chronic cough that is unrelenting since November. Patient has been followed by cardiology for sinus tachycardia present on admission and has been placed on metoprolol. Patient also has been seen and followed by Dr. Oropeza please see the consult note is dictated by nurse practitioner Mrs. Alycia Chappell. As noted this pleasant patient a few days ago was profoundly short of breath. He was having difficulties with trying to ambulate just from bed to bathroom. Patient and family are very concerned about his poor pulmonary status. We did discuss the fact that he does have obesity and top of his underlying lung disease as well as lung cancer. However evidence of narrowing of the bronchus intermedius. With breathing treatments, and antibiotic therapy he is now improved. She's had improved ambulation and some less shortness of breath. Given the fact patient had significant fever relate to complete a 7-10 day course of meropenem for the treatment of his postobstructive pneumonitis. He does not have a port any further. He is on Xarelto. We'll ask the discharge planners to help arrange for home intravenous antibiotic therapy. Potentially via peripheral IV. I agree with evaluation, assessment and plan is dictated by nurse practitioner Mrs. Alycia Chappell.
[2017-02-14] MEDS: SODIUM CHLORIDE 0.9% 1,000 ML IV SCH (03:32)
[2017-02-14 07:58] VITALS: BP 111/67; RESP 17; TEMP 98.4
--- NOTE | 2017-02-14 08:18 | P.CONS ---
History of Present Illness - Reason for Consult Consult date: 02/13/17 dyspnea, history of ca Requesting physician: Edwige Oropeza - Chief Complaint dyspnea on exertion - History of Present Illness Qasim Jolley is a 66 year old Male with a history of limited stage small cell lung cancer involving the right upper lobe. 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 These lesions were treated simultaneously with concurrent chemoradiation to a dose of 66 Gy finishing on . Since our last visit with the patient. He was given steroids for what was clinically presumed to be radiation pneumonitis. After 1 week of treatment, the steroids were no longer effective for his dyspnea on exertion. He reports becoming dyspneic after walking across the room recently, which is much worse than his baseline. In December he was found to have small PE in the right lung and has been on anticoagulation since. Unfortunately the dyspnea has progressed. He did undergo a CTA on 02/05/17 showing small-moderate right effusion with most of the RLL collapse. He did have some patchy opacities in the right upper/middle lobe concerning for pneumonia. He was taken for bronchoscopy on 02/10/17. During this the right lower lobe orifice was significantly stenotic - presumed to be from extrinsic compression vs radiation constriction. Washings of the RLL were unremarkable for cancer. Review of Systems Constitutional: Reports fever Cardiovascular: Denies chest pain Respiratory: Reports cough, Reports dyspnea Gastrointestinal: Denies abdominal pain Musculoskeletal: Denies arm numbness/tingling, Denies frequent falls Psychiatric: Denies depression Past Medical History Past Medical History: Coronary Artery Disease (CAD), Cancer, COPD, GERD/Reflux, Hyperlipidemia, Hypertension, Osteoarthritis (OA), Prostate Disorder, Sleep Apnea/CPAP/BIPAP Additional Past Medical History / Comment(s): increased SOB with last mos,uses cpap,01/06/17 PE. 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 MDRO Source:: URINE Past Surgical History: Orthopedic Surgery Additional Past Surgical History / Comment(s): rt eye cataract removed, arthroscopy nigel knee, nigel foot surgery, bronchosocpy, cystoscopy/rt ureteroscopy, lithotripsy, port a cath - SINCE REMOVED ON 01-01-17 Past Anesthesia/Blood Transfusion Reactions: No Reported Reaction Past Psychological History: No Psychological Hx Reported Additional Psychological History / Comment(s): , Smoking Status: Former smoker Past Alcohol Use History: Occasional Additional Past Alcohol Use History / Comment(s): started smoking 1965, quit for 10 years and then quit again 2016, 1 PPD. No medical marijuana, marijuana or street drug use. Patient lives at home with his . There are no pets in the home. does have a pool was only been admitted twice all summer. He is worked in the past in [employer] in a [employer]. He does travel to [place] to [place] occasionally. Past Drug Use History: None Reported - Past Family History Mother Family Medical History: CVA/TIA Additional Family Medical History / Comment(s): brain tumor Sister(s) Family Medical History: Cancer Additional Family Medical History / Comment(s): melanoma shoulder Father Family Medical History: Myocardial Infarction ([place]) Additional Family Medical History / Comment(s): all 5 of dad's brothers had a mi Medications and Allergies Home Medications Medication Instructions Recorded Confirmed Type Atorvastatin [Lipitor] 20 mg PO HS 11/26/14 02/10/17 History Doxazosin [Cardura] 4 mg PO BID 11/26/14 02/10/17 History Rivaroxaban [Xarelto] 20 mg PO DAILY 02/02/17 02/10/17 History Albuterol Nebulized [Ventolin 2.5 mg INHALATION RT-QID PRN 02/07/17 02/10/17 History Nebulized] Fluticasone Nasal [place] [Flonase 1 spray EA NOSTRIL DAILY 02/07/17 02/10/17 History Nasal Basom] Furosemide [Lasix] 40 mg PO DAILY 02/07/17 02/10/17 History Acetaminophen Tab [Tylenol Tab] 1,000 mg PO ONCE PRN 02/10/17 02/10/17 History Allergies Allergy/AdvReac Type Severity Reaction Status Date / Time Penicillins Allergy Swelling Verified 02/10/17 18:57 Physical Exam Vitals: Vital Signs Temp Pulse Pulse Pulse Resp BP Pulse Ox 02/14/17 07:30 98.4 F 84 17 111/67 95 02/13/17 23:00 99.2 F 97 16 103/58 92 L 02/13/17 20:56 100.1 F H 99 132/74 02/13/17 20:54 84 02/13/17 20:38 82 02/13/17 20:17 98.7 F 02/13/17 18:52 99.7 F H 02/13/17 17:28 98.2 F 02/13/17 15:34 80 02/13/17 15:20 80 02/13/17 14:00 98.4 F 88 16 119/64 94 L 02/13/17 12:02 98.4 F 78 02/13/17 12:01 117 H 88 15 02/13/17 11:51 82 02/13/17 08:35 80 02/13/17 08:23 84 Intake and Output 02/13/17 02/14/17 02/14/17 22:59 06:59 14:59 Intake Total 240 400 Balance 240 400 Intake: IV 400 Meropenem 1 gm In Sodium 200 Chloride 0.9% 100 ml @ 200 mls/hr IVPB Q12HR ANGEL Rx#:[id number] Sodium Chloride 0.9% 1, 200 000 ml @ 40 mls/hr IV . Q24H [facility] Rx#:[id number] Oral 240 Other: Voiding Method Toilet # Voids 1 1 Weight 125.6 kg 128 kg - Constitutional General appearance: obese - EENT Eyes: EOMI, PERRLA - Neck Neck: no lymphadenopathy - Respiratory Respiratory: right: diminished (right lower lung field marked diminished), left : CTA - Cardiovascular Rhythm: regular - Gastrointestinal General gastrointestinal: no rigid, no tenderness - Integumentary Integumentary: no calor, no flushed - Neurologic Neurologic: CNII-XII intact - Musculoskeletal Musculoskeletal: strength equal bilaterally - Psychiatric Psychiatric: A&O x's 3, appropriate affect Results CBC & Chem 7: 02/12/17 05:42 02/12/17 05:42 Labs: Microbiology - Last 24 Hours (Table) 02/10/17 18:15 Blood Culture - Preliminary Blood No Growth after [address] scan - chest: report reviewed, image reviewed Assessment and Plan (1) Non-small cell lung cancer (NSCLC) Status: Acute Plan: Qasim Jolley is a 66 year old Male with a history of limited stage small cell lung cancer involving the right upper lobe. 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 These lesions were treated simultaneously with concurrent chemoradiation to a dose of 66 Gy finishing on . 1. Right lower lobe obstruction: After reviewing these images, it is difficult to say if there has been tumor progression in the lower lobe that could be responsible for the patient's symptoms. Of note, the patient did have partial collapse of his right lower lung prior to and throughout radiotherapy. This has clearly become worse however. I feel that radiotherapy causing constriction of the airways is somewhat unlikely considering the dose he was given. I would recommend the patient follow-up as an outpatient in our clinic and I think that a PET-CT may be helpful for further analysis of the right lung. He does appear to have progressive effusion compared to prior, and if there is enough for drainage that may be worth consideration. Time with Patient: Greater than 30
[2017-02-14] MEDS: RIVAROXABAN 10 MG TAB PO SCH (08:26)
[2017-02-14] MEDS: DOXAZOSIN 4 MG TAB PO SCH (08:26)
[2017-02-14] MEDS: FUROSEMIDE 40 MG TAB PO SCH (08:26)
[2017-02-14] MEDS: FLUTICASONE 50MCG/SPRAY NASAL 16GM EA NOSTRIL SCH (08:26)
[2017-02-14] MEDS: METOPROLOL TARTRATE 25 MG TAB PO SCH (08:27)
[2017-02-14] MEDS: MEROPENEM 1 GM in SODIUM CHLORIDE 0.9% 100 ML IVPB SCH ×2 (08:27→15:16)
[2017-02-14] MEDS: FAMOTIDINE 20 MG TAB PO SCH (08:27)
[2017-02-14] MEDS: IPRATROPIUM-ALBUTEROL 3 ML NEB INHALATION SCH ×3 (09:29→15:50)
[2017-02-14 09:53] LABS: Anisocytosis Slight; Basophils % (A) 0 %; CH 31.9; CHCM 32.3; Eosinophils # (A) 0.1 k/uL (0-0.7); Eosinophils % (A) 1 %; HCT 38.2 % (39.0-53.0); HDW 2.89; Luc # (Auto) 0.11; Luc % (Auto) 2; Lymphocytes # (A) 0.3 k/uL (1.0-4.8); Lymphocytes % (A) 6 %; MCH 31.1 pg (25.0-35.0); MCHC 31.5 g/dL (31.0-37.0); MCV 98.9 fL (80.0-100.0); Macrocytosis Slight; Mean Platelet Volume 7.6; Monocytes # (A) 0.4 k/uL (0-1.0); Monocytes % (A) 10 %; Neutrophils # (A) 3.5 k/uL (1.3-7.7); Neutrophils % (A) 80 %; RBC 3.86 m/uL (4.30-5.90); RDW 16.4 % (11.5-15.5); WBC 4.4 k/uL (3.8-10.6); WBC (Perox) 4.96
[2017-02-14 10:04] LABS: ALT 42 U/L (21-72); AST 28 U/L (17-59); Alkaline Phosphatase 88 U/L (38-126); Anion Gap 9 mmol/L; Blood Urea Nitrogen 15 mg/dL (9-20); Calcium 8.8 mg/dL (8.4-10.2); Carbon Dioxide 27 mmol/L (22-30); Chloride 104 mmol/L (98-107); Glucose 99 mg/dL (74-99); Non-African American GFR(MDRD) 60 (>60 ml/min/1.73 sqM); Sodium 140 mmol/L (137-145); Total Bilirubin 0.5 mg/dL (0.2-1.3); Total Protein 6.2 g/dL (6.3-8.2)
[2017-02-14 12:30] VITALS: PULSE 88
--- NOTE | 2017-02-14 13:54 | P.DS ---
Providers Date of admission: 02/10/17 20:34 Expected date of discharge: 02/14/17 Attending physician: Hector Escoto Consults: 02/10/17 20:34 Consult Physician Routine Consulting Provider: Edwige Oropeza Consult Reason/Comments: Pneumonia post bronchoscopy Do you want consulting provider notified?: Yes 02/13/17 05:36 Consult Physician Routine Consulting Provider: Carlos Cuadra Consult Reason/Comments: fever Do you want consulting provider notified?: Yes 02/13/17 13:23 Consult Physician Routine Consulting Provider: Benton Lopez Consult Reason/Comments: pt request, patient known to him, hx of lung CA Do you want consulting provider notified?: Yes Primary care physician: Hector Tigist [facility] Course: 66-year-old male who presented to the emergency room on 02/10/2017 with a chief complaint shortness of breath. The patient underwent a bronchoscopy on 02-10-[address] Oropeza. The bronch showed obstruction of the right lower lobe bronchus orifice due to some mass effect of the distal bronchus intermedius. Bronchial lavage of the right lower lobe was performed and biopsies were taken. There was not evidence of malignant cells from lavage. The patient developed increased shortness of breath afterwards at home and also fever of 101.3. He came to the emergency room for further evaluation. The patient did have a CTA of the chest on 02-05-17 that shows small to moderate right side pleural effusion with majority of the right lower lobe being collapsed. The patient has a history of non-small cell lung cancer of right lower lobe and small cell lung cancer of the right upper lobe. He completed chemotherapy in October 2016 and radiation in August 2016. He also has a history of COPD, sleep apnea, osteoarthritis, and hypertension. He is a former smoker. In the emergency room a chest x-ray was completed which shows right lower lobe and right middle lobe atelectasis or infiltrates. He was found to be tachycardic with a rate in the 130s. Blood cultures and sputum cultures are pending. The patient was admitted to the hospital in the care of Dr. Escoto. Pulmonary did not feel that the patient had obstructive pneumonia. Additionally , his fever was thought to be induced by bronchoscopy rather than an infectious process. However, the patient continued to have fevers on and off during hospitalization. His blood cultures and urine culture was negative. Infectious disease, Dr. Cuadra, was consulted. The patient received levoquin and meropenem during his hospitalization. Dr Cuadra recommends the patient be on merepenom outpatient through IV treatment. The patient did not want to have IV antibiotics at home. Instead he wanted to come to the hospital for infusion. Case management aware. Patient was to have PICC line inserted today but patient received Xarelto this morning. Spoke with Alycia and Dr Cuadra and patient may have meropenem infusion through peripheral IV BID for 7 days. Cardiology has been following the patient during his hospitalization. He was started on a beta juventino for his tachycardia which has improved his heart rate from 110-120s to 80-90s. An echocardiogram was completed which showed an EF of 55-60%. His TSH was normal. The patient requested to see Dr. Lopez in the hospital as he treated him for his lung CA and radiation.Dr. Lopez would like the patient to follow up with him outpatient for PET scan. Patient required oxygen during admission. Nursing tested the patient in the room without oxygen at rest and his oxygen saturation was 91% on room air and 94 % on 2L. During ambulation, the patients oxygen saturation dropped to 86% on room air and 92% with 2L NC. Case management was consulted for home o2 therapy. Additonally, the patient was given a script for a rolling walker. Discharge Diagnosis: -Shortness of breath, multifactorial, present on admission, s/p bronchoscopy, secondary to right lower lobe atelectasis due to obstruction of the right lower lobe and radiation pneumonitis, improving at time of discharge -Pneumonia, ruled out by pulmonary -Radiation pneumonitis of the right lung -History of squamous cell carcinoma of the lung, s/p chemotherapy and radiation -Febrile, present on admission, cultures pending, etiology completely unclear however thought to be induced by bronchoscopy -Tachycardia, present on admission, improving with beta juventino -Acute hypoxic respiratory failure requiring supplemental oxygen -History of pulmonary embolism, with long-term anticoagulation with Xarelto -History of COPD, no evidence of acute exacerbation -Essential hypertension -History of sleep apnea with use of CPAP machine -Nicotine dependence, in remission, patient quit in 2016 -Morbid Obesity: BMI 40.5 The above impression and plan of care have been discussed and directed by signing physician. Zohra Horvath, nurse practitioner, acting as scribe for signing physician. Patient Condition at Discharge: Stable Plan - Discharge Summary New Discharge Prescriptions: New Metoprolol Tartrate [Lopressor] 25 mg PO BID #60 tab Meropenem [Merrem] 1 gm IVPB Q12HR #14 vial Continue Doxazosin [Cardura] 4 mg PO BID Atorvastatin [Lipitor] 20 mg PO HS Rivaroxaban [Xarelto] 20 mg PO DAILY Fluticasone Nasal [place] [Flonase Nasal [place]] 1 spray EA NOSTRIL DAILY Albuterol Nebulized [Ventolin Nebulized] 2.5 mg INHALATION RT-QID PRN PRN Reason: Shortness Of Breath Furosemide [Lasix] 40 mg PO DAILY No Action Acetaminophen Tab [Tylenol Tab] 1,000 mg PO ONCE PRN PRN Reason: Fever Discharge Medication List Atorvastatin [Lipitor] 20 mg PO HS 11/26/14 [History] Doxazosin [Cardura] 4 mg PO BID 11/26/14 [History] Rivaroxaban [Xarelto] 20 mg PO DAILY 02/02/17 [History] Albuterol Nebulized [Ventolin Nebulized] 2.5 mg INHALATION RT-QID PRN 02/07/17 [ History] Fluticasone Nasal [place] [Flonase Nasal [place]] 1 spray EA NOSTRIL DAILY 02/07/17 [History] Furosemide [Lasix] 40 mg PO DAILY 02/07/17 [History] Acetaminophen Tab [Tylenol Tab] 1,000 mg PO ONCE PRN 02/10/17 [History] Meropenem [Merrem] 1 gm IVPB Q12HR #14 vial 02/14/17 [Rx] Metoprolol Tartrate [Lopressor] 25 mg PO BID #60 tab 02/14/17 [Rx] Follow up Appointment(s)/Referral(s): Jd Srinivasan MD [STAFF PHYSICIAN] - 3 Weeks Carlos Cuadra MD [STAFF PHYSICIAN] - 2 Weeks Benton Lopez MD [STAFF PHYSICIAN] - 2 Weeks Hector Escoto MD [Primary Care Provider] - 3 Days Edwige Oropeza MD [STAFF PHYSICIAN] - 1-2 days Ambulatory/Diagnostic Orders: Basic Metabolic Panel [LAB.AMB] Location: Determined By Patient Complete Blood Count w/diff [LAB.AMB] Location: Determined By Patient Activity/Diet/Wound Care/Special Instructions: [employer] - O2 supplier - # - they will deliver a tank to your room to get you home and then when you get home call them so that they can deliver the rest of your supplies. [employer] will also deliver your rollator when they deliver the O2 supplies Pt is set up for iv antibiotics infusion through [facility] - pt will be coming 3 times a day.] Discharge Disposition: HOME SELF-CARE
--- NOTE | 2017-02-14 16:14 | P.PN ---
Subjective This is a 66-year-old male patient who underwent a bronchoscopy yesterday for ongoing shortness of breath. The procedure showed obstruction of the right lower lobe bronchus orifice due to some mass effect of the distal bronchus intermedius. I performed a bronchial lavage of the right lower lobe. No biopsies were done. Postop, the patient was discharged home. I was informed that the patient was having some tachycardia and fever. Apparently he was having high-grade fever and for that reason I asked the patient to present back to the emergency department. In the ED, the patient was given a chest x-ray which again showed the presence of a right lower lobe atelectasis. He was placed on anti-biotics and following that he was noted today telemetry unit. On today's evaluation, the patient is awake and alert. The patient had on and off fever throughout the night and this morning he is afebrile. He is covered with broad-spectrum antibiotics. No significant sputum production. Note that during my bronchoscopy, I was not able to see any significant purulent secretions in the right lower lobe. As such a postobstructive pneumonia is doubtful at this stage. In any rate, the patient was given antibiotics and currently is afebrile. He has chronic dyspnea which is essentially multifactorial. No chest pain. No pleurisy. No hemoptysis. 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 This was confirmed by bronchoscopy that I performed on him back in June 2016. Since then the patient has received radiation therapy and systemic chemotherapy. His radiation therapy was further complicated by development of a pneumonitis in the right lower lobe. Subsequent CAT scans of the chest showed evidence of radiation pneumonitis. The most recent CT of the chest showed no evidence of any pulmonary embolism. It showed worsening of the right lower lobe atelectasis /consolidation and it also showed a small to moderate-sized right-sided pleural effusion. Note that the patient was being treated with steroids at a higher dose regarding his radiation pneumonitis and this was given to him by radiation oncology. The patient at one point was also suspected to have pulmonary embolism and for that reason he was placed on anticoagulation. I personally was not convinced of this diagnosis. In a day. On long-term anticoagulation which [employer] is reasonable to continue and is on Xarelto. On 02/12/2017 the patient is being seen in follow-up. His condition essentially the same. After having his fever dropped, the patient had another episode of fever with a temperature of 100.6 at 8:00 yesterday and at 4 AM was 100.3 . Currently is afebrile. He is hemodynamically stable. No cough sputum production chest tightness or wheezing. No sputum production. No leukocytosis pain no change in mental status. No other complaints otherwise for now. The bronchioloalveolar lavage was collected from the right lower lobe was negative for any abnormal cells or malignancies. He has no hemoptysis at this point. The patient remains on a combination of Merrem and Levaquin. Pulse ox 97% on 2 L. Hemodynamics essentially stable. He is ambulating. On the patient is doing well. He is not having any fever this morning. Yesterday afternoon he did spike some temperatures. However he is on a broad-spectrum antibiotics. No signs of pneumonia. He is emanating in the hallway. In fact he feels better compared to yesterday. He has no tachycardia. On room air while at rest his pulse is above 90%. I requested a ID consultation regarding further advice for this patient's ongoing episodic fever. Again, I doubt a postobstructive pneumonia based on the bronchoscopic findings. The blood cultures of been negative. On 02/12/2017 the patient is being seen in follow-up. The patient is doing well. He only had a single episode of fever which was of a low-grade. ID saw the patient and the plan is to complete the antibiotic on outpatient basis with a combination of Merrem and Levaquin. Patient is okay with that. He will need however a PICC line catheter insertion and this is not possible today knowing that he was on Xarelto. As such she'll be staying with us in the hospital over the weekend. A PICC line will be inserted by Friday. The patient is doing well otherwise. His ambulating. He has no specific complaints. Objective - Vital Signs Vital signs: Vital Signs Temp 98.4 F 02/14/17 07:30 Pulse 88 02/14/17 16:04 Resp 17 02/14/17 07:30 BP 111/67 02/14/17 07:30 Pulse Ox 95 02/14/17 09:29 Intake & Output 02/13/17 02/14/17 02/14/17 18:59 06:59 18:59 Intake Total 520 400 260 Balance 520 400 260 Weight 128 kg Intake: IV 400 260 Meropenem 1 gm In Sodium 200 100 Chloride 0.9% 100 ml @ 200 mls/hr IVPB Q12HR [facility] Rx#:[id number] Sodium Chloride 0.9% 1, 200 160 000 ml @ 40 mls/hr IV . Q24H [facility] Rx#:[id number] Oral 520 Other: Voiding Method Toilet Toilet Toilet # Voids 3 1 1 - Exam Gen. appearance the patient is calm and comfortable likely distress. Not using accessory muscles of breathing.Head exam was generally normal. There was no scleral icterus or corneal arcus. Mucous membranes were moist. Neck is supple and the patient has significant crowding of the posterior oropharynx. There is no goiter or neck masses. Lungs sounds are diminished in lung bases pressure on the right. No wheezes or rhonchi any crackles.Cardiac exam revealed the PMI to be normally situated and sized. The rhythm was regular and no extrasystoles were noted during several minutes of auscultation. The first and second heart sounds were normal and physiologic splitting of the second heart sound was noted. There were no murmurs, rubs, clicks, or gallops. Abdomen is obese soft nontender. Organs cannot be accurately palpated. No direct tenderness or rebound tenderness or guarding.Examination of the extremities revealed easily palpable radial, femoral and pedal pulses. There was no cyanosis, clubbing or edema. Skin is within normal limits and there is no ulceration wounds or cellulitis. Exam the patient is awake and alert and there is no focal neurological deficits. Skeletal exam shows no deformities or active arthritis. - Labs CBC & Chem 7: 02/14/17 08:25 02/14/17 08:25 Labs: Abnormal Lab Results - Last 24 Hours (Table) 02/14/17 02/14/17 Range/Units 08:25 08:25 RBC 3.86 L (4.30-5.90) m/uL Hgb 12.0 L (13.0-17.5) gm/dL Hct 38.2 L (39.0-53.0) % RDW 16.4 H (11.5-15.5) % Lymphocytes # 0.3 L (1.0-4.8) k/uL Total Protein 6.2 L (6.3-8.2) g/dL Albumin 3.2 L (3.5-5.0) g/dL Microbiology - Last 24 Hours (Table) 02/12/17 09:00 Gram Stain - Final Sputum Sputum Culture - Final 02/10/17 18:15 Blood Culture - Preliminary Blood No Growth after 72 hours Assessment and Plan Plan: Assessment 1 post bronchoscopy fever, probably induced by the procedure itself than being it show postobstructive pneumonia or any other infectious process. Please refer to discussion mentioned above. Currently the patient's fever has broken and he is covered with broad-spectrum antibiotics. He is back to his baseline. No significant tachycardia On 02/12/2017 the patient is still having episodes of fever which is being monitored very closely. Doubt any infectious or septic complications. Currently the patient on broad-spectrum antibiotics. The bronchioloalveolar lavage was collected from the right lower lobe showed no evidence of any malignant cells. The patient has a right lower lobe atelectasis which probably is contributing to his fever. On 02/13/2017 the patient is stable. He is being monitored for his fever. He is quite stable and there is no clinical evidence of any postobstructive pneumonia. Is very much likely the bronchoscopy itself induce some inflammatory gauger chief delivery release which contributed to his fever. Currently is afebrile although his being very closely monitored and he is also on broad- spectrum antibiotics. On 02/14/2017 the patient is stable. Postobstructive pneumonia is being considered based on his ongoing episodes of fever. The patient will will be staying in hospital over the weekend. A PICC line will be started on Friday to be treated with a complete course of antibiotics with a combination of Merrem and Levaquin. We'll monitor the fever pattern. He was also seen by cardiology. He was seen by radiation oncology. He was also seen by infectious disease. 2 shortness of breath, multifactorial. Most recently the patient has demonstrated a right lower lobe atelectasis due to obstruction of the right lower lobe orifice probably related to either radiation therapy or recurrent mass within the mediastinum. Please refer to my bronchoscopy report. 3 squamous cell carcinoma of the lung, this involving the right lower lobe. The patient also has a right upper lobe small cell lung cancer. 4 COPD with a baseline FEV1 of 65-66% of predicted 5 hypoxic respiratory failure will need oxygen at time of discharge 6 obstructive sleep apnea 7 hypertension 8 hyperlipidemia 9 coronary artery disease 10 BPH 11 radiation pneumonitis involving the right lung 12 questionable history of pulmonary embolism 13 nephrolithiasis 14 obesity Plan Continue monitoring the fever pattern. The blood culture is negative. Echocardiogram is within normal limits. Stop the Xarelto. PICC line on Friday. Antibiotics for total of 10 days. ID input is appreciated.
== END 2017-02-14 16:40 | disposition home or self-care (01) | DRG 190 ==
LOC: EC 17:53 → 6SEL 20:34 → 5MS5E 02-12 20:45
PROVIDERS: ADMIT Family Medicine; ATTEND Family Medicine
DX: J44.0 Chronic obstructive pulmonary disease with (acute) lower respiratory infection (principal); J96.01 Acute respiratory failure with hypoxia; J70.0 Acute pulmonary manifestations due to radiation; C34.11 Malignant neoplasm of upper lobe, right bronchus or lung; J98.11 Atelectasis; J44.9 Chronic obstructive pulmonary disease, unspecified; E66.01 Morbid (severe) obesity due to excess calories; E78.5 Hyperlipidemia, unspecified; F17.201 Nicotine dependence, unspecified, in remission; G47.33 Obstructive sleep apnea (adult) (pediatric); I10 Essential (primary) hypertension; I25.10 Atherosclerotic heart disease of native coronary artery without angina pectoris; K21.9 Gastro-esophageal reflux disease without esophagitis; N20.0 Calculus of kidney; N40.0 Benign prostatic hyperplasia without lower urinary tract symptoms; K44.9 Diaphragmatic hernia without obstruction or gangrene; M19.90 Unspecified osteoarthritis, unspecified site; R00.0 Tachycardia, unspecified; Z68.41 Body mass index [BMI] 40.0-44.9, adult; Z79.01 Long term (current) use of anticoagulants; Z79.899 Other long term (current) drug therapy; Z88.0 Allergy status to penicillin; Z82.49 Family history of ischemic heart disease and other diseases of the circulatory system; Z80.8 Family history of malignant neoplasm of other organs or systems; Y84.2 Radiological procedure and radiotherapy as the cause of abnormal reaction of the patient, or of later complication, without mention of misadventure at the time of the procedure
CPT/HCPCS: 36415; 71020; 80048; 80053; 82550; 82553; 83036; 83605; 83735; 83880; 84443; 84484; 85025; 85610; 85730; 87040; 87070; 87205; 93005; 93306; 94640; 94760; 96361; 96365; 96366; 99285

== ENCOUNTER → 2017-03-15 | Outpatient (CLI) | payer MEDICARE ==
--- NOTE | 2017-03-17 11:57 | PE ---
Nuclear medicine PET/CT HISTORY: Lung cancer, C 34.11, subsequent visit Exam correlated to prior nuclear medicine PET/CT dated 09/28/2016 Patient received 13.1 mCi F-18 FDG intravenously in delayed scanning performed from the skull base to the mid thighs. Localization and attenuation correction CT scan was performed. Neck and chest: Retrocaval pretracheal lymph node has decreased in size in the interval, SUV only mattie roximately 2.8. Hypermetabolic uptake within the right lung is noted, SUV is 8.1, the increased uptak e is present within some atelectatic lung the right lower lobe and is obscured. There is been interva l development of a sizable right pleural effusion with atelectatic change. Mild right hilar uptake, S UV 3. Abdomen pelvis: Nonobstructive calculi are present within the right kidney, there is hydronephrosis. There may be a UPJ obstruction. No evident ureteral calculus. No adrenal mass. No retroperitoneal pily nopathy or suspicious hypermetabolic uptake. Osseous structures show no suspicious hypermetabolic uptake IMPRESSION: Interval changes as described.
== END | disposition home or self-care (01) ==
LOC: RADPETMAIN 10:07
PROVIDERS: ATTEND Radiology Radiation Oncology
DX: C34.11 Malignant neoplasm of upper lobe, right bronchus or lung (principal)
CPT/HCPCS: 78815; A9552

== ENCOUNTER → 2017-03-18 | Outpatient (CLI) | payer MEDICARE ==
[2017-03-18 11:08] LABS: Blood Urea Nitrogen 15 mg/dL (9-20); Non-African American GFR(MDRD) >60 (>60 ml/min/1.73 sqM)
--- NOTE | 2017-03-18 12:02 | CT ---
EXAMINATION TYPE: CT abdomen pelvis wo con DATE OF EXAM: 03/18/2017 COMPARISON: 06/11/2016 HISTORY: Renal stone CT DLP: 1681.5 mGycm Examination of the solid and hollow viscera is limited given the lack of contrast. FINDINGS: LUNG BASES: No evidence for nodule. No evidence for infiltrate. Loculated right basilar pleural effus ion. LIVER/GB: The gallbladder is unremarkable. No space-occupying hepatic lesion. PANCREAS: No pancreatic mass identified. No inflammatory process seen. SPLEEN: No evidence for splenomegaly. No intrasplenic lesions seen. ADRENALS: No adrenal nodules identified. No evidence for thickening. KIDNEYS: 4.7 mm nonobstructing calculus lower pole right kidney. 2.5 mm nonobstructing calculus mid p ole right kidney. Additional nonobstructing calculi upper pole right kidney measuring 4 and 3 mm resp ectively. No left-sided renal calculi seen. There is mild right-sided hydroureteronephrosis up to the level of the right UPJ without obstructing calculus. This may be related to congenital UPJ obstructi on or acquired UPJ obstruction. The remainder of the right ureter is of normal caliber. No evidence f or left-sided hydronephrosis. No renal masses detected. BOWEL: Appendix has a normal appearance. Chronic stranding adjacent to the appendix without active in flammatory process. No evidence of bowel obstruction. No inflammatory process. Lymph nodes: No evidence for adenopathy greater than 1 cm. Abdominal aorta: Atheromatous changes seen. No evidence for aneurysm. Genital organs: No significant abnormality. Other: No significant abnormality. IMPRESSION: 1. MILD RESIDUAL RIGHT-SIDED FULLNESS OF THE RENAL COLLECTING SYSTEM UP TO THE UPJ. PREVIOUSLY NOTED OBSTRUCTING CALCULUS IS NO LONGER VISIBLE. NONOBSTRUCTING CALCULI RIGHT KIDNEY NOTED. 2. LOCULATED RIGHT-SIDED PLEURAL EFFUSION.
== END | disposition home or self-care (01) ==
LOC: RADCTMAIN 10:25
PROVIDERS: ATTEND Urology
DX: N20.0 Calculus of kidney (principal); N39.8 Other specified disorders of urinary system
CPT/HCPCS: 74176; 82565; 84520

== ENCOUNTER → 2017-04-02 | Outpatient (CLI) | payer MEDICARE ==
--- NOTE | 2017-04-02 14:09 | MR ---
EXAMINATION TYPE: MR brain wo/w con DATE OF EXAM: 04/02/2017 COMPARISON: 07/05/2016 HISTORY: Malignant neoplasm of upper lobe, mets ca TECHNIQUE: Multiplanar, multisequence images of the brain and brainstem is performed without and with IV contras t, utilizing 12 mL intravenous Gadavist . FINDINGS: Diffusion weighted images demonstrate no evidence of a recent infarct or other diffusion ab normality. There is no extra-axial fluid collection. The ventricular system and cisternal spaces are mildly prominent, compatible with age-related volume loss. The brain volume is age appropriate. Few foci of periventricular and subcortical T2/FLAIR hyperintensity are present. These do not exhibit en hancement. No vasogenic edema or abnormal enhancement is seen throughout the exam. Cerebellar tonsils are noted to be low-lying without Chiari malformation. Midline structures demonstrate normal morphology. The craniocervical junction appears within normal limits. Post contrast images demonstrate no abnormal enhancement. The dural venous sinuses appear pa tent. The globes are intact. 4 mm mucosal retention cyst is seen of the posterior nasopharynx. Parana justin sinuses and mastoid air cells are well aerated. IMPRESSION: 1. No evidence of acute infarct, abnormal intracranial enhancement, or intracranial metastasis. 2. Few scattered nonspecific white matter foci without enhancement favored to relate to sequela of ch ronic microangiopathy.
== END | disposition home or self-care (01) ==
LOC: RADMRIMAIN 11:03
PROVIDERS: ATTEND Radiology Radiation Oncology
DX: C34.11 Malignant neoplasm of upper lobe, right bronchus or lung (principal)
CPT/HCPCS: 70553; A9581

== ENCOUNTER 2017-05-12 11:21 | Emergency (ER) | payer MEDICARE ==
[2017-05-12] MEDS ORDERED: IPRATROPIUM-ALBUTEROL 3 ML NEB INHALATION STA (11:55)
--- NOTE | 2017-05-12 11:59 | ED ---
SOB HPI - General Chief Complaint: Shortness of Breath Stated Complaint: Ca PATIENT , SOB Time Seen by Provider: 05/12/17 11:48 Source: patient Mode of arrival: ambulatory Limitations: no limitations - History of Present Illness Initial Comments: This 67-year-old white male presents with the complaint of shortness of breath. He does have a history of lung cancer which was diagnosed approximately one year ago. He was treated with radiation and chemotherapy. He is been on immunotherapy for the past couple of weeks. He relates that he's been having fluid buildup in his right long and is had it removed on 2 occasions. He had 2 L removed initially and one and a half liters removed the second time a couple of weeks ago. He normally would just be on oxygen periodically at home. He is now having to utilize it all the time, 2-1/2-3 L per nasal cannula. He does see Dr. Oropeza from pulmonology. He denies any actual fever or chills. He denies any chest pain. He denies any leg pain or swelling. He does have a history of PE but is currently on Xaralto. He does have some increased exertional dyspnea. He apparently called his doctor's office this morning and they sent him to the ER. No other complaints or modifying factors. - Related Data Home Medications Medication Instructions Recorded Confirmed Atorvastatin [Lipitor] 20 mg PO HS 11/26/14 05/12/17 Doxazosin [Cardura] 4 mg PO BID 11/26/14 05/12/17 Rivaroxaban [Xarelto] 20 mg PO DAILY 02/02/17 05/12/17 Albuterol Nebulized [Ventolin 2.5 mg INHALATION RT-QID PRN 02/07/17 05/12/17 Nebulized] Fluticasone Nasal [place] [Flonase 1 spray EA NOSTRIL DAILY 02/07/17 05/12/17 Nasal [place]] Furosemide [Lasix] 40 mg PO DAILY 02/07/17 05/12/17 Omeprazole [PriLOSEC] 20 mg PO AC-BID 03/27/17 05/12/17 Previous Rx's Medication Instructions Recorded Metoprolol Tartrate [Lopressor] 25 mg PO BID #60 tab 02/14/17 Allergies Allergy/AdvReac Type Severity Reaction Status Date / Time Penicillins Allergy Swelling Verified 05/12/17 11:33 Review of Systems ROS Statement: Those systems with pertinent positive or pertinent negative responses have been documented in the HPI. ROS Other: All systems not noted in ROS Statement are negative. Past Medical History Past Medical History: Coronary Artery Disease (CAD), Cancer, COPD, GERD/Reflux, Hyperlipidemia, Hypertension, Osteoarthritis (OA), Prostate Disorder, Sleep Apnea/CPAP/BIPAP Additional Past Medical History / Comment(s): increased SOB with last mos,uses cpap,01/06/17 PE. lung cancer(tx with chemo 10/2016, and radiation 08/2016), hiatal hernia, hx kidney stones,steroids Jan 2017 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 culture/infection: 10-12-16 ENTEROCOCCUS FAECIUM MDRO Source:: URINE Past Surgical History: Orthopedic Surgery Additional Past Surgical History / Comment(s): rt eye cataract removed, arthroscopy nigel knee, nigel foot surgery, bronchosocpy, cystoscopy/rt ureteroscopy, lithotripsy, port a cath - SINCE REMOVED ON 01-01-17 Past Anesthesia/Blood Transfusion Reactions: No Reported Reaction Past Psychological History: No Psychological Hx Reported Smoking Status: Former smoker Past Alcohol Use History: None Reported Past Drug Use History: None Reported - Past Family History Mother Family Medical History: CVA/TIA Additional Family Medical History / Comment(s): brain tumor Sister(s) Family Medical History: Cancer Additional Family Medical History / Comment(s): melanoma shoulder Father Family Medical History: Myocardial Infarction ([place]) Additional Family Medical History / Comment(s): all 5 of dad's brothers had a mi General Exam - General Exam Comments Initial Comments: GENERAL: The patient is well nourished and well hydrated. VITAL SIGNS: Heart rate, blood pressure, respiratory rate reviewed as recorded in nurse's notes. EYES: Pupils are round and reactive. Extraocular movements are intact. No conjunctival / lid redness or swelling. ENT: No external evidence of injury, swelling, or ecchymosis. Airway is patent. Throat is clear. NECK: Nontender. No swelling or evidence of injury. No subcutaneous emphysema. Trachea is midline. No thyroid mass. HEART: Regular rate and rhythm. Good peripheral pulses. LUNGS/CHEST: There is decreased breath sounds noted at the right base. No wheezing rhonchi or rales. No ecchymosis, subcutaneous emphysema, or tenderness. ABDOMEN: Abdomen soft without tenderness. No palpable masses or organomegaly. No peritoneal signs. No abdominal wall swelling or ecchymosis. EXTREMITIES: No extremity tenderness. Normal muscle tone and function. No thoracolumbar tenderness. NEUROLOGIC: Sensation is grossly intact. Cranial nerve exam reveals face is symmetrical, tongue is midline, speech is clear. SKIN: No abrasions or ecchymosis is noted. No induration or masses noted. PSYCHIATRIC: Alert and oriented. Appropriate behavior and judgment. Limitations: no limitations Course Vital Signs 05/12/17 05/12/17 05/12/17 11:24 12:05 12:14 Temperature 99.8 F H Pulse Rate 80 65 65 Respiratory 16 18 Rate Blood Pressure 129/60 O2 Sat by Pulse 95 Oximetry 05/12/17 05/12/17 12:18 14:15 Temperature 98.5 F Pulse Rate 82 Respiratory 20 Rate Blood Pressure 125/58 O2 Sat by Pulse 96 Oximetry Medical Decision Making - Medical Decision Making The patient was seen and examined. All diagnostics were reviewed. He does receive a DuoNeb breathing treatment and is continued on oxygen. He is doing well and quite stable on recheck. The laboratory is reviewed and overall is fairly unremarkable with a very slight hypokalemia. The chest x-ray shows a right pleural effusion which is increased as compared to previous x-ray on 04/28. The patient did have a thoracentesis done at that time. It is felt as though his dyspnea is likely related to the increase fluid accumulation. The case is discussed with Dr. Vernon and he is recommending a thoracentesis ultrasound or markings and then he will be down to complete the thoracentesis. Dr. Vernon did evaluate the patient in the emergency department but did not feel as though he could obtain a thoracentesis currently because he is on the blood thinner Xarelto. He would like to set him up with an appointment with the cardiothoracic surgeon for a Pleurax catheter placement. It is felt as though the patient is stable for discharge home and the staff's setting up an appointment for the patient. - Lab Data Result diagrams: 05/12/17 12:13 05/12/17 12:13 Lab Results 05/12/17 05/12/17 05/12/17 Range/Units 12:13 12: 12: WBC 4.6 (3.8-10.6) k/uL RBC 4.28 L (4.30-5.90) m/uL Hgb 13.4 (13.0-17.5) gm/dL Hct 40.0 (39.0-53.0) % MCV 93.3 (80.0-100.0) fL MCH 31.3 (25.0-35.0) pg MCHC 33.6 (31.0-37.0) g/dL RDW 16.4 H (11.5-15.5) % Plt Count 191 (150-450) k/uL Neutrophils % 74 % Lymphocytes % 9 % Monocytes % 12 % Eosinophils % 3 % Basophils % 0 % Neutrophils # 3.4 (1.3-7.7) k/uL Lymphocytes # 0.4 L (1.0-4.8) k/uL Monocytes # 0.5 (0-1.0) k/uL Eosinophils # 0.2 (0-0.7) k/uL Basophils # 0.0 (0-0.2) k/uL Anisocytosis Slight PT (9.0-12.0) sec INR (<1.2) APTT (22.0-30.0) sec Sodium 141 (137-145) mmol/L Potassium 3.4 L (3.5-5.1) mmol/L Chloride 101 (98-107) mmol/L Carbon Dioxide 31 H (22-30) mmol/L Anion Gap 9 mmol/L BUN 16 (9-20) mg/dL Creatinine 1.12 (0.66-1.25) mg/dL Est GFR (MDRD) Af Amer >60 (>60 ml/min/1.73 sqM) Est GFR (MDRD) Non-Af >60 (>60 ml/min/1.73 sqM) Glucose 93 (74-99) mg/dL Calcium 9.0 (8.4-10.2) mg/dL Total Bilirubin 0.4 (0.2-1.3) mg/dL AST 27 (17-59) U/L ALT 35 (21-72) U/L Alkaline Phosphatase 112 (38-126) U/L Total Creatine Kinase 74 (55-170) U/L CK-MB (CK-2) 1.0 (0.0-2.4) ng/mL CK-MB (CK-2) Rel Index 1.4 Troponin I <0.012 (0.000-0.034) ng/mL NT-Pro-B Natriuret Pep pg/mL Total Protein 7.0 (6.3-8.2) g/dL Albumin 3.7 (3.5-5.0) g/dL 05/12/17 05/12/17 Range/Units 12:13 12:13 WBC (3.8-10.6) k/uL RBC (4.30-5.90) m/uL Hgb (13.0-17.5) gm/dL Hct (39.0-53.0) % MCV (80.0-100.0) fL MCH (25.0-35.0) pg MCHC (31.0-37.0) g/dL RDW (11.5-15.5) % Plt Count (150-450) k/uL Neutrophils % % Lymphocytes % % Monocytes % % Eosinophils % % Basophils % % Neutrophils # (1.3-7.7) k/uL Lymphocytes # (1.0-4.8) k/uL Monocytes # (0-1.0) k/uL Eosinophils # (0-0.7) k/uL Basophils # (0-0.2) k/uL Anisocytosis PT 11.9 (9.0-12.0) sec INR 1.3 H (<1.2) APTT 28.9 (22.0-30.0) sec Sodium (137-145) mmol/L Potassium (3.5-5.1) mmol/L Chloride (98-107) mmol/L Carbon Dioxide (22-30) mmol/L Anion Gap mmol/L BUN (9-20) mg/dL Creatinine (0.66-1.25) mg/dL Est GFR (MDRD) Af Amer (>60 ml/min/1.73 sqM) Est GFR (MDRD) Non-Af (>60 ml/min/1.73 sqM) Glucose (74-99) mg/dL Calcium (8.4-10.2) mg/dL Total Bilirubin (0.2-1.3) mg/dL AST (17-59) U/L ALT (21-72) U/L Alkaline Phosphatase (38-126) U/L Total Creatine Kinase (55-170) U/L CK-MB (CK-2) (0.0-2.4) ng/mL CK-MB (CK-2) Rel Index Troponin I (0.000-0.034) ng/mL NT-Pro-B Natriuret Pep 149 pg/mL Total Protein (6.3-8.2) g/dL Albumin (3.5-5.0) g/dL Disposition Clinical Impression: Dyspnea, Recurrent right pleural effusion, History of lung cancer Disposition: HOME SELF-CARE Condition: Good Instructions: Dyspnea (ED), Pleural Effusion (ED) Referrals: Edwige Oropeza MD [STAFF PHYSICIAN] - 05/15/17 Hector Escoto MD [Primary Care Provider] - 05/15/17 Carrie Soto MD [STAFF PHYSICIAN] - As Soon As Possible Time of Disposition: 15:05
[2017-05-12 12:20] VITALS: PULSE 82
[2017-05-12 12:27] LABS: Anisocytosis Slight; Basophils % (A) 0 %; CH 30.1; CHCM 32.3; Eosinophils # (A) 0.2 k/uL (0-0.7); Eosinophils % (A) 3 %; HDW 2.95; HGB 13.4 gm/dL (13.0-17.5); Luc # (Auto) 0.11; Luc % (Auto) 2; Lymphocytes # (A) 0.4 k/uL (1.0-4.8); Lymphocytes % (A) 9 %; MCH 31.3 pg (25.0-35.0); MCHC 33.6 g/dL (31.0-37.0); MCV 93.3 fL (80.0-100.0); Mean Platelet Volume 7.3; Monocytes # (A) 0.5 k/uL (0-1.0); Monocytes % (A) 12 %; Neutrophils # (A) 3.4 k/uL (1.3-7.7); Neutrophils % (A) 74 %; RBC 4.28 m/uL (4.30-5.90); RDW 16.4 % (11.5-15.5); WBC 4.6 k/uL (3.8-10.6); WBC (Perox) 4.45
[2017-05-12 12:31] LABS: INR 1.3 (<1.2); Partial Thromboplastin Time 28.9 sec (22.0-30.0); Prothrombin Time 11.9 sec (9.0-12.0)
--- NOTE | 2017-05-12 12:31 | XR ---
EXAMINATION TYPE: XR chest 2V DATE OF EXAM: 05/12/2017 COMPARISON: 04/28/2017 HISTORY: 67 year-old male shortness of breath, difficulty breathing TECHNIQUE: PA and lateral views FINDINGS: Right heart margin obscured by adjacent pleural-parenchymal disease. There is continued small to mode rate right pleural effusion with dense right basilar opacity. IMPRESSION: Moderate right pleural effusion appears slightly increased. Adjacent dense consolidation or atelectat ic collapse.
[2017-05-12 12:40] LABS: ALT 35 U/L (21-72); AST 27 U/L (17-59); Alkaline Phosphatase 112 U/L (38-126); Anion Gap 9 mmol/L; Blood Urea Nitrogen 16 mg/dL (9-20); Carbon Dioxide 31 mmol/L (22-30); Chloride 101 mmol/L (98-107); Glucose 93 mg/dL (74-99); Non-African American GFR(MDRD) >60 (>60 ml/min/1.73 sqM); Potassium 3.4 mmol/L (3.5-5.1); Sodium 141 mmol/L (137-145); Total Bilirubin 0.4 mg/dL (0.2-1.3)
[2017-05-12 12:48] LABS: Creatine Kinase 74 U/L (55-170)
[2017-05-12 13:01] LABS: Troponin I <0.012 ng/mL (0.000-0.034)
[2017-05-12 15:17] VITALS: BP 111/70; RESP 18; TEMP 97.9
--- NOTE | 2017-05-12 15:18 | US ---
EXAMINATION TYPE: US chest DATE OF EXAM: 05/12/2017 COMPARISON: Radiograph same day CLINICAL HISTORY: 67-year-old male with right-sided Effusion. TECHNIQUE: Multiple sonographic images of the posterior lower right hemithorax for assessment of pleu ral effusion. FINDINGS: EXAM MEASUREMENTS: Right Pleural Effusion fluid pocket: 9.3 cm Right skin surface to fluid distance: 5.5 cm Right side marked for possible thoracentesis outside the dept. Pulmonologists are able to review the images in the patient?s EMR. IMPRESSIONS: Moderate-sized right-sided pleural effusion. Markings performed for possible thoracentesis.
--- NOTE | 2017-05-12 15:55 | P.CNPUL ---
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 His initial diagnosis was made by Dr. Oropeza in June of 2016, patient received concurrent radiation and systemic chemotherapy. Patient developed radiation pneumonitis and subsequent CT of the chest showed pulmonary embolism involving the right lower lobe. Patient was placed on anticoagulation therapy, and he remains on Xarelto. On 04/28/2017, patient had his second thoracentesis for a large right-sided pleural effusion, and this was done by the interventional radiologist with ultrasound guidance, cytology was negative for malignancy. His previous thoracentesis was also done on 03/31/2017 , and this was also negative for malignancy. However considering the history, I feel that the effusion was malignant unless proven otherwise. In spite of having a high volume thoracentesis done about 2 weeks ago, patient is back again in the ER complaining of increased shortness of breath and good sized right-sided pleural effusion noted on the chest x-ray and CT of the chest showing a 9.0 cm pocket of fluid in the right pleural space. No fever no chills no hemoptysis no chest pain. I evaluated the patient in the ER, and I was planning to do a right-sided thoracentesis, however after reviewing the history and after knowing that the patient is on Xarelto, I decided that it would be best to arrange for the patient to have evaluation by and possibly a Pleurx catheter placement. Arrangement will be done for the patient to have this done on outpatient basis. Review of Systems 14 point review of systems were obtained, please refer to pertinent positives as noted in HPI, otherwise remaining systems are negative. Past Medical History Past Medical History: Coronary Artery Disease (CAD), Cancer, COPD, GERD/Reflux, Hyperlipidemia, Hypertension, Osteoarthritis (OA), Prostate Disorder, Sleep Apnea/CPAP/BIPAP Additional Past Medical History / Comment(s): increased SOB with last mos,uses cpap,01/06/17 PE. lung cancer(tx with chemo 10/2016, and radiation 08/2016), hiatal hernia, hx kidney stones,steroids Jan 2017 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 culture/infection: 10-12-16 ENTEROCOCCUS FAECIUM MDRO Source:: URINE Past Surgical History: Orthopedic Surgery Additional Past Surgical History / Comment(s): rt eye cataract removed, arthroscopy nigel knee, nigel foot surgery, bronchosocpy, cystoscopy/rt ureteroscopy, lithotripsy, port a cath - SINCE REMOVED ON 01-01-17 Past Anesthesia/Blood Transfusion Reactions: No Reported Reaction Past Psychological History: No Psychological Hx Reported Smoking Status: Former smoker Past Alcohol Use History: None Reported Past Drug Use History: None Reported - Past Family History Mother Family Medical History: CVA/TIA Additional Family Medical History / Comment(s): brain tumor Sister(s) Family Medical History: Cancer Additional Family Medical History / Comment(s): melanoma shoulder Father Family Medical History: Myocardial Infarction ([place]) Additional Family Medical History / Comment(s): all 5 of dad's brothers had a mi Medications and Allergies Home Medications Medication Instructions Recorded Confirmed Type Atorvastatin [Lipitor] 20 mg PO HS 11/26/14 05/12/17 History Doxazosin [Cardura] 4 mg PO BID 11/26/14 05/12/17 History Rivaroxaban [Xarelto] 20 mg PO DAILY 02/02/17 05/12/17 History Albuterol Nebulized [Ventolin 2.5 mg INHALATION RT-QID PRN 02/07/17 05/12/17 History Nebulized] Fluticasone Nasal [place] [Flonase 1 spray EA NOSTRIL DAILY 02/07/17 05/12/17 History Nasal [place]] Furosemide [Lasix] 40 mg PO DAILY 02/07/17 05/12/17 History Metoprolol Tartrate [Lopressor] 25 mg PO BID #60 tab 02/14/17 05/12/17 Rx Omeprazole [PriLOSEC] 20 mg PO AC-BID 03/27/17 05/12/17 History Allergies Allergy/AdvReac Type Severity Reaction Status Date / Time Penicillins Allergy Swelling Verified 05/12/17 11:33 Physical Exam Vitals: Vital Signs Temp Pulse Resp BP Pulse Ox 05/12/17 15:17 97.9 F 82 18 111/70 98 05/12/17 14:15 98.5 F 05/12/17 12:18 82 20 125/58 96 05/12/17 12:14 65 05/12/17 12:05 65 18 05/12/17 11:24 99.8 F H 80 16 129/60 95 Intake and Output 05/12/17 05/12/17 05/12/17 06:59 14:59 22:59 Other: Weight 121.563 kg Patient Weight 05/13/17 06:59 Weight 121.563 kg GENERAL: Physical exam revealed a 67-year-old white male, slightly obese, in no form of respiratory distress. EYES: PERRLA, EOMI. ENT: Normal moist mucous membranes noted. NECK: Short obese neck, no neck masses, no JVD.. HEART: Regular rate and rhythm. Good peripheral pulses. LUNGS/CHEST: Diminished breath sounds and dullness at the right base left side is relatively clear ABDOMEN: Obese, soft, nontender, no rebound no guarding. EXTREMITIES: No clubbing edema or cyanosis NEUROLOGIC: No gross focal neurologic deficit SKIN: No abrasions or ecchymosis is noted. No induration or masses noted. PSYCHIATRIC: Normal mood affect and mental status examination. Results - Laboratory Findings CBC and BMP: 05/12/17 12:13 05/12/17 12:13 PT/INR, D-dimer PT 11.9 sec (9.0-12.0) 05/12/17 12:13 INR 1.3 (<1.2) H 05/12/17 12:13 Abnormal lab findings: Abnormal Labs 05/12/17 05/12/17 12 12:13 12:13 12:13 RBC 4.28 L RDW 16.4 H Lymphocytes # 0.4 L INR 1.3 H Potassium 3.4 L Carbon Dioxide 31 H - Diagnostic Findings Chest x-ray: image reviewed Additional studies: Ultrasound of the chest was reviewed after it was done by the ultrasound technician in the emergency room department. Assessment and Plan Assessment: Impression: 1 recurrent right-sided pleural effusion in a patient with history of small cell lung cancer and squamous cell lung cancer, and history of pulmonary embolism. The effusion is felt to be malignant unless proven otherwise. Considering the rapid accumulation of the fluid in less than 2 weeks, I believe at this point it would be best to consider Pleurx catheter placement and this patient. Hence I recommended a referral to Dr. card, to see on outpatient basis, possibly arrange for holding Xarelto for 3 days prior to the procedure, and Pleurx catheter placement a few days later. 2 multiple comorbidities including coronary artery disease, COPD, hypertension, osteoarthritis, obstructive sleep apnea syndrome, and history of pulmonary embolism. Had a long discussion with the patient, his , and the ER physician, I also discussed the case with Nilton Shepherd who is the physician refinery operator assistant of , and he will arrange for an appointment with thoracic surgery as soon as possible. Time with Patient: Greater than 30
== END 2017-05-12 15:46 | disposition home or self-care (01) ==
LOC: EC 11:21
DX: J90 Pleural effusion, not elsewhere classified (principal); Z85.118 Personal history of other malignant neoplasm of bronchus and lung; E87.6 Hypokalemia; E78.5 Hyperlipidemia, unspecified; I10 Essential (primary) hypertension; I25.10 Atherosclerotic heart disease of native coronary artery without angina pectoris; J44.9 Chronic obstructive pulmonary disease, unspecified; K21.9 Gastro-esophageal reflux disease without esophagitis; G47.30 Sleep apnea, unspecified; N42.9 Disorder of prostate, unspecified; Z87.891 Personal history of nicotine dependence; Z79.01 Long term (current) use of anticoagulants; Z79.51 Long term (current) use of inhaled steroids; Z79.899 Other long term (current) drug therapy; Z88.0 Allergy status to penicillin; Z92.21 Personal history of antineoplastic chemotherapy; Z92.3 Personal history of irradiation; Z86.711 Personal history of pulmonary embolism; Z99.89 Dependence on other enabling machines and devices; Z99.81 Dependence on supplemental oxygen
CPT/HCPCS: 36415; 71020; 76604; 80053; 82550; 82553; 83880; 84484; 85025; 85610; 85730; 87040; 93005; 94640; 99285

== ENCOUNTER → 2017-05-16 | Day surgery (SDC) | payer MEDICARE ==
[2017-05-14 10:56] VITALS: BMI 38.4
[~2017-05-16] MED LIST changes: -CLINDAMYCIN 900 MG in DEXTROSE 5% IN WATER 50 ML IVPB ONE; +DEXAMETHASONE SOD PHOSPHATE 10 MG/ML 1 ML VIAL IV ONE; -HEPARIN SODIUM,PORCINE 5,000 UNIT/ML 1 ML VIAL SQ ONE; +HYDROmorphone 0.5 MG/0.5 ML SYRINGE IVP PRN; -HYDROmorphone 1 MG/ML 1 ML SYRINGE IVP PRN; +LIDOCAINE 1% 20 ML VIAL (10MG/ML) FOR IV START INTRADERMA PRN; +LIDOCAINE 1% INJ 10MG/ML (20 ML MDV) SQ ONE; +MIDAZOLAM 2 MG/2 ML VIAL IV PRN; +MIDAZOLAM 2 MG/2 ML VIAL ONE; +ONDANSETRON 4 MG/2 ML VIAL IVP ONE; -ONDANSETRON 4 MG/2 ML VIAL IVP PRN; +PROPOFOL 10 MG/ML 20 ML VIAL IV ONE; +SCOPOLAMINE 1.5MG/72HR PATCH TRANSDERM ONE; +VANCOMYCIN 1,500 MG in SODIUM CHLORIDE 0.9% 250 ML IVPB ONE; +fentaNYL (PF) 50 MCG/ML 2 ML AMP ONE
[2017-05-16 08:21] VITALS: RESP 18
--- NOTE | 2017-05-16 10:54 | FL ---
Fluoroscopy INDICATION: Pain FINDINGS: Fluoroscopy time: 16 seconds. Images obtained: 1. IMPRESSIONS: 1. Documentation of fluoroscopy. ANTHONY
[2017-05-16 22:07] VITALS: BP 123/65; PULSE 80; TEMP 97.6
--- NOTE | 2017-05-16 22:53 | OP ---
OPERATIVE REPORT DATE OF SURGERY: 05/16/2017 PREOPERATIVE DIAGNOSIS: Recurrent right pleural effusion. POSTOPERATIVE DIAGNOSIS: Recurrent right pleural effusion. PROCEDURE: Placement of right PleurX catheter under fluoroscopic guidance. SURGEON: Carlos Ugarte MD NUTRITION CONSULTANT: None. ANESTHESIA: Local with IV sedation. SPECIMEN: Right pleural fluid. ESTIMATED BLOOD LOSS: Minimal. INDICATIONS: The patient is a 67-year-old male with a known history of lung cancer, who presented to the hospital with recurrent right pleural effusion. He has had this drained via thoracentesis on multiple occasions. Cytology thus far has been negative. Placement of a right PleurX catheter was recommended. The risks, benefits, alternatives of this procedure were discussed with the patient. All questions were answered. Consent was obtained. FINDINGS: There was approximately 1800 mL of serous fluid drained from the right pleural space. PROCEDURE IN DETAIL: The patient was taken to the operating room, placed supine on the operating room table. Intravenous sedation was administered. The right chest and flank were then prepped and draped in the usual sterile fashion. Using a finder needle, the right pleural space was entered over the underlying rib. Return of free-flowing serous fluid was noted. A guidewire was then placed into the right pleural space under fluoroscopic guidance. Local anesthetic was infiltrated into the skin and subcutaneous tissue. A counter incision was created. The PleurX catheter was then tunneled between both incisions. Using standard Seldinger technique, a dilator was placed over the guidewire followed by a breakaway sheath. Again, this was performed under fluoroscopic guidance. The PleurX catheter was then introduced in the right pleural space without difficulty. Completion fluoroscopy revealed good position of PleurX catheter and no obvious pneumothorax. Counter incision was closed using a Vicryl suture. The PleurX catheter was secured to the skin using a silk suture. Approximately 1800 mL of serous fluid was drained from the pleural space. A portion of this fluid was sent to cytology. The patient appeared to tolerate the procedure well. There were no complications. A sterile dressing was applied. He returned to the recovery room in stable condition. MMODL / IJN: [id number] / MTDD
--- NOTE | 2017-05-16 22:54 | XR ---
EXAMINATION TYPE: XR chest 1V portable DATE OF EXAM: 05/16/2017 COMPARISON: 05/12/2017 INDICATION: Pleural effusion TECHNIQUE: Single frontal view of the chest is obtained. FINDINGS: The heart size is normal. The pulmonary vasculature is normal. Small right pleural fluid collections present. This is diminished from prior study. Catheter placemen t appears to be along the right diaphragm directed towards the right hilum. No pneumothorax. IMPRESSION: 1. Placement of a right basilar catheter. There is diminished pleural effusion. Small amount of resid ual remains.
== END ==
LOC: OR 07:41
PROVIDERS: ATTEND Surgery
DX: C34.90 Malignant neoplasm of unspecified part of unspecified bronchus or lung (principal); J91.8 Pleural effusion in other conditions classified elsewhere
CPT/HCPCS: 32550; 88108; 88305; 84132; 88342; 88341; 71010; 75989; J2250; J3370; J2405; J2001; J3010; J2704; 76000

== ENCOUNTER → 2017-06-04 | Outpatient (CLI) | payer MEDICARE ==
--- NOTE | 2017-06-04 11:44 | CT ---
EXAMINATION TYPE: CT chest wo con DATE OF EXAM: 06/04/2017 COMPARISON: Chest CT March 18, 2017 HISTORY: Dyspnea. History of lung cancer. CT DLP: 984 mGycm. Automated Exposure Control for Dose Reduction was Utilized. TECHNIQUE: CT scan of the thorax is performed without IV contrast. FINDINGS: LUNGS: There is right-sided pleural drainage catheter entering lateral lung base ascending posteriorl y and medially terminating posterior mid lung axial image 23. There are small residual pleural fluid collection or fusion below this. There is more dense atelectasis or consolidation in the medial right lower lobe 6. There are bronchograms superiorly and anteriorly noted. There is suspicious abrupt end obronchial occlusion right lower lobe bronchus coronal image 73. There is anterior groundglass opacit ies extending superiorly seen axial images 25 through 34 predominantly in the right lower lobe. There is small anterior right pleural fluid collection seen best near axial image 28. There is some right sided scarring with volume loss and mediastinal shift not significantly changed from prior. Small nodules periphery left upper lobe coronal images 54 through 57 are slightly more prominent vers us prior measuring up to 5 mm on long axis current study. There is stable 7 x 4 mm left lower lung no dule in fissure presumed benign intrapulmonary lymph node axial image 30. Mediastinum: There is persistent enlarged right paratracheal lymph node measuring 1.3 x 1.3 cm on axi al image 19. There are no definitive greater than 1 cm hilar or mediastinal lymph nodes. No cardiom egaly or pericardial effusion is seen. Moderate to severe 3 vessel coronary artery calcification is r edemonstrated. OTHER: Small degree of bilateral gynecomastia is redemonstrated. There is partial visualization of pr ominent posterior upper pole calyx right kidney more prominent versus prior. Cannot exclude developin g right-sided hydronephrosis. Consider renal ultrasound follow-up. IMPRESSION: 1. Interval placement of pleural drainage catheter. Small right pleural effusion remains present. Cat heter tip is at superior medial margin of effusion. There is associated compressive atelectasis. Ther e is more suspicious consolidation with abrupt bronchial cut off in which neoplasm involvement cannot be excluded. There is small loculated component anteriorly noted. There is fibrosis and volume loss consistent with radiation treatment. Attention to right kidney as noted above. Results discussed with ordering physician via telephone at time of dictation.
== END | disposition home or self-care (01) ==
LOC: RADCTMAIN 11:04
PROVIDERS: ATTEND Internal Medicine Critical Care Medicine
DX: J90 Pleural effusion, not elsewhere classified (principal); J98.11 Atelectasis; J84.10 Pulmonary fibrosis, unspecified; Z46.82 Encounter for fitting and adjustment of non-vascular catheter
CPT/HCPCS: 71250

== ENCOUNTER 2017-06-20 17:38 | Emergency (ER) | payer MEDICARE ==
[2017-06-20 17:47] VITALS: PULSE 89
[2017-06-20] MEDS ORDERED: HYDROcodone/APAP 5-325MG 1 EACH TAB PO STA (18:03)
--- NOTE | 2017-06-20 18:10 | ED ---
General Adult HPI - General Chief complaint: Extremity Problem,Nontraumatic Stated complaint: Foot pain Time Seen by Provider: 06/20/17 17:49 Source: patient, RN notes reviewed Mode of arrival: ambulatory Limitations: no limitations - History of Present Illness Initial comments: Patient is a 67-year-old male who presents emergency room today with chief complaint of some pain locally to the left MTP joint. Patient states this started last night. States he did take his indomethacin. States she's not had any relief. States he does have a history of gout but this is slightly different spot as it seems to be just above the MTP joint. Patient states that he has noticed some swelling. States typically gets relief with indomethacin. He denies any other points her symptoms. Patient denies any recent fever, chills , shortness of breath, chest pain, back pain, abdominal pain, nausea or vomiting , numbness or tingling, headaches or visual changes, or any other complaints. - Related Data Home Medications Medication Instructions Recorded Confirmed Atorvastatin [Lipitor] 20 mg PO HS 11/26/14 06/20/17 Doxazosin [Cardura] 4 mg PO BID 11/26/14 06/20/17 Rivaroxaban [Xarelto] 20 mg PO DAILY 02/02/17 06/20/17 Fluticasone Nasal [place] [Flonase 1 spray EA NOSTRIL DAILY PRN 02/07/17 06/20/17 Nasal [place]] Furosemide [Lasix] 40 mg PO DAILY 02/07/17 06/20/17 Omeprazole [PriLOSEC] 20 mg PO AC-BID 03/27/17 06/20/17 Ipratropium-Albuterol Nebulize 3 ml INHALATION BID 05/14/17 06/20/17 [Duoneb 0.5 mg-3 mg/3 ml Soln] Opdivo 1 applic IV Q14D 05/14/17 06/20/17 guaiFENesin [Mucinex] 600 mg PO BID 05/14/17 06/20/17 Indomethacin [Indocin] 100 mg PO DAILY PRN 06/20/17 06/20/17 Vit C/E/Zn/Coppr/Lutein/Zeaxan 1 cap PO DAILY 06/20/17 06/20/17 [Preservision Areds 2 Softgel] Previous Rx's Medication Instructions Recorded Metoprolol Tartrate [Lopressor] 25 mg PO BID #60 tab 02/14/17 Hydrocodone/Acetaminophen [[place] 1 each PO Q6HR PRN #12 tab 06/20/17 5-325] Allergies Allergy/AdvReac Type Severity Reaction Status Date / Time Penicillins Allergy Swelling Verified 06/20/17 18:26 Review of Systems ROS Statement: Those systems with pertinent positive or pertinent negative responses have been documented in the HPI. ROS Other: All systems not noted in ROS Statement are negative. Past Medical History Past Medical History: Coronary Artery Disease (CAD), Cancer, COPD, GERD/Reflux, Hyperlipidemia, Hypertension, Osteoarthritis (OA), Prostate Disorder, Pulmonary Embolus (PE), Sleep Apnea/CPAP/BIPAP Additional Past Medical History / Comment(s): O2 AT 3L DURING DAY,CPAP AT NIGHT, 01/06/17 PE. 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 THOROCENTISIS X2 Past Anesthesia/Blood Transfusion Reactions: No Reported Reaction Past Psychological History: No Psychological Hx Reported Smoking Status: Former smoker Past Alcohol Use History: None Reported Past Drug Use History: None Reported - Past Family History Mother Family Medical History: CVA/TIA Additional Family Medical History / Comment(s): brain tumor Sister(s) Family Medical History: Cancer Additional Family Medical History / Comment(s): melanoma shoulder Father Family Medical History: Myocardial Infarction ([place]) Additional Family Medical History / Comment(s): all 5 of dad's brothers had a mi General Exam - General Exam Comments Initial Comments: General: The patient is awake and alert, in no distress, and does not appear acutely ill. Neck: The neck is supple, there is no tenderness or JVD. Cardiovascular: There is a regular rate and rhythm. No murmur, rub or gallop is appreciated. Respiratory: Lungs are clear to auscultation, respirations are non-labored, breath sounds are equal. No wheezes, stridor, rales, or rhonchi. Musculoskeletal: Normal appearance of the left foot mild swelling. No lymphangitic streaking. Mild tenderness at the MTP joint of the left great toe. Sensation intact pulses equal bilaterally 2+. Strength 5/5. Neurological: A&O x 3. CN II-XII intact, There are no obvious motor or sensory deficits. Coordination appears grossly intact. Speech is normal. Skin: Skin is warm and dry and no rashes or lesions are noted. Psychiatric: Normal mood and affect. Limitations: no limitations Course Vital Signs 06/20/17 17:44 Temperature 98.5 F Pulse Rate 89 Respiratory 16 Rate Blood Pressure 119/67 O2 Sat by Pulse 96 Oximetry Medical Decision Making - Medical Decision Making Patient reexamined at this time shows no signs of distress. States he is feeling better after [place]. Patient's labs been reviewed. Uric acid is elevated at 8.7. Patient will be given a short prescription pain medication go home with. Advised to follow-up with his appointment in 2 days. Advised to return to emergency room if any symptoms increase or worsen. Patient states understanding and is in agreement with plan. - Lab Data Result diagrams: 06/20/17 18:20 Lab Results 06/20/17 06/20/17 Range/Units 18:20 18:20 WBC 5.2 (3.8-10.6) k/uL RBC 4.04 L (4.30-5.90) m/uL Hgb 12.1 L (13.0-17.5) gm/dL Hct 36.2 L (39.0-53.0) % MCV 89.5 (80.0-100.0) fL MCH 29.8 (25.0-35.0) pg MCHC 33.3 (31.0-37.0) g/dL RDW 16.3 H (11.5-15.5) % Plt Count 238 (150-450) k/uL Neutrophils % 73 % Lymphocytes % 9 % Monocytes % 11 % Eosinophils % 3 % Basophils % 1 % Neutrophils # 3.8 (1.3-7.7) k/uL Lymphocytes # 0.5 L (1.0-4.8) k/uL Monocytes # 0.6 (0-1.0) k/uL Eosinophils # 0.1 (0-0.7) k/uL Basophils # 0.0 (0-0.2) k/uL Anisocytosis Slight Uric Acid 8.7 H (3.5-8.5) mg/dL Disposition Clinical Impression: Gouty arthritis of toe Disposition: HOME SELF-CARE Condition: Good Instructions: Gout (ED) Additional Instructions: Please use medication as discussed. Please follow-up with family doctor in the next 2 days of symptoms have not improved. Please return to emergency room if the symptoms increase or worsen or for any other concerns. Prescriptions: Hydrocodone/Acetaminophen [[place] 5-325] 1 each PO Q6HR PRN #12 tab PRN Reason: Pain Referrals: Hector Escoto MD [Primary Care Provider] - 1-2 days Time of Disposition: 19:24
[2017-06-20 18:42] LABS: Anisocytosis Slight; Basophils % (A) 1 %; Eosinophils # (A) 0.1 k/uL (0-0.7); Eosinophils % (A) 3 %; HCT 36.2 % (39.0-53.0); HGB 12.1 gm/dL (13.0-17.5); Lymphocytes # (A) 0.5 k/uL (1.0-4.8); Lymphocytes % (A) 9 %; MCH 29.8 pg (25.0-35.0); MCHC 33.3 g/dL (31.0-37.0); MCV 89.5 fL (80.0-100.0); Monocytes # (A) 0.6 k/uL (0-1.0); Monocytes % (A) 11 %; Neutrophils # (A) 3.8 k/uL (1.3-7.7); Neutrophils % (A) 73 %; Platelet Count 238 k/uL (150-450); RBC 4.04 m/uL (4.30-5.90); RDW 16.3 % (11.5-15.5); WBC 5.2 k/uL (3.8-10.6)
[2017-06-20 19:51] VITALS: BP 107/58; RESP 20; TEMP 98.2
== END 2017-06-20 19:49 | disposition home or self-care (01) ==
LOC: EC 17:38
DX: M10.9 Gout, unspecified (principal); J44.9 Chronic obstructive pulmonary disease, unspecified; I25.10 Atherosclerotic heart disease of native coronary artery without angina pectoris; K21.9 Gastro-esophageal reflux disease without esophagitis; E78.5 Hyperlipidemia, unspecified; I10 Essential (primary) hypertension; M19.90 Unspecified osteoarthritis, unspecified site; G47.30 Sleep apnea, unspecified; Z85.118 Personal history of other malignant neoplasm of bronchus and lung; Z98.890 Other specified postprocedural states; Z86.711 Personal history of pulmonary embolism; Z99.89 Dependence on other enabling machines and devices; Z87.891 Personal history of nicotine dependence; Z88.0 Allergy status to penicillin; Z79.51 Long term (current) use of inhaled steroids; Z79.01 Long term (current) use of anticoagulants; Z79.899 Other long term (current) drug therapy
CPT/HCPCS: 36415; 84550; 85025; 87040; 99283

== ENCOUNTER → 2017-07-01 | Outpatient (CLI) | payer MEDICARE ==
--- NOTE | 2017-07-01 12:31 | MR ---
EXAMINATION TYPE: MR brain wo/w con DATE OF EXAM: 07/01/2017 11:25 AM COMPARISON: 04/02/2017 HISTORY: Brain Ca, Secondary / Lung Ca CONTRAST: Patient received 12 mL intravenous Gadavist gadolinium contrast. Multiplanar and multispin-echo imaging of the brain was performed . Pre and post contrast enhanced i mages are obtained. The ventricles, basal cisterns and sulci overlying the cerebral convexities are minimally enlarged. There is evidence of mild periventricular white matter ischemic demyelination. Remote deep white matter insults are also noted. No acute edema is seen on diffusion weighted imaging. There is no evidence for midline shift or mass effect. Acute intracranial hemorrhage or extra-axial collection is not evident. No enhancing lesions are seen. The paranasal sinuses and mastoid air cells are well-aerated. IMPRESSION: Age-related atrophic and chronic small vessel ischemic change. No acute intracranial process at this time. No enhancing lesions are seen.
== END | disposition home or self-care (01) ==
LOC: RADMRIMAIN 10:40
PROVIDERS: ATTEND Radiology Radiation Oncology
DX: C79.31 Secondary malignant neoplasm of brain (principal); C34.11 Malignant neoplasm of upper lobe, right bronchus or lung; G31.1 Senile degeneration of brain, not elsewhere classified; I67.82 Cerebral ischemia
CPT/HCPCS: 70553; A9581

== ENCOUNTER → 2017-07-08 | Outpatient (CLI) | payer MEDICARE ==
--- NOTE | 2017-07-08 08:13 | CT ---
EXAMINATION TYPE: CT abdomen pelvis wo con DATE OF EXAM: 07/08/2017 COMPARISON: 03/18/2017 HISTORY: Kidney stone, pt offers no complaints CT DLP: 1468.2 mGycm Examination of the solid and hollow viscera is limited given the lack of contrast. FINDINGS: LUNG BASES: Large area of volume loss right lower lobe. Underlying mass or infiltrate is not excluded . Pleural effusion noted. Left lung bases clear. LIVER/GB: The gallbladder is unremarkable. No space- occupying hepatic lesion. PANCREAS: No pancreatic mass identified. No inflammatory process seen. SPLEEN: No evidence for splenomegaly. No intrasplenic lesions seen. ADRENALS: No adrenal nodules identified. No evidence for thickening. KIDNEYS: There are approximately 5 nonobstructing calculi right kidney with the largest calculus iden tified within the lower pole and measures approximately 5.3 mm. There is fullness of the right renal collecting system without obstructing calculus. Caliber changes seen at the right UPJ. No left-sided renal calculi are seen. No solid or cystic renal mass is identified at this time. BOWEL: Appendix has a normal appearance. No evidence of bowel obstruction. No inflammatory process. Lymph nodes: No evidence for adenopathy greater than 1 cm. Abdominal aorta: Atheromatous changes seen. No evidence for aneurysm. Genital organs: No significant abnormality. Other: Degenerative changes lumbar spine. IMPRESSION: 1. Nonobstructing right-sided nephrolithiasis. Fullness of the right renal collecting system with hu iber change at the right UPJ appears to be chronic in nature without obstructing calculus at this norma e. 2. Right basilar pleural effusion with right lower lobe volume loss and/or infiltrate. Underlying mas s is not excluded.
== END | disposition home or self-care (01) ==
LOC: RADCTMAIN 07:10
PROVIDERS: ATTEND Urology
DX: N20.0 Calculus of kidney (principal); R93.49 Abnormal radiologic findings on diagnostic imaging of other urinary organs
CPT/HCPCS: 74176

== ENCOUNTER → 2017-08-26 | Outpatient (CLI) | payer MEDICARE ==
--- NOTE | 2017-08-26 13:30 | CT ---
EXAMINATION TYPE: CT chest w con DATE OF EXAM: 08/26/2017 COMPARISON: 06/04/2017 HISTORY: Patient has no complaints at time of study. Follow up study for known lung CA. CT DLP: 831 mGycm, Automated exposure control for dose reduction was used. CONTRAST: Performed injected with 100 mL of Isovue 300. TECHNIQUE: Axial images were obtained at 5 mm thick sections. Reconstructed images are reviewed on [facility] computer in the coronal plane. FINDINGS: There is some hypodensity within the inferior right lobe thyroid. Small right pleural effusion is present. Previous drainage catheter is been removed. Pleural effusion is diminished from prior study. There is a mass density within the medial right lower lobe. This is estimated to measure 6.7 x 5.7 cm . Series 3 image 33. Spiculated nodule identified in the left upper lobe measuring 0.7 cm was present previously. Series 5 image 62 There is a 1.5 cm lymph node in the pretracheal space. This has some central hypodensity. This is la rger than the comparison but may reflect necrosis. A mediastinal lymph node measuring 0.8 cm is in [facility] anterior mediastinum. Series 3 image 29 The ascending aorta diameter at the level of the main pulmonary artery is 3.6 cm. The main pulmonary artery diameter at the bifurcation is 2.[address] sections are obtained through the upper abdomen. Abdomen is essentially unremarkable. IMPRESSIONS: 1. Stable appearance of a right lower lobe mass. 2. Stable nodular density periphery left upper lobe. 3. Enlarged mediastinal lymph node the have some central necrosis. 4. Diminished small right pleural effusion
== END | disposition home or self-care (01) ==
LOC: RADCTMAIN 11:21
PROVIDERS: ATTEND Internal Medicine Hematology & Oncology
DX: C34.91 Malignant neoplasm of unspecified part of right bronchus or lung (principal); R91.8 Other nonspecific abnormal finding of lung field; R59.0 Localized enlarged lymph nodes; J90 Pleural effusion, not elsewhere classified; Z88.0 Allergy status to penicillin
CPT/HCPCS: 71260; 36415; Q9967

== ENCOUNTER → 2017-08-26 | Outpatient (CLI) | payer MEDICARE ==
[2017-08-26 11:56] LABS: Anisocytosis Slight; HCT 36.4 % (39.0-53.0); HGB 12.1 gm/dL (13.0-17.5); MCHC 33.2 g/dL (31.0-37.0); MCV 87.5 fL (80.0-100.0); Mean Platelet Volume 7.7; Platelet Count 196 k/uL (150-450); Poikilocytosis Slight; RBC 4.16 m/uL (4.30-5.90); RDW 16.3 % (11.5-15.5); WBC 4.1 k/uL (3.8-10.6)
[2017-08-26 12:29] LABS: Potassium 3.2 mmol/L (3.5-5.1)
== END | disposition home or self-care (01) ==
LOC: LABPAT 14:49
PROVIDERS: ATTEND Internal Medicine Interventional Cardiology
DX: Z01.812 Encounter for preprocedural laboratory examination (principal); R06.02 Shortness of breath
CPT/HCPCS: 80051; 82565; 84520; 85027

== ENCOUNTER 2017-09-01 10:52 | Day surgery (SDC) | payer MEDICARE ==
[~2017-09-01 10:52] MED LIST changes: +ALPRAZolam 0.25 MG TAB PO PRN; +ALPRAZolam 0.5 MG TAB PO PRN; +ASPIRIN 325 MG TAB PO STA; +ATORVASTATIN 80 MG TAB PO STA; -DEXAMETHASONE SOD PHOSPHATE 10 MG/ML 1 ML VIAL IV ONE; -HYDROmorphone 0.5 MG/0.5 ML SYRINGE IVP PRN; -LACTATED RINGERS 1,000 ML IV SCH; -LIDOCAINE 1% 20 ML VIAL (10MG/ML) FOR IV START INTRADERMA PRN; -LIDOCAINE 1% INJ 10MG/ML (20 ML MDV) SQ ONE; -MIDAZOLAM 2 MG/2 ML VIAL IV PRN; -MIDAZOLAM 2 MG/2 ML VIAL ONE; +NITROGLYCERIN SL TABS 0.4 MG TAB SUBLINGUAL PRN; -ONDANSETRON 4 MG/2 ML VIAL IVP ONE; -PROPOFOL 10 MG/ML 20 ML VIAL IV ONE; -SCOPOLAMINE 1.5MG/72HR PATCH TRANSDERM ONE; +SODIUM CHLORIDE 0.9% 1,000 ML in EMPTY BAG 1 BAG IV ONE; -VANCOMYCIN 1,500 MG in SODIUM CHLORIDE 0.9% 250 ML IVPB ONE; -fentaNYL (PF) 50 MCG/ML 2 ML AMP ONE
[2017-09-01 11:35] VITALS: TEMP 99
[2017-09-01] MEDS ORDERED: LIDOCAINE 2% INJ 20 MG/ML (20 ML MDV) ONE (12:42)
[2017-09-01] MEDS ORDERED: MIDAZOLAM 2 MG/2 ML VIAL ONE (12:42)
[2017-09-01] MEDS ORDERED: MIDAZOLAM 2 MG/2 ML VIAL IVP ONE (12:43)
[2017-09-01] MEDS ORDERED: HEPARIN SODIUM 1,000 UN/ML (10ML VL) ONE (12:43)
[2017-09-01] MEDS ORDERED: VERAPAMIL 2.5 MG/ML 2 ML AMP ONE (12:43)
[2017-09-01] MEDS ORDERED: fentaNYL (PF) 50 MCG/ML 2 ML AMP ONE (12:47)
[2017-09-01] MEDS ORDERED: LIDOCAINE 2% INJ 20 MG/ML SQ ONE (12:47)
[2017-09-01 12:53] LABS: Anion Gap 10 mmol/L; Blood Urea Nitrogen 15 mg/dL (9-20); Calcium 8.7 mg/dL (8.4-10.2); Carbon Dioxide 32 mmol/L (22-30); Chloride 100 mmol/L (98-107); Glucose 95 mg/dL (74-99); Potassium 3.6 mmol/L (3.5-5.1); Sodium 142 mmol/L (137-145)
[2017-09-01] MEDS: VERAPAMIL SYRINGE (5 MG/10 ML) INTRAARTER ONE ×2 (12:53→13:03)
[2017-09-01] MEDS ORDERED: fentaNYL (PF) 50 MCG/ML 2 ML AMP IVP ONE (12:53)
[2017-09-01] MEDS ORDERED: IOPAMIDOL-370 125ML BTL INJ ONE (13:03)
[2017-09-01] MEDS ORDERED: RX INFO: IV CONTRAST WAS GIVEN 1 EACH MISC MISCELLANE PRN (13:10)
[2017-09-01] MEDS ORDERED: SODIUM CHLORIDE 0.9% 1,000 ML IV SCH (13:15)
[2017-09-01 13:23] VITALS: RESP 18
[2017-09-01 15:04] VITALS: BP 139/63; PULSE 88
--- NOTE | 2017-09-01 16:06 | CC ---
CARDIAC CATHETERIZATION REPORT DATE OF SERVICE: September 01, 2017 PERFORMING PHYSICIAN: Jd Srinivasan MD, powdered sugar pulverizer operator. PROCEDURE PERFORMED: 1. Selective right and left coronary angiogram. 2. Left heart catheterization. INDICATION: This is a pleasant 67-year-old gentleman who was struggling with exertional dyspnea. He underwent myocardial perfusion imaging stress test and that revealed an anterior ischemia. In view of that, heart catheterization was recommended. APPROACH: Right radial artery. COMPLICATION: None. LEVEL OF SEDATION: Moderate with sedation length of 18 minutes. PROCEDURE DESCRIPTION: After obtaining an informed consent, the patient was brought to cardiac laborer carpentry dock. The right radial artery was cannulated using micropuncture technique, the micropuncture wire passed easily, then I placed a 6-English sheath in the right radial artery and then I did selective right and left coronary angiogram using JR4 and JL3.5 catheters. After that I did left heart catheterization and that was performed using the JR4 catheter which flipped into the LV. Then I did pullback per protocol. The procedure was completed without any complication. SELECTIVE CORONARY ANGIOGRAM: 1. The right coronary artery is a large caliber vessel and it is a dominant vessel. The RCA is calcified. It does have mild disease in the proximal portion. Distally bifurcates into PDA and PLV branches both are angiographically normal. 2. The left main is angiographically normal. It bifurcates into the left circumflex and left anterior descending artery. 3. The left circumflex is a large caliber vessel and it is a nondominant vessel. The left circumflex has mild disease only in the midportion. 4. The left anterior descending artery: The proximal LAD is normal. The mid LAD appeared to have eccentric plaque in the range of 50% to 60% in the midportion. The LAD distally is angiographically normal. HEMODYNAMICS: The left ventricular end-diastolic pressure was 12 to 16 mmHg and no gradient was identified across the aortic valve. CONCLUSION: 1. Calcified left coronary system. 2. Intermediate disease involving the mid LAD appeared to be in the range of 60-60%. POSTPROCEDURE MANAGEMENT: 1. Maximize medical treatment. 2. Follow up with the patient. MMODL / IJN: [id number] /
--- NOTE | 2017-09-01 16:12 | LTR ---
September 01, 2017 To: Dr. Escoto Re: Qasim Jolley (1950) Dear Dr. Escoto, Mr. Qasim Jolley underwent heart catheterization that revealed intermediate disease only involving the mid LAD that appeared to be in the range of 50% to 60%. Maximized medical treatment is recommended at this point of time. I want to thank you for allowing me to participate in his care. Please do not hesitate to call if you have any question or concern. Sincerely, Jd Srinivasan MD MMLEONARDL / MAVERICKN: [id number] /
== END 2017-09-01 17:25 | disposition home or self-care (01) ==
LOC: CATHCVL 10:52
PROVIDERS: ATTEND Internal Medicine Interventional Cardiology
DX: I25.110 Atherosclerotic heart disease of native coronary artery with unstable angina pectoris (principal); I25.84 Coronary atherosclerosis due to calcified coronary lesion; I10 Essential (primary) hypertension; Z87.891 Personal history of nicotine dependence; E78.5 Hyperlipidemia, unspecified; E66.3 Overweight; Z68.37 Body mass index [BMI] 37.0-37.9, adult; R00.0 Tachycardia, unspecified; Z86.711 Personal history of pulmonary embolism; Z79.01 Long term (current) use of anticoagulants; Z79.1 Long term (current) use of non-steroidal anti-inflammatories (NSAID); Z79.51 Long term (current) use of inhaled steroids; Z79.899 Other long term (current) drug therapy; Z88.0 Allergy status to penicillin
CPT/HCPCS: 93458; 80048; C1894; J2001; J2250; J3010; J1644; Q9967

== ENCOUNTER → 2017-09-08 | Outpatient (CLI) | payer MEDICARE ==
--- NOTE | 2017-09-08 13:06 | MR ---
EXAMINATION TYPE: MR brain wo/w con DATE OF EXAM: 09/08/2017 COMPARISON: MR brain 07/01/2017 HISTORY: Lung mass, mets TECHNIQUE: Multiplanar, multisequence images of the brain and brainstem is performed without and with IV contras t, utilizing 12.5 mL intravenous Gadavist . FINDINGS: Diffusion weighted images demonstrate no evidence of a recent infarct or other diffusion ab normality. There is no extra-axial fluid collection or significant interval change in white matter s ignal abnormality. The ventricular system and cisternal spaces are normal in size and appearance. T he brain volume is age appropriate. Midline structures demonstrate normal morphology. The craniocervical junction appears within normal limits. Post contrast images demonstrate no abnormal enhancement. The dural venous sinuses appear pa tent. The visualized sinuses are remarkable for some mucoperiosteal thickening within the maxillary s inus, ethmoid air cells and the globes are intact. IMPRESSION: Stable exam. Nonspecific white matter demyelination and age-related atrophy. Mild sinus d isease.
== END | disposition home or self-care (01) ==
LOC: RADMRIMAIN 11:04
PROVIDERS: ATTEND Radiology Radiation Oncology
DX: C34.11 Malignant neoplasm of upper lobe, right bronchus or lung (principal); C79.31 Secondary malignant neoplasm of brain
CPT/HCPCS: 70553; A9577

== ENCOUNTER 2017-10-03 09:26 | Day surgery (SDC) | payer MEDICARE ==
[2017-10-01 12:35] VITALS: BMI 37.5
[~2017-10-03 09:26] MED LIST changes: -ALPRAZolam 0.25 MG TAB PO PRN; -ALPRAZolam 0.5 MG TAB PO PRN; -ASPIRIN 325 MG TAB PO STA; -ATORVASTATIN 80 MG TAB PO STA; +LACTATED RINGERS 1,000 ML IV SCH; +LIDOCAINE 1% 20 ML VIAL (10MG/ML) FOR IV START INTRADERMA PRN; -NITROGLYCERIN SL TABS 0.4 MG TAB SUBLINGUAL PRN; -SODIUM CHLORIDE 0.9% 1,000 ML in EMPTY BAG 1 BAG IV ONE
[2017-10-03 10:03] VITALS: TEMP 98
[2017-10-03] MEDS ORDERED: PROPOFOL 10 MG/ML 20 ML VIAL IV ONE (10:30)
--- NOTE | 2017-10-03 10:45 | P.PCN ---
Date of Procedure: 10/03/17 Procedure(s) Performed: BRIEF HISTORY: Patient is a 67-year-old, pleasant, white male, scheduled for an upper endoscopy as a part of evaluation of dysphagia to liquids for the last 2- 3 months duration. He was diagnosed with lung cancer and is status post radiation and chemotherapy approximately year ago. He denies any dysphagia to solids. Denies any heartburn. No odynophagia. In view of the symptoms he scheduled for an upper endoscopy possible dilation today. PROCEDURE PERFORMED: Esophagogastroduodenoscopy with biopsy. PREOPERATIVE DIAGNOSIS: Intermittent this dysphagia to liquids and throat irritation. IV sedation per anesthesia. PROCEDURE: After informed consent was obtained, the patient was brought into the endoscopy unit. IV sedation was administered by Anesthesia under continuous monitoring. Initially the Olympus GIF-140 video endoscope was inserted into the mouth. Esophagus intubated without any difficulty. It was gradually advanced into the stomach and duodenum and carefully examined. The bulb and the second part of the duodenum appeared normal. The scope at this time was withdrawn to the stomach, adequately insufflated with air, and upon careful examination, mucosa of the antrum, had scattered erosions and biopsies were done from this area. The body, cardia and the fundus appeared normal. The scope was then withdrawn into the esophagus. The GE junction was located at 39 cm from the incisors. A very small sliding Hiatal hernia noted.The esophagus appeared normal. There were no erosions or ulcerations seen. The proximal cervical esophagus was carefully examined and no obvious stricture or other mucosal pathology identified. Biopsies were done from the proximal esophagus and the patient tolerated the procedure well. IMPRESSION: 1. Normal-appearing esophagus with no evidence of esophagitis or esophageal stricture. 2. Small sliding Hiatal hernia 3. Mild antral gastritis ECOMMENDATIONS: The findings of this examination were discussed with the patient as well as his family. He was advised to follow with the biopsy results. recommended a trial of Prilosec 20 mg daily for 6 weeks to see if he has any improvement in symptoms.
[2017-10-03 10:59] VITALS: RESP 17
[2017-10-03 11:13] VITALS: BP 98/62; PULSE 86
== END 2017-10-03 11:41 | disposition home or self-care (01) ==
LOC: ORWHC2ENDO 09:26
PROVIDERS: ATTEND Internal Medicine Gastroenterology
DX: K31.9 Disease of stomach and duodenum, unspecified (principal); K21.0 Gastro-esophageal reflux disease with esophagitis; K44.9 Diaphragmatic hernia without obstruction or gangrene; K29.70 Gastritis, unspecified, without bleeding; I10 Essential (primary) hypertension; E78.5 Hyperlipidemia, unspecified; I25.10 Atherosclerotic heart disease of native coronary artery without angina pectoris; J44.9 Chronic obstructive pulmonary disease, unspecified; M10.9 Gout, unspecified; Z85.118 Personal history of other malignant neoplasm of bronchus and lung; Z92.3 Personal history of irradiation; Z92.21 Personal history of antineoplastic chemotherapy; Z86.73 Personal history of transient ischemic attack (TIA), and cerebral infarction without residual deficits; Z86.711 Personal history of pulmonary embolism; Z79.891 Long term (current) use of opiate analgesic; Z79.899 Other long term (current) drug therapy; Z79.01 Long term (current) use of anticoagulants; Z88.0 Allergy status to penicillin
CPT/HCPCS: 88305; 43239; J2704

== ENCOUNTER → 2017-12-18 | Outpatient (CLI) | payer MEDICARE ==
--- NOTE | 2017-12-18 10:27 | CT ---
EXAMINATION TYPE: CT chest w con DATE OF EXAM: 12/18/2017 COMPARISON: 08/26/2017 HISTORY: Malignant neoplasm of unspecified part of right lung CT DLP: 1372.70 mGycm. Automated Exposure Control for Dose Reduction was Utilized. TECHNIQUE: CT scan of the thorax is performed following with IV Contrast, patient injected with 100 ml mL of Isovue 300. FINDINGS: LUNGS: When measured in a similar fashion and on a similar image from the prior exam (previously seri es 3 image 33 measuring 6.7 x 5.7 cm) the mass in the medial right lower lobe has decreased in size o verall and now measuring 5.9 x 4.9 cm also on series 3 image 33. Inferior to this the mass does measu re larger but was also larger on the prior exam. Largest measurement such as on series 3 image 41 jordi sure up to 7.6 x 7.2 cm. There remains an adjacent pleural effusion, similar in volume to the prior. This is overall small in volume. When measured in a similar fashion the left upper lobe pulmonary nodule that is bilobed and cavitary again measures approximately 7 mm on series 6 image 61 (coronal imaging). This measures 1.5 cm in gre atest dimension on axial series 4 image 20 and is unchanged from the prior. Left basilar pulmonary nodule on series 4 image 50a measures 2 mm and contained a punctate calcificat ion on the prior, likely not seen today given slice selection and this is favored to be benign relati ng to a granuloma. MEDIASTINUM: The previously seen pretracheal lymph node measuring 1.5 cm on the prior now measures 1. 2 cm in short axis. Epiphrenic lymph node that measured 8 mm on the prior now measures 7 mm. Ascendin g thoracic aorta and main pulmonary artery are within normal limits. No cardiomegaly is seen. Sever e three-vessel coronary artery calcifications are seen. Trace pericardial fluid is noted without siza ble pericardial effusion. There is rightward mediastinal shift secondary to right hemithorax volume l oss. OTHER: Mild symmetric retroareolar probable gynecomastia is noted. Multilevel moderate degenerative c hanges of the thoracic spine are seen. 3 nonobstructing right renal calculi are noted measuring up to 7 mm in the right midpole. Multiple ill-defined focal areas of hypoattenuation are seen within the liver (at least 5 in number) suspicious for metastasis with the largest in the inferior right hepatic lobe in segment 6 measuring 2.5 x 2.4 cm measured on series 3 image 63. IMPRESSION: 1. Response to treatment in regards to the right lower lobe primary pulmonary carcinoma with prior me asurement of 6.7 x 5.7 cm decreased to 5.9 x 4.9 cm on the current exam when measured in a similar lo cation, however the inferior margin measures up to 7.6 x 7.2 cm (also slightly smaller than the prior ). Additionally there is improvement in caliber of the mediastinal adenopathy with only a solitary pr etracheal enlarged lymph node remaining. 2. Multiple hepatic foci highly suspicious for metastasis with the largest in the inferior right hepa tic lobe measuring 2.5 cm.
== END | disposition home or self-care (01) ==
LOC: RADCTMAIN 08:31
PROVIDERS: ATTEND Internal Medicine Hematology & Oncology
DX: C34.31 Malignant neoplasm of lower lobe, right bronchus or lung (principal); R59.0 Localized enlarged lymph nodes; Z88.0 Allergy status to penicillin
CPT/HCPCS: 82565; 84520; 71260; 36415; Q9967

== ENCOUNTER → 2017-12-30 | Outpatient (CLI) | payer MEDICARE ==
--- NOTE | 2017-12-31 12:01 | MR ---
EXAMINATION TYPE: MR brain wo/w con DATE OF EXAM: 12/30/2017 COMPARISON: 09/08/2017 HISTORY: Lung ca / Secondary bone ca CONTRAST: Performed utilizing 12.5 mL intravenous Gadavist gadolinium contrast. TECHNIQUE: Multiplanar, multiecho imaging on a 3.0 Zoe magnet is performed through the brain. Stud y is performed within 24 hours of arrival to the hospital. The craniovertebral junction is normal. The pituitary is normal. Diffusion-weighted imaging is performed. No abnormal hyperintensity is present to suggest an acute i ntracranial infarct or acute ischemic change. There are scattered punctate areas of hyperintensity on T2 and Inversion Recovery weighted sequences which are non-specific but can be related to microvascular ischemic changes. These are predominantly within the subcortical regions present bilaterally are stable in position size as well as frequency f rom the recent comparison of August 2017. Ventricles and sulci are appropriate for the patient age. Periventricular white matter changes are present, likely on the basis of chronic white matter ischemi c change No suspicious enhancement is evident. Calvarium as visualized appears unremarkable. IMPRESSIONS: 1. No suspicious intracranial changes to suggest metastasis. 2. Periventricular and subcortical white matter ischemic type changes.
== END | disposition home or self-care (01) ==
LOC: RADMRIMAIN 11:02
PROVIDERS: ATTEND Radiology Radiation Oncology
DX: I67.82 Cerebral ischemia (principal); C79.51 Secondary malignant neoplasm of bone; C34.31 Malignant neoplasm of lower lobe, right bronchus or lung
CPT/HCPCS: 70553; A9581

== ENCOUNTER → 2018-01-13 | Outpatient (CLI) | payer MEDICARE ==
--- NOTE | 2018-01-13 11:35 | FL ---
EXAMINATION TYPE: FL barium swallow w video DATE OF EXAM: 01/13/2018 MODIFIED SWALLOW / DEGLUTITION STUDY CLINICAL HISTORY: Dysphagia. History of lung cancer. A total of 1 minute 15 seconds of fluoroscopic t prakash was utilized during procedure. Approximately 8 cine sequences were acquired. 0 images are saved t o PACS. TECHNIQUE: Deglutition study is performed utilizing thin liquid barium, honey and nectar thick liqui d barium, barium thick applesauce, and barium coated cracker. COMPARISON: None. FINDINGS: The oral and pharyngeal phases show satisfactory initiation and propagation with all modali ties tested. Satisfactory mastication is seen with solid modalities tested. There is no evidence of penetration or aspiration with any modality tested. No significant pharyngeal residue was appreciate d. IMPRESSION: Normal deglutition study. Please refer to speech therapist notes for further details if necessary.
== END | disposition home or self-care (01) ==
LOC: RADFLMAIN 10:49
PROVIDERS: ATTEND Internal Medicine Critical Care Medicine
DX: R13.12 Dysphagia, oropharyngeal phase (principal)
CPT/HCPCS: 74230

== ENCOUNTER 2018-01-23 19:59 | Emergency (ER) | payer MEDICARE ==
[2018-01-23 20:14] VITALS: BP 116/72; PULSE 88; RESP 18; TEMP 98.6
--- NOTE | 2018-01-23 20:38 | ED ---
General Adult HPI - General Source: patient, RN notes reviewed Mode of arrival: ambulatory Limitations: no limitations <Mac Baltazar P - Last Filed: 01/23/18 21:14> <Nayla Franks P - Last Filed: 01/26/18 22:37> - General Chief complaint: Extremity Injury, Lower Stated complaint: Foot Pain Time Seen by Provider: 01/23/18 20:15 - History of Present Illness Initial comments: 67-year-old male complains of left 3rd toe pain 8 hours. Patient states he was walking in the yard earlier today when he felt a sharp pain in his left third digit. Patient states he thinks he stepped on a hellen or a bee and possibly was stung. Patient States His Toe is Swelling. He States He Took Benadryl and the Swelling Decreased. Patient denies pain elsewhere in the left foot and ankle. Patient denies falling or any other injuries. Patient states he has lung cancer and is on immunosuppressants at this time so wants to make sure it is not infected. Patient has no other complaints at this time including shortness of breath, chest pain, abdominal pain, nausea or vomiting, headache, or visual changes. (Mac Baltazar) - Related Data Home Medications Medication Instructions Recorded Confirmed Atorvastatin [Lipitor] 40 mg PO HS 11/26/14 10/03/17 Rivaroxaban [Xarelto] 20 mg PO DAILY 02/02/17 10/03/17 Fluticasone Nasal [place] [Flonase 1 spray EA NOSTRIL DAILY 02/07/17 10/03/17 Nasal [place]] Furosemide [Lasix] 40 mg PO QAM 02/07/17 10/03/17 Omeprazole [PriLOSEC] 20 mg PO AC-BID 03/27/17 10/01/17 Opdivo 1 applic IV Q14D 05/14/17 10/03/17 guaiFENesin [Mucinex] 600 mg PO BID 05/14/17 10/03/17 Vit C/E/Zn/Coppr/Lutein/Zeaxan 1 cap PO DAILY 06/20/17 10/03/17 [Preservision Areds 2 Softgel] Allopurinol [Zyloprim] 300 mg PO DAILY 08/25/17 10/03/17 Furosemide [Lasix] 20 mg PO AC-LUNCH 08/25/17 10/03/17 Doxazosin [Cardura] 4 mg PO DAILY 10/01/17 10/03/17 Ipratropium-Albuterol Nebulize 3 ml INHALATION BID 10/01/17 10/03/17 [Duoneb 0.5 mg-3 mg/3 ml Soln] Kqaj-Ukry-Eje 6.25-5-10Mg/5Ml 5 ml PO Q6H PRN 10/01/17 10/03/17 [Phenergan VC with Codeine] Previous Rx's Medication Instructions Recorded Metoprolol Tartrate [Lopressor] 25 mg PO BID #60 tab 02/14/17 Hydrocodone/Acetaminophen [[place] 1 each PO Q6HR PRN #12 tab 06/20/17 5-325] Doxycycline [Vibramycin] 100 mg PO Q12HR 10 Days capsule 01/23/18 Allergies Allergy/AdvReac Type Severity Reaction Status Date / Time Penicillins Allergy Swelling Verified 01/23/18 20:14 Review of Systems ROS Other: All systems not noted in ROS Statement are negative. <Mac Baltazar P - Last Filed: 01/23/18 21:14> ROS Other: All systems not noted in ROS Statement are negative. <Nayla Franks P - Last Filed: 01/26/18 22:37> ROS Statement: Those systems with pertinent positive or pertinent negative responses have been documented in the HPI. Past Medical History Past Medical History: Coronary Artery Disease (CAD), Cancer, COPD, GERD/Reflux, Hyperlipidemia, Hypertension, Osteoarthritis (OA), Prostate Disorder, Pulmonary Embolus (PE), Sleep Apnea/CPAP/BIPAP Additional Past Medical History / Comment(s): currently having difficulty swallowing fluids,O2 AT 3L DURING DAY prn, CPAP O2 3 L AT NIGHT, lung cancer- rad tx and chemo; hiatal hernia, hx kidney stones, RECURRENT PLEURAL EFFUSION,gout 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 culture/infection: 10-12-16 ENTEROCOCCUS FAECIUM MDRO Source:: URINE Past Surgical History: Orthopedic Surgery Additional Past Surgical History / Comment(s): rt eye cataract removed, arthroscopy nigel knee, nigel foot surgery, bronchosocopy, cystoscopy/rt ureteroscopy, lithotripsy, port a cath - SINCE REMOVED ;THOROCENTISIS X6 Past Anesthesia/Blood Transfusion Reactions: No Reported Reaction Past Psychological History: No Psychological Hx Reported Smoking Status: Former smoker - Past Family History Mother Family Medical History: CVA/TIA Additional Family Medical History / Comment(s): brain tumor Sister(s) Family Medical History: Cancer Additional Family Medical History / Comment(s): melanoma shoulder Father Family Medical History: Myocardial Infarction (ME) Additional Family Medical History / Comment(s): all 5 of dad's brothers had a mi <Mac Baltazar P - Last Filed: 01/23/18 21:14> General Exam Limitations: no limitations General appearance: alert, in no apparent distress Head exam: Present: atraumatic, normocephalic, normal inspection Eye exam: Present: normal appearance. Absent: scleral icterus, conjunctival injection ENT exam: Present: normal exam, mucous membranes moist Neck exam: Present: normal inspection, full ROM. Absent: tenderness, meningismus, lymphadenopathy Respiratory exam: Present: normal lung sounds bilaterally. Absent: respiratory distress, wheezes, rales, rhonchi, stridor Cardiovascular Exam: Present: regular rate, normal rhythm, normal heart sounds. Absent: systolic murmur, diastolic murmur, rubs, gallop, clicks Extremities exam: Present: full ROM (Full range of motion of the left foot and digits of the left foot), tenderness (Minimal tenderness in the third plantar digit of the left foot. No tenderness in the remainder of the left foot or ankle), normal capillary refill (Capillary refill less than 2 seconds and pedal pulse 2+ in the left lower extremity), other (Patient has minimal edema noted of the left third digit. No erythema noted. No spreading redness or streaking redness or signs of infection. No abscess. Very small possible break in skin which may be puncture wound in plantar third toe). Absent: calf tenderness (No tenderness in the left calf. Negative Homans sign.) Neurological exam: Present: alert, oriented X3, CN II-XII intact Psychiatric exam: Present: normal affect, normal mood <Mac Baltazar P - Last Filed: 01/23/18 21:14> Vital Signs 01/23/18 20:10 Temperature 98.6 F Pulse Rate 88 Respiratory 18 Rate Blood Pressure 116/72 O2 Sat by Pulse 96 Oximetry Medical Decision Making <Mac Baltazar P - Last Filed: 01/23/18 21:14> <Nayla Franks P - Last Filed: 01/26/18 22:37> - Medical Decision Making 67-year-old male presents to the emergency department for a chief complaint of swelling of the third left toe after stepping on something in the yard about 8 hours ago. Patient has minimal tenderness over the plantar third toe. There is minimal edema noted, no erythema or signs of infection. Patient has very small possible puncture wound in the plantar aspect of the right third digit so will be given doxycycline as he is penicillin ALLERGIC. He was warned about decreasing sun exposure as doxycycline has high risk of sunburn. Patient denies history of diabetes. X-ray of the left foot shows a nondisplaced transverse fracture of the middle phalanx of the third toe. No foreign body seen on x-ray. Second toe and third toe were adiel taped. Patient was educated to continue this for the next few weeks until toe heals. He will follow up with primary care in 1-2 days. He will return to the emergency department if he has any worsening symptoms or signs of infection such as spreading redness or streaking redness or fever which were discussed with him. ( Mac Baltazar) I was available for consultation in the emergency department. The history and physical exam were done by the midlevel provider. I was consulted for this patient's care. I reviewed the case with the midlevel provider and based on their presentation of the patient, I agree with the assessment, medical decision making and plan of care as documented. (Nayla Franks) Disposition Is patient prescribed a controlled substance at d/c from ED?: No Time of Disposition: 21:09 <Mac Baltazar P - Last Filed: 01/23/18 21:14> <Nayla Franks P - Last Filed: 01/26/18 22:37> Clinical Impression: Fractured toe, Puncture wound Disposition: HOME SELF-CARE Condition: Good Instructions: Toe Fracture (ED) Additional Instructions: Please adiel tape your toe to the next toe. Please take antibiotic as directed. Monitor for spreading redness or streaking redness up the toe. Please follow-up with primary care in 1-2 days. Return to the emergency department if you have any worsening symptoms. Prescriptions: Doxycycline [Vibramycin] 100 mg PO Q12HR 10 Days capsule Referrals: Hector Escoto MD [Primary Care Provider] - 1-2 days
[2018-01-23] MEDS ORDERED: DIPH,PERTUS(ACELL)TETVAC-LF 0.5 ML VIAL IM ONE (20:42)
--- NOTE | 2018-01-23 20:46 | XR ---
EXAMINATION TYPE: XR foot complete LT DATE OF EXAM: 01/23/2018 COMPARISON: NONE HISTORY: Third digit pain. 3 views There is moderate spurring at the talonavicular joint. Metatarsals are intact. There is apparent anky losis of the calcaneus and cuboidal bone. I see no fracture. There is mild sclerosis across the mid s haft of the middle phalanx of the third toe. This could be impacted nondisplaced fracture. IMPRESSION: Ankylosis and osteoarthritis in the mid foot. There is probably a nondisplaced transverse fracture of the middle phalanx of the third toe.
== END 2018-01-23 21:16 | disposition home or self-care (01) ==
LOC: EC 19:59
DX: S92.525A Nondisplaced fracture of middle phalanx of left lesser toe(s), initial encounter for closed fracture (principal); J44.9 Chronic obstructive pulmonary disease, unspecified; E78.5 Hyperlipidemia, unspecified; K21.9 Gastro-esophageal reflux disease without esophagitis; I10 Essential (primary) hypertension; G47.30 Sleep apnea, unspecified; I25.10 Atherosclerotic heart disease of native coronary artery without angina pectoris; Z23 Encounter for immunization; Z79.01 Long term (current) use of anticoagulants; Z79.899 Other long term (current) drug therapy; Z88.0 Allergy status to penicillin; Z87.891 Personal history of nicotine dependence; W22.8XXA Striking against or struck by other objects, initial encounter; Y93.01 Activity, walking, marching and hiking; Y92.096 Garden or yard of other non-institutional residence as the place of occurrence of the external cause
CPT/HCPCS: 90471; 90715; 99283

== ENCOUNTER → 2018-01-30 | Outpatient (CLI) | payer MEDICARE ==
--- NOTE | 2018-01-30 15:07 | CT ---
EXAMINATION TYPE: CT renal stones wo con DATE OF EXAM: 01/30/2018 COMPARISON: 07/08/2017 INDICATION: kidney stones DLP: 1416.3 mGycm, Automated exposure control for dose reduction was used. CONTRAST: 0 mL of Isovue 300. Study performed without Oral Contrast TECHNIQUE: Axial images were obtained from above the diaphragm to the pubic rami in the axial plane a t 5 mm thick sections. Reconstructed images are reviewed on the computer in the coronal plane. FINDINGS: Limited CT sections are obtained the lung bases. There is a 7.8 x 9.9 cm density in the azygos esoph ageal recess of the posterior medial right lung base. Small right pleural effusion is adjacent. Mass is suspected. Additional workup is recommended. This appears similar to June 2017. Coronary john ry calcifications present. CT ABDOMEN: Liver: Normal Spleen: Normal Pancreas: Normal Adrenal glands: The adrenal glands are normal. Gallbladder: Normal Kidneys: No masses are evident. No hydronephrosis is present. No cysts are present. There are 2 ad jacent calcifications within the mildly prominent extrarenal pelvis of the right kidney. The first me asures 0.5 cm the second measures 0.3 cm. No hydroureter is evident. No obstructing stone is evident. 2 additional nonobstructing stones are at the inferior pole of the right kidney measuring 0.4 and 0. 5 cm. Aorta: Vascular calcification is within the aorta. Inferior vena cava: Normal. CT PELVIS: Loops of bowel within the abdomen and pelvis are normal. There are loops of bowel which are incom pletely distended or lack oral contrast limiting their evaluation. Appendix: Normal as visualized. Urinary bladder: Normal. Genitourinary structures: Prostate appears normal. Osseous structures: There is increased sclerosis around the sacroiliac joints. There may be a ringlik e sclerotic area of within the left iliac wing medially. Facet degenerative changes are in the lower lumbar spine. IMPRESSIONS: 1. Right lower lobe medial lung mass suspicious for neoplasm discussed above. 2. Sclerotic degenerative changes versus sclerotic metastasis at the sacroiliac joints and the left i lium. 3. Nonobstructing renal stones at the inferior pole right kidney and within the extrarenal pelvis of the right kidney.
== END | disposition home or self-care (01) ==
LOC: RADCTMAIN 08:37
PROVIDERS: ATTEND Urology
DX: N20.0 Calculus of kidney (principal)
CPT/HCPCS: 74150

== ENCOUNTER 2018-02-20 08:43 | Emergency (ER) | payer MEDICARE ==
[2018-02-20 08:48] VITALS: BP 126/74; PULSE 88; RESP 18; TEMP 98.6
--- NOTE | 2018-02-20 09:07 | ED ---
Male Urogenital HPI - General Chief complaint: Urogenital Stated complaint: POSS UTI Time Seen by Provider: 02/20/18 08:49 Source: patient, RN notes reviewed, old records reviewed Mode of arrival: ambulatory Limitations: no limitations - History of Present Illness Initial comments: Patient is a pleasant 67-year-old male with history of lung cancer presents today with chief complaint of of polyuria Last night. He also reports that he had a low grade temperature 100.5. He states that he has some lower abdominal cramping pain and felt like he was urinating and unable to fully empty his bladder. He does have a history of enlarged prostate. He has a urologist at [facility]. Patient relates that his last chemo or immunotherapy treatment was Opdivo 2 weeks ago. Patient states that he has no chest pain, worsening shortness of breath. He denies any other symptoms at this time, including current fever, abdominal pain, nausea, vomiting, changes in stools, back pain, peripheral paresthesias. - Related Data Home Medications Medication Instructions Recorded Confirmed Atorvastatin [Lipitor] 40 mg PO HS 11/26/14 10/03/17 Rivaroxaban [Xarelto] 20 mg PO DAILY 02/02/17 10/03/17 Fluticasone Nasal [place] [Flonase 1 spray EA NOSTRIL DAILY 02/07/17 10/03/17 Nasal [place]] Furosemide [Lasix] 40 mg PO QAM 02/07/17 10/03/17 Omeprazole [PriLOSEC] 20 mg PO AC-BID 03/27/17 10/01/17 Opdivo 1 applic IV Q14D 05/14/17 10/03/17 guaiFENesin [Mucinex] 600 mg PO BID 05/14/17 10/03/17 Vit C/E/Zn/Coppr/Lutein/Zeaxan 1 cap PO DAILY 06/20/17 10/03/17 [Preservision Areds 2 Softgel] Allopurinol [Zyloprim] 300 mg PO DAILY 08/25/17 10/03/17 Furosemide [Lasix] 20 mg PO AC-LUNCH 08/25/17 10/03/17 Doxazosin [Cardura] 4 mg PO DAILY 10/01/17 10/03/17 Ipratropium-Albuterol Nebulize 3 ml INHALATION BID 10/01/17 10/03/17 [Duoneb 0.5 mg-3 mg/3 ml Soln] Hpcz-Satn-Ttx 6.25-5-10Mg/5Ml 5 ml PO Q6H PRN 10/01/17 10/03/17 [Phenergan VC with Codeine] Previous Rx's Medication Instructions Recorded Metoprolol Tartrate [Lopressor] 25 mg PO BID #60 tab 02/14/17 Hydrocodone/Acetaminophen [[place] 1 each PO Q6HR PRN #12 tab 06/20/17 5-325] Doxycycline [Vibramycin] 100 mg PO Q12HR 10 Days capsule 01/23/18 Phenazopyridine [Pyridium] 100 mg PO TID #6 tablet 02/20/18 Sulfamethox-Tmp 800-160Mg [Bactrim 1 tab PO Q12HR #6 tab 02/20/18 DS 800-160 mg] Allergies Allergy/AdvReac Type Severity Reaction Status Date / Time Penicillins Allergy Swelling Verified 02/20/18 08:48 Review of Systems ROS Statement: Those systems with pertinent positive or pertinent negative responses have been documented in the HPI. ROS Other: All systems not noted in ROS Statement are negative. Past Medical History Past Medical History: Coronary Artery Disease (CAD), Cancer, COPD, GERD/Reflux, Hyperlipidemia, Hypertension, Osteoarthritis (OA), Prostate Disorder, Pulmonary Embolus (PE), Sleep Apnea/CPAP/BIPAP Additional Past Medical History / Comment(s): currently having difficulty swallowing fluids,O2 AT 3L DURING DAY prn, CPAP O2 3 L AT NIGHT, lung cancer- rad tx and chemo; hiatal hernia, hx kidney stones, RECURRENT PLEURAL EFFUSION,gout 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 culture/infection: 10-12-16 ENTEROCOCCUS FAECIUM MDRO Source:: URINE Past Surgical History: Orthopedic Surgery Additional Past Surgical History / Comment(s): rt eye cataract removed, arthroscopy nigel knee, nigel foot surgery, bronchosocopy, cystoscopy/rt ureteroscopy, lithotripsy, port a cath - SINCE REMOVED ;THOROCENTISIS X6 Past Anesthesia/Blood Transfusion Reactions: No Reported Reaction Past Psychological History: No Psychological Hx Reported Smoking Status: Former smoker Past Alcohol Use History: Occasional Past Drug Use History: None Reported - Past Family History Mother Family Medical History: CVA/TIA Additional Family Medical History / Comment(s): brain tumor Sister(s) Family Medical History: Cancer Additional Family Medical History / Comment(s): melanoma shoulder Father Family Medical History: Myocardial Infarction ([place]) Additional Family Medical History / Comment(s): all 5 of dad's brothers had a mi General Exam - General Exam Comments Initial Comments: Patient is a elisha 67-year-old male. Alert and oriented. No significant distress. Limitations: no limitations General appearance: alert, in no apparent distress Head exam: Present: atraumatic, normocephalic, normal inspection Eye exam: Present: normal appearance, PERRL, EOMI. Absent: scleral icterus, conjunctival injection, periorbital swelling ENT exam: Present: normal exam, mucous membranes moist Neck exam: Present: normal inspection. Absent: tenderness, meningismus, lymphadenopathy Respiratory exam: Present: normal lung sounds bilaterally. Absent: respiratory distress, wheezes, rales, rhonchi, stridor Cardiovascular Exam: Present: regular rate, normal rhythm, normal heart sounds. Absent: systolic murmur, diastolic murmur, rubs, gallop, clicks GI/Abdominal exam: Present: soft Extremities exam: Present: normal inspection, full ROM, normal capillary refill. Absent: tenderness, pedal edema, joint swelling, calf tenderness Back exam: Present: normal inspection. Absent: CVA tenderness (R), CVA tenderness (L) Neurological exam: Present: alert, oriented X3, CN II-XII intact Psychiatric exam: Present: normal affect, normal mood Course Vital Signs 02/20/18 08:45 Temperature 98.6 F Pulse Rate 88 Respiratory 18 Rate Blood Pressure 126/74 O2 Sat by Pulse 96 Oximetry Medical Decision Making - Medical Decision Making Elisha 67-year-old male presents emergency Department chief complaint of polyuria last night. Does have history of enlarged prostate. He is also undergoing treatment for lung cancer. Last immunotherapy was at Opdivo2 weeks ago. He did have a low-grade temperature last night in the 100.5. He is afebrile this time. He has no back pain, or any significant abdominal pain or tenderness. Patient denies any worsening chest pain shortness of breath. I did discuss that patient's urinalysis is positive for infection. We will do urine culture. He has no lower back pain or pain with bowel movements, low concern for prostatitis. However with his multiple medications and interactions I will start the Patient on Bactrim rather than a fluoroquinolone. Patient was given a dose of the emergency department. Discussed close follow- up with primary care physician. Discussed need to return if he has any worsening fevers, back pain or abdominal pain. Patient agrees treatment plan will comply. Return parameters were discussed. - Lab Data Lab Results 02/20/18 Range/Units 08:50 Urine Color Light Yellow Urine Appearance Clear (Clear) Urine pH 6.5 (5.0-8.0) Ur Specific [place] 1.008 (1.001-1.035) Urine Protein Negative (Negative) Urine Glucose (UA) Negative (Negative) Urine Ketones Negative (Negative) Urine Blood Negative (Negative) Urine Nitrite Negative (Negative) Urine Bilirubin Negative (Negative) Urine Urobilinogen <2.0 (<2.0) mg/dL Ur Leukocyte Esterase Moderate H (Negative) Urine WBC 56 H (0-5) /hpf Ur Squamous Epith Cells <1 (0-4) /hpf Urine Bacteria Occasional H (None) /hpf Urine Mucus Rare H (None) /hpf Disposition Clinical Impression: UTI (urinary tract infection) Disposition: HOME SELF-CARE Condition: Good Instructions: Urinary Tract Infection in Men (ED) Additional Instructions: Patient is follow-up with primary care physician on Friday. Return to emergency department if any alarming signs or symptoms occur. Prescriptions: Phenazopyridine [Pyridium] 100 mg PO TID #6 tablet Sulfamethox-Tmp 800-160Mg [Bactrim DS 800-160 mg] 1 tab PO Q12HR #6 tab Is patient prescribed a controlled substance at d/c from ED?: No Referrals: Hector Escoto MD [Primary Care Provider] - 1-2 days Time of Disposition: 09:27
[2018-02-20 09:15] LABS: Appearance,Urine Clear (Clear); Bacteria,Urine Occasional /hpf; Bilirubin,Urine Negative (Negative); Blood,Urine Negative (Negative); Color,Urine Light Yellow; Glucose,Urine (UA) Negative (Negative); Ketones,Urine Negative (Negative); Leukocyte Esterase,Urine Moderate (Negative); Mucus,Urine Rare /hpf; Nitrite,Urine Negative (Negative); PH, Urine 6.5 (5.0-8.0); Protein,Urine Negative (Negative); Specific Gravity,Urine 1.008 (1.001-1.035); Squamous Epithelial Cell,Urine <1 /hpf (0-4); Urobilinogen,Urine <2.0 mg/dL (<2.0)
[2018-02-20] MEDS ORDERED: PHENAZOPYRIDINE 100 MG TAB PO STA (09:25)
[2018-02-20] MEDS ORDERED: SULFAMETH-TMP DS STARTER PACK 2 TAB BTL PO STA (09:25)
== END 2018-02-20 09:38 | disposition home or self-care (01) ==
LOC: EC 08:43
DX: N39.0 Urinary tract infection, site not specified (principal); I25.10 Atherosclerotic heart disease of native coronary artery without angina pectoris; J44.9 Chronic obstructive pulmonary disease, unspecified; K21.9 Gastro-esophageal reflux disease without esophagitis; E78.5 Hyperlipidemia, unspecified; I10 Essential (primary) hypertension; N40.0 Benign prostatic hyperplasia without lower urinary tract symptoms; M10.9 Gout, unspecified; G47.30 Sleep apnea, unspecified; Z99.89 Dependence on other enabling machines and devices; Z86.711 Personal history of pulmonary embolism; Z85.118 Personal history of other malignant neoplasm of bronchus and lung; Z92.21 Personal history of antineoplastic chemotherapy; Z87.442 Personal history of urinary calculi; Z87.891 Personal history of nicotine dependence; Z79.01 Long term (current) use of anticoagulants; Z79.51 Long term (current) use of inhaled steroids; Z79.899 Other long term (current) drug therapy; Z88.0 Allergy status to penicillin
CPT/HCPCS: 81001; 87086; 99284

== ENCOUNTER 2018-02-21 09:10 | Emergency (ER) | payer MEDICARE ==
[2018-02-21 09:17] VITALS: RESP 18; TEMP 99
[2018-02-21] MEDS ORDERED: SODIUM CHLORIDE 0.9% 1,000 ML IV STA ×2 (09:43)
--- NOTE | 2018-02-21 09:47 | ED ---
General Adult HPI - General Chief complaint: Urogenital Stated complaint: UTI & Toe Pain Time Seen by Provider: 02/21/18 09:21 Source: patient, RN notes reviewed, old records reviewed Mode of arrival: ambulatory Limitations: no limitations - History of Present Illness Initial comments: 67-year-old male presents emergency department today for reevaluation. Patient was seen in the emergency department and diagnosed with urinary tract infection yesterday. Discharge the Patient on Bactrim and Pyridium. He reports he took the pills earlier in the day yesterday without any complaints. He reports he took a third pill last night and was feeling somewhat dizzy. He does report that he did not eat much yesterday. He denies any chest patrons palpated have a slight back pain starting today. Patient continues to complain of polyuria. He did have a fever last night.Patient denies any chest pain shortness breath. He denies any headache visual disturbances. also complains of an area of discoloration for the past week over his right fourth toe over the DIP. Patient reports he noticed that after he had a pedicure. He reports that he's had no drainage from the foot. He reports normal sensation. Chest pain, increasingly sensitive. - Related Data Home Medications Medication Instructions Recorded Confirmed Atorvastatin [Lipitor] 40 mg PO HS 11/26/14 02/20/18 Rivaroxaban [Xarelto] 20 mg PO DAILY 02/02/17 02/20/18 Fluticasone Nasal [place] [Flonase 1 spray EA NOSTRIL DAILY 02/07/17 02/20/18 Nasal [place]] Furosemide [Lasix] 40 mg PO QAM 02/07/17 02/20/18 Opdivo 1 applic IV Q14D 05/14/17 02/20/18 Vit C/E/Zn/Coppr/Lutein/Zeaxan 1 cap PO DAILY 06/20/17 02/20/18 [Preservision Areds 2 Softgel] Allopurinol [Zyloprim] 300 mg PO DAILY 08/25/17 02/20/18 Furosemide [Lasix] 20 mg PO AC-LUNCH 08/25/17 02/20/18 Doxazosin [Cardura] 4 mg PO DAILY 10/01/17 02/20/18 Ipratropium-Albuterol Nebulize 3 ml INHALATION BID 10/01/17 02/20/18 [Duoneb 0.5 mg-3 mg/3 ml Soln] Kamq-Smcn-Qzo 6.25-5-10Mg/5Ml 5 ml PO Q6H PRN 10/01/17 02/20/18 [Phenergan VC with Codeine] Colchicine 0.6 mg PO BID 02/20/18 02/20/18 Levothyroxine Sodium [Synthroid] 75 mcg PO DAILY 02/20/18 02/20/18 Potassium Chloride ER [K-Dur 20] 20 meq PO DAILY 02/20/18 02/20/18 Previous Rx's Medication Instructions Recorded Metoprolol Tartrate [Lopressor] 25 mg PO BID #60 tab 02/14/17 Hydrocodone/Acetaminophen [[place] 1 each PO Q6HR PRN #12 tab 06/20/17 5-325] Phenazopyridine [Pyridium] 100 mg PO TID #6 tablet 02/20/18 Sulfamethox-Tmp 800-160Mg [Bactrim 1 tab PO Q12HR #6 tab 02/20/18 DS 800-160 mg] Allergies Allergy/AdvReac Type Severity Reaction Status Date / Time Penicillins Allergy Swelling Verified 02/21/18 09:17 Review of Systems ROS Statement: Those systems with pertinent positive or pertinent negative responses have been documented in the HPI. ROS Other: All systems not noted in ROS Statement are negative. Past Medical History Past Medical History: Coronary Artery Disease (CAD), Cancer, COPD, GERD/Reflux, Hyperlipidemia, Hypertension, Osteoarthritis (OA), Prostate Disorder, Pulmonary Embolus (PE), Sleep Apnea/CPAP/BIPAP Additional Past Medical History / Comment(s): currently having difficulty swallowing fluids,O2 AT 3L DURING DAY prn, CPAP O2 3 L AT NIGHT, lung cancer- rad tx and chemo; hiatal hernia, hx kidney stones, RECURRENT PLEURAL EFFUSION,gout 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 culture/infection: 10-12-16 ENTEROCOCCUS FAECIUM MDRO Source:: URINE Past Surgical History: Orthopedic Surgery Additional Past Surgical History / Comment(s): rt eye cataract removed, arthroscopy nigel knee, nigel foot surgery, bronchosocopy, cystoscopy/rt ureteroscopy, lithotripsy, port a cath - SINCE REMOVED ;THOROCENTISIS X6 Past Anesthesia/Blood Transfusion Reactions: No Reported Reaction Past Psychological History: No Psychological Hx Reported Smoking Status: Former smoker Past Alcohol Use History: Occasional Past Drug Use History: None Reported - Past Family History Mother Family Medical History: CVA/TIA Additional Family Medical History / Comment(s): brain tumor Sister(s) Family Medical History: Cancer Additional Family Medical History / Comment(s): melanoma shoulder Father Family Medical History: Myocardial Infarction ([place]) Additional Family Medical History / Comment(s): all 5 of dad's brothers had a mi General Exam - General Exam Comments Initial Comments: Well-appearing 67-year-old male. No significant distress. Limitations: no limitations General appearance: alert Head exam: Present: atraumatic, normocephalic, normal inspection Eye exam: Present: normal appearance, PERRL, EOMI. Absent: scleral icterus, conjunctival injection, periorbital swelling ENT exam: Present: normal exam, mucous membranes moist Neck exam: Present: normal inspection. Absent: tenderness, meningismus, lymphadenopathy Respiratory exam: Present: normal lung sounds bilaterally. Absent: respiratory distress, wheezes, rales, rhonchi, stridor Cardiovascular Exam: Present: regular rate, normal rhythm, normal heart sounds. Absent: systolic murmur, diastolic murmur, rubs, gallop, clicks GI/Abdominal exam: Present: soft, normal bowel sounds. Absent: distended, tenderness, guarding, rebound, rigid Extremities exam: Present: normal inspection, full ROM, normal capillary refill. Absent: tenderness, pedal edema, joint swelling, calf tenderness Right Foot/Toe exam: Present: normal inspection, full ROM Neurovascular tendon exam: Present: no vascular compromise Gait: observed and normal 1 - ecchymosis Back exam: Present: normal inspection Neurological exam: Present: alert, oriented X3, CN II-XII intact Psychiatric exam: Present: normal affect, normal mood Skin exam: Present: warm, dry, intact, normal color. Absent: rash Course Vital Signs 02/21/18 02/21/18 09:12 11:42 Temperature 99 F Pulse Rate 95 94 Respiratory 18 18 Rate Blood Pressure 113/68 121/64 O2 Sat by Pulse 99 97 Oximetry Medical Decision Making - Medical Decision Making 67-year-old male presents stay for evaluation for dizziness after taking his antibiotics for UTI was diagnosed yesterday. Patient does currently have lung cancer. He is being treated. He does have lesions on the right lung. We did a chest x-ray today due to this dizziness. There is evidence of cardiac megaly and peripheral change in the right lung base. Patient ports of the staple. Denies any worsening shortness of breath or changes at this time. Patient complains of no dizziness at this time. The episode last night. He states that he has had no fevers chills or any other complaints today. Patient had IV fluids and laboratory obtained today white blood cell count was normal. Kidney function is mildly elevated but he has not been drinking enough fluids for the past few days. Patient was given a liter bolus. Does continue to have urinary tract infection. Was given a dose of Rocephin IV. Urine culture from yesterday is currently pending. He also complains of some irritation over his middle right toe. There is bruising over the DIP but no signs of infection or gangrenous. Normal capillary refill full range of motion and sensation. Patient has been advised of this time to continue the Bactrim antibiotic until culture. I discussed the culture should be ready tomorrow. He does have an appointment on Friday with a urologist. I discussed Close follow up with urology and primary care provider. Discussed in the meantime to make sure that he's eating when taking his antibiotics and pills as well as making sure he stays hydrated. Patient agrees treatment plan will comply. Return parameters were discussed. - Lab Data Result diagrams: 02/21/18 10:15 02/21/18 10:15 Lab Results 02/21/18 02/21/18 02/21/18 Range/Units 10:15 10:15 10:15 WBC 8.7 (3.8-10.6) k/uL RBC 4.40 (4.30-5.90) m/uL Hgb 12.7 L (13.0-17.5) gm/dL Hct 39.6 (39.0-53.0) % MCV 90.1 (80.0-100.0) fL MCH 28.9 (25.0-35.0) pg MCHC 32.0 (31.0-37.0) g/dL RDW 17.0 H (11.5-15.5) % Plt Count 220 (150-450) k/uL Neutrophils % 82 % Lymphocytes % 7 % Monocytes % 8 % Eosinophils % 1 % Basophils % 0 % Neutrophils # 7.2 (1.3-7.7) k/uL Lymphocytes # 0.6 L (1.0-4.8) k/uL Monocytes # 0.7 (0-1.0) k/uL Eosinophils # 0.1 (0-0.7) k/uL Basophils # 0.0 (0-0.2) k/uL Anisocytosis Slight Sodium 139 (137-145) mmol/L Potassium 3.6 (3.5-5.1) mmol/L Chloride 102 (98-107) mmol/L Carbon Dioxide 27 (22-30) mmol/L Anion Gap 10 mmol/L BUN 20 (9-20) mg/dL Creatinine 1.53 H (0.66-1.25) mg/dL Est GFR (CKD-EPI)AfAm 53 (>60 ml/min/1.73 sqM) Est GFR (CKD-EPI)NonAf 46 (>60 ml/min/1.73 sqM) Glucose 99 (74-99) mg/dL Calcium 9.1 (8.4-10.2) mg/dL Troponin I (0.000-0.034) ng/mL Urine Color Dark Yellow Urine Appearance Cloudy (Clear) Urine pH 6.0 (5.0-8.0) Ur Specific [place] 1.011 (1.001-1.035) Urine Protein 1+ H (Negative) Urine Glucose (UA) Negative (Negative) Urine Ketones Negative (Negative) Urine Blood Small H (Negative) Urine Nitrite Negative (Negative) Urine Bilirubin Negative (Negative) Urine Urobilinogen <2.0 (<2.0) mg/dL Ur Leukocyte Esterase Large H (Negative) Urine RBC 11 H (0-5) /hpf Urine WBC >182 H (0-5) /hpf Urine WBC Clumps Occasional H (None) /hpf 02/21/18 Range/Units 10:15 WBC (3.8-10.6) k/uL RBC (4.30-5.90) m/uL Hgb (13.0-17.5) gm/dL Hct (39.0-53.0) % MCV (80.0-100.0) fL MCH (25.0-35.0) pg MCHC (31.0-37.0) g/dL RDW (11.5-15.5) % Plt Count (150-450) k/uL Neutrophils % % Lymphocytes % % Monocytes % % Eosinophils % % Basophils % % Neutrophils # (1.3-7.7) k/uL Lymphocytes # (1.0-4.8) k/uL Monocytes # (0-1.0) k/uL Eosinophils # (0-0.7) k/uL Basophils # (0-0.2) k/uL Anisocytosis Sodium (137-145) mmol/L Potassium (3.5-5.1) mmol/L Chloride (98-107) mmol/L Carbon Dioxide (22-30) mmol/L Anion Gap mmol/L BUN (9-20) mg/dL Creatinine (0.66-1.25) mg/dL Est GFR (CKD-EPI)AfAm (>60 ml/min/1.73 sqM) Est GFR (CKD-EPI)NonAf (>60 ml/min/1.73 sqM) Glucose (74-99) mg/dL Calcium (8.4-10.2) mg/dL Troponin I <0.012 (0.000-0.034) ng/mL Urine Color Urine Appearance (Clear) Urine pH (5.0-8.0) Ur Specific [place] (1.001-1.035) Urine Protein (Negative) Urine Glucose (UA) (Negative) Urine Ketones (Negative) Urine Blood (Negative) Urine Nitrite (Negative) Urine Bilirubin (Negative) Urine Urobilinogen (<2.0) mg/dL Ur Leukocyte Esterase (Negative) Urine RBC (0-5) /hpf Urine WBC (0-5) /hpf Urine WBC Clumps (None) /hpf 02/21/18 12:00 EKG shows sinus rhythm normal EKG noted. Ventricular rate of 87 bpm. Was 164 ms. QRS ration 72 Raquel's seconds. QT to QTC 34/462 ms. - Radiology Data Radiology results: report reviewed Acute osseous lesion. 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 Chest x-ray shows suero or megaly. Chronic pleural effusions and peripheral change of the right lung base. Cannot small effusion. Disposition Clinical Impression: UTI (urinary tract infection), Bruised toe Disposition: HOME SELF-CARE Condition: Good Instructions: Urinary Tract Infection in Men (ED) Additional Instructions: Follow up with urology. Eat well and remaining hydrated and having close follow up with per primary care physician as well. Patient should have frequent meals while taking the antibiotic. Keep the foot up and elevated. Monitor for any drainage or areas of redness from the toe. Is patient prescribed a controlled substance at d/c from ED?: No Referrals: Hector Escoto MD [Primary Care Provider] - 1-2 days Time of Disposition: 11:59
[2018-02-21 10:33] LABS: Anisocytosis Slight; Basophils % (A) 0 %; Eosinophils # (A) 0.1 k/uL (0-0.7); Eosinophils % (A) 1 %; HCT 39.6 % (39.0-53.0); HGB 12.7 gm/dL (13.0-17.5); Lymphocytes # (A) 0.6 k/uL (1.0-4.8); Lymphocytes % (A) 7 %; MCH 28.9 pg (25.0-35.0); MCV 90.1 fL (80.0-100.0); Mean Platelet Volume 6.4; Monocytes # (A) 0.7 k/uL (0-1.0); Monocytes % (A) 8 %; Neutrophils # (A) 7.2 k/uL (1.3-7.7); Neutrophils % (A) 82 %; Platelet Count 220 k/uL (150-450); WBC 8.7 k/uL (3.8-10.6)
[2018-02-21 10:40] LABS: Appearance,Urine Cloudy (Clear); Bilirubin,Urine Negative (Negative); Blood,Urine Small (Negative); Color,Urine Dark Yellow; Glucose,Urine (UA) Negative (Negative); Ketones,Urine Negative (Negative); Leukocyte Esterase,Urine Large (Negative); Nitrite,Urine Negative (Negative); Potassium 3.6 mmol/L (3.5-5.1); Protein,Urine 1+ (Negative); RBC,Urine 11 /hpf (0-5); Specific Gravity,Urine 1.011 (1.001-1.035); Urobilinogen,Urine <2.0 mg/dL (<2.0); WBC,Urine >182 /hpf (0-5)
[2018-02-21 10:41] LABS: Calcium 9.1 mg/dL (8.4-10.2)
--- NOTE | 2018-02-21 10:56 | XR ---
EXAMINATION TYPE: XR chest 2V DATE OF EXAM: 02/21/2018 HISTORY: Chest Pain. REFERENCE: Previous study dated 05/16/2017. FINDINGS: The heart is mildly enlarged. There is chronic pleural parenchymal changes of the right lavell g base. I could not exclude a right-sided effusion. The left lung is clear. IMPRESSION: 1. CARDIOMEGALY. 2. CHRONIC PLEURAL PARENCHYMAL CHANGES AT THE RIGHT LUNG BASE. 3. I COULD NOT EXCLUDE A SMALL RIGHT EFFUSION.
--- NOTE | 2018-02-21 10:58 | XR ---
EXAMINATION TYPE: XR foot complete RT , 3 VIEWS DATE OF EXAM ORDERED: 02/21/2018 HISTORY: Pain. COMPARISON: None. FINDINGS: No fracture, dislocation or bony destructive lesion is seen. There is a fusion of the calc aneus and the talus. There is a bony spur between the anterior aspect of this coalition and the tarsa l lunate. IMPRESSION: 1. NO ACUTE OSSEOUS LESION. 2. FUSION OF THE TALUS WITH THE CALCANEUS.
[2018-02-21] MEDS ORDERED: ACETAMINOPHEN TAB 500 MG TAB PO STA (11:05)
[2018-02-21 12:59] VITALS: BP 93/58; PULSE 92
== END 2018-02-21 13:00 | disposition home or self-care (01) ==
LOC: EC 09:10
DX: S90.121A Contusion of right lesser toe(s) without damage to nail, initial encounter (principal); N39.0 Urinary tract infection, site not specified; I11.9 Hypertensive heart disease without heart failure; I25.10 Atherosclerotic heart disease of native coronary artery without angina pectoris; J44.9 Chronic obstructive pulmonary disease, unspecified; K21.9 Gastro-esophageal reflux disease without esophagitis; E78.5 Hyperlipidemia, unspecified; N42.9 Disorder of prostate, unspecified; G47.30 Sleep apnea, unspecified; Z99.89 Dependence on other enabling machines and devices; Z86.711 Personal history of pulmonary embolism; Z85.118 Personal history of other malignant neoplasm of bronchus and lung; Z92.21 Personal history of antineoplastic chemotherapy; Z87.891 Personal history of nicotine dependence; Z79.01 Long term (current) use of anticoagulants; Z79.51 Long term (current) use of inhaled steroids; Z79.899 Other long term (current) drug therapy; Z88.0 Allergy status to penicillin; X58.XXXA Exposure to other specified factors, initial encounter
CPT/HCPCS: 36415; 93005; 80048; 84484; 85025; 81001; 87040; 87086; 73630; 71046; 99284; 96365; 96361 ×2; J0696

== ENCOUNTER → 2018-03-16 | Outpatient (CLI) | payer MEDICARE ==
--- NOTE | 2018-03-16 14:23 | CT ---
EXAMINATION TYPE: CT chest abdomen w con DATE OF EXAM: 03/16/2018 COMPARISON: 01/30/2018 and 12/18/2017 HISTORY: Right upper lobe neoplasm CT DLP: 2114.10 mGycm. Automated Exposure Control for Dose Reduction was Utilized. CONTRAST: CT scan of the thorax and abdomen was performed with IV Contrast, patient injected with 100 ml mL of Isovue 300. FINDINGS: LUNGS: The heterogenous right lower lobe mass beginning at the gastroesophageal recess and extending inferiorly. When measured in a similar location measures 8.2 x 9.2 cm and previously measured 7.8 x 9 .9 cm, overall similar. There is a small pleural effusion seen adjacent to this that is also similar in comparison to the prior of 01/30/2018. Superior to the right lower lobe mass there is soft tissue de nsity surrounding the bronchus intermedius and right lower lobe bronchi extending towards the right h ilum. Posterior right upper lobe pleural thickening is again appreciated. Within the left upper lobe the previously seen 1.5 cm pulmonary nodule has become lobulated in its ma rgins and has increased in its solid component. This remains approximately 1.5 cm measured on series 6 image 17. Subpleural left lower lobe pulmonary nodule measures approximately 5 mm. This appears als o similar to the prior exam of 12/18/2017. MEDIASTINUM: There are no greater than 1 cm hilar or mediastinal lymph nodes. There are moderate cor onary artery calcifications. Hyperdense nonenlarged subcarinal lymph nodes are likely pathologic. Tra ce pericardial effusion is seen. Necrotic right paratracheal lymph node is enlarged measuring 1.3 cm in short axis and also likely pathologic. This is similar in size to the prior exam. OTHER: Bilateral minimal retroareolar gynecomastia is seen. Multilevel degenerative change of the tho racic spine is moderate with endplate sclerosis of the lower thoracic spine. LIVER/GB: Within the inferior right posterior hepatic lobe in segment 6 there is a 3.1 x 3.0 cm hepat ic lesion that appears slightly enlarged in comparison the prior of 12/18/2017 where this measured mattie roximately 2.5 x 2.4 cm. Again there are multiple other hypoattenuated hepatic lesions that have also enlarged in the interim. For example another lesion on image 12 of delayed post contrast axial seque nce 10 measures 3.2 cm and previously measured approximately 1.3 cm. There also appears to be increas ed number of hepatic lesions. There are now innumerable metastatic foci within the liver. A solitary punctate calculus is seen within the gallbladder layering dependently within the body. PANCREAS: No significant abnormality is seen. SPLEEN: No significant abnormality is seen. ADRENALS: No significant abnormality is seen. KIDNEYS: There is again a right-sided extrarenal pelvis and pelvocaliectasis. There are few renal les ions that are too small to accurately characterize bilaterally. BOWEL: No dilated large or small bowel. LYMPH NODES: Periportal adenopathy is seen measuring up to 1.4 cm in short axis. OSSEOUS STRUCTURES: No significant abnormality is seen. IMPRESSION: 1. Increase in size and number of the presumed numerous hepatic metastatic foci. Upper abdominal and periportal adenopathy is also present. 2. Similar size of the right lower lobe pulmonary mass and right peribronchial abnormal soft tissue d ensity with adjacent trace right pleural effusion and right hemithorax volume loss. 3. Similar size of the pathologic-appearing mediastinal lymph nodes, some hyperdense and some necroti c. 4. Stable size but increasing solid component of the left 1.5 cm pulmonary nodule.
== END | disposition home or self-care (01) ==
LOC: RADCTMAIN 11:51
PROVIDERS: ATTEND Radiology Radiation Oncology
DX: R91.8 Other nonspecific abnormal finding of lung field (principal); R59.0 Localized enlarged lymph nodes; C34.11 Malignant neoplasm of upper lobe, right bronchus or lung; C34.31 Malignant neoplasm of lower lobe, right bronchus or lung; Z92.21 Personal history of antineoplastic chemotherapy
CPT/HCPCS: 82565; 84520; 71260; 74160; 36415; Q9967

== ENCOUNTER 2018-03-24 12:35 | Emergency (ER) | payer MEDICARE ==
[2018-03-24] MEDS ORDERED: SODIUM CHLORIDE 0.9% 1,000 ML IV STA (13:09)
[2018-03-24] MEDS ORDERED: MECLIZINE 12.5 MG TAB PO STA (13:09)
--- NOTE | 2018-03-24 13:14 | ED ---
General Adult HPI - General Chief complaint: Dizziness Stated complaint: Blurred vision & dizziness Time Seen by Provider: 03/24/18 13:04 Source: patient, family, RN notes reviewed Mode of arrival: ambulatory Limitations: no limitations - History of Present Illness Initial comments: Patient is a pleasant 67-year-old male presenting to the emergency department with lightheadedness. Onset was this morning after eating breakfast and doing his nebulizer treatment. Patient does frequently do his nebulizer treatment. No chest pain or dyspnea. Patient stood up and felt lightheaded. Patient also had some blurry vision. Symptoms have significantly improved. No lightheadedness at this time. Patient states there may be be some minimal blurry vision still, however feels more like his eyes are somewhat dry. No loss of vision. No confusion. No speech problems. No weakness. No history of similar symptoms previously. Patient is currently undergoing treatment for lung cancer. - Related Data Home Medications Medication Instructions Recorded Confirmed Atorvastatin [Lipitor] 40 mg PO HS 11/26/14 03/24/18 Rivaroxaban [Xarelto] 20 mg PO DAILY 02/02/17 03/24/18 Fluticasone Nasal [place] [Flonase 1 spray EA NOSTRIL DAILY 02/07/17 03/24/18 Nasal [place]] Furosemide [Lasix] 40 mg PO QAM 02/07/17 03/24/18 Opdivo 1 applic IV QMONTH 05/14/17 03/24/18 Vit C/E/Zn/Coppr/Lutein/Zeaxan 1 cap PO DAILY 06/20/17 03/24/18 [Preservision Areds 2 Softgel] Allopurinol [Zyloprim] 300 mg PO DAILY 08/25/17 03/24/18 Furosemide [Lasix] 20 mg PO AC-LUNCH 08/25/17 03/24/18 Doxazosin [Cardura] 4 mg PO DAILY 10/01/17 03/24/18 Ipratropium-Albuterol Nebulize 3 ml INHALATION BID 10/01/17 03/24/18 [Duoneb 0.5 mg-3 mg/3 ml Soln] Yqfn-Ugbj-Jfp 6.25-5-10Mg/5Ml 5 ml PO Q6H PRN 10/01/17 03/24/18 [Phenergan VC with Codeine] Colchicine 0.6 mg PO BID 02/20/18 03/24/18 Levothyroxine Sodium [Synthroid] 75 mcg PO DAILY 02/20/18 03/24/18 Pantoprazole [Protonix] 40 mg PO BID 03/24/18 03/24/18 Previous Rx's Medication Instructions Recorded Metoprolol Tartrate [Lopressor] 25 mg PO BID #60 tab 02/14/17 Hydrocodone/Acetaminophen [[place] 1 each PO Q6HR PRN #12 tab 06/20/17 5-325] Meclizine [Antivert] 25 mg PO TID PRN #12 tab 03/24/18 Allergies Allergy/AdvReac Type Severity Reaction Status Date / Time Penicillins Allergy Swelling Verified 03/24/18 13:12 Review of Systems ROS Statement: Those systems with pertinent positive or pertinent negative responses have been documented in the HPI. ROS Other: All systems not noted in ROS Statement are negative. Constitutional: Denies: fever Eyes: Reports: other (Blurry vision). Denies: eye pain ENT: Denies: ear pain Respiratory: Denies: cough, dyspnea Cardiovascular: Denies: chest pain Endocrine: Denies: fatigue Gastrointestinal: Denies: abdominal pain Genitourinary: Denies: urgency Musculoskeletal: Denies: back pain Skin: Denies: rash Neurological: Denies: headache, weakness, confusion Past Medical History Past Medical History: Coronary Artery Disease (CAD), Cancer, COPD, GERD/Reflux, Hyperlipidemia, Hypertension, Osteoarthritis (OA), Prostate Disorder, Pulmonary Embolus (PE), Sleep Apnea/CPAP/BIPAP Additional Past Medical History / Comment(s): currently having difficulty swallowing fluids,O2 AT 3L DURING DAY prn, CPAP O2 3 L AT NIGHT, lung cancer- rad tx and chemo; hiatal hernia, hx kidney stones, RECURRENT PLEURAL EFFUSION,gout 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 culture/infection: 10-12-16 ENTEROCOCCUS FAECIUM MDRO Source:: URINE Past Surgical History: Orthopedic Surgery Additional Past Surgical History / Comment(s): rt eye cataract removed, arthroscopy nigel knee, nigel foot surgery, bronchosocopy, cystoscopy/rt ureteroscopy, lithotripsy, port a cath - SINCE REMOVED ;THOROCENTISIS X6 Past Anesthesia/Blood Transfusion Reactions: No Reported Reaction Past Psychological History: No Psychological Hx Reported Smoking Status: Former smoker Past Alcohol Use History: Occasional Past Drug Use History: None Reported - Past Family History Mother Family Medical History: CVA/TIA Additional Family Medical History / Comment(s): brain tumor Sister(s) Family Medical History: Cancer Additional Family Medical History / Comment(s): melanoma shoulder Father Family Medical History: Myocardial Infarction ([place]) Additional Family Medical History / Comment(s): all 5 of dad's brothers had a mi General Exam Limitations: no limitations General appearance: alert, in no apparent distress Head exam: Present: atraumatic Eye exam: Present: normal appearance, PERRL, EOMI. Absent: nystagmus ENT exam: Present: normal oropharynx Neck exam: Present: normal inspection Respiratory exam: Present: normal lung sounds bilaterally Cardiovascular Exam: Present: regular rate, normal rhythm Expanded Peripheral pulses: 2+: Radial (R), Radial (L), Posterior Tibialis (R), Posterior Tibialis (L) GI/Abdominal exam: Present: soft. Absent: tenderness Extremities exam: Present: normal inspection. Absent: pedal edema, calf tenderness Neurological exam: Present: alert, oriented X3, CN II-XII intact. Absent: motor sensory deficit Expanded Neurological exam: Present: protecting the airway Speech: Present: fluid speech Cranial nerves: EOM's Intact: Normal, Facial Sensation: Normal Cerebellar function: Finger to Nose: Normal Sensory exam: Upper Extremity Light Touch: Normal, Lower Extremity Light Touch: Normal Motor strength exam: RUE: 5, LUE: 5, RLE: 5, LLE: 5 Eye Response: (4) open spontaneously Motor Response: (6) obeys commands Verbal Response: (5) oriented Psychiatric exam: Present: normal affect, normal mood Skin exam: Present: normal color Course Vital Signs 03/24/18 03/24/18 03/24/18 12:44 12:53 12:55 Temperature 98.3 F Pulse Rate 97 Pulse Rate [ 98 Right Sitting Motorcycle Deliverer ] Pulse Rate [ 93 Right Standing Motorcycle Deliverer ] Pulse Rate [ 97 Right Supine Motorcycle Deliverer ] Respiratory 18 18 Rate Blood Pressure 121/68 Blood Pressure 126/75 [Right Arm Sitting] Blood Pressure 121/76 [Right Arm Standing] Blood Pressure 113/70 [Right Arm Supine] O2 Sat by Pulse 98 97 97 Oximetry 03/24/18 03/24/1818 13:00 13:10 13:20 Temperature Pulse Rate 98 Pulse Rate [ Right Sitting Motorcycle Deliverer ] Pulse Rate [ Right Standing Motorcycle Deliverer ] Pulse Rate [ Right Supine Motorcycle Deliverer ] Respiratory 18 15 Rate Blood Pressure 135/75 136/78 Blood Pressure [Right Arm Sitting] Blood Pressure [Right Arm Standing] Blood Pressure [Right Arm Supine] O2 Sat by Pulse 97 96 Oximetry 03/24/18 03/24/18 13:30 13:40 Temperature Pulse Rate 101 H 94 Pulse Rate [ Right Sitting Motorcycle Deliverer ] Pulse Rate [ Right Standing Motorcycle Deliverer ] Pulse Rate [ Right Supine Motorcycle Deliverer ] Respiratory 20 14 Rate Blood Pressure 121/79 123/76 Blood Pressure [Right Arm Sitting] Blood Pressure [Right Arm Standing] Blood Pressure [Right Arm Supine] O2 Sat by Pulse 96 97 Oximetry EKG Findings - EKG Comments: EKG Findings:: Sinus rhythm at 100. HI 166. QRS 70. QT 374. QTC 42. Normal axis. Normal QRS. No acute ST change. Medical Decision Making - Medical Decision Making Patient reevaluated and near symptom-free. Patient states he feels minimally lightheaded. Patient does not have any blurred vision at this time. Patient states he was able to get up and move around several times without difficulty. Patient and family updated on results and need for follow-up. Patient states he last had an MRI of the brain less than 3 months ago. Patient advised if symptoms persisted or worsen that he may need repeat MRI. 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 - Lab Data Result diagrams: 03/24/18 13:04 03/24/18 13:04 Lab Results 03/24/18 03/24/18 03/24/18 Range/Units 13:04 13:04 13:04 WBC 4.2 (3.8-10.6) k/uL RBC 4.30 (4.30-5.90) m/uL Hgb 12.3 L (13.0-17.5) gm/dL Hct 39.5 (39.0-53.0) % MCV 92.1 (80.0-100.0) fL MCH 28.5 (25.0-35.0) pg MCHC 31.0 (31.0-37.0) g/dL RDW 16.8 H (11.5-15.5) % Plt Count 236 (150-450) k/uL Neutrophils % 73 % Lymphocytes % 16 % Monocytes % 7 % Eosinophils % 2 % Basophils % 0 % Neutrophils # 3.0 (1.3-7.7) k/uL Lymphocytes # 0.7 L (1.0-4.8) k/uL Monocytes # 0.3 (0-1.0) k/uL Eosinophils # 0.1 (0-0.7) k/uL Basophils # 0.0 (0-0.2) k/uL Hypochromasia Moderate Anisocytosis Slight PT 11.3 (9.0-12.0) sec INR 1.2 H (<1.2) APTT 29.0 (22.0-30.0) sec Sodium 141 (137-145) mmol/L Potassium 3.3 L (3.5-5.1) mmol/L Chloride 106 (98-107) mmol/L Carbon Dioxide 26 (22-30) mmol/L Anion Gap 9 mmol/L BUN 13 (9-20) mg/dL Creatinine 0.97 (0.66-1.25) mg/dL Est GFR (CKD-EPI)AfAm >90 (>60 ml/min/1.73 sqM) Est GFR (CKD-EPI)NonAf 80 (>60 ml/min/1.73 sqM) Glucose 163 H (74-99) mg/dL Calcium 9.0 (8.4-10.2) mg/dL Total Bilirubin 0.6 (0.2-1.3) mg/dL AST 37 (17-59) U/L ALT 34 (21-72) U/L Alkaline Phosphatase 157 H (38-126) U/L Total Protein 6.8 (6.3-8.2) g/dL Albumin 3.5 (3.5-5.0) g/dL Disposition Clinical Impression: Lightheadedness Disposition: HOME SELF-CARE Condition: Stable Instructions: Dizziness (ED) Additional Instructions: Please follow-up with your primary care physician and oncologist this week. Return for increased lightheadedness or dizziness, visual changes, weakness, confusion, headaches, worsening symptoms or other concerns. Prescriptions: Meclizine [Antivert] 25 mg PO TID PRN #12 tab PRN Reason: dizziness Is patient prescribed a controlled substance at d/c from ED?: No Referrals: Hector Escoto MD [Primary Care Provider] - 1-2 days Time of Disposition: 14:23
[2018-03-24 13:36] LABS: Anisocytosis Slight; Basophils % (A) 0 %; Eosinophils # (A) 0.1 k/uL (0-0.7); Eosinophils % (A) 2 %; HCT 39.5 % (39.0-53.0); HGB 12.3 gm/dL (13.0-17.5); Hypochromasia Moderate; Lymphocytes # (A) 0.7 k/uL (1.0-4.8); Lymphocytes % (A) 16 %; MCH 28.5 pg (25.0-35.0); MCV 92.1 fL (80.0-100.0); Mean Platelet Volume 6.8; Monocytes # (A) 0.3 k/uL (0-1.0); Monocytes % (A) 7 %; Neutrophils % (A) 73 %; Platelet Count 236 k/uL (150-450); RDW 16.8 % (11.5-15.5); WBC 4.2 k/uL (3.8-10.6)
[2018-03-24 13:43] LABS: INR 1.2 (<1.2); Prothrombin Time 11.3 sec (9.0-12.0)
[2018-03-24 13:46] LABS: ALT 34 U/L (21-72); AST 37 U/L (17-59); Albumin 3.5 g/dL (3.5-5.0); Alkaline Phosphatase 157 U/L (38-126); Anion Gap 9 mmol/L; Blood Urea Nitrogen 13 mg/dL (9-20); Carbon Dioxide 26 mmol/L (22-30); Chloride 106 mmol/L (98-107); Glucose 163 mg/dL (74-99); Potassium 3.3 mmol/L (3.5-5.1); Sodium 141 mmol/L (137-145); Total Bilirubin 0.6 mg/dL (0.2-1.3); Total Protein 6.8 g/dL (6.3-8.2)
--- NOTE | 2018-03-24 13:53 | XR ---
EXAMINATION TYPE: XR chest 2V DATE OF EXAM: 03/24/2018 COMPARISON: 02/21/2019 HISTORY: Lightheaded and blurry vision TECHNIQUE: Frontal and lateral views of the chest are obtained. FINDINGS: There is a similar appearing small layering right pleural effusion with right-sided airspa ce disease with known underlying pulmonary mass in this region. Remainder the lungs are clear. Cardia mediastinal silhouette is stable and remains enlarged. Osseous structures are grossly intact. IMPRESSION: Similar-appearing right-sided consolidation representing a pleural effusion, atelectasis , and the known pulmonary neoplasm.
--- NOTE | 2018-03-24 14:11 | CT ---
EXAMINATION TYPE: CT brain wo con DATE OF EXAM: 03/24/2018 COMPARISON: None HISTORY: Pt. having difficulty with delayed vision and dizziness. CT DLP: 1154.[address] of the brain was performed. The ventricles, basal cisterns and sulci overlying the cerebral convexities demonstrate mild enlargem ent. There is no evidence for intracranial hemorrhage or sulcal effacement. There is decreased attenuation about the periventricular white matter and deep white matter of both c erebral hemispheres, compatible with chronic small vessel ischemia. Differential diagnosis does inclu de demyelination. No mass effects are seen.No midline shift. Osseous calvarium is intact. If symptoms persist consider MRI. IMPRESSION: 1. Age related atrophic and chronic small vessel ischemic change without acute intracranial process s een at this time.
[2018-03-24 14:46] VITALS: BP 137/97; PULSE 84; RESP 18; TEMP 99.2
== END 2018-03-24 14:44 | disposition home or self-care (01) ==
LOC: EC 12:35
DX: R42 Dizziness and giddiness (principal); H53.8 Other visual disturbances; I25.10 Atherosclerotic heart disease of native coronary artery without angina pectoris; J44.9 Chronic obstructive pulmonary disease, unspecified; K21.9 Gastro-esophageal reflux disease without esophagitis; E78.5 Hyperlipidemia, unspecified; I10 Essential (primary) hypertension; M19.90 Unspecified osteoarthritis, unspecified site; N42.9 Disorder of prostate, unspecified; G47.30 Sleep apnea, unspecified; Z99.89 Dependence on other enabling machines and devices; M10.9 Gout, unspecified; Z87.442 Personal history of urinary calculi; Z85.118 Personal history of other malignant neoplasm of bronchus and lung; Z86.711 Personal history of pulmonary embolism; Z87.891 Personal history of nicotine dependence; Z79.51 Long term (current) use of inhaled steroids; Z79.01 Long term (current) use of anticoagulants; Z79.899 Other long term (current) drug therapy; Z88.0 Allergy status to penicillin
CPT/HCPCS: 36415; 70450; 71046; 80053; 85025; 85610; 85730; 93005; 96360; 99284

== ENCOUNTER 2018-04-27 12:42 | Emergency (ER) | payer MEDICARE ==
--- NOTE | 2018-04-27 14:02 | ED ---
General Adult HPI <Felton Perez - Last Filed: 04/27/18 15:10> - General Source: patient, RN notes reviewed, old records reviewed Mode of arrival: ambulatory Limitations: no limitations <Kenny Harmon - Last Filed: 04/27/18 16:18> - General Chief complaint: Abdominal Pain Stated complaint: constipation - History of Present Illness Initial comments: 68-year-old male patient past medical history of lung cancer, currently on chemo , presents to ED with 3 days of acute constipation. Patient was recently hospitalized for 6 days over in [place] for diarrhea, neutropenia. Patient states that he has a fullness sensation in his left lower quadrant. Patient denies other complaints. Patient denies fevers chills, chest pain/shortness of breath, dysuria, nausea vomiting diarrhea. Systemic: Pt denies fatigue, myalgia, fever/chills, rash. Pt denies weakness, night sweats, weight loss. Neuro: Pt denies headache, visual disturbances, syncope or pre-syncope. Denies new onset paresthesias. HEENT: Pt denies ocular discharge or irritation, otalgia, rhinorrhea, pharyngitis or notable lymphadenopathy. Cardiopulmonary: Pt denies chest pain, pleuritic chest pain, SOB, heart palpitations, dyspnea on exertion. Abdominal/GI: Pt denies n/v/d. : Pt denies dysuria, burning w/ urination, frequency/urgency. Denies new onset urinary or bowel incontinence. MSK: Pt denies myalgia, loss of strength or function in extremities. (Kenny Harmon) - Related Data Home Medications Medication Instructions Recorded Confirmed Atorvastatin [Lipitor] 40 mg PO HS 11/26/14 04/27/18 Rivaroxaban [Xarelto] 20 mg PO DAILY 02/02/17 04/27/18 Fluticasone Nasal [place] [Flonase 1 spray EA NOSTRIL DAILY PRN 02/07/17 04/27/18 Nasal [place]] Furosemide [Lasix] 40 mg PO QAM 02/07/17 04/27/18 Vit C/E/Zn/Coppr/Lutein/Zeaxan 1 cap PO BID 06/20/17 04/27/18 [Preservision Areds 2 Softgel] Allopurinol [Zyloprim] 300 mg PO DAILY 08/25/17 04/27/18 Doxazosin [Cardura] 4 mg PO DAILY 10/01/17 04/27/18 Ipratropium-Albuterol Nebulize 3 ml INHALATION RT-QID PRN 10/01/17 04/27/18 [Duoneb 0.5 mg-3 mg/3 ml Soln] Cimg-Copu-Rig 6.25-5-10Mg/5Ml 5 ml PO Q6H PRN 10/01/17 04/27/18 [Phenergan VC with Codeine] Colchicine 0.6 mg PO BID 02/20/18 04/27/18 Levothyroxine Sodium [Synthroid] 75 mcg PO DAILY 02/20/18 04/27/18 Furosemide [Lasix] 20 mg PO PC-LUNCH 04/27/18 04/27/18 Hydrocodone/Acetaminophen [[place] 1 tab PO Q6HR PRN 04/27/18 04/27/18 5-325] Potassium Bicarbonate/Cit AC 25 meq PO DAILY 04/27/18 04/27/18 [Potassium 25 Meq Tablet Eff] Previous Rx's Medication Instructions Recorded Metoprolol Tartrate [Lopressor] 25 mg PO BID #60 tab 02/14/17 Magnesium Citrate [Citrate of 296 ml PO ONCE #1 bottle 04/27/18 Magnesia] Allergies Allergy/AdvReac Type Severity Reaction Status Date / Time Penicillins Allergy Swelling Verified 04/27/18 12:47 Review of Systems ROS Other: All systems not noted in ROS Statement are negative. <Felton Preez - Last Filed: 04/27/18 15:10> ROS Other: All systems not noted in ROS Statement are negative. <Kenny Harmon - Last Filed: 04/27/18 16:18> ROS Statement: Those systems with pertinent positive or pertinent negative responses have been documented in the HPI. Past Medical History Past Medical History: Coronary Artery Disease (CAD), Cancer, COPD, GERD/Reflux, Hyperlipidemia, Hypertension, Osteoarthritis (OA), Prostate Disorder, Pulmonary Embolus (PE), Sleep Apnea/CPAP/BIPAP Additional Past Medical History / Comment(s): currently having difficulty swallowing fluids,O2 AT 3L DURING DAY prn, CPAP O2 3 L AT NIGHT, lung cancer- rad tx and chemo; hiatal hernia, hx kidney stones, RECURRENT PLEURAL EFFUSION,gout 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 culture/infection: 10-12-16 ENTEROCOCCUS FAECIUM MDRO Source:: URINE Past Surgical History: Orthopedic Surgery Additional Past Surgical History / Comment(s): rt eye cataract removed, arthroscopy nigel knee, nigel foot surgery, bronchosocopy, cystoscopy/rt ureteroscopy, lithotripsy, port a cath - SINCE REMOVED ;THOROCENTISIS X6 Past Anesthesia/Blood Transfusion Reactions: No Reported Reaction Past Psychological History: No Psychological Hx Reported Smoking Status: Former smoker Past Alcohol Use History: Occasional Past Drug Use History: None Reported - Past Family History Mother Family Medical History: CVA/TIA Additional Family Medical History / Comment(s): brain tumor Sister(s) Family Medical History: Cancer Additional Family Medical History / Comment(s): melanoma shoulder Father Family Medical History: Myocardial Infarction ([place]) Additional Family Medical History / Comment(s): all 5 of dad's brothers had a mi <Kenny Harmon - Last Filed: 04/27/18 16:18> General Exam <Felton Perez - Last Filed: 04/27/18 15:10> Limitations: no limitations <Kenny Harmon - Last Filed: 04/27/18 16:18> - General Exam Comments Initial Comments: Constitutional: NAD, AOX3, Pt has pleasant affect. HEENT: NC/AT, trachea midline, neck supple, no lymphadenopathy. Posterior pharynx non erythematous, without exudates. External ears appear normal, without discharge. Mucous membranes moist. Eyes PERRLA, EOM intact. There is no scleral icterus. No pallor noted. Cardiopulmonary: RRR, no murmurs, rubs or gallops, no JVD noted. Lungs CTAB in anterior and posterior ramsay. No peripheral edema. Abdominal exam: Abdomen soft and non-distended. Abdomen non-tender to palpation in all 4 quadrants. Bowel sounds active in LLQ. No hepatosplenomegaly. No ecchymosis, cullens and suero butcher sign negative. JENS performed, feces removed , rectal vault now empty. Neuro: CN II-XII grossly intact. No Focal deficit, no facial droop. MSK: Full active ROM in upper and lower extremities. Pt ambulatory. Full sensation in active and lower extremities. Radial pulse +2 bilaterally, posterior tibialis pulse +2 bilaterally. Homans sign negative bilaterally. (Kenny Harmon) Course <Felton Perez - Last Filed: 04/27/18 15:10> <Kenny Harmon - Last Filed: 04/27/18 16:18> Vital Signs 04/27/18 12:43 Temperature 98.4 F Pulse Rate 101 H Respiratory 18 Rate Blood Pressure 101/67 O2 Sat by Pulse 98 Oximetry - Reevaluation(s) Reevaluation #1: 04/27/18 15:10 PA supervision: I proceeded [id number] evaluation the patient he complains of constipation and fullness and inability to have a bowel movement. This is after initially having episodes of diarrhea. He was recently hospitalized in the [facility]. He is back today as a fevers chills nausea vomiting or sweats no trouble with urination. This is an uncomfortable constipated. Abdomen is essentially nontender to palpation normal bowel sounds I do agree with the assessment and plan. (Felton Perez) Medical Decision Making <Felton Perez - Last Filed: 04/27/18 15:10> <Kenny Harmon - Last Filed: 04/27/18 16:18> - Medical Decision Making 68-year-old male patient passed history of lung cancer presents to ED with 3 days of constipation. Physical exam did not display acute pathology. KUB displayed constipation, previously known right lung mass. A Therevac was initiated, had minor success, patient passed some gas, had small stool. A digital disimpaction was performed, rectal vault emptied. Patient to discharged with a bottle of magnesium citrate. Patient may also use previously purchase stool softeners as needed. Patient to return to ED if any new signs or symptoms develop including worsening abdominal pain, belching, bloody stools , any other new signs or symptoms. Patient to follow-up with PCP in 1-2 days. Case discussed with Dr. Perez. (Kenny Harmon) Disposition <Felton Perez - Last Filed: 04/27/18 15:10> Is patient prescribed a controlled substance at d/c from ED?: No Time of Disposition: 16:18 <Kenny Harmon - Last Filed: 04/27/18 16:18> Clinical Impression: Constipation Disposition: HOME SELF-CARE Condition: Good Instructions: Constipation (ED) Additional Instructions: Patient to adhere to previously discussed treatment plan and will take medication(s) as directed. Patient to follow up with PCP in 1-2 days. Patient to return to ED if symptoms do not improve. Prescriptions: Magnesium Citrate [Citrate of [place]esia] 296 ml PO ONCE #1 bottle Referrals: Hector Escoto MD [Primary Care Provider] - 1-2 days
[2018-04-27] MEDS ORDERED: DOCUSATE 283 MG/5 ML ENEMA RECTAL STA (14:35)
--- NOTE | 2018-04-27 14:55 | XR ---
Abdomen HISTORY: Constipation for [address] chest abdomen 03/16/2018 There is persistent mass in the right lung base with some associated pleural reaction likely present. No evident bowel obstruction or pneumoperitoneum. No pathologic calcification present. Patient is re nal calculi are not seen possibly due to overlying bowel gas. There is a spinal curvature. Degenerati ve disc changes are present in the visualized spine. Retained fecal debris present throughout the dis tribution of the colon. IMPRESSION: Right lower lobe lung mass. Correlate for fecal stasis.
[2018-04-27 16:37] VITALS: BP 101/65; PULSE 108; RESP 20; TEMP 99.2
== END 2018-04-27 16:29 | disposition home or self-care (01) ==
LOC: EC 12:42
DX: K59.00 Constipation, unspecified (principal); I25.10 Atherosclerotic heart disease of native coronary artery without angina pectoris; J44.9 Chronic obstructive pulmonary disease, unspecified; E78.5 Hyperlipidemia, unspecified; I10 Essential (primary) hypertension; M10.9 Gout, unspecified; G47.30 Sleep apnea, unspecified; Z99.89 Dependence on other enabling machines and devices; Z87.438 Personal history of other diseases of male genital organs; Z86.711 Personal history of pulmonary embolism; Z85.118 Personal history of other malignant neoplasm of bronchus and lung; Z92.21 Personal history of antineoplastic chemotherapy; Z87.442 Personal history of urinary calculi; Z87.891 Personal history of nicotine dependence; Z79.01 Long term (current) use of anticoagulants; Z79.899 Other long term (current) drug therapy; Z88.0 Allergy status to penicillin
CPT/HCPCS: 74018; 99284

== ENCOUNTER → 2018-06-09 | Outpatient (CLI) | payer MEDICARE ==
--- NOTE | 2018-06-09 13:35 | CT ---
EXAMINATION TYPE: CT brain w con DATE OF EXAM: 06/09/2018 COMPARISON: 03/24/2018 HISTORY: Lung cancer, dizziness CT DLP: 995.50 mGycm Automated Exposure Control for Dose Reduction was Utilized. TECHNIQUE: CT scan of the head is performed with IV contrast.,CT scan of the head is performed withou t and with with IV Contrast, patient injected with 100 ml mL of Isovue 300. FINDINGS: No evidence of midline shift or mass effect. [place]-white matter interface is maintained. The ventricles and sulci are symmetrically prominent compatible with mild age-related volume loss. Postc ontrast images show no suspicious enhancing intraparenchymal mass. There is scant mucosal thickening within the ethmoid sinuses. Remaining visualized paranasal sinuses and mastoid air cells are well aer ated. Globes appear intact. IMPRESSION: Negative contrast enhanced head CT exam. No abnormal intracranial enhancement. No eviden ce of intracranial metastasis on CT. MRI with contrast would be of increased specificity for subcenti meter metastatic lesions and could be performed on a nonemergent basis.
--- NOTE | 2018-06-09 13:41 | CT ---
EXAMINATION TYPE: CT chest w con DATE OF EXAM: 06/09/2018 COMPARISON: CT chest 03/16/2018 HISTORY: Lung cancer, dizziness CT DLP: 903.60 mGycm Automated exposure control for dose reduction was used. CONTRAST: CT scan of the chest is performed with IV Contrast, patient injected with 100 ml mL of Isovue 300. FINDINGS: LUNGS: The mass in the right lower lobe measures approximately 8 x 10 x 9.3 cm in size as compared to prior when it measured approximately 9.8 x 8.6 x 10 cm. There is associated right pleural effusion. Nodular density in the left upper lobe is less confluence and may have been postinflammatory. There i s volume loss in the right hemithorax. Calcified subpleural nodule in the left lower lobe is stable. MEDIASTINUM: Retrocaval pretracheal node measures approximately 16 mm in short axis and is stable. AORTA: No additional significant abnormality is seen. OTHER: Coronary artery calcification is present. Prominence of the right internal collecting system as on prior, nonobstructive calculus is noted in the midpole and is punctate in size. Endplate compre ssion deformity at T11 shows a similar appearance. There is interval sclerosis involving T12 vertebra l body with some loss of height present, retropulsion is minimal, this is an interval finding. Also i nterval rib fracture posteriorly on the left at the 11th rib, correlate for any history of trauma. Lo w dense foci within the liver are not distinct but appears similar to prior. Portable adenopathy thou ght to be improved. IMPRESSION: Lung mass may be decreased slightly in the interval. Interval T12 vertebral body scleros is, underlying compression fracture. Bone scan and/or MRI may be of benefit. Additional findings abov e.
== END | disposition home or self-care (01) ==
LOC: RADCTMAIN 11:01
PROVIDERS: ATTEND Internal Medicine Hematology & Oncology
DX: S22.089A Unspecified fracture of T11-T12 vertebra, initial encounter for closed fracture (principal); S22.32XA Fracture of one rib, left side, initial encounter for closed fracture; I25.10 Atherosclerotic heart disease of native coronary artery without angina pectoris; G95.89 Other specified diseases of spinal cord; R59.0 Localized enlarged lymph nodes; C34.91 Malignant neoplasm of unspecified part of right bronchus or lung; R42 Dizziness and giddiness
CPT/HCPCS: 82565; 84520; 70460; 71260; 36415; Q9967

== ENCOUNTER 2018-07-17 13:28 | Emergency (ER) | payer MEDICARE ==
[2018-07-17 13:34] VITALS: PULSE 89
--- NOTE | 2018-07-17 14:06 | XR ---
EXAMINATION TYPE: XR chest 2V DATE OF EXAM: 07/17/2018 COMPARISON: 03/24/2018 INDICATION: Pain, hemoptysis TECHNIQUE: Frontal and lateral views of the chest are obtained. FINDINGS: The heart size is normal. The pulmonary vasculature is normal. Right lower lobe opacification is present medially. Correlate for atelectasis. Posterior lung mass is not excluded. Small right pleural effusion may be present. Findings appear similar to 03/24/2018. Fi ndings are present on the CT examination 06/09/2018. IMPRESSION: 1. Right lower lobe lung mass with a loculated right pleural effusion.
--- NOTE | 2018-07-17 14:30 | ED ---
General Adult HPI - General Chief complaint: Upper Respiratory Infection Stated complaint: vomiting blood Time Seen by Provider: 07/17/18 13:37 Source: patient Mode of arrival: ambulatory Limitations: no limitations - History of Present Illness Initial comments: 68-year-old male past medical history of lung cancer diagnosed in 2017 currently on 3rd "round" of chemotherapy unsure of exact regime followed by Dr. Oropeza and Isa presenting today for cc of hemoptysis, pt has had previous pulmonary emobolism 1 year ago, on xarleto states he is complaint. Patient states he has had a chronic cough for the past 2 years, he states it fluctuates in intensity. He denies any specific abnormalities however today when he coughed he noticed there was bright red blood in his phlegm. He denies any fever, chills or night sweats. He states he has been taking Mucinex for phlegm as well as nebulized albuterol as directed by slot shift manager. Patient states he feels well he denies any increasing shortness of breath or chest pain. He states he is compliant with his xarelto. Pt states he was concerned about hemoptysis, calling his slot shift manager who recommended presenting for evaluation. Upon arrival patient's vital signs reveal, vital signs within acceptable limits. Patient appears well there is no signs of acute distress or shortness of breath. Remaining review of systems negative, patient denies any recent back pain, abdominal pain, nausea or vomiting, numbness or tingling, dysuria or hematuria, constipation or diarrhea, headaches or visual changes, or any other complaints. - Related Data Home Medications Medication Instructions Recorded Confirmed Atorvastatin [Lipitor] 40 mg PO HS 11/26/14 07/17/18 Rivaroxaban [Xarelto] 20 mg PO DAILY 02/02/17 07/17/18 Fluticasone Nasal [place] [Flonase 1 spray EA NOSTRIL DAILY 02/07/17 07/17/18 Nasal [place]] Furosemide [Lasix] 40 mg PO QAM 02/07/17 07/17/18 Vit C/E/Zn/Coppr/Lutein/Zeaxan 1 cap PO BID 06/20/17 07/17/18 [Preservision Areds 2 Softgel] Allopurinol [Zyloprim] 300 mg PO DAILY 08/25/17 07/17/18 Doxazosin [Cardura] 4 mg PO BID 10/01/17 07/17/18 Ipratropium-Albuterol Nebulize 3 ml INHALATION RT-QID PRN 10/01/17 07/17/18 [Duoneb 0.5 mg-3 mg/3 ml Soln] Zslt-Mzri-Hxi 6.25-5-10Mg/5Ml 5 ml PO Q6H PRN 10/01/17 07/17/18 [Phenergan VC with Codeine] Colchicine 0.6 mg PO BID 02/20/18 07/17/18 Levothyroxine Sodium [Synthroid] 75 mcg PO DAILY 02/20/18 07/17/18 Furosemide [Lasix] 20 mg PO PC-LUNCH 04/27/18 07/17/18 Hydrocodone/Acetaminophen [[place] 1 tab PO Q6HR PRN 04/27/18 07/17/18 5-325] Potassium Bicarbonate/Cit AC 25 meq PO DAILY 04/27/18 07/17/18 [Potassium 25 Meq Tablet Eff] Benzonatate [Tessalon Perles] 100 mg PO TID PRN 07/17/18 07/17/18 DOCEtaxel [Taxotere] 160 mg IV Q21D 07/17/18 07/17/18 Dexamethasone [Hexadrol] 4 mg PO BID PRN 07/17/18 07/17/18 Pantoprazole Sodium [Protonix] 40 mg PO BID 07/17/18 07/17/18 guaiFENesin [Mucinex] 1,200 mg PO BID 07/17/18 07/17/18 Previous Rx's Medication Instructions Recorded Metoprolol Tartrate [Lopressor] 25 mg PO BID #60 tab 02/14/17 Allergies Allergy/AdvReac Type Severity Reaction Status Date / Time Penicillins Allergy Swelling Verified 07/17/18 14:38 Review of Systems ROS Statement: Those systems with pertinent positive or pertinent negative responses have been documented in the HPI. ROS Other: All systems not noted in ROS Statement are negative. Past Medical History Past Medical History: Coronary Artery Disease (CAD), Cancer, COPD, GERD/Reflux, Hyperlipidemia, Hypertension, Osteoarthritis (OA), Prostate Disorder, Pulmonary Embolus (PE), Sleep Apnea/CPAP/BIPAP Additional Past Medical History / Comment(s): currently having difficulty swallowing fluids,O2 AT 3L DURING DAY prn, CPAP O2 3 L AT NIGHT, lung cancer- rad tx and chemo; hiatal hernia, hx kidney stones, RECURRENT PLEURAL EFFUSION,gout 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 culture/infection: 10-12-16 ENTEROCOCCUS FAECIUM MDRO Source:: URINE Past Surgical History: Orthopedic Surgery Additional Past Surgical History / Comment(s): rt eye cataract removed, arthroscopy nigel knee, nigel foot surgery, bronchosocopy, cystoscopy/rt ureteroscopy, lithotripsy, port a cath - SINCE REMOVED ;THOROCENTISIS X6. Pt on Chemo Past Anesthesia/Blood Transfusion Reactions: No Reported Reaction Past Psychological History: No Psychological Hx Reported Smoking Status: Former smoker Past Alcohol Use History: Occasional Past Drug Use History: None Reported - Past Family History Mother Family Medical History: CVA/TIA Additional Family Medical History / Comment(s): brain tumor Sister(s) Family Medical History: Cancer Additional Family Medical History / Comment(s): melanoma shoulder Father Family Medical History: Myocardial Infarction (CT) Additional Family Medical History / Comment(s): all 5 of dad's brothers had a mi General Exam - General Exam Comments Initial Comments: General: The patient is awake and alert, in no distress, and does not appear acutely ill. Eye: Pupils are equal, round and reactive to light, extra-ocular movements are intact. No nystagmus. There is normal conjunctiva bilaterally. No signs of icterus. Ears, nose, mouth and throat: There are moist mucous membranes and no oral lesions. Neck: The neck is supple, there is no tenderness or JVD. Cardiovascular: There is a regular rate and rhythm. No murmur, rub or gallop is appreciated. Respiratory: Lungs are clear to auscultation, respirations are non-labored, breath sounds are equal. No wheezes, stridor, rales. Mild rhonchi. No abdominal breathing, retractions, cyanosis or use of accessory muscles. Gastrointestinal: Soft, non-distended, non-tender abdomen without masses or organomegaly noted. There is no rebound or guarding present. Musculoskeletal: No crepitus to palpation of the anterior chest wall. Normal ROM, no tenderness. Strength 5/5. Sensation intact. Radial pulses equal bilaterally 2+. Neurological: A&O x 3. CN II-XII intact, There are no obvious motor or sensory deficits. Coordination appears grossly intact. Speech is normal. Skin: Skin is warm and dry and no rashes or lesions are noted. Psychiatric: Cooperative, appropriate mood & affect, normal judgment. Limitations: no limitations Course Vital Signs 07/17/18 07/17/18 13:30 16:57 Temperature 98.6 F 98 F Pulse Rate 89 89 Respiratory 22 20 Rate Blood Pressure 135/67 112/63 O2 Sat by Pulse 97 96 Oximetry Medical Decision Making - Medical Decision Making 68yo male history of lung cancer presenting today for chief complaint of hemoptysis. Patient states it is a small amount within his sputum. Denies large amounts of hemoptysis. Patient states he has not experienced this symptom before. CT angiography revealed no evidence of pulmonary embolus and. There is no evidence of alveolar hemorrhage. Abnormalities consistent with previous CT no new acute findings. There is evidence of the mass obstructing segmental and subsegmental pulmonary arteries to the right lower lobe. There is compression deformity at T12 patient is aware that this is most likely metastatic lung carcinoma.. Attending provider , evaluated patient in person he reviewed imaging studies as well as patient's laboratory results. He consulted patient's slot shift manager Dr. Vo who referred patient for evaluation. He recommended patient's discharge, I was not involved in conversation and was told his instruction by attending provider. Pt appears well , no complaints of pain. VS remain stable throughout visit with no large amounts of hemoptysis. I am agreeable wtih discharge. Pt discharged appearing well with f/u pulmonology, primary care and hematology/oncology. Patient verbalized understanding of all return parameters, deny questions at this time. Patient discharged appearing well. - Lab Data Result diagrams: 07/17/18 14:31 07/17/18 14:34 Lab Results 07/17/18 07/17/18 07/17/18 Range/Units 14:31 14:31 14:34 WBC 9.9 (3.8-10.6) k/uL RBC 3.87 L (4.30-5.90) m/uL Hgb 11.2 L (13.0-17.5) gm/dL Hct 34.6 L (39.0-53.0) % MCV 89.5 (80.0-100.0) fL MCH 28.9 (25.0-35.0) pg MCHC 32.2 (31.0-37.0) g/dL RDW 19.4 H (11.5-15.5) % Plt Count 190 (150-450) k/uL Neutrophils % 86 % Lymphocytes % 7 % Monocytes % 4 % Eosinophils % 1 % Basophils % 0 % Neutrophils # 8.6 H (1.3-7.7) k/uL Lymphocytes # 0.7 L (1.0-4.8) k/uL Monocytes # 0.4 (0-1.0) k/uL Eosinophils # 0.1 (0-0.7) k/uL Basophils # 0.0 (0-0.2) k/uL Hypochromasia Slight Anisocytosis Slight PT 11.8 (9.0-12.0) sec INR 1.1 (<1.2) APTT 31.3 H (22.0-30.0) sec D-Dimer 1.73 H (<0.60) mg/L FEU Sodium 140 (137-145) mmol/L Potassium 3.7 (3.5-5.1) mmol/L Chloride 105 (98-107) mmol/L Carbon Dioxide 29 (22-30) mmol/L Anion Gap 6 mmol/L BUN 15 (9-20) mg/dL Creatinine 0.81 (0.66-1.25) mg/dL Est GFR (CKD-EPI)AfAm >90 (>60 ml/min/1.73 sqM) Est GFR (CKD-EPI)NonAf >90 (>60 ml/min/1.73 sqM) Glucose 91 (74-99) mg/dL Calcium 8.5 (8.4-10.2) mg/dL Total Bilirubin 0.6 (0.2-1.3) mg/dL AST 39 (17-59) U/L ALT 52 (21-72) U/L Alkaline Phosphatase 141 H (38-126) U/L Total Protein 5.9 L (6.3-8.2) g/dL Albumin 3.2 L (3.5-5.0) g/dL Disposition Clinical Impression: Hemoptysis Disposition: HOME SELF-CARE Condition: Good Instructions (If sedation given, give patient instructions): Hemoptysis (ED) Additional Instructions: Please use medication as discussed. Please follow-up with slot shift manager as discussed. Please return to emergency room if the symptoms increase or worsen or for any other concerns, including worsening of the coughing up blood as discussed. Is patient prescribed a controlled substance at d/c from ED?: No Referrals: Hector Escoto MD [Primary Care Provider] - 1-2 days Edwige Oropeza MD [STAFF PHYSICIAN] - 1-2 days Time of Disposition: 16:51
[2018-07-17 14:43] LABS: Anisocytosis Slight; Basophils % (A) 0 %; Eosinophils # (A) 0.1 k/uL (0-0.7); Eosinophils % (A) 1 %; HCT 34.6 % (39.0-53.0); HGB 11.2 gm/dL (13.0-17.5); Hypochromasia Slight; Lymphocytes # (A) 0.7 k/uL (1.0-4.8); Lymphocytes % (A) 7 %; MCH 28.9 pg (25.0-35.0); MCHC 32.2 g/dL (31.0-37.0); MCV 89.5 fL (80.0-100.0); Mean Platelet Volume 7.4; Monocytes # (A) 0.4 k/uL (0-1.0); Monocytes % (A) 4 %; Neutrophils # (A) 8.6 k/uL (1.3-7.7); Neutrophils % (A) 86 %; Platelet Count 190 k/uL (150-450); RBC 3.87 m/uL (4.30-5.90); RDW 19.4 % (11.5-15.5); WBC 9.9 k/uL (3.8-10.6)
[2018-07-17 14:56] LABS: INR 1.1 (<1.2); Partial Thromboplastin Time 31.3 sec (22.0-30.0); Prothrombin Time 11.8 sec (9.0-12.0)
[2018-07-17 14:58] LABS: ALT 52 U/L (21-72); AST 39 U/L (17-59); Albumin 3.2 g/dL (3.5-5.0); Alkaline Phosphatase 141 U/L (38-126); Anion Gap 6 mmol/L; Blood Urea Nitrogen 15 mg/dL (9-20); Calcium 8.5 mg/dL (8.4-10.2); Carbon Dioxide 29 mmol/L (22-30); Chloride 105 mmol/L (98-107); Glucose 91 mg/dL (74-99); Potassium 3.7 mmol/L (3.5-5.1); Sodium 140 mmol/L (137-145); Total Bilirubin 0.6 mg/dL (0.2-1.3); Total Protein 5.9 g/dL (6.3-8.2)
[2018-07-17 15:18] LABS: D-Dimer 1.73 mg/L FEU (<0.60)
--- NOTE | 2018-07-17 15:50 | CT ---
EXAMINATION TYPE: CT angio chest DATE OF EXAM: 07/17/2018 COMPARISON: 06/09/2018 HISTORY: Cough with blood in sputum. History of lung cancer. CT DLP: 675.7 mGycm. Automated Exposure Control for Dose Reduction was Utilized. CONTRAST: CTA scan of the thorax is performed with IV Contrast, patient injected with 100 mL of Isovue 370, pul monary embolism protocol. MIP Images are created on CT scanner and reviewed. FINDINGS: The right lower lobe lung mass measures approximately 9.1 x 8.2 cm, previously measuring 9.3 x 8.0 cm on the prior of 06/09/2018 there is surrounding atelectasis and a small right pleural effusion. There is abnormal soft tissue thickening extending along the right hilum and right bronchus encasing incre asing downstream atelectasis of subsegmental bronchi. Trachea remains patent. The mass also encases and obstructs right lower lobe segmental and subsegmental pulmonary arteries and narrows right upper lobe pulmonary arteries. No filling defect is seen to suggest pulmonary embolus although there is sub optimal timing bolus as the aorta displays increased contrast in comparison to the main pulmonary art radha. No filling defects are seen on the left. No enlargement of main pulmonary artery or aorta. Exten sive coronary artery calcifications are seen. Trace pericardial effusion is noted. The visualized upper abdomen demonstrates probable right renal cyst, small hiatal hernia, and possibl e left renal cyst as well as nonobstructing right lower pole renal calculi. Moderate multilevel degenerative changes of the thoracic spine are noted. Compression deformity of th e T12 vertebral body with sclerosis favors metastatic pathologic fracture and is unchanged from the p rior of 05/30/2018. No rib invasion is seen from the right sided mass. Mild bilateral symmetric probabl e gynecomastia is retroareolar. No new contralateral pulmonary nodules are seen. Benign left lower lobe calcified granuloma is noted. No new ipsilateral pulmonary nodules are present. There is an enlarged pretracheal lymph node measur ing 1.4 cm in short axis on image 52 and subcarinal lymph node measuring 1.8 cm. Right hilar adenopat hy blends with the atelectasis and primary mass. IMPRESSION: 1. No evidence of pulmonary embolus suboptimal opacification of the pulmonary artery. 2. Similar size of the large right lower lobe pulmonary mass measuring up to 9.1 cm in comparison to exam of 06/09/2018. This mass obstructs segmental and subsegmental pulmonary arteries to the right low er lobe and narrows pulmonary arteries to the right upper lobe. There is also obstruction of right lo wer lobe segmental and subsegmental bronchi with diffuse abnormal soft tissue density along the right hilum as seen on the prior. 3. Similar-appearing compression deformity of the T12 vertebral body suspected to represent a patholo gic compression deformity of metastatic lung carcinoma. 4. Small right pleural effusion and trace pericardial effusion.
[2018-07-17 17:15] VITALS: BP 112/63; RESP 20; TEMP 98
== END 2018-07-17 16:57 | disposition home or self-care (01) ==
LOC: EC 13:28
DX: R04.2 Hemoptysis (principal); M43.8X4 Other specified deforming dorsopathies, thoracic region; J44.9 Chronic obstructive pulmonary disease, unspecified; I10 Essential (primary) hypertension; G47.30 Sleep apnea, unspecified; E78.5 Hyperlipidemia, unspecified; I25.10 Atherosclerotic heart disease of native coronary artery without angina pectoris; C34.90 Malignant neoplasm of unspecified part of unspecified bronchus or lung; Z79.01 Long term (current) use of anticoagulants; Z79.51 Long term (current) use of inhaled steroids; Z79.890 Hormone replacement therapy; Z79.899 Other long term (current) drug therapy; Z88.0 Allergy status to penicillin; Z85.118 Personal history of other malignant neoplasm of bronchus and lung; Z86.711 Personal history of pulmonary embolism
CPT/HCPCS: 36415; 71046; 71275; 80053; 85025; 85379; 85610; 85730; 99284

== ENCOUNTER → 2018-08-18 | Outpatient (CLI) | payer MEDICARE ==
[2018-08-18 13:36] LABS: Blood Urea Nitrogen 19 mg/dL (9-20)
--- NOTE | 2018-08-18 15:26 | CT ---
EXAMINATION TYPE: CT ChestAbdPelvis w con DATE OF EXAM: 08/18/2018 COMPARISON: 06/09/2017 and 07/17/2018 HISTORY: Follow up for lung CA CT DLP: 2434.8 mGycm CONTRAST: CT scan of the chest, abdomen and pelvis is performed with Oral Contrast and with IV Contrast, patien t injected with 100 mL of Isovue 300. CT Chest: LUNGS: Redemonstrated is right lower lobe mass measuring 9.0 x 7.8 x 8.1 cm versus prior measurement of 9.1 x 8.2 cm. There is adjacent pleural effusion noted. There is narrowing of the right lower lobe bronchus. Persistent soft tissue noted to extend along the right hilum and right bronchus encasing t he bronchus. There is persistent pleural-based nodule left upper lobe measuring 1 cm versus 1 cm prev iously. Additional nodule is seen within the left lower lobe adjacent to the fissure measuring 4 mm a nd this is also unchanged. This may reflect a granuloma. No additional nodules are noted. MEDIASTINUM: Thoracic aorta is of normal caliber. The heart is not enlarged. Right paratracheal pily nopathy measures 1.2 cm and is stable. HILAR STRUCTURES: No evidence for mass. No hilar adenopathy i s appreciated. OTHER: No significant abnormality. CONTRAST CT ABDOMEN AND PELVIS FINDINGS: LIVER/GB: No calcified gallstones. Lesion within the periphery of the left hepatic lobe medial segm ent measures 1.7 cm and is unchanged from prior study. There is also a hypoattenuating lesion at the inferior tip of the right hepatic lobe measuring 2 cm versus 3 cm previously. No additional hepatic l esions are identified with absolute certainty. Lymph node adjacent to the liver measures 1.2 cm. Bili fatmata tree is of normal caliber. PANCREAS: No inflammation. No distinct mass. SPLEEN: No splenic enlargement. No lesion seen. ADRENALS: No nodule. No thickening. KIDNEYS/BLADDER: No hydronephrosis. No nephrolithiasis. Renal cystic changes persist. BOWEL: Normal appendix. Normal bowel caliber. No inflammation. GENITAL ORGANS: No gross abnormality. LYMPH NODES: No greater than 1cm abdominal or pelvic lymph nodes are appreciated. AORTA: No significant abnormality. OSSEOUS STRUCTURES: T12 with sclerotic compression fracture remains unchanged. Mild bony retropulsion . No additional vertebral lesions identified with certainty. OTHER: No significant additional abnormality is seen. IMPRESSION: 1. Essentially stable right lower lobe pulmonary mass with bronchial encasement and pleural effusion. 2. Stable subpleural nodule left upper lobe. 3. Hepatic lesions as discussed. 4. Sclerotic compression fracture of T12 is unchanged.
== END | disposition home or self-care (01) ==
LOC: RADCTMAIN 12:51
PROVIDERS: ATTEND Internal Medicine Hematology & Oncology
DX: C34.91 Malignant neoplasm of unspecified part of right bronchus or lung (principal); R91.8 Other nonspecific abnormal finding of lung field; J90 Pleural effusion, not elsewhere classified; K76.9 Liver disease, unspecified; Z88.0 Allergy status to penicillin
CPT/HCPCS: 82565; 84520; 71260; 74177; 36415; Q9967

== ENCOUNTER 2018-11-05 12:06 | Emergency (ER) | payer MEDICARE ==
[2018-11-05] MEDS ORDERED: predniSONE 20 MG TAB PO STA (14:48)
[2018-11-05] MEDS ORDERED: SODIUM CHLORIDE 0.9% 1,000 ML IV STA ×2 (14:48)
[2018-11-05] MEDS ORDERED: ACETAMINOPHEN TAB 500 MG TAB PO STA (15:08)
--- NOTE | 2018-11-05 15:09 | ED ---
URI HPI - General Chief Complaint: Upper Respiratory Infection Stated Complaint: Cough, Sore throat, CA PT Time Seen by Provider: 11/05/18 14:25 Source: patient, RN notes reviewed, old records reviewed Mode of arrival: ambulatory Limitations: no limitations - History of Present Illness Initial Comments: Patient is 68-year-old male present today with increased cough congestion. He has history of lung cancer. Patient states he's had a worsening cough and productivity of the cough for the past 3 days. Patient states been a slight fever. Patient has not had a recent chemotherapy treatments. He follows with Dr. Craig for oncology. [facility] triple drum operator Dr. Oropeza. They try to call Dr. Oropeza for follow-up and they stated that he could not get in and today was sent to emergency room for for reevaluation. Patient states that he's had some minor abdominal distention. No vomiting. He reports normal stools and normal urination. - Related Data Home Medications Medication Instructions Recorded Confirmed Atorvastatin [Lipitor] 40 mg PO HS 11/26/14 07/17/18 Rivaroxaban [Xarelto] 20 mg PO DAILY 02/02/17 07/17/18 Fluticasone Nasal [place] [Flonase 1 spray EA NOSTRIL DAILY 02/07/17 07/17/18 Nasal [place]] Furosemide [Lasix] 40 mg PO QAM 02/07/17 07/17/18 Vit C/E/Zn/Coppr/Lutein/Zeaxan 1 cap PO BID 06/20/17 07/17/18 [Preservision Areds 2 Softgel] Allopurinol [Zyloprim] 300 mg PO DAILY 08/25/17 07/17/18 Doxazosin [Cardura] 4 mg PO BID 10/01/17 07/17/18 Ipratropium-Albuterol Nebulize 3 ml INHALATION RT-QID PRN 10/01/17 07/17/18 [Duoneb 0.5 mg-3 mg/3 ml Soln] Uuue-Ivhv-Gkz 6.25-5-10Mg/5Ml 5 ml PO Q6H PRN 10/01/17 07/17/18 [Phenergan VC with Codeine] Colchicine 0.6 mg PO BID 02/20/18 07/17/18 Levothyroxine Sodium [Synthroid] 75 mcg PO DAILY 02/20/18 07/17/18 Furosemide [Lasix] 20 mg PO PC-LUNCH 04/27/18 07/17/18 Hydrocodone/Acetaminophen [[place] 1 tab PO Q6HR PRN 04/27/18 07/17/18 5-325] Potassium Bicarbonate/Cit AC 25 meq PO DAILY 04/27/18 07/17/18 [Potassium 25 Meq Tablet Eff] Benzonatate [Tessalon Perles] 100 mg PO TID PRN 07/17/18 07/17/18 DOCEtaxel [Taxotere] 160 mg IV Q21D 07/17/18 07/17/18 Dexamethasone [Hexadrol] 4 mg PO BID PRN 07/17/18 07/17/18 Pantoprazole Sodium [Protonix] 40 mg PO BID 07/17/18 07/17/18 guaiFENesin [Mucinex] 1,200 mg PO BID 07/17/18 07/17/18 Previous Rx's Medication Instructions Recorded Metoprolol Tartrate [Lopressor] 25 mg PO BID #60 tab 02/14/17 Azithromycin [Zithromax Z-pack] 250 mg PO DIRECTED #6 tab 11/05/18 Allergies Allergy/AdvReac Type Severity Reaction Status Date / Time Penicillins Allergy Swelling Verified 11/05/18 12:10 Review of Systems ROS Statement: Those systems with pertinent positive or pertinent negative responses have been documented in the HPI. ROS Other: All systems not noted in ROS Statement are negative. Past Medical History Past Medical History: Coronary Artery Disease (CAD), Cancer, COPD, GERD/Reflux, Hyperlipidemia, Hypertension, Osteoarthritis (OA), Prostate Disorder, Pulmonary Embolus (PE), Sleep Apnea/CPAP/BIPAP Additional Past Medical History / Comment(s): currently having difficulty swallowing fluids,O2 AT 3L DURING DAY prn, CPAP O2 3 L AT NIGHT, lung [id number] rad tx and chemo; hiatal hernia, hx kidney stones, RECURRENT PLEURAL EFFUSION,gout 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 culture/infection: 10-12-16 ENTEROCOCCUS FAECIUM MDRO Source:: URINE Past Surgical History: Orthopedic Surgery Additional Past Surgical History / Comment(s): rt eye cataract removed, arthroscopy nigel knee, nigel foot surgery, bronchosocopy, cystoscopy/rt ureteroscopy, lithotripsy, port a cath - SINCE REMOVED ;THOROCENTISIS X6. Pt on Chemo Past Anesthesia/Blood Transfusion Reactions: No Reported Reaction Past Psychological History: No Psychological Hx Reported Smoking Status: Former smoker Past Alcohol Use History: Occasional Past Drug Use History: None Reported - Past Family History Mother Family Medical History: CVA/TIA Additional Family Medical History / Comment(s): brain tumor Sister(s) Family Medical History: Cancer Additional Family Medical History / Comment(s): melanoma shoulder Father Family Medical History: Myocardial Infarction (ME) Additional Family Medical History / Comment(s): all 5 of dad's brothers had a mi General Exam - General Exam Comments Initial Comments: Pleasant well-appearing 68-year-old male. No distress. Limitations: no limitations General appearance: alert, in no apparent distress Head exam: Present: atraumatic, normocephalic, normal inspection Eye exam: Present: normal appearance, PERRL, EOMI. Absent: scleral icterus, conjunctival injection, periorbital swelling ENT exam: Present: normal exam, mucous membranes moist Neck exam: Present: normal inspection. Absent: tenderness, meningismus, lymphadenopathy Respiratory exam: Present: wheezes, decreased breath sounds (Decreased right lower lung sounds.). Absent: normal lung sounds bilaterally, respiratory distress, rales, rhonchi, stridor Cardiovascular Exam: Present: regular rate, normal rhythm, normal heart sounds. Absent: systolic murmur, diastolic murmur, rubs, gallop, clicks GI/Abdominal exam: Present: soft, normal bowel sounds. Absent: distended, guarding, rebound, rigid Extremities exam: Present: normal inspection, full ROM, normal capillary refill. Absent: tenderness, pedal edema, joint swelling, calf tenderness Back exam: Present: normal inspection Neurological exam: Present: alert, oriented X3, CN II-XII intact Psychiatric exam: Present: normal affect, normal mood Skin exam: Present: warm, dry, intact, normal color. Absent: rash Course Vital Signs 11/05/18 11/05/18 11/05/18 12:08 14:40 15:00 Temperature 99.2 F Pulse Rate 90 104 H Respiratory 18 20 Rate Blood Pressure 115/70 129/84 O2 Sat by Pulse 97 96 96 Oximetry 11/05/18 11/05/18 11/05/18 15:30 16:00 16:07 Temperature Pulse Rate 101 H 99 86 Respiratory 20 27 H Rate Blood Pressure 121/71 108/76 O2 Sat by Pulse Oximetry 11/05/18 11/05/18 11/05/18 16:14 16:30 17:00 Temperature 98.6 F Pulse Rate 88 104 H 104 H Respiratory 24 18 Rate Blood Pressure 110/66 114/71 O2 Sat by Pulse 95 96 Oximetry Medical Decision Making - Medical Decision Making 68-year-old male with history of lung cancer presents or urgency reports today with cough, worsening congestion and productive cough for the past 3 days. Patient at this time has evidence of a minor right-sided pleural effusion. This is a redemonstrated on previous x-rays. Patient is. Family states that this was drained. Patient's laboratory was reviewed and unremarkable. Vital Signs are stable. Patient is a low-grade temperature. Lactic acid was normal. Blood cultures were completed. Discussed the possibility of bronchitis or pneumonia. Patient case discussed with Dr. Escoto. Status or the Patient on IV antibiotics of Rocephin and azithromycin and the Patient follow-up outpatient only with his triple drum operator and his primary care doctor. I discussed strict return parameters with close PCP follow-up. Patient agrees treatment plan will comply. - Lab Data Result diagrams: 11/05/18 14:55 11/05/18 14:55 Lab Results 11/05/18 11/05/18 11/05/18 Range/Units 14:55 14:55 14:55 WBC 10.9 H (3.8-10.6) k/uL RBC 4.57 (4.30-5.90) m/uL Hgb 12.5 L (13.0-17.5) gm/dL Hct 39.9 (39.0-53.0) % MCV 87.3 (80.0-100.0) fL MCH 27.3 (25.0-35.0) pg MCHC 31.3 (31.0-37.0) g/dL RDW 18.9 H (11.5-15.5) % Plt Count 257 (150-450) k/uL Neutrophils % 80 % Lymphocytes % 7 % Monocytes % 9 % Eosinophils % 2 % Basophils % 1 % Neutrophils # 8.7 H (1.3-7.7) k/uL Lymphocytes # 0.8 L (1.0-4.8) k/uL Monocytes # 0.9 (0-1.0) k/uL Eosinophils # 0.2 (0-0.7) k/uL Basophils # 0.1 (0-0.2) k/uL Hypochromasia Slight Anisocytosis Slight PT (9.0-12.0) sec INR (<1.2) APTT (22.0-30.0) sec Sodium 140 (137-145) mmol/L Potassium 4.2 (3.5-5.1) mmol/L Chloride 103 (98-107) mmol/L Carbon Dioxide 28 (22-30) mmol/L Anion Gap 9 mmol/L BUN 14 (9-20) mg/dL Creatinine 1.03 (0.66-1.25) mg/dL Est GFR (CKD-EPI)AfAm 85 (>60 ml/min/1.73 sqM) Est GFR (CKD-EPI)NonAf 74 (>60 ml/min/1.73 sqM) Glucose 104 H (74-99) mg/dL Calcium 9.2 (8.4-10.2) mg/dL Magnesium 1.9 (1.6-2.3) mg/dL Total Bilirubin 0.9 (0.2-1.3) mg/dL AST 32 (17-59) U/L ALT 17 L (21-72) U/L Alkaline Phosphatase 151 H (38-126) U/L Troponin I (0.000-0.034) ng/mL NT-Pro-B Natriuret Pep 597 pg/mL Total Protein 7.1 (6.3-8.2) g/dL Albumin 3.8 (3.5-5.0) g/dL 11/05/18 11/05/18 Range/Units 14:55 14:55 WBC (3.8-10.6) k/uL RBC (4.30-5.90) m/uL Hgb (13.0-17.5) gm/dL Hct (39.0-53.0) % MCV (80.0-100.0) fL MCH (25.0-35.0) pg MCHC (31.0-37.0) g/dL RDW (11.5-15.5) % Plt Count (150-450) k/uL Neutrophils % % Lymphocytes % % Monocytes % % Eosinophils % % Basophils % % Neutrophils # (1.3-7.7) k/uL Lymphocytes # (1.0-4.8) k/uL Monocytes # (0-1.0) k/uL Eosinophils # (0-0.7) k/uL Basophils # (0-0.2) k/uL Hypochromasia Anisocytosis PT 12.5 H (9.0-12.0) sec INR 1.2 H (<1.2) APTT 33.6 H (22.0-30.0) sec Sodium (137-145) mmol/L Potassium (3.5-5.1) mmol/L Chloride (98-107) mmol/L Carbon Dioxide (22-30) mmol/L Anion Gap mmol/L BUN (9-20) mg/dL Creatinine (0.66-1.25) mg/dL Est GFR (CKD-EPI)AfAm (>60 ml/min/1.73 sqM) Est GFR (CKD-EPI)NonAf (>60 ml/min/1.73 sqM) Glucose (74-99) mg/dL Calcium (8.4-10.2) mg/dL Magnesium (1.6-2.3) mg/dL Total Bilirubin (0.2-1.3) mg/dL AST (17-59) U/L ALT (21-72) U/L Alkaline Phosphatase (38-126) U/L Troponin I <0.012 (0.000-0.034) ng/mL NT-Pro-B Natriuret Pep pg/mL Total Protein (6.3-8.2) g/dL Albumin (3.5-5.0) g/dL Interpretation: no acute changes, normal EKG - Radiology Data Radiology results: report reviewed EKG shows sinus rhythm almost QRS. Borderline EKG. Ventricular rate of 100 bpm. Intervals 152 ms. QRS duration is 72 ms. QT QTc is 348/448 ms. Overall stable finding some right basilar opacity consistent with small pleural fluid collection and adjacent mass or neoplasm with right-sided volume loss all redemonstrated. Disposition Clinical Impression: Lung cancer, Community acquired pneumonia Disposition: HOME SELF-CARE Condition: Stable Instructions (If sedation given, give patient instructions): Community Acquired Pneumonia (ED) Additional Instructions: Follow with Dr. Esctoo tomorrow. Recommend also following with Dr. Oropeza as soon as possible.. Difficulty breathing worsens please return for reevaluation. Prescriptions: Azithromycin [Zithromax Z-pack] 250 mg PO DIRECTED #6 tab Is patient prescribed a controlled substance at d/c from ED?: No Referrals: Hector Escoto MD [Primary Care Provider] - 1-2 days Time of Disposition: 17:24
[2018-11-05 15:12] LABS: Anisocytosis Slight; Basophils # (A) 0.1 k/uL (0-0.2); Basophils % (A) 1 %; Eosinophils # (A) 0.2 k/uL (0-0.7); Eosinophils % (A) 2 %; HCT 39.9 % (39.0-53.0); HGB 12.5 gm/dL (13.0-17.5); Hypochromasia Slight; Lymphocytes # (A) 0.8 k/uL (1.0-4.8); Lymphocytes % (A) 7 %; MCH 27.3 pg (25.0-35.0); MCHC 31.3 g/dL (31.0-37.0); MCV 87.3 fL (80.0-100.0); Mean Platelet Volume 7.3; Monocytes # (A) 0.9 k/uL (0-1.0); Monocytes % (A) 9 %; Neutrophils # (A) 8.7 k/uL (1.3-7.7); Neutrophils % (A) 80 %; Platelet Count 257 k/uL (150-450); RBC 4.57 m/uL (4.30-5.90); RDW 18.9 % (11.5-15.5); WBC 10.9 k/uL (3.8-10.6)
[2018-11-05 15:17] LABS: INR 1.2 (<1.2); Partial Thromboplastin Time 33.6 sec (22.0-30.0); Prothrombin Time 12.5 sec (9.0-12.0)
[2018-11-05 15:20] LABS: Albumin 3.8 g/dL (3.5-5.0); Calcium 9.2 mg/dL (8.4-10.2); Magnesium 1.9 mg/dL (1.6-2.3); Potassium 4.2 mmol/L (3.5-5.1); Total Bilirubin 0.9 mg/dL (0.2-1.3); Total Protein 7.1 g/dL (6.3-8.2)
--- NOTE | 2018-11-05 15:23 | XR ---
EXAMINATION TYPE: XR chest 2V DATE OF EXAM: 11/05/2018 COMPARISON: Chest x-ray July 17, 2018. CT August 18, 2018. HISTORY: Difficulty in breathing. History of lung cancer. TECHNIQUE: Frontal and lateral views of the chest are obtained. FINDINGS: There is persistent right-sided volume loss with small right pleural fluid collection and medial basilar masslike consolidation. Left lung is clear. The cardiac silhouette size is stable and prominent. The osseous structures are intact. IMPRESSION: Overall stable findings, right basilar opacity consistent with small pleural fluid colle ction and adjacent mass or neoplasm with right-sided volume loss all redemonstrated.
[2018-11-05] MEDS ORDERED: IPRATROPIUM-ALBUTEROL 3 ML NEB INHALATION STA (15:36)
[2018-11-05] MEDS ORDERED: cefTRIAXone 1,000 MG VIAL (IM USE) IM STA (16:52)
[2018-11-05 17:04] VITALS: BP 114/71; TEMP 98.6
[2018-11-05] MEDS ORDERED: AZITHROMYCIN 500 MG TAB PO STA (17:32)
[2018-11-05 17:44] VITALS: PULSE 101; RESP 24
== END 2018-11-05 17:49 | disposition home or self-care (01) ==
LOC: EC 12:06
DX: C34.90 Malignant neoplasm of unspecified part of unspecified bronchus or lung (principal); J18.9 Pneumonia, unspecified organism; I25.10 Atherosclerotic heart disease of native coronary artery without angina pectoris; K21.9 Gastro-esophageal reflux disease without esophagitis; E78.5 Hyperlipidemia, unspecified; I10 Essential (primary) hypertension; M19.90 Unspecified osteoarthritis, unspecified site; N42.9 Disorder of prostate, unspecified; G47.30 Sleep apnea, unspecified; Z99.89 Dependence on other enabling machines and devices; Z86.711 Personal history of pulmonary embolism; Z87.891 Personal history of nicotine dependence; Z79.01 Long term (current) use of anticoagulants; Z79.899 Other long term (current) drug therapy; Z79.890 Hormone replacement therapy; Z88.0 Allergy status to penicillin
CPT/HCPCS: 36415; 94640; 93005; 83880; 80053; 83735; 84484; 85025; 85610; 85730; 87040; 71046; 99284; 96360; 96361 ×2; 96372; J0696; J7512

== ENCOUNTER 2018-12-13 10:22 | Emergency (ER) | payer MEDICARE ==
[2018-12-13] MEDS ORDERED: MORPHINE SULFATE 4 MG/ML SYRINGE IV STA (10:50)
--- NOTE | 2018-12-13 10:55 | ED ---
General Adult HPI - General Chief complaint: Urogenital Stated complaint: RT side flank pain Time Seen by Provider: 12/13/18 10:43 Source: patient, family, RN notes reviewed Mode of arrival: ambulatory Limitations: no limitations - History of Present Illness Initial comments: Patient is a pleasant 68-year-old male presenting to the emergency Department with complaints of right-sided flank pain. Onset of symptoms was around 4 days ago. Onset was gradual. Discomfort is moderate. Discomfort is slightly positional. Patient has had dark urine and been urinating more frequently. No fevers. No history of similar symptoms previously. Patient does have history of lung and liver cancer. Patient finished last chemotherapy a couple of months ago. Patient will be reevaluated for this soon to determine if he needs further treatment. - Related Data Home Medications Medication Instructions Recorded Confirmed Rivaroxaban [Xarelto] 20 mg PO DAILY 02/02/17 12/13/18 Furosemide [Lasix] 40 mg PO QAM 02/07/17 12/13/18 Vit C/E/Zn/Coppr/Lutein/Zeaxan 1 cap PO BID 06/20/17 12/13/18 [Preservision Areds 2 Softgel] Allopurinol [Zyloprim] 300 mg PO DAILY 08/25/17 12/13/18 Doxazosin [Cardura] 4 mg PO BID 10/01/17 12/13/18 Nuun-Fibm-Yud 6.25-5-10Mg/5Ml 5 ml PO Q6H PRN 10/01/17 12/13/18 [Phenergan VC with Codeine] Colchicine 0.6 mg PO BID 02/20/18 12/13/18 Levothyroxine Sodium [Synthroid] 75 mcg PO DAILY 02/20/18 12/13/18 Potassium Bicarbonate/Cit AC 25 meq PO DAILY 04/27/18 12/13/18 [Potassium 25 Meq Tablet Eff] Pantoprazole Sodium [Protonix] 40 mg PO BID 07/17/18 12/13/18 guaiFENesin [Mucinex] 1,200 mg PO BID 07/17/18 12/13/18 Albuterol Nebulized [Ventolin 5 mg INHALATION RT-Q6H PRN 12/13/18 12/13/18 Nebulized] Furosemide [Lasix] 40 mg PO DAILY 07/21/19 07/21/19 HYDROcodone/APAP 10-325MG [[place] 1 tab PO Q4HR PRN 12/13/18 12/13/18 10-325] Meclizine [Antivert] 25 mg PO TID PRN 12/13/18 12/13/18 Metoprolol Succinate (ER) [Toprol 50 mg PO HS 12/13/18 12/13/18 Xl] Previous Rx's Medication Instructions Recorded Sulfamethox-Tmp 800-160Mg [Bactrim 1 each PO Q12HR #14 tab 12/13/18 DS 800-160 mg] Allergies Allergy/AdvReac Type Severity Reaction Status Date / Time Penicillins Allergy Swelling Verified 12/13/18 11:17 Review of Systems ROS Statement: Those systems with pertinent positive or pertinent negative responses have been documented in the HPI. ROS Other: All systems not noted in ROS Statement are negative. Constitutional: Denies: fever Eyes: Denies: eye pain ENT: Denies: ear pain Respiratory: Denies: cough Cardiovascular: Denies: chest pain Endocrine: Denies: fatigue Gastrointestinal: Reports: as per HPI, abdominal pain. Denies: nausea, vomiting, diarrhea, constipation Genitourinary: Reports: dysuria (Minimal), frequency Musculoskeletal: Denies: arthralgia Skin: Denies: rash Neurological: Denies: weakness Past Medical History Past Medical History: Coronary Artery Disease (CAD), Cancer, COPD, GERD/Reflux, Hyperlipidemia, Hypertension, Osteoarthritis (OA), Prostate Disorder, Pulmonary Embolus (PE), Sleep Apnea/CPAP/BIPAP Additional Past Medical History / Comment(s): currently having difficulty swallowing fluids,O2 AT 3L DURING DAY prn, CPAP O2 3 L AT NIGHT, lung [id number] rad tx and chemo; hiatal hernia, hx kidney stones, RECURRENT PLEURAL EFFUSION,gout 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 culture/infection: 10-12-16 ENTEROCOCCUS FAECIUM MDRO Source:: URINE Past Surgical History: Orthopedic Surgery Additional Past Surgical History / Comment(s): rt eye cataract removed, arthrosc opy nigel knee, nigel foot surgery, bronchosocopy, cystoscopy/rt ureteroscopy, lithotripsy, port a cath - SINCE REMOVED ;THOROCENTISIS X6. Pt on Chemo Past Anesthesia/Blood Transfusion Reactions: No Reported Reaction Past Psychological History: No Psychological Hx Reported Smoking Status: Former smoker Past Alcohol Use History: Occasional Past Drug Use History: None Reported - Past Family History Mother Family Medical History: CVA/TIA Additional Family Medical History / Comment(s): brain tumor Sister(s) Family Medical History: Cancer Additional Family Medical History / Comment(s): melanoma shoulder Father Family Medical History: Myocardial Infarction (OR) Additional Family Medical History / Comment(s): all 5 of dad's brothers had a mi General Exam Limitations: no limitations General appearance: alert, in no apparent distress Head exam: Present: atraumatic Eye exam: Present: normal appearance, PERRL ENT exam: Present: normal oropharynx Neck exam: Present: normal inspection Respiratory exam: Present: normal lung sounds bilaterally. Absent: chest wall tenderness Cardiovascular Exam: Present: regular rate, normal rhythm Expanded Peripheral pulses: 2+: Posterior Tibialis (R), Posterior Tibialis (L) GI/Abdominal exam: Present: soft, tenderness (Mild tenderness right flank), normal bowel sounds. Absent: distended, guarding, rebound, rigid, pulsatile mass Extremities exam: Present: normal inspection. Absent: pedal edema, calf tenderness Back exam: Present: normal inspection. Absent: tenderness, CVA tenderness (R) Neurological exam: Present: alert Psychiatric exam: Present: normal affect, normal mood Skin exam: Present: normal color Course Vital Signs 12/13/18 12/13/18 10:28 14:18 Temperature 98 F 98.7 F Pulse Rate 88 98 Respiratory 16 18 Rate Blood Pressure 101/66 105/70 O2 Sat by Pulse 96 96 Oximetry Medical Decision Making - Medical Decision Making Patient reevaluated and resting comfortably in bed. Symptom-free at this time. Patient and family are updated on results and need for follow-up. Case was discussed in detail with Dr. Moss who is familiar with this patient. He does not feel patient needs any further emergent evaluation or treatment and will follow-up with this patient. - Lab Data Result diagrams: 12/13/18 11:07 12/13/18 11:07 Lab Results 12/13/18 12/13/18 12/13/18 Range/Units 11:07 11:07 11:07 WBC 8.4 (3.8-10.6) k/uL RBC 4.47 (4.30-5.90) m/uL Hgb 12.6 L (13.0-17.5) gm/dL Hct 41.3 (39.0-53.0) % MCV 92.3 D (80.0-100.0) fL MCH 28.1 (25.0-35.0) pg MCHC 30.4 L (31.0-37.0) g/dL RDW 19.1 H (11.5-15.5) % Plt Count 192 (150-450) k/uL Neutrophils % 85 % Lymphocytes % 6 % Monocytes % 7 % Eosinophils % 0 % Basophils % 0 % Neutrophils # 7.1 (1.3-7.7) k/uL Lymphocytes # 0.5 L (1.0-4.8) k/uL Monocytes # 0.6 (0-1.0) k/uL Eosinophils # 0.0 (0-0.7) k/uL Basophils # 0.0 (0-0.2) k/uL Anisocytosis Slight PT 10.9 (9.0-12.0) sec INR 1.0 (<1.2) APTT 24.6 (22.0-30.0) sec Sodium 138 (137-145) mmol/L Potassium 3.6 (3.5-5.1) mmol/L Chloride 100 (98-107) mmol/L Carbon Dioxide 29 (22-30) mmol/L Anion Gap 9 mmol/L BUN 18 (9-20) mg/dL Creatinine 0.99 (0.66-1.25) mg/dL Est GFR (CKD-EPI)AfAm 89 (>60 ml/min/1.73 sqM) Est GFR (CKD-EPI)NonAf 77 (>60 ml/min/1.73 sqM) Glucose 95 (74-99) mg/dL Calcium 9.0 (8.4-10.2) mg/dL Total Bilirubin 5.0 H (0.2-1.3) mg/dL AST 160 H (17-59) U/L ALT 123 H (21-72) U/L Alkaline Phosphatase 483 H (38-126) U/L Creatine Kinase 58 (55-170) U/L Total Protein 6.5 (6.3-8.2) g/dL Albumin 3.3 L (3.5-5.0) g/dL Amylase 101 (30-110) U/L Lipase 215 (23-300) U/L Urine Color Urine Appearance (Clear) Urine pH (5.0-8.0) Ur Specific [place] (1.001-1.035) Urine Protein (Negative) Urine Glucose (UA) (Negative) Urine Ketones (Negative) Urine Blood (Negative) Urine Nitrite (Negative) Urine Bilirubin (Negative) Urine Urobilinogen (<2.0) mg/dL Ur Leukocyte Esterase (Negative) Urine RBC (0-5) /hpf Urine WBC (0-5) /hpf 12/13/18 Range/Units 11:07 WBC (3.8-10.6) k/uL RBC (4.30-5.90) m/uL Hgb (13.0-17.5) gm/dL Hct (39.0-53.0) % MCV (80.0-100.0) fL MCH (25.0-35.0) pg MCHC (31.0-37.0) g/dL RDW (11.5-15.5) % Plt Count (150-450) k/uL Neutrophils % % Lymphocytes % % Monocytes % % Eosinophils % % Basophils % % Neutrophils # (1.3-7.7) k/uL Lymphocytes # (1.0-4.8) k/uL Monocytes # (0-1.0) k/uL Eosinophils # (0-0.7) k/uL Basophils # (0-0.2) k/uL Anisocytosis PT (9.0-12.0) sec INR (<1.2) APTT (22.0-30.0) sec Sodium (137-145) mmol/L Potassium (3.5-5.1) mmol/L Chloride (98-107) mmol/L Carbon Dioxide (22-30) mmol/L Anion Gap mmol/L BUN (9-20) mg/dL Creatinine (0.66-1.25) mg/dL Est GFR (CKD-EPI)AfAm (>60 ml/min/1.73 sqM) Est GFR (CKD-EPI)NonAf (>60 ml/min/1.73 sqM) Glucose (74-99) mg/dL Calcium (8.4-10.2) mg/dL Total Bilirubin (0.2-1.3) mg/dL AST (17-59) U/L ALT (21-72) U/L Alkaline Phosphatase (38-126) U/L Creatine Kinase (55-170) U/L Total Protein (6.3-8.2) g/dL Albumin (3.5-5.0) g/dL Amylase (30-110) U/L Lipase (23-300) U/L Urine Color Yellow Urine Appearance Clear (Clear) Urine pH 6.5 (5.0-8.0) Ur Specific [place] 1.009 (1.001-1.035) Urine Protein Negative (Negative) Urine Glucose (UA) Negative (Negative) Urine Ketones Negative (Negative) Urine Blood Negative (Negative) Urine Nitrite Negative (Negative) Urine Bilirubin 1+ H (Negative) Urine Urobilinogen <2.0 (<2.0) mg/dL Ur Leukocyte Esterase Moderate H (Negative) Urine RBC 1 (0-5) /hpf Urine WBC 22 H (0-5) /hpf - Radiology Data Radiology results: report reviewed (Computed tomography scan of the abdomen pelvis shows pulmonary mass, stable. Increased metastatic lesions to the liver. Some mild ascites. Progression of T12 compression fracture.), image reviewed (KUB does not reveal acute abnormality) Disposition Clinical Impression: Hepatic metastasis, UTI (urinary tract infection), Flank pain, T12 compression fracture Disposition: HOME SELF-CARE Condition: Stable Instructions (If sedation given, give patient instructions): Abdominal Pain (ED), Urinary Tract Infection in Men (ED), Vertebral Compression Fracture (ED) Additional Instructions: Please follow-up with Dr. moss in the beginning of the week. Please also follow-up with primary care physician. Have physician's review results including liver enzymes, and computed tomography scan. Please also have follow- up physicians look for urine culture results. Return for increased pain, color changes, vomiting, worsening symptoms or other concerns. Your prescription has been sent to [facility]. Prescriptions: Sulfamethox-Tmp 800-160Mg [Bactrim DS 800-160 mg] 1 each PO Q12HR #14 tab Is patient prescribed a controlled substance at d/c from ED?: No Referrals: Hector Escoto MD [Primary Care Provider] - 1-2 days Darryl Moss MD [STAFF PHYSICIAN] - 1-2 days Time of Disposition: 14:37
[2018-12-13 11:28] LABS: Anisocytosis Slight; Basophils % (A) 0 %; Eosinophils % (A) 0 %; HCT 41.3 % (39.0-53.0); HGB 12.6 gm/dL (13.0-17.5); Lymphocytes # (A) 0.5 k/uL (1.0-4.8); Lymphocytes % (A) 6 %; MCH 28.1 pg (25.0-35.0); MCHC 30.4 g/dL (31.0-37.0); Mean Platelet Volume 7.6; Monocytes # (A) 0.6 k/uL (0-1.0); Monocytes % (A) 7 %; Neutrophils # (A) 7.1 k/uL (1.3-7.7); Neutrophils % (A) 85 %; Platelet Count 192 k/uL (150-450); RBC 4.47 m/uL (4.30-5.90); RDW 19.1 % (11.5-15.5); WBC 8.4 k/uL (3.8-10.6)
[2018-12-13 11:29] LABS: Appearance,Urine Clear (Clear); Bilirubin,Urine 1+ (Negative); Blood,Urine Negative (Negative); Color,Urine Yellow; Glucose,Urine (UA) Negative (Negative); Ketones,Urine Negative (Negative); Leukocyte Esterase,Urine Moderate (Negative); Nitrite,Urine Negative (Negative); PH, Urine 6.5 (5.0-8.0); Protein,Urine Negative (Negative); RBC,Urine 1 /hpf (0-5); Specific Gravity,Urine 1.009 (1.001-1.035); Urobilinogen,Urine <2.0 mg/dL (<2.0); WBC,Urine 22 /hpf (0-5)
[2018-12-13 11:32] LABS: MCV 92.3 fL (80.0-100.0)
[2018-12-13 11:33] LABS: Partial Thromboplastin Time 24.6 sec (22.0-30.0); Prothrombin Time 10.9 sec (9.0-12.0)
[2018-12-13 11:37] LABS: Albumin 3.3 g/dL (3.5-5.0); Potassium 3.6 mmol/L (3.5-5.1); Total Protein 6.5 g/dL (6.3-8.2)
--- NOTE | 2018-12-13 11:59 | XR ---
EXAMINATION TYPE: XR KUB , 2 VIEWS DATE OF EXAM ORDERED: 12/13/2018 HISTORY: abdominal pain. COMPARISON: Previous study dated 04/27/2018. FINDINGS: There is a gentle levoscoliosis. There is left basilar airspace disease not significantly c hanged from previous. Left lung bases are clear. Within the abdomen, the abdominal gas pattern is normal. There is no evidence of obstruction or free air. There is a phlebolith in the left hemipelvis. IMPRESSION: 1. RIGHT LOWER LOBE AIRSPACE DISEASE ESSENTIALLY UNCHANGED FROM PREVIOUS. 2. NO ACUTE INTRA-ABDOMINAL ABNORMALITY. 3. LEVOSCOLIOSIS.
--- NOTE | 2018-12-13 13:42 | CT ---
EXAMINATION TYPE: CT abdomen pelvis w con DATE OF EXAM: 12/13/2018 REFERENCE: Previous study dated 08/18/2018. HISTORY: Pain CT DLP: 1888.40 mGy Automated exposure control for dose reduction was used. TECHNIQUE: Helical acquisition through the abdomen and pelvis was obtained without oral contrast and following intravenous administration of 100 mL of Isovue 300. The data was reformatted in axial, caio nal and sagittal projections. FINDINGS: Right lower lobe mass is essentially unchanged demonstrates bronchial encasement. There ar e multiple subpleural nodules also noted on the right. There is volume loss on the right. The left tara ng appears clear. There is no definite pleural or pericardial fluid. The heart is not enlarged. Within the abdomen, the liver is enlarged. It measures 19 cm. There are multiple hepatic lesions 1 le alex in the posterior segment of the right lobe of the liver has enlarged. The gallbladder is partial ly contracted. The spleen is normal. A small amount of ascites. The adrenal glands are normal. There is nonobstructing right-sided nephrolithiasis, unchanged from previous. The left kidney is unre markable. The pancreas is unremarkable. Moderate atheromatous calcification of the visualized arterial tree. There is no significant retroper itoneal, iliac or inguinal adenopathy. The bladder is unremarkable. There is mild mucosal thickening involving the sigmoid colon. The appendix is normal. Small bowel loops are of normal caliber. There is no free fluid and no free air. Compression fracture of the T12 vertebral body has progressed. There are acute fracture lines extendi ng through this region at this time more clearly defined than on the previous examination. There are degenerative changes throughout the spine. No additional fractures are noted. IMPRESSION: 1. PROGRESSION OF THE WEDGE COMPRESSION FRACTURE OF T12. THERE ARE ACUTE FRACTURE LINES PRESENT IN TH IS LOCATION AT THIS TIME. THERE IS NO SIGNIFICANT RETROPULSION. 2. ENLARGING HEPATIC METASTASES. 3. SMALL AMOUNT OF ASCITES. 4. STABLE APPEARING RIGHT LOWER LOBE PULMONARY MASS. THERE APPEARS TO BE PROGRESSION OF THE PATIENT'S SUBPLEURAL NODULES. 5. HEPATOMEGALY. 6. NONOBSTRUCTING RIGHT-SIDED NEPHROLITHIASIS. 7. MILD MUCOSAL THICKENING THROUGHOUT THE SIGMOID COLON. PLEASE CORRELATE FOR COLITIS.
[2018-12-13 14:19] VITALS: BP 105/70; PULSE 98; RESP 18; TEMP 98.7
== END 2018-12-13 14:56 | disposition home or self-care (01) ==
LOC: EC 10:22
DX: S22.080A Wedge compression fracture of T11-T12 vertebra, initial encounter for closed fracture (principal); N39.0 Urinary tract infection, site not specified; C78.7 Secondary malignant neoplasm of liver and intrahepatic bile duct; R10.9 Unspecified abdominal pain; I25.10 Atherosclerotic heart disease of native coronary artery without angina pectoris; J44.9 Chronic obstructive pulmonary disease, unspecified; K21.9 Gastro-esophageal reflux disease without esophagitis; E78.5 Hyperlipidemia, unspecified; I10 Essential (primary) hypertension; M19.90 Unspecified osteoarthritis, unspecified site; N42.9 Disorder of prostate, unspecified; G47.30 Sleep apnea, unspecified; Z99.89 Dependence on other enabling machines and devices; M10.9 Gout, unspecified; Z86.711 Personal history of pulmonary embolism; Z85.118 Personal history of other malignant neoplasm of bronchus and lung; Z87.891 Personal history of nicotine dependence; Z79.01 Long term (current) use of anticoagulants; Z79.890 Hormone replacement therapy; Z79.899 Other long term (current) drug therapy; Z88.0 Allergy status to penicillin
CPT/HCPCS: 36415; 80053; 82150; 82550; 83690; 85025; 85610; 85730; 81001; 87086; 74018; 74177; 99284; 96374; J2270; Q9967

== ENCOUNTER → 2018-12-17 | Outpatient (CLI) | payer MEDICARE | END | disposition home or self-care (01) | LOC: RADMRIMAIN 14:52 | PROVIDERS: ATTEND Internal Medicine Hematology & Oncology | DX: Z53.9 Procedure and treatment not carried out, unspecified reason (principal) ==

== ENCOUNTER 2018-12-21 10:25 | Inpatient (IN) | payer MEDICARE ==
[2018-12-21] MEDS ORDERED: MORPHINE SULFATE 4 MG/ML SYRINGE IVP STA (11:08)
[2018-12-21] MEDS ORDERED: ONDANSETRON 4 MG/2 ML VIAL IVP STA (11:09)
--- NOTE | 2018-12-21 11:09 | ED ---
Abdominal Pain HPI - General Chief Complaint: Abdominal Pain Stated Complaint: no appetite/body aches Time Seen by Provider: 12/21/18 10:52 Source: patient Mode of arrival: wheelchair Limitations: no limitations - History of Present Illness Initial Comments: 68-year-old male with a history of small cell and squamous lung cancer, currently not being treated since last treatment August, presenting with worsening right upper quadrant pain, nausea, decreased appetite, and difficulty swallowing with voice change. The patient is state that he had a MRI on December 17, they're unsure of the results. They state that he had an EGD to a half years prior to that time was not having voice symptoms. The symptoms started this week. He states he is able to swallow solids, but has trouble with liquids. He admits to increasing abdominal girth and pressure. He admits to intermittent shortness of breath secondary to that but denies any chest pain. Also denies any fevers or chills. He admits to increased urinary frequency throughout the night, but denies any diarrhea. - Related Data Home Medications Medication Instructions Recorded Confirmed Rivaroxaban [Xarelto] 20 mg PO DAILY 02/02/17 12/21/18 Furosemide [Lasix] 40 mg PO QAM 02/07/17 12/21/18 Vit C/E/Zn/Coppr/Lutein/Zeaxan 1 cap PO BID 06/20/17 12/21/18 [Preservision Areds 2 Softgel] Allopurinol [Zyloprim] 300 mg PO DAILY 08/25/17 12/21/18 Doxazosin [Cardura] 4 mg PO BID 10/01/17 12/21/18 Colchicine 0.6 mg PO BID 02/20/18 12/21/18 Levothyroxine Sodium [Synthroid] 75 mcg PO DAILY 02/20/18 12/21/18 Potassium Bicarbonate/Cit AC 25 meq PO DAILY 04/27/18 12/21/18 [Potassium 25 Meq Tablet Eff] Pantoprazole Sodium [Protonix] 40 mg PO BID 07/17/18 12/21/18 guaiFENesin [Mucinex] 1,200 mg PO BID 07/17/18 12/21/18 Albuterol Nebulized [Ventolin 5 mg INHALATION RT-Q6H PRN 12/13/18 12/21/18 Nebulized] HYDROcodone/APAP 10-325MG [Rueter 1 tab PO Q4HR PRN 12/13/18 12/21/18 10-325] Meclizine [Antivert] 25 mg PO TID PRN 12/13/18 12/21/18 Metoprolol Succinate (ER) [Toprol 50 mg PO HS 12/13/18 12/21/18 Xl] Ipratropium-Albuterol Nebulize 3 ml INHALATION RT-TID 12/21/18 12/21/18 [Duoneb 0.5 mg-3 mg/3 ml Soln] Promethaz-Cod 6.25-10 mg/5 ml 5 ml PO Q6HR PRN 12/21/18 12/21/18 [Phenergan with Codeine] Allergies Allergy/AdvReac Type Severity Reaction Status Date / Time Penicillins Allergy Swelling Verified 12/21/18 11:20 Review of Systems ROS Statement: Those systems with pertinent positive or pertinent negative responses have been documented in the HPI. Review of Systems Constitutional: Denies fever, chills Eyes: Denies change in vision, Denies pain Ears, nose, mouth, throat: Denies headaches, Denies sore throat Cardiovascular: Denies chest pain. Denies palpitations Respiratory: Positive shortness of breath, Denies cough Gastrointestinal: Positive abdominal pain. Positive nausea, vomiting. Denies diarrhea. Genitourinary: Denies hematuria, Denies infections Musculoskeletal: Denies pain, Denies swelling Integumentary: Denies rash Neurological: Denies headache, focal weakness, focal numbness Psychiatric: Denies anxiety, Denies depression Hematologic/Lymphatic: Denies easy bleeding or bruising ROS Other: All systems not noted in ROS Statement are negative. 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 Pt on Chemo Past Anesthesia/Blood Transfusion Reactions: No Reported Reaction Past Psychological History: No Psychological Hx Reported Smoking Status: Former smoker Past Alcohol Use History: Occasional Past Drug Use History: None Reported - Past Family History Mother Family Medical History: CVA/TIA Additional Family Medical History / Comment(s): brain tumor Sister(s) Family Medical History: Cancer Additional Family Medical History / Comment(s): melanoma shoulder Father Family Medical History: Myocardial Infarction (HI) Additional Family Medical History / Comment(s): all 5 of dad's brothers had a mi General Exam - General Exam Comments Initial Comments: General: Awake, alert, No acute Distress HENT: Normocephalic. Atraumatic. No postoropharyngeal erythema or edema. Eyes: PERRL. EOMI. Scleral icterus bilaterally. No injected conjunctiva. Neck: Full ROM Chest/Lungs: Clear to auscultation bilaterally. No wheezing, rhonchi, or rales Cardiac: Regular rate, rhythm. No murmurs or rubs Abdomen/GI: Distended.No fluid wave. Hepatomegaly. RUQ tenderness. No rebound, guarding, or rigidity. Musculoskeletal: Full ROM Skin: Warm, dry, intact. Jaundice. Neurologic: A/Ox3, no weakness, no sensory deficit, no abnormal gait, no coordination deficit Limitations: no limitations Course Vital Signs 12/21/18 12/21/18 12/21/18 10:37 13:46 15:15 Temperature 97.9 F Pulse Rate 91 94 97 Respiratory 18 18 18 Rate Blood Pressure 105/74 100/73 96/69 O2 Sat by Pulse 96 95 97 Oximetry 12/21/18 12/21/18 16:00 17:00 Temperature 98.1 F Pulse Rate 102 H 109 H Respiratory 18 18 Rate Blood Pressure 103/71 110/85 O2 Sat by Pulse 97 95 Oximetry Medical Decision Making - Medical Decision Making 68 yoM presenting with abdominal pain. On initial exam the patient is awake, alert, and in NAD. VSS. I spoke with THADDEUS Cruz for Dr. Moss oncologist, who states the patient's abdominal MRI showed increased progression of disease in his liver but his billiary system was not obstructed at that time. Last Bilirubin was 5. Patient's laboratory workup today his total bilirubin is 11.9 with elevated AST nail T. Patient's also found a UTI. I reviewed his previous culture he does have 1 culture that grew VRE, however the following cultures after that were negative. This time will elect to start him on Rocephin. Patient states she has a penicillin ALLERGY but he has had Rocephin in the past. Patient's right upper quadrant ultrasound was unable to visualize the gallbladder or biliary system. The CT of his neck showed enlarging nodule in his upper lobes suggesting neoplastic progression as well as some soft tissue not nodularity in his adenoid tonsils. There was otherwise no suspicious neck mass seen. Patient will require swallow study versus EGD for his dysphagia. I spoke with Dr. Escoto who asked me to speak with GI regarding patient's condition. I spoke with Dr. Hunt who does not think the patient is obstructed at this time and states he can remain at this hospital pending further workup. I spoke with Kianna onco DIRECTOR OF USER EXPERIENCE, she is aware of patient's results. Consult placed for oncology as well. - Lab Data Result diagrams: 12/21/18 11:20 12/21/18 11:20 Lab Results 12/21/18 12/21/18 12/21/18 Range/Units 11:20 11:20 11:20 WBC 9.4 (3.8-10.6) k/uL RBC 4.36 (4.30-5.90) m/uL Hgb 13.4 (13.0-17.5) gm/dL Hct 42.3 (39.0-53.0) % MCV 97.2 (80.0-100.0) fL MCH 30.8 (25.0-35.0) pg MCHC 31.7 (31.0-37.0) g/dL RDW 20.9 H (11.5-15.5) % Plt Count 191 (150-450) k/uL Neutrophils % 88 % Lymphocytes % 5 % Monocytes % 5 % Eosinophils % 1 % Basophils % 0 % Neutrophils # 8.3 H (1.3-7.7) k/uL Lymphocytes # 0.5 L (1.0-4.8) k/uL Monocytes # 0.5 (0-1.0) k/uL Eosinophils # 0.1 (0-0.7) k/uL Basophils # 0.0 (0-0.2) k/uL Anisocytosis Moderate Macrocytosis Slight PT (9.0-12.0) sec INR (<1.2) Sodium 135 L (137-145) mmol/L Potassium 3.9 (3.5-5.1) mmol/L Chloride 95 L (98-107) mmol/L Carbon Dioxide 28 (22-30) mmol/L Anion Gap 12 mmol/L BUN 35 H (9-20) mg/dL Creatinine 1.29 H (0.66-1.25) mg/dL Est GFR (CKD-EPI)AfAm 65 (>60 ml/min/1.73 sqM) Est GFR (CKD-EPI)NonAf 56 (>60 ml/min/1.73 sqM) Glucose 93 (74-99) mg/dL Calcium 9.2 (8.4-10.2) mg/dL Total Bilirubin 11.9 H (0.2-1.3) mg/dL Conjugated Bilirubin 6.7 H (0.0-0.3) mg/dL Unconjugated Bilirubin 1.7 H (0.0-1.1) mg/dL Delta Bilirubin 3.5 H (0.0-0.2) mg/dL AST 252 H (17-59) U/L ALT 147 H (21-72) U/L Alkaline Phosphatase 576 H (38-126) U/L Troponin I (0.000-0.034) ng/mL NT-Pro-B Natriuret Pep 667 pg/mL Total Protein 6.3 (6.3-8.2) g/dL Albumin 3.3 L (3.5-5.0) g/dL Lipase 260 (23-300) U/L Urine Color Urine Appearance (Clear) Urine pH (5.0-8.0) Ur Specific [place] (1.001-1.035) Urine Protein (Negative) Urine Glucose (UA) (Negative) Urine Ketones (Negative) Urine Blood (Negative) Urine Nitrite (Negative) Urine Bilirubin (Negative) Urine Urobilinogen (<2.0) mg/dL Ur Leukocyte Esterase (Negative) Urine RBC (0-5) /hpf Urine WBC (0-5) /hpf Ur Squamous Epith Cells (0-4) /hpf Urine Bacteria (None) /hpf Cellular Casts (0) /lpf Hyaline Casts (0-2) /lpf Urine Mucus (None) /hpf 12/21/18 12/21/18 12/21/18 Range/Units 11:20 11:20 11:20 WBC (3.8-10.6) k/uL RBC (4.30-5.90) m/uL Hgb (13.0-17.5) gm/dL Hct (39.0-53.0) % MCV (80.0-100.0) fL MCH (25.0-35.0) pg MCHC (31.0-37.0) g/dL RDW (11.5-15.5) % Plt Count (150-450) k/uL Neutrophils % % Lymphocytes % % Monocytes % % Eosinophils % % Basophils % % Neutrophils # (1.3-7.7) k/uL Lymphocytes # (1.0-4.8) k/uL Monocytes # (0-1.0) k/uL Eosinophils # (0-0.7) k/uL Basophils # (0-0.2) k/uL Anisocytosis Macrocytosis PT 11.8 (9.0-12.0) sec INR 1.1 (<1.2) Sodium (137-145) mmol/L Potassium (3.5-5.1) mmol/L Chloride (98-107) mmol/L Carbon Dioxide (22-30) mmol/L Anion Gap mmol/L BUN (9-20) mg/dL Creatinine (0.66-1.25) mg/dL Est GFR (CKD-EPI)AfAm (>60 ml/min/1.73 sqM) Est GFR (CKD-EPI)NonAf (>60 ml/min/1.73 sqM) Glucose (74-99) mg/dL Calcium (8.4-10.2) mg/dL Total Bilirubin (0.2-1.3) mg/dL Conjugated Bilirubin (0.0-0.3) mg/dL Unconjugated Bilirubin (0.0-1.1) mg/dL Delta Bilirubin (0.0-0.2) mg/dL AST (17-59) U/L ALT (21-72) U/L Alkaline Phosphatase (38-126) U/L Troponin I <0.012 (0.000-0.034) ng/mL NT-Pro-B Natriuret Pep pg/mL Total Protein (6.3-8.2) g/dL Albumin (3.5-5.0) g/dL Lipase (23-300) U/L Urine Color Dark Brown Urine Appearance Clear (Clear) Urine pH 6.0 (5.0-8.0) Ur Specific [place] 1.024 (1.001-1.035) Urine Protein Trace H (Negative) Urine Glucose (UA) Negative (Negative) Urine Ketones Negative (Negative) Urine Blood Negative (Negative) Urine Nitrite Negative (Negative) Urine Bilirubin 2+ H (Negative) Urine Urobilinogen 2.0 (<2.0) mg/dL Ur Leukocyte Esterase Moderate H (Negative) Urine RBC 1 (0-5) /hpf Urine WBC 17 H (0-5) /hpf Ur Squamous Epith Cells <1 (0-4) /hpf Urine Bacteria Rare H (None) /hpf Cellular Casts 1 (0) /lpf Hyaline Casts 20 H (0-2) /lpf Urine Mucus Rare H (None) /hpf - EKG Data EKG Comments: EKG shows Disposition Clinical Impression: Jaundice, Elevated LFTs, Lung cancer, Liver metastases, UTI (urinary tract infection) Disposition: ADMITTED IP TO THIS [facility] Decision to Admit Reason: Admit from EC Decision Date: 12/21/18 Decision Time: 15:15
[2018-12-21 11:47] LABS: Anisocytosis Moderate; Basophils % (A) 0 %; Eosinophils # (A) 0.1 k/uL (0-0.7); Eosinophils % (A) 1 %; HCT 42.3 % (39.0-53.0); HGB 13.4 gm/dL (13.0-17.5); Lymphocytes # (A) 0.5 k/uL (1.0-4.8); Lymphocytes % (A) 5 %; MCH 30.8 pg (25.0-35.0); MCHC 31.7 g/dL (31.0-37.0); MCV 97.2 fL (80.0-100.0); Macrocytosis Slight; Mean Platelet Volume 7.8; Monocytes # (A) 0.5 k/uL (0-1.0); Monocytes % (A) 5 %; Neutrophils # (A) 8.3 k/uL (1.3-7.7); Neutrophils % (A) 88 %; Platelet Count 191 k/uL (150-450); RBC 4.36 m/uL (4.30-5.90); RDW 20.9 % (11.5-15.5); WBC 9.4 k/uL (3.8-10.6)
[2018-12-21 11:51] LABS: INR 1.1 (<1.2); Prothrombin Time 11.8 sec (9.0-12.0)
[2018-12-21 11:54] LABS: Albumin 3.3 g/dL (3.5-5.0); Bilirubin, Conjugated 6.7 mg/dL (0.0-0.3); Bilirubin, Delta 3.5 mg/dL (0.0-0.2); Bilirubin,Unconjugated 1.7 mg/dL (0.0-1.1); Calcium 9.2 mg/dL (8.4-10.2); Potassium 3.9 mmol/L (3.5-5.1); Total Bilirubin 11.9 mg/dL (0.2-1.3); Total Protein 6.3 g/dL (6.3-8.2)
[2018-12-21 12:01] LABS: Appearance,Urine Clear (Clear); Bacteria,Urine Rare /hpf; Bilirubin,Urine 2+ (Negative); Blood,Urine Negative (Negative); Cellular Casts,Urine 1 /lpf (0); Color,Urine Dark Brown; Glucose,Urine (UA) Negative (Negative); Hyaline Casts,Urine 20 /lpf (0-2); Ketones,Urine Negative (Negative); Leukocyte Esterase,Urine Moderate (Negative); Mucus,Urine Rare /hpf; Nitrite,Urine Negative (Negative); Protein,Urine Trace (Negative); RBC,Urine 1 /hpf (0-5); Specific Gravity,Urine 1.024 (1.001-1.035); Squamous Epithelial Cell,Urine <1 /hpf (0-4)
[2018-12-21] MEDS ORDERED: cefTRIAXone IN SWFI 1,000 MG/10 ML SYRINGE IVP STA (12:39)
--- NOTE | 2018-12-21 13:08 | CT ---
EXAMINATION TYPE: CT soft tissue neck w con DATE OF EXAM: 12/21/2018 COMPARISON: 08/18/2018 CT chest HISTORY: 68-year-old male with difficulty swallowing and pain TECHNIQUE: Contiguous axial scanning of the soft tissues of the neck performed with IV Contrast, sejal ent injected with 80 mL of Isovue 300. Coronal/sagittal reconstructions performed. CT DLP: 375.9 mGycm Automated exposure control for dose reduction was used. FINDINGS: Visualized intracranial structures, orbits and globes, and mastoid air cells appear clear. Mild mucos al thickening inferior left maxillary sinus. Some soft tissue nodularity in the region of the adenoid tonsils, refer to sagittal image 45 and axia l image 66. Just adjacent, there is elevation of the soft palate apposing this area. The oropharynx is clear. The epiglottis and prevertebral soft tissues are satisfactory. Glottic and subglottic structures as well as the tracheal column are clear. Visualized upper thorax shows right paratracheal lymphadenopathy measuring 1.6 cm (1.4 cm, previously ) and pulmonary nodules measuring up to 1.6 cm on the right (6 mm, previously) and 1.2 cm on the left (1.0 cm, previously). Smaller pulmonary nodules appear new. Underlying partially visualized small ri ght effusion. 1.2 cm hypodense nodule right lobe of the thyroid gland is unchanged. The submandibular and parotid glands are satisfactory. No cervical lymphadenopathy seen. Atherosclerotic calcifications prominent at the left carotid bifurcation possibly with a moderate pro ximal ICA stenosis. Bones: Moderate spondylotic change in the cervical spine. IMPRESSION: 1. Enlarging nodule in the visualized right upper lobe measuring 1.6 cm now versus 6 mm on 08/18/2018. Several smaller left upper lobe pulmonary nodules are new. Some neoplastic progression is suggested. 2. Mild soft tissue nodularity in the region of the adenoid tonsils could represent prominent lymphoi d tissue/hypertrophy. Direct visualization as clinically indicated to exclude a small mass here. 3. Otherwise, no prevertebral soft tissue abnormality, suspicious neck mass, or cervical lymphadenopa thy seen.
--- NOTE | 2018-12-21 13:55 | US ---
EXAMINATION TYPE: US abdomen limited DATE OF EXAM: 12/21/2018 COMPARISON: Multiple CT's to include 12/13/2017 CLINICAL HISTORY: Pain. Patient has history of liver mets EXAM MEASUREMENTS: Liver Length: 19.7 cm Gallbladder Wall: 0.4 cm CBD: 0.6 cm Right Kidney: 12.1 x 5.1 x 4.5 cm Pancreas: not visualized due to midline bowel gas Liver: enlarged and heterogeneous, unable to discern specific lesions. Gallbladder: appears contracted, unable to discern exactly how thick wall is. Evidence for sonographic Sol's sign: No CBD: wnl Right Kidney: small upper pole cyst measures 1.5 x 1.5 x 1.3 cm Incidental note is made of ascites. IMPRESSION: Heterogeneous appearance to the liver compatible with underlying hepatocellular disease, the liver is enlarged. Small amount of free fluid noted. Gallbladder likely contracted
--- NOTE | 2018-12-21 14:12 | XR ---
EXAMINATION TYPE: XR chest 2V DATE OF EXAM: 12/21/2018 COMPARISON: Prior chest x-ray 11/05/2018 HISTORY: Shortness of breath and pain TECHNIQUE: Frontal and lateral views of the chest are obtained. FINDINGS: There is volume loss in the right hemithorax, pleural parenchymal changes are similar to p rior exam. There is fullness of the right hilum, patient is rotated. No evident pneumothorax. Left tara ng is stable and unremarkable. Heart size is unchanged. IMPRESSION: Persistent right lower lobe mass. There is likely associated effusion.
[2018-12-21] MEDS ORDERED: MORPHINE SULFATE 4 MG/ML SYRINGE IV PRN (15:08)
[2018-12-21] MEDS ORDERED: ONDANSETRON 4 MG/2 ML VIAL IVP PRN (15:08)
[2018-12-21] MEDS ORDERED: NALOXONE 0.4 MG/ML 1 ML VIAL IV PRN (15:08)
[2018-12-21] MEDS ORDERED: ALBUTEROL NEBULIZED 2.5 MG/3 ML INHALATION PRN (15:10)
[2018-12-21] MEDS ORDERED: MECLIZINE 25 MG TAB PO PRN (15:10)
--- NOTE | 2018-12-21 15:35 | CT ---
EXAMINATION TYPE: CT abdomen pelvis wo con DATE OF EXAM: 12/21/2018 COMPARISON: 12/13/2018 HISTORY: 68-year-old male Generalized abdominal pain x 10 days. History of small cell and squamous ce ll lung cancer. CT DLP: 1073 mGycm. Automated exposure control for dose reduction was used. TECHNIQUE: Contiguous axial scanning of the abdomen and pelvis without IV contrast. Coronal and sagit [place] reconstructions performed. FINDINGS: Heart remains upper limits of normal in size but small pericardial effusion. Some volume loss in the right hemithorax with redemonstrated right lower lobe mass. Small right effusion. Redemonstrated is mild perihepatic ascites. Underlying known hepatic metastases are not as well evaluated on this noncontrast study. Liver remain s enlarged 23.3 cm. Gallbladder nondistended but has a 9 mm calculus within. Adrenal glands, spleen, and pancreas show no gross abnormality. Hyperdense lesion within each kidney measuring up to 1.1 cm, unchanged, likely small cortical cysts. A few scattered prominent retroperitoneal lymph nodes measure up to 1.2 cm. Portacaval lymph node jordi sures up to 1.6 cm. [place] hepatic lymph node measures up to 1.7 cm. These are unchanged from recent p rior. No dilated small bowel or free air. Mild ascites fluid tracking down the right side of the lower abdomen and pelvis and mild inner loop f luid also demonstrated now. Normal appendix. Scattered mild stool burden. Mild diverticular change along the proximal sigmoid. No pericolonic inflammatory change. Bladder urine and contrast distended. Prostate gland measures 4.2 cm wide. Mild pelvic ascites. Left- sided pelvic phleboliths. No pelvic lymphadenopathy seen. Mild diffuse anasarca-type change. Bones: Degenerative changes of the hips and SI joints. Degenerative changes throughout the visualized spine. Redemonstrated multidirectional fracture through the T12 vertebral body. No retropulsion into the spinal canal. No progression in overall height loss. There is mild, 10% height loss. IMPRESSION: 1. Fluid overload state with mild diffuse anasarca-type change and mild abdominopelvic ascites. Asci sally fluid slightly increased. 2. Hepatomegaly (23.3 cm) . Correlate as to etiology. Correlate for any underlying liver disease. Kn own hepatic metastases not well evaluated on this noncontrast study. 3. Known right lower lobe mass with small right effusion. CT neck of the same day showed some interv al progression in disease from 08/18/2018. 4. Scattered borderline to mildly enlarged upper abdominal and retroperitoneal lymph nodes measuring up to 1.7 cm unchanged from recent prior. Metastatic disease not excluded. 5. Similar fracture through the T12 vertebral body with 10% overall height loss.
[2018-12-21] MEDS ORDERED: ALBUTEROL NEB (CONC) 2.5 MG/0.5 ML INHALATION PRN ×2 (16:04→16:05)
[2018-12-21] MEDS ORDERED: PROMETHAZ-COD 6.25-10 MG/5 ML 5 ML CUP PO PRN (17:02)
[2018-12-21] MEDS: VIT A,C & E-LUTEIN-MINERALS 1 EACH TAB PO SCH ×2 (20:33→20:35)
[2018-12-21] MEDS: POTASSIUM BICARBONATE/CIT AC 20 MEQ TABLET.EFF PO SCH (20:33)
[2018-12-21] MEDS: guaiFENesin 600 MG TABLET.ER PO SCH ×2 (20:34→20:35)
[2018-12-21] MEDS: DOXAZOSIN 4 MG TAB PO SCH (20:34)
[2018-12-21] MEDS: PANTOPRAZOLE 40 MG TABLET PO SCH (20:34)
[2018-12-21] MEDS: COLCHICINE 0.6 MG EACH PO SCH (20:34)
[2018-12-21] MEDS: METOPROLOL SUCCINATE (ER) 50 MG TAB.ER.24H PO SCH (20:35)
[2018-12-21] MEDS: IPRATROPIUM-ALBUTEROL 3 ML NEB INHALATION SCH (20:55)
[2018-12-21] MEDS: HYDROcodone/APAP 10-325MG 1 EACH TAB PO PRN (22:18)
[2018-12-22] MEDS: LEVOTHYROXINE 75 MCG TAB PO SCH (05:56)
[2018-12-22] MEDS: IPRATROPIUM-ALBUTEROL 3 ML NEB INHALATION SCH ×3 (08:40→20:30)
[2018-12-22] MEDS: PANTOPRAZOLE 40 MG TABLET PO SCH ×2 (08:48→17:30)
[2018-12-22] MEDS: FUROSEMIDE 40 MG TAB PO SCH (08:48)
[2018-12-22] MEDS: guaiFENesin 600 MG TABLET.ER PO SCH (08:49)
[2018-12-22] MEDS: DOXAZOSIN 4 MG TAB PO SCH ×2 (08:49→21:13)
[2018-12-22] MEDS: ALLOPURINOL 300 MG TAB PO SCH (08:49)
[2018-12-22] MEDS: COLCHICINE 0.6 MG EACH PO SCH ×2 (08:50→21:12)
[2018-12-22] MEDS: POTASSIUM BICARBONATE/CIT AC 20 MEQ TABLET.EFF PO SCH (08:51)
[2018-12-22] MEDS: HYDROcodone/APAP 10-325MG 1 EACH TAB PO PRN ×4 (08:53→21:55)
[2018-12-22] MEDS ORDERED: RIVAROXABAN 20 MG TAB PO SCH (09:00)
[2018-12-22 09:35] LABS: Anisocytosis Moderate; Basophils % (A) 0 %; Eosinophils # (A) 0.1 k/uL (0-0.7); Eosinophils % (A) 1 %; HCT 41.3 % (39.0-53.0); HGB 12.6 gm/dL (13.0-17.5); Lymphocytes # (A) 0.3 k/uL (1.0-4.8); Lymphocytes % (A) 4 %; MCH 30.2 pg (25.0-35.0); MCHC 30.6 g/dL (31.0-37.0); MCV 98.7 fL (80.0-100.0); Macrocytosis Moderate; Mean Platelet Volume 10.1; Monocytes # (A) 0.4 k/uL (0-1.0); Monocytes % (A) 4 %; Neutrophils # (A) 7.7 k/uL (1.3-7.7); Neutrophils % (A) 90 %; Platelet Count 184 k/uL (150-450); RBC 4.18 m/uL (4.30-5.90); WBC 8.6 k/uL (3.8-10.6)
--- NOTE | 2018-12-22 09:56 | P.CONS ---
History of Present Illness - Reason for Consult Consult date: 12/22/18 Jaundice Requesting physician: Hector Escoto - Chief Complaint Right upper quadrant abdominal pain nausea jaundice - History of Present Illness 68-year-old gentleman with a history of lung carcinoma status post chemoradiation, pulmonary embolism maintained on XArelto, GERD, obesity, hypertension, hyperlipidemia, CAD, COPD. Admitted with right upper quadrant abdominal pain new-onset jaundice nausea without fever or hematemesis hematochezia or melena. Admission total bilirubin 11.9 previously 5.0 1 week ago. Total bilirubin 1 month ago was 0.9. Admission AST 252. ALT 147. AP 576. INR 1.1. Platelet 191. White count 9.4. Hemoglobin 13.4. No history of known liver disorders. No history of alcoholism. Last dose of Xarelto [address] abdomen and pelvis 12/21/2018 enlarged liver 23.3 cm. Few scattered prominent retroperitoneal lymph nodes. Portacaval lymph node 1.6 cm. [place] hepatic lymph node 1.7 cm. Mild ascites tracking down the right side the lower abdomen and pelvis. Right lower lobe mass with small right effusion CT neck reported interval progression since July 2018. Underlying hepatic metastatic disease could not be excluded. CT abdomen and pelvis 12/13/2018 reported hepatomegaly as well as enlarging hepatic metastasis, one lesion in the posterior segment of the right lobe enlarged. Review of Systems Constitutional: Denies fever, chills, sweats, weight gain, or loss. HEENT: Negative for migraines, blurred vision or loss, earaches, drainage, tinnitus, oral mucosal lesions, dysphagia, or odynophagia. Cardiac: Negative for chest pain, arrhythmias, or palpitation. Respiratory: Negative for shortness of breath, hemoptysis, cough, or sputum production. Gastrointestinal: See HPI for pertinent findings. Genitourinary: Negative for hematuria, urgency, frequency, polyuria, dysuria, or penile discharge. Musculoskeletal: Negative for muscle aches, swelling, arthritis, and arthralgias. Neurologic: Negative for stroke or TIA. Endocrine: Negative for thyroid problems. Skin: Negative for rash or itching. 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 Pt on Chemo Past Anesthesia/Blood Transfusion Reactions: No Reported Reaction Past Psychological History: No Psychological Hx Reported Smoking Status: Former smoker Past Alcohol Use History: Occasional Past Drug Use History: None Reported - Past Family History Mother Family Medical History: CVA/TIA Additional Family Medical History / Comment(s): brain tumor Sister(s) Family Medical History: Cancer Additional Family Medical History / Comment(s): melanoma shoulder Father Family Medical History: Myocardial Infarction ([place]) Additional Family Medical History / Comment(s): all 5 of dad's brothers had a mi Medications and Allergies Home Medications Medication Instructions Recorded Confirmed Type Rivaroxaban [Xarelto] 20 mg PO DAILY 02/02/17 12/21/18 History Furosemide [Lasix] 40 mg PO QAM 02/07/17 12/21/18 History Vit C/E/Zn/Coppr/Lutein/Zeaxan 1 cap PO BID 06/20/17 12/21/18 History [Preservision Areds 2 Softgel] Allopurinol [Zyloprim] 300 mg PO DAILY 08/25/17 12/21/18 History Doxazosin [Cardura] 4 mg PO BID 10/01/17 12/21/18 History Colchicine 0.6 mg PO BID 02/20/18 12/21/18 History Levothyroxine Sodium [Synthroid] 75 mcg PO DAILY 02/20/18 12/21/18 History Potassium Bicarbonate/Cit AC 25 meq PO DAILY 04/27/18 12/21/18 History [Potassium 25 Meq Tablet Eff] Pantoprazole Sodium [Protonix] 40 mg PO BID 07/17/18 12/21/18 History guaiFENesin [Mucinex] 1,200 mg PO BID 07/17/18 12/21/18 History Albuterol Nebulized [Ventolin 5 mg INHALATION RT-Q6H PRN 12/13/18 12/21/18 History Nebulized] HYDROcodone/APAP 10-325MG [[place] 1 tab PO Q4HR PRN 12/13/18 12/21/18 History 10-325] Meclizine [Antivert] 25 mg PO TID PRN 12/13/18 12/21/18 History Metoprolol Succinate (ER) [Toprol 50 mg PO HS 12/13/18 12/21/18 History Xl] Ipratropium-Albuterol Nebulize 3 ml INHALATION RT-TID 12/21/18 12/21/18 History [Duoneb 0.5 mg-3 mg/3 ml Soln] Promethaz-Cod 6.25-10 mg/5 ml 5 ml PO Q6HR PRN 12/21/18 12/21/18 History [Phenergan with Codeine] Allergies Allergy/AdvReac Type Severity Reaction Status Date / Time Penicillins Allergy Swelling Verified 12/21/18 11:20 Physical Exam Vitals: Vital Signs Temp Pulse Pulse Resp BP BP Pulse Ox 12/22/18 08:51 74 12/22/18 08:42 70 12/22/18 04:48 97.6 F 65 16 124/78 94 L 12/22/18 00:00 107 H 18 12/21/18 21:05 100 12/21/18 20:55 102 H 12/21/18 19:19 98.1 F 107 H 18 106/74 94 L 12/21/18 18:21 98.1 F 101 H 18 99/65 97 12/21/18 17:00 98.1 F 109 H 18 110/85 95 12/21/18 16:00 102 H 18 103/71 97 12/21/18 15:15 97 18 96/69 97 12/21/18 13:46 94 18 100/73 95 12/21/18 10:37 97.9 F 91 18 105/74 96 Intake and Output 12/21/18 12/22/18 12/22/18 22:59 06:59 14:59 Intake Total 420 240 Balance 420 240 Intake: Oral 420 240 Other: # Voids 1 2 # Bowel Movements 2 General appearance: The patient is alert, oriented, in no acute distress. Jaundice. HET: Head is normocephalic and atraumatic. Pupils are equal and reactive. Oropharynx is clear without lesions. Sclerae icterus. Neck: Supple without lymphadenopathy. Trachea midline. Heart: S1 S2. Regular rate and rhythm. Lungs: No crackles or wheezes are heard. Abdomen: Soft, mild tenderness right upper quadrant, nondistended with bowel sounds. No peritoneal signs. Palpable hepatomegaly. Extremities: Normal skin color and turgor. No cyanosis, rash, ulceration, clubbing, or edema. Radial and pedal pulses are 2/4 bilaterally. Neurological: No focal deficits. Strength and sensation are grossly intact. Results CBC & Chem 7: 12/22/18 08:47 12/21/18 11:20 Labs: Abnormal Lab Results - Last 24 Hours (Table) 12/21/18 12/21/18 12/21/18 Range/Units 11:20 11:20 11:20 RDW 20.9 H (11.5-15.5) % Neutrophils # 8.3 H (1.3-7.7) k/uL Lymphocytes # 0.5 L (1.0-4.8) k/uL Sodium 135 L (137-145) mmol/L Chloride 95 L (98-107) mmol/L BUN 35 H (9-20) mg/dL Creatinine 1.29 H (0.66-1.25) mg/dL Total Bilirubin 11.9 H (0.2-1.3) mg/dL Conjugated Bilirubin 6.7 H (0.0-0.3) mg/dL Unconjugated Bilirubin 1.7 H (0.0-1.1) mg/dL Delta Bilirubin 3.5 H (0.0-0.2) mg/dL AST 252 H (17-59) U/L ALT 147 H (21-72) U/L Alkaline Phosphatase 576 H (38-126) U/L Albumin 3.3 L (3.5-5.0) g/dL Urine Protein Trace H (Negative) Urine Bilirubin 2+ H (Negative) Ur Leukocyte Esterase Moderate H (Negative) Urine WBC 17 H (0-5) /hpf Urine Bacteria Rare H (None) /hpf Hyaline Casts 20 H (0-2) /lpf Urine Mucus Rare H (None) /hpf Microbiology - Last 24 Hours (Table) 12/21/18 11:20 Urine Culture - Preliminary Urine,Voided CT scan - abdomen: report reviewed (Dr. Hunt) Assessment and Plan (1) Jaundice Narrative/Plan: 68-year-old gentleman with a history of lung cancer with reported progression on recent radiographic imaging studies admitted with right upper quadrant abdominal pain new-onset jaundice worsening of liver function tests with underlying hepatomegaly and radiographic imaging reporting hepatic metastasis. Suspect intrahepatic cholestatic jaundice secondary to underlying malignancy. CT imaging of the abdomen reported hepatic metastasis and small amount of ascites. Current Visit: Yes Status: Acute Code(s): R17 - UNSPECIFIED JAUNDICE SNOMED Code(s): 04580643 (2) Right upper quadrant abdominal pain Current Visit: Yes Status: Acute Code(s): R10.11 - RIGHT UPPER QUADRANT PAIN SNOMED Code(s): 160354886 (3) Hepatomegaly Current Visit: Yes Status: Acute Code(s): R16.0 - HEPATOMEGALY, NOT ELSEWHERE CLASSIFIED SNOMED Code(s): 11619238 (4) Lung cancer Current Visit: Yes Status: Acute Code(s): C34.90 - MALIGNANT NEOPLASM OF UNSP PART OF UNSP BRONCHUS OR LUNG SNOMED Code(s): 399656169 Plan: 1. Case was discussed with oncologist Dr. Garnica. Treatment options were discussed by oncologist with family this morning chemotherapy versus palliative care. Oncology has requested a diagnostic paracentesis today with cytology. Continue symptomatic supportive measures. ERCP/MRCP not indicated at this time. We'll follow with you. Daily monitoring of CBC CMP PT/INR. 2. Hold Xarelto until paracentesis is completed. Thank you for this kind referral and the opportunity to participate in the care of your patient. This consultation was discussed with Dr. Hunt. The impression and plan of care have been directed as dictated.
[2018-12-22 10:20] VITALS: BMI 35.2
[2018-12-22 12:21] LABS: Albumin 3.1 g/dL (3.5-5.0); Potassium 4.2 mmol/L (3.5-5.1); Total Bilirubin 11.8 mg/dL (0.2-1.3); Total Protein 6.1 g/dL (6.3-8.2)
--- NOTE | 2018-12-22 12:49 | P.HPIM ---
History of Present Illness H&P Date: 12/22/18 Chief Complaint: New-onset jaundice, right upper quadrant pain Bill is a 68-year-old white male history of lung carcinoma. He has status post chemotherapy and radiation treatments. He tends to the chemotherapy early she was having significant fatigue. He had some jaundice that was new started several days ago. Had no nausea or vomiting. No chest pains, pressures, sh ortness breath, hematemesis, or hematochezia. He was being worked up for metastatic lung carcinoma to the liver. 2 mL T's were done on December 13 and December 21, one showing questionable mass, when showing hepatomegaly. He is admitted for further treatment. He is unsure if he wants a more chemotherapy other options. Hematology/oncology and GI on consult. Review of Systems All systems: negative Past Medical History Past Medical History: Coronary Artery Disease (CAD), Cancer, COPD, GERD/Reflux, Hyperlipidemia, Hypertension, Osteoarthritis (OA), Prostate Disorder, Pulmonary Embolus (PE), Sleep Apnea/CPAP/BIPAP Additional Past Medical History / Comment(s): currently having difficulty swallowing fluids,O2 AT 3L DURING DAY prn, CPAP O2 3 L AT NIGHT, lung [id number] rad tx and chemo; hiatal hernia, hx kidney stones, RECURRENT PLEURAL EFFUSION,gout 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 culture/infection: 10-12-16 ENTEROCOCCUS FAECIUM MDRO Source:: URINE Past Surgical History: Orthopedic Surgery Additional Past Surgical History / Comment(s): rt eye cataract removed, arthroscopy nigel knee, nigel foot surgery, bronchosocopy, cystoscopy/rt ureteroscopy, lithotripsy, port a cath - SINCE REMOVED ;THOROCENTISIS X6. Pt on Chemo Past Anesthesia/Blood Transfusion Reactions: No Reported Reaction Past Psychological History: No Psychological Hx Reported Smoking Status: Former smoker Past Alcohol Use History: Occasional Past Drug Use History: None Reported - Past Family History Mother Family Medical History: CVA/TIA Additional Family Medical History / Comment(s): brain tumor Sister(s) Family Medical History: Cancer Additional Family Medical History / Comment(s): melanoma shoulder Father Family Medical History: Myocardial Infarction ([place]) Additional Family Medical History / Comment(s): all 5 of dad's brothers had a mi Medications and Allergies Home Medications Medication Instructions Recorded Confirmed Type Rivaroxaban [Xarelto] 20 mg PO DAILY 02/02/17 12/21/18 History Furosemide [Lasix] 40 mg PO QAM 02/07/17 12/21/18 History Vit C/E/Zn/Coppr/Lutein/Zeaxan 1 cap PO BID 06/20/17 12/21/18 History [Preservision Areds 2 Softgel] Allopurinol [Zyloprim] 300 mg PO DAILY 08/25/17 12/21/18 History Doxazosin [Cardura] 4 mg PO BID 10/01/17 12/21/18 History Colchicine 0.6 mg PO BID 02/20/18 12/21/18 History Levothyroxine Sodium [Synthroid] 75 mcg PO DAILY 02/20/18 12/21/18 History Potassium Bicarbonate/Cit AC 25 meq PO DAILY 04/27/18 12/21/18 History [Potassium 25 Meq Tablet Eff] Pantoprazole Sodium [Protonix] 40 mg PO BID 07/17/18 12/21/18 History guaiFENesin [Mucinex] 1,200 mg PO BID 07/17/18 12/21/18 History Albuterol Nebulized [Ventolin 5 mg INHALATION RT-Q6H PRN 12/13/18 12/21/18 History Nebulized] HYDROcodone/APAP 10-325MG [[place] 1 tab PO Q4HR PRN 12/13/18 12/21/18 History 10-325] Meclizine [Antivert] 25 mg PO TID PRN 12/13/18 12/21/18 History Metoprolol Succinate (ER) [Toprol 50 mg PO HS 12/13/18 12/21/18 History Xl] Ipratropium-Albuterol Nebulize 3 ml INHALATION RT-TID 12/21/18 12/21/18 History [Duoneb 0.5 mg-3 mg/3 ml Soln] Promethaz-Cod 6.25-10 mg/5 ml 5 ml PO Q6HR PRN 12/21/18 12/21/18 History [Phenergan with Codeine] Allergies Allergy/AdvReac Type Severity Reaction Status Date / Time Penicillins Allergy Swelling Verified 12/21/18 11:20 Physical Exam Vitals: Vital Signs Temp Pulse Pulse Resp BP BP Pulse Ox 12/22/18 12:06 97.6 F 96 17 108/77 98 12/22/18 08:51 74 12/22/18 08:42 70 12/22/18 04:48 97.6 F 65 16 124/78 94 L 12/22/18 00:00 107 H 18 12/21/18 21:05 100 12/21/18 20:55 102 H 12/21/18 19:19 98.1 F 107 H 18 106/74 94 L 12/21/18 18:21 98.1 F 101 H 18 99/65 97 12/21/18 17:00 98.1 F 109 H 18 110/85 95 12/21/18 16:00 102 H 18 103/71 97 12/21/18 15:15 97 18 96/69 97 12/21/18 13:46 94 18 100/73 95 Intake and Output 12/21/18 12/22/18 12/22/18 22:59 06:59 14:59 Intake Total 420 240 Balance 420 240 Intake: Oral 420 240 Other: # Voids 1 2 # Bowel Movements 2 Weight 111.13 kg GENERAL: Well-appearing, well-nourished and in no acute distress. He is obviously jaundiced HEAD: Atraumatic, normocephalic. EYES: Pupils equal round and reactive to light, extraocular movements intact, sclera are icteric, conjunctiva are normal. ENT:nares patent, oropharynx clear without exudates. Moist mucous membranes. NECK: Normal range of motion, supple without lymphadenopathy or JVD, no thyromegaly LUNGS: Breath sounds coarse with no active wheezes rales or crackles, is breath sounds on the right side consistent with his lung carcinoma HEART: Regular rate and rhythm without murmurs, rubs or gallops.S1S2 Normal ABDOMEN: Soft, mild right lower quadrant pain with some mild abdominal distention. There is hepatomegaly evident. EXTREMITIES: Normal range of motion, no pitting or edema. No clubbing or cyanosis. NEUROLOGICAL: Cranial nerves II through XII grossly intact. Normal speech, normal gait. PSYCH: Normal mood, normal affect. SKIN: Warm, Dry, normal turgor, no rashes or lesions noted. He is icteric Results CBC & Chem 7: 12/22/18 08:47 12/22/18 11:14 Labs: Abnormal Lab Results - Last 24 Hours (Table) 12/22/18 12/22/18 Range/Units 08:47 11:14 RBC 4.18 L (4.30-5.90) m/uL Hgb 12.6 L (13.0-17.5) gm/dL MCHC 30.6 L (31.0-37.0) g/dL RDW 21.0 H (11.5-15.5) % Sodium 134 L (137-145) mmol/L Chloride 94 L (98-107) mmol/L BUN 43 H (9-20) mg/dL Creatinine 1.68 H (0.66-1.25) mg/dL Glucose 105 H (74-99) mg/dL Total Bilirubin 11.8 H (0.2-1.3) mg/dL AST 249 H (17-59) U/L ALT 147 H (21-72) U/L Alkaline Phosphatase 563 H (38-126) U/L Total Protein 6.1 L (6.3-8.2) g/dL Albumin 3.1 L (3.5-5.0) g/dL Microbiology - Last 24 Hours (Table) 12/21/18 11:20 Urine Culture - Preliminary Urine,Voided Thrombosis Risk Factor Assmnt - DVT/VTE Prophylaxis DVT/VTE Prophylaxis: Contraindicated - See note (On hold per hematology) - Choose All That Apply Any of the Below Risk Factors Present?: No Other Risk Factors: Yes Each Risk Factor Represents 2 Points: Age 61-74 years, Malignancy Thrombosis Risk Factor Assessment Total Risk Factor Score: 4 Thrombosis Risk Factor Assessment Level: Moderate Risk Assessment and Plan (1) Elevated LFTs Current Visit: Yes Status: Acute Code(s): R94.5 - ABNORMAL RESULTS OF LIVER FUNCTION STUDIES SNOMED Code(s): 212744018 (2) Hepatic metastasis Current Visit: Yes Status: Acute Code(s): C78.7 - SECONDARY MALIG NEOPLASM OF LIVER AND INTRAHEPATIC BILE DUCT SNOMED Code(s): 83899420 (3) Hepatomegaly Current Visit: Yes Status: Acute Code(s): R16.0 - HEPATOMEGALY, NOT ELSEWHERE CLASSIFIED SNOMED Code(s): 42614468 (4) Lung cancer Current Visit: Yes Status: Acute Code(s): C34.90 - MALIGNANT NEOPLASM OF UNSP PART OF UNSP BRONCHUS OR LUNG SNOMED Code(s): 324986313 (5) Right upper quadrant abdominal pain Current Visit: Yes Status: Acute Code(s): R10.11 - RIGHT UPPER QUADRANT PAIN SNOMED Code(s): 659699029 (6) CAD (coronary artery disease) Current Visit: No Status: Acute Code(s): I25.10 - ATHSCL HEART DISEASE OF N ATIVE CORONARY ARTERY W/O ANG PCTRS SNOMED Code(s): 94991578 (7) COPD (chronic obstructive pulmonary disease) Current Visit: No Status: Acute Code(s): J44.9 - CHRONIC OBSTRUCTIVE PULMONARY DISEASE, UNSPECIFIED SNOMED Code(s): 34220616 (8) Non-small cell lung cancer (NSCLC) Current Visit: No Status: Acute Code(s): C34.90 - MALIGNANT NEOPLASM OF UNSP PART OF UNSP BRONCHUS OR LUNG SNOMED Code(s): 316522211 (9) T12 compression fracture Current Visit: No Status: Acute Code(s): S22.080A - WEDGE COMPRESSION FRACTURE OF T11-T12 VERTEBRA, INIT SNOMED Code(s): 517783965 Plan: I'll recommendations from a GI and hematology/oncology. Bills unsure if he wants any further treatment and may be made comfort care and discharged home depending on these discussions with oncology. We'll rehydrate him, make him comfortable treating his pain at this time. He will Be reevaluated next 24 hours.
[2018-12-22 14:52] VITALS: RESP 18
[2018-12-22 15:03] LABS: Poikilocytosis (M) Present; Target Cells Present
[2018-12-22] MEDS: METOPROLOL SUCCINATE (ER) 50 MG TAB.ER.24H PO SCH (21:13)
[2018-12-22] MEDS: VIT A,C & E-LUTEIN-MINERALS 1 EACH TAB PO SCH (21:14)
--- NOTE | 2018-12-23 01:48 | P.CONS ---
History of Present Illness - Reason for Consult Consult date: 12/22/18 Lung cancer , liver mets - History of Present Illness Mister Jolley is a 68-year-old white male, followed by Dr. Moss, in the outpatient setting. He had presented in early 2016, initially for evaluation of L knee for consideration of arthroplasty, he was found to have abnormal CXR and had CT Scan of chest revealed 10X5 cm area of consolidation in RUL with 3.[address] and [address] He was also found to have 0.9 cm distal R ureter stone with mild hydronephrosis s/p lithotripsy by Dr Mcmanus. The patient had diagnostic bronchoscopy on 06/26/2016 revealing 90% obstruction of R lower lobe bronchus. pathology results were C/O Small cell Ca. in addition the pathology of the right also revealed squamous cell carcinoma. The patient stated having mild dyspnea, no hemoptysis, no anorexia or weight loss, remained fully active. The patient smoked cigarettes and cigars X 40 years, quit smoking at time of cancer diagnosis. Completed concurrent XRT/Chemotherapy with PET Scan showing significant improvement. He continued chemo for a total of 6 cycles of Chemotherapy (Carboplatinum/Etoposide). 03/26/17: C/O increasing SOB, had bronchoscopy Jan 2017 with PET Scan showing i ncreased atalactatic R lung changes, as well as, new moderate R pleural effusion. 04/08/17: Had diagnostic thoracentesis : 1900ml of yellow exudative fluid removed > NO clinical improvements though, Cytology negative for malignancy. 04/29/17: Had repeat Thoracentesis on 04/28/17: 1.5 L removed, cytology was again negative. However imaging study appear to show possible progression in the lung. He was therefore started on opdivo. He also had Pleurx catheter placed for recurrent effusions. He continued on the same till 04/1203/31/18: CT Scan : Progression of liver mets. He was then started on chemo with Taxotere. 10/15/18: Feels very tired & weak, tolerated cycle #7 of Taxotere very poorly, an d therefore C 8 was omitted,and the pt placed back on observation. 12/10/18: C/O dizziness & headache. 12/16/18: Not feeling well, having radiply-progressing RUQ pain and SOB X 3-4 days, seen at [facility] ER > CMP revealed increased Bilirubin to 5, CT Scan of abdomen & Pelvis revealed increased liver mets with small amount of small ascites. He was then seen in the office, and MRI of the liver ordered. Bilirubin in the office at increased into the 8 range. MRI of the liver confirmed likely diffuse involvement. Liver biopsy was being considered, given his initial pathology. The patient however came into the hospital because of increasing jaundice, decreased appetite and nausea, right upper quadrant pain, and abdominal distention. Symptoms are started after about the first week of 12/11 and had progressed significantly. On admission bilirubin was further increased into the 11 range. The patient had repeat CT of the abdomen and pelvis, as well as ultrasound of the abdomen done which showed no evidence of any significant biliary obstruction that could be relieved. Patient is therefore admitted for further management. Review of Systems Constitutional: Reports chronic pain, Reports fatigue, Reports poor appetite, Reports weakness Eyes: denies blurred vision, denies pain Ears: deny: decreased hearing, ear discharge, earache, tinnitus Ears, nose, mouth and throat: Reports dysphagia, Denies headache, Denies sore throat Cardiovascular: Reports palpitations, Reports shortness of breath Respiratory: Reports dyspnea Gastrointestinal: Reports bloating Genitourinary: Reports incontinence Musculoskeletal: Reports muscle weakness Integumentary: Denies pruritus, Denies rash Neurological: Reports weakness Psychiatric: Reports confusion, Denies anxiety, Denies depression Endocrine: Reports fatigue, Reports weight change Hematologic/Lymphatic: Reports as per HPI Past Medical History Past Medical History: Coronary Artery Disease (CAD), Cancer, COPD, GERD/Reflux, Hyperlipidemia, Hypertension, Osteoarthritis (OA), Prostate Disorder, Pulmonary Embolus (PE), Sleep Apnea/CPAP/BIPAP Additional Past Medical History / Comment(s): currently having difficulty swallowing fluids,O2 AT 3L DURING DAY prn, CPAP O2 3 L AT NIGHT, lung c [id number] rad tx and chemo; hiatal hernia, hx kidney stones, RECURRENT PLEURAL EFFUSION,gout 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 Pt on Chemo Past Anesthesia/Blood Transfusion Reactions: No Reported Reaction Past Psychological History: No Psychological Hx Reported Smoking Status: Former smoker Past Alcohol Use History: Occasional Past Drug Use History: None Reported - Past Family History Mother Family Medical History: CVA/TIA Additional Family Medical History / Comment(s): brain tumor Sister(s) Family Medical History: Cancer Additional Family Medical History / Comment(s): melanoma shoulder Father Family Medical History: Myocardial Infarction (PR) Additional Family Medical History / Comment(s): all 5 of dad's brothers had a mi Medications and Allergies Home Medications Medication Instructions Recorded Confirmed Type Rivaroxaban [Xarelto] 20 mg PO DAILY 02/02/17 12/21/18 History Furosemide [Lasix] 40 mg PO QAM 02/07/17 12/21/18 History Vit C/E/Zn/Coppr/Lutein/Zeaxan 1 cap PO BID 06/20/17 12/21/18 History [Preservision Areds 2 Softgel] Allopurinol [Zyloprim] 300 mg PO DAILY 08/25/17 12/21/18 History Doxazosin [Cardura] 4 mg PO BID 10/01/17 12/21/18 History Colchicine 0.6 mg PO BID 02/20/18 12/21/18 History Levothyroxine Sodium [Synthroid] 75 mcg PO DAILY 02/20/18 12/21/18 History Potassium Bicarbonate/Cit AC 25 meq PO DAILY 04/27/18 12/21/18 History [Potassium 25 Meq Tablet Eff] Pantoprazole Sodium [Protonix] 40 mg PO BID 07/17/18 12/21/18 History guaiFENesin [Mucinex] 1,200 mg PO BID 07/17/18 12/21/18 History Albuterol Nebulized [Ventolin 5 mg INHALATION RT-Q6H PRN 12/13/18 12/21/18 History Nebulized] HYDROcodone/APAP 10-325MG [[place] 1 tab PO Q4HR PRN 12/13/18 12/21/18 History 10-325] Meclizine [Antivert] 25 mg PO TID PRN 12/13/18 12/21/18 History Metoprolol Succinate (ER) [Toprol 50 mg PO HS 12/13/18 12/21/18 History Xl] Ipratropium-Albuterol Nebulize 3 ml INHALATION RT-TID 12/21/18 12/21/18 History [Duoneb 0.5 mg-3 mg/3 ml Soln] Promethaz-Cod 6.25-10 mg/5 ml 5 ml PO Q6HR PRN 12/21/18 12/21/18 History [Phenergan with Codeine] Allergies Allergy/AdvReac Type Severity Reaction Status Date / Time Penicillins Allergy Swelling Verified 12/21/18 11:20 Physical Exam Vitals: Vital Signs Temp Pulse Pulse Resp BP Pulse Ox 12/22/18 23:28 92 18 12/22/18 21:00 97.6 F 92 18 96/57 93 L 12/22/18 20:41 94 12/22/18 20:30 108 H 18 12/22/18 15:07 88 18 12/22/18 14:48 94 18 12/22/18 12:06 97.6 F 96 17 108/77 98 12/22/18 08:51 74 12/22/18 08:42 70 12/22/18 04:48 97.6 F 65 16 124/78 94 L Intake and Output 12/22/18 12/22/18 12/23/18 14:59 22:59 06:59 Intake Total 290 Balance 290 Intake: Intake, IV Titration 50 Amount cefTRIAXone 1 gm In 50 Sodium Chloride 0.9% 50 ml @ 100 mls/hr IVPB Q24HR [facility] Rx#:[id number] Oral 240 Other: # Voids 2 2 Weight 111.13 kg - Constitutional General appearance: no acute distress - EENT Eyes: scleral icterus ENT: hearing grossly normal - Neck Neck: no lymphadenopathy Thyroid: bilateral: normal size - Respiratory Respiratory: bilateral: diminished - Cardiovascular Rhythm: regular Heart sounds: normal: S1, S2 - Gastrointestinal General gastrointestinal: decreased bowel sounds, distended, organomegaly (Liver likely enlarged about 3 fingers below costal margin. Hard to palpate due to abdominal distention. Dullness to percussion in this area) - Integumentary Integumentary: normal - Neurologic Neurologic: CNII-XII intact - Musculoskeletal Musculoskeletal: generalized weakness - Psychiatric Psychiatric: A&O x's 3, appropriate affect Results CBC & Chem 7: 12/22/18 08:47 12/22/18 11:14 Labs: Abnormal Lab Results - Last 24 Hours (Table) 12/22/18 12/22/18 Range/Units 08:47 11:14 RBC 4.18 L (4.30-5.90) m/uL Hgb 12.6 L (13.0-17.5) gm/dL MCHC 30.6 L (31.0-37.0) g/dL RDW 21.0 H (11.5-15.5) % Lymphocytes # 0.3 L (1.0-4.8) k/uL Sodium 134 L (137-145) mmol/L Chloride 94 L (98-107) mmol/L BUN 43 H (9-20) mg/dL Creatinine 1.68 H (0.66-1.25) mg/dL Glucose 105 H (74-99) mg/dL Total Bilirubin 11.8 H (0.2-1.3) mg/dL AST 249 H (17-59) U/L ALT 147 H (21-72) U/L Alkaline Phosphatase 563 H (38-126) U/L Total Protein 6.1 L (6.3-8.2) g/dL Albumin 3.1 L (3.5-5.0) g/dL Microbiology - Last 24 Hours (Table) 12/21/18 11:20 Urine Culture - Preliminary Urine,Voided Group D Enterococcus Chest x-ray: report reviewed CT scan - abdomen: report reviewed CT scan - pelvis: report reviewed US - abdomen: report reviewed MRI - abdomen: report reviewed Assessment and Plan (1) Jaundice Narrative/Plan: The patient had rapid progression of his jaundice, both by clinical exam, and lab values. Multiple imaging studies show no evidence of any biliary obstruction with can be relieved. Therefore this is most likely due to rapidly progressive diffusely metastatic disease in the liver. The case was discussed in detail with gastroenterology. Given the above, at this time there appears to be no indication for considering an ERCP Current Visit: Yes Status: Acute Code(s): R17 - UNSPECIFIED JAUNDICE SNOME D Code(s): 01328736 (2) Hepatic metastasis Narrative/Plan: Clinical picture is consistent with diffuse metastatic hepatocellular invo lvement, with fairly rapid progression. Bilirubin has more than doubled within 2 weeks Current Visit: Yes Status: Acute Code(s): C78.7 - SECONDARY MALIG NEOPLASM OF LIVER AND INTRAHEPATIC BILE DUCT SNOMED Code(s): 97415035 (3) Lung cancer Narrative/Plan: The patient and diagnosis had small cell lung cancer, as well as squamous cell. He was treated with a broad-spectrum chemotherapy regimen that would cover both pathologies, and subsequently with opdivo and then taxine, which again would cover both pathologies He is now presenting with progressive metastatic disease, especially with diffuse liver involvement. The rapid increase in liver enzymes and bilirubin is concerning for impending liver failure. The situation was discussed in detail with the patient and his family, as well as with his primary oncologist. For treatment, the patient will need to be started on chemotherapy in the near future. However even with active treatment, prognosis would be very guarded. In the fourth line, in general, any kind of systemic therapy would probably have about a 20% chance of being effective. Even if treatment was effective, it would normally improve life expectancy generally around 2 months. In addition, the patient is at increased risk for chemotherapy related toxicity given the markedly elevated liver enzymes Prognosis with and without treatment was discussed with the patient and his family. Unfortunately, even if treatment would be effective, beginning life expectancy is overall small on average. Therefore consideration of comfort care also would be quite reasonable. The patient and his family's questions were answered in detail. Stressed understanding of the above situation. They would like some more time to con scroll assembler the options and then decide about proceeding with active treatment versus considering comfort care. Current Visit: Yes Status: Acute Code(s): C34.90 - MALIGNANT NEOPLASM OF UNSP PART OF UNSP BRONCHUS OR LUNG SNOMED Code(s): 136584883 Plan: consult will be placed to interventional radiology to see if the patient can undergo paracentesis which would hopefully be beneficial for comfort Defer to the admitting service and other consultants for management of his other medical problems
[2018-12-23] MEDS: LEVOTHYROXINE 75 MCG TAB PO SCH (05:08)
[2018-12-23] MEDS: HYDROcodone/APAP 10-325MG 1 EACH TAB PO PRN ×3 (05:10→13:31)
[2018-12-23 05:27] VITALS: BP 99/62; TEMP 97.5
[2018-12-23 06:03] LABS: Alpha Fetoprotein, Tumor Mkr 2.6 ng/mL (0.0-7.9)
[2018-12-23] MEDS: guaiFENesin 600 MG TABLET.ER PO SCH (07:37)
[2018-12-23] MEDS: PANTOPRAZOLE 40 MG TABLET PO SCH (07:37)
[2018-12-23] MEDS: DOXAZOSIN 4 MG TAB PO SCH (07:37)
[2018-12-23] MEDS: VIT A,C & E-LUTEIN-MINERALS 1 EACH TAB PO SCH (07:37)
[2018-12-23] MEDS: ALLOPURINOL 300 MG TAB PO SCH (07:37)
[2018-12-23] MEDS: FUROSEMIDE 40 MG TAB PO SCH (07:38)
[2018-12-23] MEDS: POTASSIUM BICARBONATE/CIT AC 20 MEQ TABLET.EFF PO SCH (07:38)
[2018-12-23] MEDS: COLCHICINE 0.6 MG EACH PO SCH (07:39)
[2018-12-23 08:25] LABS: Anisocytosis Moderate; Basophils % (A) 0 %; Eosinophils % (A) 0 %; HCT 41.9 % (39.0-53.0); HGB 13.4 gm/dL (13.0-17.5); Lymphocytes # (A) 0.5 k/uL (1.0-4.8); Lymphocytes % (A) 5 %; MCH 30.9 pg (25.0-35.0); MCV 96.4 fL (80.0-100.0); Macrocytosis Slight; Mean Platelet Volume 7.6; Monocytes # (A) 0.4 k/uL (0-1.0); Monocytes % (A) 4 %; Neutrophils # (A) 8.5 k/uL (1.3-7.7); Neutrophils % (A) 89 %; Platelet Count 195 k/uL (150-450); RBC 4.34 m/uL (4.30-5.90); RDW 20.1 % (11.5-15.5); WBC 9.6 k/uL (3.8-10.6)
[2018-12-23] MEDS: IPRATROPIUM-ALBUTEROL 3 ML NEB INHALATION SCH ×2 (08:31→12:30)
[2018-12-23 08:35] LABS: Albumin 3.3 g/dL (3.5-5.0); Calcium 9.3 mg/dL (8.4-10.2); Potassium 4.4 mmol/L (3.5-5.1); Total Protein 6.5 g/dL (6.3-8.2)
[2018-12-23 08:59] LABS: Total Bilirubin 13.5 mg/dL (0.2-1.3)
--- NOTE | 2018-12-23 12:39 | P.DS ---
Providers Date of admission: 12/21/18 15:08 Expected date of discharge: 12/23/18 Attending physician: Hector Escoto Consults: 12/21/18 17:21 Consult Physician Routine Consulting Provider: Darryl Moss Consult Reason/Comments: Jaundice Do you want consulting provider notified?: Yes Primary care physician: [facility] Course: Final Diagnoses: (1) Elevated LFTs Current Visit: Yes Status: Acute Code(s): R94.5 - ABNORMAL RESULTS OF LIVER FUNCTION STUDIES SNOMED Code(s): 787976186 (2) Hepatic metastasis Current Visit: Yes Status: Acute Code(s): C78.7 - SECONDARY MALIG NEOPLASM OF LIVER AND INTRAHEPATIC BILE DUCT SNOMED Code(s): 51446963 (3) Hepatomegaly Current Visit: Yes Status: Acute Code(s): R16.0 - HEPATOMEGALY, NOT ELSEWHERE CLASSIFIED SNOMED Code(s): 11059138 (4) Lung cancer Current Visit: Yes Status: Acute Code(s): C34.90 - MALIGNANT NEOPLASM OF UNSP PART OF UNSP BRONCHUS OR LUNG SNOMED Code(s): 379401101 (5) Right upper quadrant abdominal pain Current Visit: Yes Status: Acute Code(s): R10.11 - RIGHT UPPER QUADRANT PAIN SNOMED Code(s): 920178603 (6) CAD (coronary artery disease) Current Visit: No Status: Acute Code(s): I25.10 - ATHSCL HEART DISEASE OF [place] CORONARY ARTERY W/O ANG PCTRS SNOMED Code(s): 32509632 (7) COPD (chronic obstructive pulmonary disease) Current Visit: No Status: Acute Code(s): J44.9 - CHRONIC OBSTRUCTIVE PULMONARY DISEASE, UNSPECIFIED SNOMED Code(s): 40616687 (8) Non-small cell lung cancer (NSCLC) Current Visit: No Status: Acute Code(s): C34.90 - MALIGNANT NEOPLASM OF UNSP PART OF UNSP BRONCHUS OR LUNG SNOMED Code(s): 811630006 (9) T12 compression fracture Current Visit: No Status: Acute Code(s): S22.080A - WEDGE COMPRESSION F RACTURE OF T11-T12 VERTEBRA, INIT SNOMED Code(s): 555164278 Hospital course:Dalton is a 68-year-old white male history of lung carcinoma. He has status post chemotherapy and radiation treatments. He tends to the chemotherapy early she was having significant fatigue. He had some jaundice that was new started several days ago. Had no nausea or vomiting. No chest pains, pressures, shortness breath, hematemesis, or hematochezia. He was being worked up for metastatic lung carcinoma to the liver. 2 mL T's were done on December 13 and December 21, one showing questionable mass, when showing hepatomegaly. He is admitted for further treatment. He is unsure if he wants a more chemotherapy other options. Hematology/oncology and GI on consult. Evaluated by GI, oncology/hematology. No ERCP/MRCP recommended at this time. Xarelto currently on hold as per oncology. Therapeutic paracentesis via interventional radiology ordered. Prognosis/Treatment options discussed by oncologist with family. Patient and family have decided to proceed with hospice. [facility] hospice consulted. Patient being discharged home with hospice today in a stable condition with guarded prognosis. GENERAL: Alert and oriented 3, no acute distress. jaundiced LUNGS: Breath sounds coarse with no active wheezes rales or crackles, is breath sounds on the right side consistent with his lung carcinoma HEART: Regular rate and rhythm without murmurs, rubs or gallops.S1S2 Normal ABDOMEN: Soft, mild right lower quadrant pain with some mild abdominal distention, positive hepatomegaly. NEUROLOGICAL: Cranial nerves II through XII grossly intact. No focal deficits. The impression and plan of care has been dictated as directed. : I performed a history and examination of this patient, discussed the same with the dictator. I agree with the dictator's note ,documented as a scribe. Any additional findings or plans will be noted. Time taken: 35 minutes Patient Condition at Discharge: Stable Plan - Discharge Summary Discharge Rx Participant: No New Discharge Prescriptions: Continue Furosemide [Lasix] 40 mg PO QAM Vit C/E/Zn/Coppr/Lutein/Zeaxan [Preservision Areds 2 Softgel] 1 cap PO BID Allopurinol [Zyloprim] 300 mg PO DAILY Doxazosin [Cardura] 4 mg PO BID Levothyroxine Sodium [Synthroid] 75 mcg PO DAILY Colchicine 0.6 mg PO BID Potassium Bicarbonate/Cit AC [Potassium 25 Meq Tablet Eff] 25 meq PO DAILY guaiFENesin [Mucinex] 1,200 mg PO BID Pantoprazole Sodium [Protonix] 40 mg PO BID Meclizine [Antivert] 25 mg PO TID PRN PRN Reason: DIZZINESS HYDROcodone/APAP 10-325MG [[place] 10-325] 1 tab PO Q4HR PRN PRN Reason: Pain Metoprolol Succinate (ER) [Toprol XL] 50 mg PO HS Albuterol Nebulized [Ventolin Nebulized] 5 mg INHALATION RT-Q6H PRN PRN Reason: Shortness Of Breath Promethaz-Cod 6.25-10 mg/5 ml [Phenergan with Codeine] 5 ml PO Q6HR PRN PRN Reason: Cough Ipratropium-Albuterol Nebulize [Duoneb 0.5 mg-3 mg/3 ml Soln] 3 ml INHALATION RT-TID Discontinued Rivaroxaban [Xarelto] 20 mg PO DAILY Discharge Medication List Furosemide [Lasix] 40 mg PO QAM 02/07/17 [History] Vit C/E/Zn/Coppr/Lutein/Zeaxan [Preservision Areds 2 Softgel] 1 cap PO BID 06/20/17 [History] Allopurinol [Zyloprim] 300 mg PO DAILY 08/25/17 [History] Doxazosin [Cardura] 4 mg PO BID 10/01/17 [History] Colchicine 0.6 mg PO BID 02/20/18 [History] Levothyroxine Sodium [Synthroid] 75 mcg PO DAILY 02/20/18 [History] Potassium Bicarbonate/Cit AC [Potassium 25 Meq Tablet Eff] 25 meq PO DAILY 04/27/18 [History] Pantoprazole Sodium [Protonix] 40 mg PO BID 07/17/18 [History] guaiFENesin [Mucinex] 1,200 mg PO BID 07/17/18 [History] Albuterol Nebulized [Ventolin Nebulized] 5 mg INHALATION RT-Q6H PRN 12/13/18 [History] HYDROcodone/APAP 10-325MG [[place] 10-325] 1 tab PO Q4HR PRN 12/13/18 [History] Meclizine [Antivert] 25 mg PO TID PRN 12/13/18 [History] Metoprolol Succinate (ER) [Toprol XL] 50 mg PO HS 12/13/18 [History] Ipratropium-Albuterol Nebulize [Duoneb 0.5 mg-3 mg/3 ml Soln] 3 ml INHALATION RT-TID 12/21/18 [History] Promethaz-Cod 6.25-10 mg/5 ml [Phenergan with Codeine] 5 ml PO Q6HR PRN 12/21/18 [History] Follow up Appointment(s)/Referral(s): Hector Escoto MD [Primary Care Provider] - As Needed Activity/Diet/Wound Care/Special Instructions: matthew as per Oncology- [facility] Discharge Disposition: HOME WITH HOSPICE
[2018-12-23 12:45] VITALS: PULSE 100
--- NOTE | 2018-12-24 00:51 | P.PN ---
Subjective Progress Note Date: 12/23/18 Generalized weakness persists. He continues to have significant abdominal distention and discomfort. He denied any nausea or vomiting. Appetite is generally diminished. Shortness of breath with exertion continues Objective - Vital Signs Vital signs: Vital Signs Temp 97.5 F L 12/23/18 05:00 Pulse 100 12/23/18 12:45 Resp 18 12/23/18 08:10 BP 99/62 12/23/18 05:00 Pulse Ox 97 12/23/18 05:00 Intake & Output 12/23/18 12/23/18 12/24/18 06:59 18:59 06:59 Intake Total 710 Balance 710 Intake: Intake, IV Titration 50 Amount cefTRIAXone 1 gm In 50 Sodium Chloride 0.9% 50 ml @ 100 mls/hr IVPB Q24HR [facility] Rx#:[id number] Oral 660 Other: # Voids 2 - Constitutional General appearance: Present: no acute distress - EENT Eyes: Present: EOMI ENT: Present: hearing grossly normal, normal oropharynx - Respiratory Respiratory: bilateral: diminished - Cardiovascular Rhythm: regular Heart sounds: normal: S1, S2 - Gastrointestinal General gastrointestinal: Present: decreased bowel sounds, distended Localized gastrointestinal: tender: RUQ - Integumentary Integumentary: Present: jaundiced - Neurologic Neurologic: Present: CNII-XII intact - Musculoskeletal Musculoskeletal: Present: generalized weakness, strength equal bilaterally - Psychiatric Psychiatric: Present: A&O x's 3, appropriate affect - Labs CBC & Chem 7: 12/23/18 07:58 12/23/18 07:58 Labs: Abnormal Lab Results - Last 24 Hours (Table) 12/23/18 12/23/18 Range/Units 07:58 07:58 RDW 20.1 H (11.5-15.5) % Neutrophils # 8.5 H (1.3-7.7) k/uL Lymphocytes # 0.5 L (1.0-4.8) k/uL Sodium 135 L (137-145) mmol/L Chloride 93 L (98-107) mmol/L BUN 44 H (9-20) mg/dL Creatinine 1.73 H (0.66-1.25) mg/dL Glucose 117 H (74-99) mg/dL Total Bilirubin 13.5 H (0.2-1.3) mg/dL AST 279 H (17-59) U/L ALT 166 H (21-72) U/L Alkaline Phosphatase 630 H (38-126) U/L Albumin 3.3 L (3.5-5.0) g/dL Assessment and Plan (1) Jaundice Narrative/Plan: Persistent, with some progression with bilirubin 13.5 today. Due to diffuse hepatocellular involvement with metastatic cancer Status: Acute Code(s): R17 - UNSPECIFIED JAUNDICE SNOMED Code(s): 62806608 (2) Hepatic metastasis Status: Acute Code(s): C78.7 - SECONDARY MALIG NEOPLASM OF LIVER AND INTRAHEPATIC BILE DUCT SNOMED Code(s): 05594303 (3) Lung cancer Narrative/Plan: The patient has progressive lung cancer, with especially aggressive disease affecting the liver. He has had marked elevation of liver enzymes and bilirubin with further increase noted today. In addition creatinine today is also increased from before. The case was discussed with his primary oncologist, Dr. Moss, who agreed that the patient's prognosis was quite guarded and the chances of benefit from active treatment would likely be quite small I again had a long discussion with him and his family regarding management options, and prognosis with and without treatment. It was reiterated that active treatment in this situation would likely have about a 20% chance of effectiveness, an average improvement in life expectancy in the range of about 2 months. Due to marked decline in hepatic function, he would be at increased risk for side effects. Again had several questions about treatment options, as well as comfort care which were answered in detail. After discussion, the patient indicated that he would like to pursue comfort care. Hospice consult was requested. Status: Acute Code(s): C34.90 - MALIGNANT NEOPLASM OF UNSP PART OF UNSP BRONCHUS OR LUNG SNOMED Code(s): 806230613
== END 2018-12-23 17:15 | disposition hospice, home (50) | DRG 436 ==
LOC: EC 10:25 → 3NMEDONC 15:08
PROVIDERS: ADMIT Family Medicine; ATTEND Family Medicine
DX: C78.7 Secondary malignant neoplasm of liver and intrahepatic bile duct (principal); S22.089A Unspecified fracture of T11-T12 vertebra, initial encounter for closed fracture; C34.11 Malignant neoplasm of upper lobe, right bronchus or lung; J90 Pleural effusion, not elsewhere classified; N39.0 Urinary tract infection, site not specified; R18.8 Other ascites; Z87.891 Personal history of nicotine dependence; E78.5 Hyperlipidemia, unspecified; G47.30 Sleep apnea, unspecified; Z99.89 Dependence on other enabling machines and devices; Z99.81 Dependence on supplemental oxygen; I10 Essential (primary) hypertension; I25.10 Atherosclerotic heart disease of native coronary artery without angina pectoris; J44.9 Chronic obstructive pulmonary disease, unspecified; Z51.5 Encounter for palliative care; Z66 Do not resuscitate; K21.9 Gastro-esophageal reflux disease without esophagitis; R13.10 Dysphagia, unspecified; Z79.01 Long term (current) use of anticoagulants; Z79.890 Hormone replacement therapy; Z79.899 Other long term (current) drug therapy; Z82.49 Family history of ischemic heart disease and other diseases of the circulatory system; Z86.711 Personal history of pulmonary embolism; Z87.442 Personal history of urinary calculi; Z88.0 Allergy status to penicillin; Z92.21 Personal history of antineoplastic chemotherapy; Z92.3 Personal history of irradiation; M10.9 Gout, unspecified; K44.9 Diaphragmatic hernia without obstruction or gangrene; Z98.41 Cataract extraction status, right eye
CPT/HCPCS: 36415; 70491; 71046; 74176; 76705; 80048; 80053; 80074; 80076; 81001; 82105; 83690; 83880; 84484; 85025; 85610; 87077; 87086; 87186; 93005; 94640; 96374; 96375; 99285